=== PATIENT | female | born 1950 ===

== ENCOUNTER 2017-09-30 18:27 | Inpatient (IN) | payer MEDICARE, OTHER ==
[2017-09-30 20:17] LABS: BASO # 0.1 K/uL (0.0-0.2); EOS # 0.1 K/uL (0.0-0.7); EOS % 1.5 % (0.0-4.0); HEMOGLOBIN 12.7 g/dL (11.0-16.0); LYMPH # 2.2 K/uL (1.0-4.3); LYMPH % 23.2 % (20.0-40.0); MEAN CELL VOLUME 98.6 fL (81.0-99.0); MEAN CORPUSCULAR HEMOGLOBIN 32.9 pg (27.0-31.0); MEAN CORPUSCULAR HGB CONC 33.3 g/dL (33.0-37.0); MONO # 0.9 K/uL (0.0-0.8); MONO % 9.3 % (0.0-10.0); RBC 3.86 Mil/uL (3.80-5.20); RED CELL DISTRIBUTION WIDTH 13.7 % (11.5-14.5); WHITE BLOOD COUNT 9.3 K/uL (4.8-10.8)
[2017-09-30 20:28] LABS: ALB/GLOB RATIO 1.1 (1.0-2.1); ALBUMIN 3.9 g/dL (3.5-5.0); ALT/SGPT 42 U/L (9-52); AST/SGOT 25 U/L (14-36); BLOOD UREA NITROGEN 12 mg/dL (7-17); CALCIUM 8.1 mg/dl (8.6-10.4); GFR AFRICAN-AMERICAN > 60; GFR NON-AFRICAN AMERICAN > 60
--- NOTE | 2017-09-30 21:38 | C.PDOC ---
History Of Present Illness Pt was sent from the group home due to worsening abdominal distension. Time Seen by Provider: 09/30/17 20:10 Chief Complaint (Nursing): Abdominal Pain History Per: Patient, Family (Son), Other ([facility] records) History/Exam Limitations: clinical condition Onset/Duration Of Symptoms: Days (about 1 month), Gradual Current Symptoms Are (Timing): Worse Severity: Severe Location Of Pain/Discomfort: Diffuse Quality Of Discomfort: Other (Distension) Associated Symptoms: Constipation (?) Alleviating Factors: None Additional History Per: [facility], Prior Records Past Medical History Reviewed: Historical Data, Nursing Documentation, Vital Signs Vital Signs: Last Vital Signs Temp 98.2 F 09/30/17 18:35 Pulse 65 09/30/17 18:35 Resp 20 09/30/17 18:35 BP 110/63 09/30/17 18:35 Pulse Ox 98 09/30/17 21:39 - Medical History PMH: Dementia, Depression (major), Seizures Other Surgeries: Brain surgery due to aneurysm. PEG tube. Family History: States: Unknown Family Hx - Social History Hx Alcohol Use: No Hx Substance Use: No - Immunization History Hx Tetanus Toxoid Vaccination: No Hx Influenza Vaccination: No Hx Pneumococcal Vaccination: No Review Of Systems Review Of Systems: ROS cannot be obtained secondary to pt's inabilty to answer questions. Physical Exam - Physical Exam Appears: No Acute Distress, Confused (baseline), Chronically Ill Skin: Normal Color, Warm, Dry Head: Atraumatic Eye(s): bilateral: PERRL Neck: Normal ROM, Supple Cardiovascular: Rhythm Regular Respiratory: Normal Breath Sounds, No Accessory Muscle Use Gastrointestinal/Abdominal: Distention, Other (PEG tube in place) Extremity: Normal ROM Disoriented To: Person, Place, Time ED Course And Treatment - Laboratory Results Result Diagrams: 09/30/17 20:14 09/30/17 20:14 Lab Interpretation: No Acute Changes O2 Sat by Pulse Oximetry: 98 Pulse Ox Interpretation: Normal Progress Note: Pt had and outpt CT scan 2 days ago that showed fluid filled recto-sigmoid region with massive gaseous distension of the colon. Disposition Discussed With : Mat Lo (Covering) Comment: He accepted pt on his service. Doctor Will See Patient In The: Hospital Counseled Patient/Family Regarding: Studies Performed, Diagnosis - Disposition Disposition: HOSPITALIZED Disposition Time: 21:41 Condition: FAIR - Clinical Impression Clinical Impression: Abdominal distension, Colon distention
[2017-09-30] MEDS ORDERED: Sodium Chloride 0.9% 1,000 ML IV ONE (21:50)
[2017-09-30] MEDS ORDERED: Sodium Chloride 0.9% 1,000 ML ONE (22:57)
[2017-10-01] MEDS ORDERED: Acetaminophen 650mg/20.3ml solution UD GT PRN (01:11)
[2017-10-01] MEDS ORDERED: Magnesium Hydroxide Susp 30 ml UD GT PRN (01:11)
[2017-10-01] MEDS: Sodium Chloride 0.9% 1,000 ML IV SCH ×2 (09:00→20:12)
[2017-10-01] MEDS ORDERED: Sodium Chloride 0.9% 1,000 ML ONE (09:14)
--- NOTE | 2017-10-01 09:23 | CP.PCM.CON ---
<Lamont Sargent - Last Filed: 10/01/17 14:00> History of Present Illness - History of Present Illness History of Present Illness: General Surgery Note for Dr. Ramsey Reason for consult: abdominal pain, dilated colon on previous CT 67 F with PMH that includes s/p cva with residual r hemiparesis and difficulty swallowing s/p PEG tube presents to [facility] ED for complaint of abdominal pain. Patient is poor historian only answering questions by shaking head and saying no so history was provided by her son who was at bedside. As per son, patient has been having pain and distention in her abdomen for about 1 month. He reports that pain has been gradually getting worse. He states patient had CT abdomen/pelvis 2 days ago which showed distention of her colon. He states that her pain is severe and located diffusely in her abdomen. ROS unobtainable due to clinical condition and lack of cooperation. PMH: s/p cva with residual r hemiparesis and difficulty swallowing, Dementia, Depression, Seizures, history of brain aneurysm Meds: As per EMR Allergy: NKDA PSH: PEG feeding tube, surgery fro brain aneurysm FH: unknown Social: As per son, denies EtOH/illicit drug use in past Review of Systems - Review of Systems Systems not reviewed;Unavailable: Acuity of Condition, Uncooperative Past Patient History - Past Social History Smoking Status: Never Smoked - NEUROLOGICAL Hx Dementia: Yes Hx Seizures: Yes - INTEGUMENTARY Other/Comment: cellulitis - GASTROINTESTINAL Other/Comment: gastrostomy - PSYCHIATRIC Hx Depression: Yes (major) Hx Substance Use: No - ANESTHESIA Hx Anesthesia: No Hx Anesthesia Reactions: No Meds Allergies/Adverse Reactions: Allergies Allergy/AdvReac Type Severity Reaction Status Date / Time No Known Allergies Allergy Unverified 09/30/17 20:11 - Medications Medications: Current Medications Acetaminophen (Tylenol 650mg/20.3ml Solution Ud) 650 mg GT Q4H PRN PRN Reason: Pain, Mild (1-3) Amlodipine Besylate (Norvasc) 5 mg GT DAILY [facility] Aspirin (Aspirin Chewable) 81 mg GT DAILY [facility] Donepezil HCl (Aricept) 5 mg GT HS [facility] Sodium Chloride (Sodium Chloride 0.9%) 1,000 mls @ 100 mls/hr IV .Q10H [facility] Levetiracetam (Keppra) 500 mg GT BID [facility] Magnesium Hydroxide (Milk Of Magnesia) 30 ml GT Q24H PRN PRN Reason: Constipation Sertraline HCl (Zoloft) 50 mg PO DAILY [facility] Physical Exam - Constitutional Appears: No Acute Distress, Chronically Ill (s/p cva) - Head Exam Head Exam: ATRAUMATIC, NORMOCEPHALIC - Eye Exam Eye Exam: EOMI, Normal appearance Pupil Exam: PERRL - ENT Exam ENT Exam: Mucous Membranes Moist - Respiratory Exam Respiratory Exam: NORMAL BREATHING PATTERN - Cardiovascular Exam Cardiovascular Exam: REGULAR RHYTHM - GI/Abdominal Exam GI & Abdominal Exam: Distended, Guarding (voluntary), Soft, Tenderness (diffuse) . absent: Firm, Rebound, Rigid Additional comments: PEG tube in place - Extremities Exam Additional comments: s/p cva with residual r hemiparesis - Neurological Exam Neurological exam: Alert Additional comments: patient is alert, awake but was not answering all questions, mainly saying no s/p cva with residual r hemiparesis Full neuro exam not evaluated due to patient being uncooperative - Psychiatric Exam Psychiatric exam: Agitated - Skin Skin Exam: Dry, Intact, Normal Color, Warm Results - Vital Signs Recent Vital Signs: Last Vital Signs Temp 98.3 F 10/01/17 06:25 Pulse 68 10/01/17 06:25 Resp 16 10/01/17 06:25 BP 124/68 10/01/17 06:25 Pulse Ox 95 10/01/17 06:25 - Labs Result Diagrams: 09/30/17 20:14 09/30/17 20:14 Labs: Laboratory Results - last 24 hr 09/30/17 09/30/17 20:14 20:14 WBC 9.3 RBC 3.86 Hgb 12.7 Hct 38.1 MCV 98.6 MCH 32.9 H MCHC 33.3 RDW 13.7 Plt Count 225 MPV 10.0 Neut % (Auto) 65.0 Lymph % (Auto) 23.2 [place] % (Auto) 9.3 Eos % (Auto) 1.5 Baso % (Auto) 1.0 Neut # 6.0 Lymph # 2.2 [place] # 0.9 H Eos # 0.1 Baso # 0.1 Sodium 134 Potassium 3.4 L Chloride 97 L Carbon Dioxide 28 Anion Gap 11 BUN 12 Creatinine 0.5 L Est GFR ( Amer) > 60 Est GFR (Non-Af Amer) > 60 Random Glucose 93 Calcium 8.1 L Total Bilirubin 0.5 AST 25 ALT 42 Alkaline Phosphatase 65 Total Protein 7.4 Albumin 3.9 Globulin 3.5 Albumin/Globulin Ratio 1.1 Assessment & Plan - Assessment and Plan (Free Text) Plan: 67 F with abdominal pain and dilated colon on CT from 2 days ago -NPO -NG tube and PEG tube to wall suction -IV fluids -Analgesics/Anti-emetics PRN -DVT/GI ppx -Serial abdominal exams -Monitor for bowel function -Discussed with Dr. Braulio Sargent PGY1 <Jorge Ramsey B - Last Filed: 10/05/17 19:42> Meds - Medications Medications: Current Medications Acetaminophen (Tylenol 650mg/20.3ml Solution Ud) 650 mg GT Q4H PRN PRN Reason: Pain, Mild (1-3) Amlodipine Besylate (Norvasc) 5 mg GT DAILY [facility] Last Admin: 10/05/17 10:41 Dose: Not Given Donepezil HCl (Aricept) 5 mg GT HS [facility] Last Admin: 10/04/17 22:25 Dose: Not Given Metronidazole (Flagyl) 500 mg in 100 mls @ 100 mls/hr IVPB Q8 [facility] Last Admin: 10/05/17 14:00 Dose: 100 mls/hr Ceftriaxone Sodium 1 gm/ (Sodium Chloride) 100 mls @ 100 mls/hr IVPB Q12H [facility] Last Admin: 10/05/17 17:42 Dose: 100 mls/hr Levetiracetam 500 mg/ Sodium (Chloride) 105 mls @ 420 mls/hr IVPB Q12H [facility] Last Admin: 10/05/17 10:40 Dose: 420 mls/hr Dextrose/Sodium Chloride (Dextrose 5%/0.45% Ns 1000 Ml) 1,000 mls @ 80 mls/hr IV .[id number] [facility] Last Admin: 10/05/17 13:38 Dose: 80 mls/hr Levetiracetam (Keppra) 500 mg GT BID [facility] Last Admin: 10/02/17 12:00 Dose: Not Given Magnesium Hydroxide (Milk Of Magnesia) 30 ml GT Q24H PRN PRN Reason: Constipation Pantoprazole Sodium (Protonix Inj) 40 mg IVP DAILY [facility] Last Admin: 10/05/17 10:18 Dose: 40 mg Potassium Chloride (Potassium Chloride Oral Soln) 40 meq PEG DAILY [facility] Last Admin: 10/05/17 15:27 Dose: 40 meq Sertraline HCl (Zoloft) 50 mg PO DAILY [facility] Last Admin: 10/05/17 10:42 Dose: Not Given Vitamin A (Vitamin A & D Oint Ud Foilpak) 0.5 ea TOP Q4 [facility] Last Admin: 10/05/17 17:43 Dose: 0.5 ea Results - Vital Signs Recent Vital Signs: Last Vital Signs Temp 97.5 F L 10/05/17 16:00 Pulse 78 10/05/17 16:00 Resp 20 10/05/17 16:00 BP 131/51 L 10/05/17 16:00 Pulse Ox 96 10/05/17 16:00 - Labs Result Diagrams: 10/05/17 11:28 10/05/17 11:28 Labs: Laboratory Results - last 24 hr 10/05/17 10/05/17 11:28 11:28 WBC 5.4 RBC 3.66 L Hgb 12.1 Hct 35.7 MCV 97.7 MCH 33.1 H MCHC 33.9 RDW 13.7 Plt Count 214 MPV 10.1 Sodium 137 Potassium 2.7 L Chloride 105 Carbon Dioxide 26 Anion Gap 8 L BUN < 2 L Creatinine 0.5 L Est GFR ( Amer) > 60 Est GFR (Non-Af Amer) > 60 Random Glucose 134 H Calcium 7.0 L Total Bilirubin 0.3 AST 36 D ALT 38 Alkaline Phosphatase 45 Total Protein 5.8 L Albumin 3.0 L Globulin 2.8 Albumin/Globulin Ratio 1.1 Attending/Attestation - Attestation I have personally seen and examined this patient.: Yes I have fully participated in the care of the patient.: Yes I have reviewed all pertinent clinical information: Yes Notes (Text): Pt was seen and examined at bedside Agree with above note and assessment Pt with Abdominal distention and tenderness Abdomen : Tender, Tympanic and distended Labs and radiology reviewed GI consult Rectal tube placement C/w current mx Plan d.w primary team in detail Risk and benefit explained in detail
[2017-10-01] MEDS: levETIRAcetam 100 mg/ml (5ml) Oral Syringe GT SCH ×2 (10:00→18:31)
--- NOTE | 2017-10-01 13:35 | CP.PCM.HP ---
Past Patient History - Past Social History Smoking Status: Never Smoked - NEUROLOGICAL Hx Dementia: Yes Hx Seizures: Yes - INTEGUMENTARY Other/Comment: cellulitis - GASTROINTESTINAL Other/Comment: gastrostomy - PSYCHIATRIC Hx Depression: Yes (major) Hx Substance Use: No - ANESTHESIA Hx Anesthesia: No Hx Anesthesia Reactions: No Meds Allergies/Adverse Reactions: Allergies Allergy/AdvReac Type Severity Reaction Status Date / Time No Known Allergies Allergy Unverified 09/30/17 20:11 Results - Vital Signs Recent Vital Signs: Last Vital Signs Temp 97.7 F 10/01/17 13:08 Pulse 67 10/01/17 13:08 Resp 18 10/01/17 13:08 BP 121/68 10/01/17 13:08 Pulse Ox 97 10/01/17 13:08 - Labs Result Diagrams: 09/30/17 20:14 09/30/17 20:14 Labs: Laboratory Results - last 24 hr 09/30/17 09/30/17 20:14 20:14 WBC 9.3 RBC 3.86 Hgb 12.7 Hct 38.1 MCV 98.6 MCH 32.9 H MCHC 33.3 RDW 13.7 Plt Count 225 MPV 10.0 Neut % (Auto) 65.0 Lymph % (Auto) 23.2 [place] % (Auto) 9.3 Eos % (Auto) 1.5 Baso % (Auto) 1.0 Neut # 6.0 Lymph # 2.2 [place] # 0.9 H Eos # 0.1 Baso # 0.1 Sodium 134 Potassium 3.4 L Chloride 97 L Carbon Dioxide 28 Anion Gap 11 BUN 12 Creatinine 0.5 L Est GFR ( Amer) > 60 Est GFR (Non-Af Amer) > 60 Random Glucose 93 Calcium 8.1 L Total Bilirubin 0.5 AST 25 ALT 42 Alkaline Phosphatase 65 Total Protein 7.4 Albumin 3.9 Globulin 3.5 Albumin/Globulin Ratio 1.1
[2017-10-01] MEDS: metroNIDAZOLE IV 500 mg/100 ml 500 MG/100 ML BAG IVPB SCH ×2 (18:31→22:14)
[2017-10-02] MEDS: metroNIDAZOLE IV 500 mg/100 ml 500 MG/100 ML BAG IVPB SCH ×3 (05:13→22:49)
[2017-10-02 08:04] VITALS: RESP 20
--- NOTE | 2017-10-02 08:07 | CON ---
DATE: 10/01/2017 HISTORY OF PRESENT ILLNESS: I was called for a GI consultation by the admitting medical team as well as the ER physician. Patient is seen and fully examined on 10/01/2017, as requested by the admitting MD, seen and examined in the presence of her son as well as the nursing staff in the emergency room. The entire chart is reviewed including, but not limited to the most recent lab and radiology study results, current and previous medication lists, current and previous medical events, allergy to medication list as well as all the available current and the previous medical records. Case was discussed with the staff at length. HISTORY OF PRESENT ILLNESS: This is a 67-year-old female who was admitted to the hospital from a [facility] due to abdominal distention, more bowel movements , abdominal pain and tenderness, but no reported chest pain or palpitation. According to the record and family members, the last bowel movement reported to be about 5 to 6 days ago. It has to be mentioned that due to patient's dementia, all the information obtained from old record, fdc staff nurse as well as family members at bedside. PAST MEDICAL HISTORY: Including, but not limited to: 1. Seizure disorder. 2. Major depression. 3. Recently reported dementia. 4. Brain aneurysm, treated surgically. 5. Dysphagia, malnutrition and status post PEG insertion before. FAMILY HISTORY: Unknown. SOCIAL HISTORY: No reported recent history of cigarette smoking or alcohol intake. ALLERGY TO MEDICATIONS: UNCLEAR. CURRENT MEDICATIONS: Medication list was reviewed post admission. LABORATORY DATA: After being admitted to the hospital, patient's initial blood workup showed low potassium of 3.4, low creatinine of 0.5 with normal hemoglobin and hematocrit and normal white blood cells. It has to be mentioned that the patient initially was seen also by the surgical services coordinator per record. Extremities without significant clubbing, cyanosis, or edema. No reported new neurological deficits, sensory or motor. It has to be mentioned that the patient still has a PEG tube with clear distention and hypoactive bowel sounds. PEG tube was as per my order opened against gravity for the patient to be decompressed due to the reported abnormal CAT scan of abdomen and pelvis. In the official report of CAT scan, the abdomen and pelvis are seen indicative of possible . PHYSICAL EXAMINATION: GENERAL: A 67-year-old female, nonverbal at the time she was seen by me. VITAL SIGNS: Afebrile with a pulse of 68, respiratory 20 to 22, blood pressure 116/66. HEENT: Showed mildly pale and dry mucous membrane. LYMPH NODES: No lymphadenitis or lymphadenopathy. LUNGS: A few scattered crepitation. Decreased air entry at the bases. HEART: Positive S1 and S2. ABDOMEN: Soft. Bowel sounds are present. PEG tube is in place with abdominal distention from with hypoactive bowel sounds. EXTREMITIES: Lower extremity with mild edematous changes. No clubbing or cyanosis. NEUROLOGIC: Again, no reported new neurological deficits, sensory or motor. IMPRESSION: 1. Abnormal CAT scan of the abdomen and pelvis. The possibility of occult lower gastrointestinal mass lesion should be ruled in or out versus less likely fecal impaction. 2. Dilated large bowel by radiological study results, again the possibility of fecal impaction was raised. 3. Past medical history including, but not limited to, depression, seizure disorder, brain surgery, renal insufficiency. SUGGESTIONS: 1. Agree with your plan. 2. Open PEG tube to be against gravity. 3. Repeat sectional abdominal and pelvic CAT scan. 4. Complete stool analysis. 5. Rectal tube. 6. Cancer markers including CEA, CA 19-9 as well as CA125. 7. Proton pump inhibitor IV. 8. Hold any PEG feeding for now, and the patient will need in the meantime central hyperalimentation. Then subsequently, colonoscopy post cleanings, only as needed, otherwise close observation to follow. 9. . 10. conservative treatment is preferred at this time. Thank you for letting me participate in your patient's case management. Further recommendation to follow. Lidia Lam MD
[2017-10-02] MEDS: levETIRAcetam 500 MG in Sodium Chloride 0.9% 100 ML IVPB SCH ×2 (11:58→23:46)
[2017-10-02] MEDS: levETIRAcetam 100 mg/ml (5ml) Oral Syringe GT SCH (12:00)
--- NOTE | 2017-10-02 12:26 | CP.PCM.PN ---
Subjective - Date & Time of Evaluation Date of Evaluation: 10/02/17 Time of Evaluation: 12:26 Objective - Vital Signs/Intake and Output Vital Signs (last 24 hours): Temp Pulse Resp BP Pulse Ox 97.6 F 65 20 118/61 96 10/02/17 08:01 10/02/17 08:01 10/02/17 08:01 10/02/17 08:01 10/02/17 08:01 Intake and Output: 10/02/17 10/02/17 06:59 18:59 Output Total 250 Balance -250 - Medications Medications: Current Medications Acetaminophen (Tylenol 650mg/20.3ml Solution Ud) 650 mg GT Q4H PRN PRN Reason: Pain, Mild (1-3) Amlodipine Besylate (Norvasc) 5 mg GT DAILY [facility] Last Admin: 10/02/17 12:00 Dose: Not Given Aspirin (Aspirin Chewable) 81 mg GT DAILY [facility] Last Admin: 10/02/17 12:00 Dose: Not Given Donepezil HCl (Aricept) 5 mg GT HS [facility] Last Admin: 10/01/17 22:10 Dose: Not Given Sodium Chloride (Sodium Chloride 0.9%) 1,000 mls @ 100 mls/hr IV .Q10H [facility] Last Admin: 10/01/17 20:12 Dose: 100 mls/hr Metronidazole (Flagyl) 500 mg in 100 mls @ 100 mls/hr IVPB Q8 [facility] Last Admin: 10/02/17 05:13 Dose: 100 mls/hr Ceftriaxone Sodium 1 gm/ (Sodium Chloride) 100 mls @ 100 mls/hr IVPB Q12H [facility] Last Admin: 10/02/17 05:15 Dose: 100 mls/hr Levetiracetam 500 mg/ Sodium (Chloride) 105 mls @ 420 mls/hr IVPB Q12H [facility] Last Admin: 10/02/17 11:58 Dose: 420 mls/hr Levetiracetam (Keppra) 500 mg GT BID [facility] Last Admin: 10/02/17 12:00 Dose: Not Given Magnesium Hydroxide (Milk Of Magnesia) 30 ml GT Q24H PRN PRN Reason: Constipation Pantoprazole Sodium (Protonix Inj) 40 mg IVP DAILY [facility] Last Admin: 10/02/17 11:22 Dose: 40 mg Sertraline HCl (Zoloft) 50 mg PO DAILY [facility] Last Admin: 10/02/17 12:01 Dose: Not Given - Labs Labs: 09/30/17 20:14 09/30/17 20:14
--- NOTE | 2017-10-02 14:02 | PN ---
DATE: LOCATION: [facility], bed A. SUBJECTIVE: This is a 67-year-old female, seen in rounds for GI consultation yesterday. The entire chart is reviewed including, but not limited to the most recent lab and radiology study results, current and the previous medication list, current and the previous medical events. Case discussed with the staff. The patient with period of confusion and mild disorientation, was still with mildly distended abdomen despite the rectal tube is in place and opened PEG tube against gravity. No reported active bleeding. PHYSICAL EXAMINATION: GENERAL: A 67-year-old female. VITAL SIGNS: Afebrile, with pulse of 66, respiratory rate 20 to 22, blood pressure 122/64. HEENT: Showed mildly pale, dry oral mucous membrane. Nonicteric sclerae. LYMPH NODES: No lymphadenitis or lymphadenopathy. LUNGS: With a few scattered crepitation. Decreased air entry at bases. HEART: Positive S1 and S2. ABDOMEN: PEG tube is in place, opened to gravity, with mild to moderate distention. Bowel sounds are hypoactive. No mass or organomegaly. RECTAL: Rectal tube is in place, with yellowish soft fecal material. NEUROLOGIC: No reported significant neurological deficits, new, motor or sensory. LABORATORY DATA: The most recent lab results is seen indicative of normal CBC, with low potassium, low creatinine and low calcium. No radiology study results . IMPRESSION: 1. Abdominal distention with possible distal large bowel obstruction versus ileus formation. 2. Known history of dementia with depression as well as seizure disorder by record. 3. Status post percutaneous endoscopic gastrostomy insertion. 4. Electrolyte imbalance with hypokalemia. SUGGESTIONS: 1. Agree with your plan. 2. Flat and upright abdominal x-ray, . 3. Rehydration. 4. Cancer markers. Further evaluation to follow and the patient may need endoscopic evaluation of the lower GI tract pending the outcome of the radiology study results. Lidia Lam MD
--- NOTE | 2017-10-02 14:34 | CP.PCM.PN ---
<Lamont Sargent - Last Filed: 10/02/17 15:37> Subjective - Date & Time of Evaluation Date of Evaluation: 10/02/17 Time of Evaluation: 12:00 - Subjective Subjective: General Surgery Note for Dr. Ramsey Patient seen and examined at bedside. No acute event overnight. Patient has rectal tube in place. Patient still has some pain. ROS unobtainable due to clinical status. Objective - Vital Signs/Intake and Output Vital Signs (last 24 hours): Temp Pulse Resp BP Pulse Ox 97.6 F 65 20 118/61 96 10/02/17 08:01 10/02/17 08:01 10/02/17 08:01 10/02/17 08:01 10/02/17 08:01 Intake and Output: 10/02/17 10/02/17 06:59 18:59 Output Total 250 Balance -250 - Medications Medications: Current Medications Acetaminophen (Tylenol 650mg/20.3ml Solution Ud) 650 mg GT Q4H PRN PRN Reason: Pain, Mild (1-3) Amlodipine Besylate (Norvasc) 5 mg GT DAILY [facility] Last Admin: 10/02/17 12:00 Dose: Not Given Aspirin (Aspirin Chewable) 81 mg GT DAILY [facility] Last Admin: 10/02/17 12:00 Dose: Not Given Donepezil HCl (Aricept) 5 mg GT HS [facility] Last Admin: 10/01/17 22:10 Dose: Not Given Sodium Chloride (Sodium Chloride 0.9%) 1,000 mls @ 100 mls/hr IV .Q10H [facility] Last Admin: 10/01/17 20:12 Dose: 100 mls/hr Metronidazole (Flagyl) 500 mg in 100 mls @ 100 mls/hr IVPB Q8 [facility] Last Admin: 10/02/17 13:30 Dose: 100 mls/hr Ceftriaxone Sodium 1 gm/ (Sodium Chloride) 100 mls @ 100 mls/hr IVPB Q12H [facility] Last Admin: 10/02/17 05:15 Dose: 100 mls/hr Levetiracetam 500 mg/ Sodium (Chloride) 105 mls @ 420 mls/hr IVPB Q12H [facility] Last Admin: 10/02/17 11:58 Dose: 420 mls/hr Levetiracetam (Keppra) 500 mg GT BID [facility] Last Admin: 10/02/17 12:00 Dose: Not Given Magnesium Hydroxide (Milk Of Magnesia) 30 ml GT Q24H PRN PRN Reason: Constipation Pantoprazole Sodium (Protonix Inj) 40 mg IVP DAILY [facility] Last Admin: 10/02/17 11:22 Dose: 40 mg Sertraline HCl (Zoloft) 50 mg PO DAILY [facility] Last Admin: 10/02/17 12:01 Dose: Not Given - Labs Labs: 09/30/17 20:14 09/30/17 20:14 - Constitutional Appears: No Acute Distress - Head Exam Head Exam: ATRAUMATIC, NORMOCEPHALIC - Eye Exam Eye Exam: Normal appearance - ENT Exam ENT Exam: Mucous Membranes Moist - Respiratory Exam Respiratory Exam: NORMAL BREATHING PATTERN - Cardiovascular Exam Cardiovascular Exam: REGULAR RHYTHM - GI/Abdominal Exam GI & Abdominal Exam: Distended (mild), Soft, Tenderness Additional comments: PEG TUBE in place - Neurological Exam Neurological Exam: Alert, Awake Additional comments: s/p cva with residual hemiparesis - Psychiatric Exam Psychiatric exam: Flat Affect - Skin Skin Exam: Dry, Intact, Normal Color, Warm Assessment and Plan - Assessment and Plan (Free Text) Plan: 67 F with abdominal pain and dilated colon on previous CT -NPO -IV fluids -Analgesics/Anti-emetics PRN -DVT/GI ppx -Serial abdominal exams -Monitor for bowel function -Discussed with Dr. Braulio Sargent PGY1 <Jorge Ramsey - Last Filed: 10/05/17 19:43> Objective - Vital Signs/Intake and Output Vital Signs (last 24 hours): Temp Pulse Resp BP Pulse Ox 97.5 F L 78 20 131/51 L 96 10/05/17 16:00 10/05/17 16:00 10/05/17 16:00 10/05/17 16:00 10/05/17 16:00 Intake and Output: 10/05/17 10/06/17 18:59 06:59 Intake Total 640 Output Total 100 Balance 540 - Medications Medications: Current Medications Acetaminophen (Tylenol 650mg/20.3ml Solution Ud) 650 mg GT Q4H PRN PRN Reason: Pain, Mild (1-3) Amlodipine Besylate (Norvasc) 5 mg GT DAILY [facility] Last Admin: 10/05/17 10:41 Dose: Not Given Donepezil HCl (Aricept) 5 mg GT HS [facility] Last Admin: 10/04/17 22:25 Dose: Not Given Metronidazole (Flagyl) 500 mg in 100 mls @ 100 mls/hr IVPB Q8 [facility] Last Admin: 10/05/17 14:00 Dose: 100 mls/hr Ceftriaxone Sodium 1 gm/ (Sodium Chloride) 100 mls @ 100 mls/hr IVPB Q12H [facility] Last Admin: 10/05/17 17:42 Dose: 100 mls/hr Levetiracetam 500 mg/ Sodium (Chloride) 105 mls @ 420 mls/hr IVPB Q12H [facility] Last Admin: 10/05/17 10:40 Dose: 420 mls/hr Dextrose/Sodium Chloride (Dextrose 5%/0.45% Ns 1000 Ml) 1,000 mls @ 80 mls/hr IV .[id number] [facility] Last Admin: 10/05/17 13:38 Dose: 80 mls/hr Levetiracetam (Keppra) 500 mg GT BID [facility] Last Admin: 10/02/17 12:00 Dose: Not Given Magnesium Hydroxide (Milk Of Magnesia) 30 ml GT Q24H PRN PRN Reason: Constipation Pantoprazole Sodium (Protonix Inj) 40 mg IVP DAILY [facility] Last Admin: 10/05/17 10:18 Dose: 40 mg Potassium Chloride (Potassium Chloride Oral Soln) 40 meq PEG DAILY [facility] Last Admin: 10/05/17 15:27 Dose: 40 meq Sertraline HCl (Zoloft) 50 mg PO DAILY [facility] Last Admin: 10/05/17 10:42 Dose: Not Given Vitamin A (Vitamin A & D Oint Ud Foilpak) 0.5 ea TOP Q4 [facility] Last Admin: 10/05/17 17:43 Dose: 0.5 ea - Labs Labs: 10/05/17 11:28 10/05/17 11:28 Attending/Attestation - Attestation I have personally seen and examined this patient.: Yes I have fully participated in the care of the patient.: Yes I have reviewed all pertinent clinical information, including history, physical exam and plan: Yes Notes (Text): Pt was seen and examined at bedside Agree with above note and assessment Pt with Abdominal distention and tenderness Rectal tube placement Correct electrolytes C.w current mx GI consult appreciated Plan d.w primary team in detail We will f.u
[2017-10-02] MEDS: Dextrose 5%/0.45% NS 1,000 ML IV SCH (16:12)
[2017-10-02 17:02] LABS: HEMOGLOBIN 12.3 g/dL (11.0-16.0); MEAN CELL VOLUME 98.2 fL (81.0-99.0); MEAN CORPUSCULAR HEMOGLOBIN 32.7 pg (27.0-31.0); MEAN CORPUSCULAR HGB CONC 33.3 g/dL (33.0-37.0); MEAN PLATELET VOLUME 10.2 fL (7.2-11.7); RBC 3.74 Mil/uL (3.80-5.20); RED CELL DISTRIBUTION WIDTH 13.6 % (11.5-14.5); WHITE BLOOD COUNT 7.8 K/uL (4.8-10.8)
[2017-10-02 17:37] LABS: ALB/GLOB RATIO 1.1 (1.0-2.1); ALBUMIN 3.4 g/dL (3.5-5.0); ALT/SGPT 31 U/L (9-52); AST/SGOT 28 U/L (14-36); BLOOD UREA NITROGEN 6 mg/dL (7-17); CALCIUM 7.9 mg/dl (8.6-10.4); GFR AFRICAN-AMERICAN > 60; GFR NON-AFRICAN AMERICAN > 60
[2017-10-03] MEDS: Dextrose 5%/0.45% NS 1,000 ML IV SCH ×3 (01:24→21:57)
[2017-10-03] MEDS: metroNIDAZOLE IV 500 mg/100 ml 500 MG/100 ML BAG IVPB SCH ×3 (05:55→21:55)
[2017-10-03 07:53] LABS: BASO % 0.5 % (0.0-2.0); EOS # 0.1 K/uL (0.0-0.7); EOS % 1.1 % (0.0-4.0); HEMOGLOBIN 12.2 g/dL (11.0-16.0); LYMPH # 1.5 K/uL (1.0-4.3); LYMPH % 19.4 % (20.0-40.0); MEAN CELL VOLUME 97.5 fL (81.0-99.0); MEAN CORPUSCULAR HEMOGLOBIN 33.5 pg (27.0-31.0); MEAN CORPUSCULAR HGB CONC 34.3 g/dL (33.0-37.0); MEAN PLATELET VOLUME 10.3 fL (7.2-11.7); MONO # 0.7 K/uL (0.0-0.8); MONO % 9.7 % (0.0-10.0); NEUT # 5.3 K/uL (1.8-7.0); NEUT % 69.3 % (50.0-75.0); NRBC % 0.1 % (0.0-2.0); RBC 3.65 Mil/uL (3.80-5.20); RED CELL DISTRIBUTION WIDTH 13.4 % (11.5-14.5); WHITE BLOOD COUNT 7.7 K/uL (4.8-10.8)
[2017-10-03 08:32] LABS: BLOOD UREA NITROGEN 3 mg/dL (7-17); CALCIUM 7.8 mg/dl (8.6-10.4); GFR AFRICAN-AMERICAN > 60; GFR NON-AFRICAN AMERICAN > 60; MAGNESIUM 1.8 mg/dL (1.6-2.3)
[2017-10-03] MEDS: Potassium Chloride 20 mEq/15 ml LIQ UD JT SCH (10:12)
[2017-10-03] MEDS: levETIRAcetam 500 MG in Sodium Chloride 0.9% 100 ML IVPB SCH (10:19)
--- NOTE | 2017-10-03 11:30 | CP.PCM.PN ---
<EdwardEris - Last Filed: 10/03/17 12:30> Subjective - Date & Time of Evaluation Date of Evaluation: 10/03/17 Time of Evaluation: 11:28 - Subjective Subjective: Surgery Pt s&e. NAEON. Rectal tube in place. Objective - Vital Signs/Intake and Output Vital Signs (last 24 hours): Temp Pulse Resp BP Pulse Ox 98.3 F 76 20 149/72 98 10/03/17 09:00 10/03/17 09:00 10/03/17 09:00 10/03/17 09:00 10/03/17 09:00 Intake and Output: 10/03/17 10/03/17 06:59 18:59 Intake Total 1705 Output Total 250 Balance 1455 - Medications Medications: Current Medications Acetaminophen (Tylenol 650mg/20.3ml Solution Ud) 650 mg GT Q4H PRN PRN Reason: Pain, Mild (1-3) Amlodipine Besylate (Norvasc) 5 mg GT DAILY [facility] Last Admin: 10/03/17 10:12 Dose: Not Given Aspirin (Aspirin Chewable) 81 mg GT DAILY [facility] Last Admin: 10/03/17 10:11 Dose: Not Given Donepezil HCl (Aricept) 5 mg GT HS [facility] Last Admin: 10/02/17 22:49 Dose: Not Given Metronidazole (Flagyl) 500 mg in 100 mls @ 100 mls/hr IVPB Q8 [facility] Last Admin: 10/03/17 05:55 Dose: 100 mls/hr Ceftriaxone Sodium 1 gm/ (Sodium Chloride) 100 mls @ 100 mls/hr IVPB Q12H [facility] Last Admin: 10/03/17 05:02 Dose: 100 mls/hr Levetiracetam 500 mg/ Sodium (Chloride) 105 mls @ 420 mls/hr IVPB Q12H [facility] Last Admin: 10/03/17 10:19 Dose: 420 mls/hr Dextrose/Sodium Chloride (Dextrose 5%/0.45% Ns 1000 Ml) 1,000 mls @ 100 mls/hr IV .Q10H [facility] Last Admin: 10/03/17 01:24 Dose: 100 mls/hr Potassium Chloride (Potassium Chloride 20 Meq/100 Ml) 20 meq in 100 mls @ 50 mls/hr IVPB Q2 [facility] Stop: 10/03/17 15:59 Last Admin: 10/03/17 10:08 Dose: 50 mls/hr Levetiracetam (Keppra) 500 mg GT BID [facility] Last Admin: 10/02/17 12:00 Dose: Not Given Magnesium Hydroxide (Milk Of Magnesia) 30 ml GT Q24H PRN PRN Reason: Constipation Pantoprazole Sodium (Protonix Inj) 40 mg IVP DAILY [facility] Last Admin: 10/03/17 10:19 Dose: 40 mg Potassium Chloride (Potassium Chloride Oral Soln) 20 meq JT DAILY [facility] Last Admin: 10/03/17 10:12 Dose: Not Given Sertraline HCl (Zoloft) 50 mg PO DAILY [facility] Last Admin: 10/03/17 10:12 Dose: Not Given - Labs Labs: 10/03/17 07:35 10/03/17 07:35 - Constitutional Appears: No Acute Distress - Head Exam Head Exam: ATRAUMATIC, NORMAL INSPECTION, NORMOCEPHALIC - Eye Exam Eye Exam: EOMI, Normal appearance, PERRL Pupil Exam: NORMAL ACCOMODATION, PERRL - ENT Exam ENT Exam: Mucous Membranes Moist, Normal Exam - Neck Exam Neck Exam: Full ROM, Normal Inspection. absent: Lymphadenopathy - Respiratory Exam Respiratory Exam: NORMAL BREATHING PATTERN - Cardiovascular Exam Cardiovascular Exam: REGULAR RHYTHM, +S1, +S2. absent: Murmur - GI/Abdominal Exam GI & Abdominal Exam: Soft, Tenderness, Normal Bowel Sounds. absent: Distended, Firm Additional comments: Jejunostomy in place. - Rectal Exam Additional comments: Rectal tube - Exam Exam: NORMAL INSPECTION - Extremities Exam Extremities Exam: Normal Capillary Refill, Normal Inspection. absent: Full ROM , Joint Swelling, Pedal Edema - Back Exam Back Exam: NORMAL INSPECTION - Neurological Exam Neurological Exam: Awake. absent: Alert, Normal Gait, Oriented x3 - Skin Skin Exam: Dry, Intact, Normal Color, Warm Assessment and Plan - Assessment and Plan (Free Text) Assessment: pseudoobstruction -Rectal tube -F/U AXR reading -GI on board DW Dr. Ramsey <Jorge Ramsey - Last Filed: 10/05/17 19:45> Objective - Vital Signs/Intake and Output Vital Signs (last 24 hours): Temp Pulse Resp BP Pulse Ox 97.5 F L 78 20 131/51 L 96 10/05/17 16:00 01/20/18 16:00 10/05/17 16:00 10/05/17 16:00 10/05/17 16:00 Intake and Output: 10/05/17 10/06/17 18:59 06:59 Intake Total 640 Output Total 100 Balance 540 - Medications Medications: Current Medications Acetaminophen (Tylenol 650mg/20.3ml Solution Ud) 650 mg GT Q4H PRN PRN Reason: Pain, Mild (1-3) Amlodipine Besylate (Norvasc) 5 mg GT DAILY [facility] Last Admin: 10/05/17 10:41 Dose: Not Given Donepezil HCl (Aricept) 5 mg GT HS [facility] Last Admin: 10/04/17 22:25 Dose: Not Given Metronidazole (Flagyl) 500 mg in 100 mls @ 100 mls/hr IVPB Q8 [facility] Last Admin: 10/05/17 14:00 Dose: 100 mls/hr Ceftriaxone Sodium 1 gm/ (Sodium Chloride) 100 mls @ 100 mls/hr IVPB Q12H [facility] Last Admin: 10/05/17 17:42 Dose: 100 mls/hr Levetiracetam 500 mg/ Sodium (Chloride) 105 mls @ 420 mls/hr IVPB Q12H [facility] Last Admin: 10/05/17 10:40 Dose: 420 mls/hr Dextrose/Sodium Chloride (Dextrose 5%/0.45% Ns 1000 Ml) 1,000 mls @ 80 mls/hr IV .[id number] [facility] Last Admin: 10/05/17 13:38 Dose: 80 mls/hr Levetiracetam (Keppra) 500 mg GT BID [facility] Last Admin: 10/02/17 12:00 Dose: Not Given Magnesium Hydroxide (Milk Of Magnesia) 30 ml GT Q24H PRN PRN Reason: Constipation Pantoprazole Sodium (Protonix Inj) 40 mg IVP DAILY [facility] Last Admin: 10/05/17 10:18 Dose: 40 mg Potassium Chloride (Potassium Chloride Oral Soln) 40 meq PEG DAILY [facility] Last Admin: 10/05/17 15:27 Dose: 40 meq Sertraline HCl (Zoloft) 50 mg PO DAILY [facility] Last Admin: 10/05/17 10:42 Dose: Not Given Vitamin A (Vitamin A & D Oint Ud Foilpak) 0.5 ea TOP Q4 [facility] Last Admin: 10/05/17 17:43 Dose: 0.5 ea - Labs Labs: 10/05/17 11:28 10/05/17 11:28 Attending/Attestation - Attestation I have personally seen and examined this patient.: Yes I have fully participated in the care of the patient.: Yes I have reviewed all pertinent clinical information, including history, physical exam and plan: Yes Notes (Text): Pt was seen and examined at bedside Agree with above note and assessment Pt is improving clinically Rectal tube C/w current mx Plan d.w primary team in detail
--- NOTE | 2017-10-03 16:54 | RAD ---
HISTORY: ABDOMINAL DIST. R/O OBSTRUCTION V/S FECAL IMPACT COMPARISON: CT abdomen and pelvis 09/28/2017 FINDINGS: BOWEL: The marked colonic distension is much less than before Supine exam is limited regarding free air assessment A central apparent bowel lobe has no gross definable haustral markings are by V like condyle von Ts. The mass appears more central than expected for the stomach BONES: Generalized osteopenia scoliosis. Patient's right proximal femur internally rotated OTHER FINDINGS: None. IMPRESSION: Marked interval decrease in the degree of prior massive colonic distention present.
[2017-10-03] MEDS: Vitamins A & D Oint UD Foilpak TOP SCH ×2 (17:00→21:00)
--- NOTE | 2017-10-03 18:45 | CP.PCM.PN ---
Subjective - Date & Time of Evaluation Date of Evaluation: 10/03/17 Time of Evaluation: 18:45 Objective - Vital Signs/Intake and Output Vital Signs (last 24 hours): Temp Pulse Resp BP Pulse Ox 97.4 F L 68 20 128/59 L 95 10/03/17 16:00 10/03/17 16:00 10/03/17 16:00 10/03/17 16:00 10/03/17 16:00 Intake and Output: 10/03/17 10/03/17 06:59 18:59 Intake Total 1705 1100 Output Total 250 0 Balance 1455 1100 - Medications Medications: Current Medications Acetaminophen (Tylenol 650mg/20.3ml Solution Ud) 650 mg GT Q4H PRN PRN Reason: Pain, Mild (1-3) Amlodipine Besylate (Norvasc) 5 mg GT DAILY [facility] Last Admin: 10/03/17 10:12 Dose: Not Given Aspirin (Aspirin Chewable) 81 mg GT DAILY [facility] Last Admin: 10/03/17 10:11 Dose: Not Given Donepezil HCl (Aricept) 5 mg GT HS [facility] Last Admin: 10/02/17 22:49 Dose: Not Given Metronidazole (Flagyl) 500 mg in 100 mls @ 100 mls/hr IVPB Q8 [facility] Last Admin: 10/03/17 14:54 Dose: 100 mls/hr Ceftriaxone Sodium 1 gm/ (Sodium Chloride) 100 mls @ 100 mls/hr IVPB Q12H [facility] Last Admin: 10/03/17 17:48 Dose: 100 mls/hr Levetiracetam 500 mg/ Sodium (Chloride) 105 mls @ 420 mls/hr IVPB Q12H [facility] Last Admin: 10/03/17 10:19 Dose: 420 mls/hr Dextrose/Sodium Chloride (Dextrose 5%/0.45% Ns 1000 Ml) 1,000 mls @ 100 mls/hr IV .Q10H [facility] Last Admin: 10/03/17 12:28 Dose: Not Given Levetiracetam (Keppra) 500 mg GT BID [facility] Last Admin: 10/02/17 12:00 Dose: Not Given Magnesium Hydroxide (Milk Of Magnesia) 30 ml GT Q24H PRN PRN Reason: Constipation Pantoprazole Sodium (Protonix Inj) 40 mg IVP DAILY [facility] Last Admin: 10/03/17 10:19 Dose: 40 mg Potassium Chloride (Potassium Chloride Oral Soln) 20 meq JT DAILY [facility] Last Admin: 10/03/17 10:12 Dose: Not Given Sertraline HCl (Zoloft) 50 mg PO DAILY [facility] Last Admin: 10/03/17 10:12 Dose: Not Given Vitamin A (Vitamin A & D Oint Ud Foilpak) 0.5 ea TOP Q4 [facility] Last Admin: 10/03/17 17:00 Dose: 0.5 ea - Labs Labs: 10/03/17 07:35 10/03/17 07:35
--- NOTE | 2017-10-03 19:05 | PN ---
DATE: LOCATION: [facility], bed A. SUBJECTIVE: This 67-year-old female seen and examined early in rounds today without significant clinical changes or reported active bleeding, still with some abdominal distention, still with rectal tube is in place. PEG tube is open. The patient still has intermittent period of complaint of abdominal pain, but difficult to communicate verbally. Today's abdominal x-ray report is seen indicative of marked interval decrease in the degree of the massive colon distention. PHYSICAL EXAMINATION: GENERAL: A 67-year-old female. VITAL SIGNS: Afebrile with pulse of 64, respiratory rate 20 to 22, blood pressure 132/66. HEENT: Showed mildly pale dry oral mucous membrane. Nonicteric sclerae. LUNGS: Few scattered crepitation. Decreased air entry at bases. HEART: Positive S1 and S2. ABDOMEN: Soft. Bowel sounds are present with mild to moderate distention with generalized tenderness. PEG tube is in place. No mass or organomegaly. EXTREMITIES: With lower extremities mild edematous changes. No clubbing or cyanosis. NEUROLOGIC: No reported new neurological deficits, sensory or motor. IMPRESSION: 1. Abdominal distention. Again, the possibility of distal colon obstructive phenomena, partially, should be ruled in or out. 2. Known history of but not limited to seizure disorder, dementia with electrolyte imbalance. 3. Status post percutaneous endoscopic gastrostomy insertion before. SUGGESTION: 1. Continue current management. 2. Sectional abdominal and pelvic CAT scan. 3. The patient may benefit from colonoscopy if her colon distention continue post removal of the rectal tube. We will follow up closely with you. Thank you for letting me participate in your patient's case and management. Lidia Lam MD
[2017-10-04] MEDS: levETIRAcetam 500 MG in Sodium Chloride 0.9% 100 ML IVPB SCH ×3 (00:15→22:07)
[2017-10-04] MEDS: Vitamins A & D Oint UD Foilpak TOP SCH ×7 (00:53→23:48)
[2017-10-04] MEDS: metroNIDAZOLE IV 500 mg/100 ml 500 MG/100 ML BAG IVPB SCH ×3 (05:07→22:25)
[2017-10-04] MEDS: Dextrose 5%/0.45% NS 1,000 ML IV SCH ×2 (08:02→22:26)
--- NOTE | 2017-10-04 09:20 | CP.PCM.PN ---
<EdwardEris - Last Filed: 10/04/17 09:17> Subjective - Date & Time of Evaluation Date of Evaluation: 10/04/17 Time of Evaluation: 09:17 - Subjective Subjective: Surgery Pt s&e. NAEON. Rectal tube in place. 50cc overnight. 150 /24hrs. Objective - Vital Signs/Intake and Output Vital Signs (last 24 hours): Temp Pulse Resp BP Pulse Ox 97.7 F 80 20 138/80 95 10/04/17 08:08 10/04/17 08:08 10/04/17 08:08 10/04/17 08:08 10/04/17 08:08 Intake and Output: 10/04/17 10/04/17 06:59 18:59 Intake Total 1600 Output Total 150 Balance 1450 - Medications Medications: Current Medications Acetaminophen (Tylenol 650mg/20.3ml Solution Ud) 650 mg GT Q4H PRN PRN Reason: Pain, Mild (1-3) Amlodipine Besylate (Norvasc) 5 mg GT DAILY [facility] Last Admin: 10/03/17 10:12 Dose: Not Given Aspirin (Aspirin Chewable) 81 mg GT DAILY [facility] Last Admin: 10/03/17 10:11 Dose: Not Given Donepezil HCl (Aricept) 5 mg GT HS [facility] Last Admin: 10/03/17 21:56 Dose: Not Given Metronidazole (Flagyl) 500 mg in 100 mls @ 100 mls/hr IVPB Q8 [facility] Last Admin: 10/04/17 05:07 Dose: 100 mls/hr Ceftriaxone Sodium 1 gm/ (Sodium Chloride) 100 mls @ 100 mls/hr IVPB Q12H [facility] Last Admin: 10/04/17 06:30 Dose: 100 mls/hr Levetiracetam 500 mg/ Sodium (Chloride) 105 mls @ 420 mls/hr IVPB Q12H [facility] Last Admin: 10/04/17 00:15 Dose: 420 mls/hr Dextrose/Sodium Chloride (Dextrose 5%/0.45% Ns 1000 Ml) 1,000 mls @ 100 mls/hr IV .Q10H [facility] Last Admin: 10/04/17 08:02 Dose: 100 mls/hr Levetiracetam (Keppra) 500 mg GT BID [facility] Last Admin: 10/02/17 12:00 Dose: Not Given Magnesium Hydroxide (Milk Of Magnesia) 30 ml GT Q24H PRN PRN Reason: Constipation Pantoprazole Sodium (Protonix Inj) 40 mg IVP DAILY [facility] Last Admin: 10/03/17 10:19 Dose: 40 mg Potassium Chloride (Potassium Chloride Oral Soln) 20 meq JT DAILY [facility] Last Admin: 10/03/17 10:12 Dose: Not Given Sertraline HCl (Zoloft) 50 mg PO DAILY [facility] Last Admin: 10/03/17 10:12 Dose: Not Given Vitamin A (Vitamin A & D Oint Ud Foilpak) 0.5 ea TOP Q4 [facility] Last Admin: 10/04/17 08:00 Dose: 0.5 ea - Labs Labs: 10/03/17 07:35 10/03/17 07:35 - Constitutional Appears: No Acute Distress, Chronically Ill - Head Exam Head Exam: ATRAUMATIC, NORMAL INSPECTION, NORMOCEPHALIC - Eye Exam Eye Exam: EOMI, Normal appearance, PERRL Pupil Exam: NORMAL ACCOMODATION, PERRL - ENT Exam ENT Exam: Mucous Membranes Moist, Normal Exam - Neck Exam Neck Exam: Full ROM, Normal Inspection. absent: Lymphadenopathy - Respiratory Exam Respiratory Exam: Clear to Ausculation Bilateral, NORMAL BREATHING PATTERN - Cardiovascular Exam Cardiovascular Exam: REGULAR RHYTHM, +S1, +S2. absent: Murmur - GI/Abdominal Exam GI & Abdominal Exam: Soft, Normal Bowel Sounds. absent: Distended, Firm, Guarding, Rigid, Tenderness Additional comments: Jejunostomy in place. - Rectal Exam Additional comments: Rectal tube : fecal output. - Extremities Exam Extremities Exam: Full ROM, Normal Capillary Refill, Normal Inspection. absent : Joint Swelling, Pedal Edema - Back Exam Back Exam: NORMAL INSPECTION - Neurological Exam Neurological Exam: Awake. absent: Alert, Normal Gait, Oriented x3 - Skin Skin Exam: Dry, Intact, Normal Color, Warm Assessment and Plan - Assessment and Plan (Free Text) Assessment: pseudoobstruction: improving AXR: decreased colon size -May restart tube feed -Rectal tube -GI on board Will MARIELLA Ramsey <Jorge Ramsey - Last Filed: 10/05/17 19:46> Objective - Vital Signs/Intake and Output Vital Signs (last 24 hours): Temp Pulse Resp BP Pulse Ox 97.5 F L 78 20 131/51 L 96 10/05/17 16:00 10/05/17 16:00 10/05/17 16:00 10/05/17 16:00 10/05/17 16:00 Intake and Output: 10/05/17 10/06/17 18:59 06:59 Intake Total 640 Output Total 100 Balance 540 - Medications Medications: Current Medications Acetaminophen (Tylenol 650mg/20.3ml Solution Ud) 650 mg GT Q4H PRN PRN Reason: Pain, Mild (1-3) Amlodipine Besylate (Norvasc) 5 mg GT DAILY [facility] Last Admin: 10/05/17 10:41 Dose: Not Given Donepezil HCl (Aricept) 5 mg GT HS [facility] Last Admin: 10/04/17 22:25 Dose: Not Given Metronidazole (Flagyl) 500 mg in 100 mls @ 100 mls/hr IVPB Q8 [facility] Last Admin: 10/05/17 14:00 Dose: 100 mls/hr Ceftriaxone Sodium 1 gm/ (Sodium Chloride) 100 mls @ 100 mls/hr IVPB Q12H [facility] Last Admin: 10/05/17 17:42 Dose: 100 mls/hr Levetiracetam 500 mg/ Sodium (Chloride) 105 mls @ 420 mls/hr IVPB Q12H [facility] Last Admin: 10/05/17 10:40 Dose: 420 mls/hr Dextrose/Sodium Chloride (Dextrose 5%/0.45% Ns 1000 Ml) 1,000 mls @ 80 mls/hr IV .[id number] [facility] Last Admin: 10/05/17 13:38 Dose: 80 mls/hr Levetiracetam (Keppra) 500 mg GT BID [facility] Last Admin: 10/02/17 12:00 Dose: Not Given Magnesium Hydroxide (Milk Of Magnesia) 30 ml GT Q24H PRN PRN Reason: Constipation Pantoprazole Sodium (Protonix Inj) 40 mg IVP DAILY [facility] Last Admin: 10/05/17 10:18 Dose: 40 mg Potassium Chloride (Potassium Chloride Oral Soln) 40 meq PEG DAILY [facility] Last Admin: 10/05/17 15:27 Dose: 40 meq Sertraline HCl (Zoloft) 50 mg PO DAILY [facility] Last Admin: 10/05/17 10:42 Dose: Not Given Vitamin A (Vitamin A & D Oint Ud Foilpak) 0.5 ea TOP Q4 [facility] Last Admin: 10/05/17 17:43 Dose: 0.5 ea - Labs Labs: 10/05/17 11:28 10/05/17 11:28 Attending/Attestation - Attestation I have personally seen and examined this patient.: Yes I have fully participated in the care of the patient.: Yes I have reviewed all pertinent clinical information, including history, physical exam and plan: Yes Notes (Text): Pt was seen and examined at bedside Agree with above note and assessment C/w current mx GI f.u
[2017-10-04] MEDS: Potassium Chloride 20 mEq/15 ml LIQ UD JT SCH (10:06)
--- NOTE | 2017-10-04 11:12 | PN ---
DATE: LOCATION: 364, bed A. SUBJECTIVE: This is a 67-year-old female, seen and examined in rounds early in the morning without reported significant active bleeding, still with rectal tube in place, in a state of n.p.o. so far with less abdominal pain and less abdominal distention. PEG tube is still in place, open to gravity. No reported chills or fever and no reported chest pain, palpitation or significant shortness of breath by the nursing staff. Today's lab is still pending; however, yesterday lab showed normal white blood cells, normal platelet count, normal hemoglobin and hematocrit with potassium still low at 2.7 with low BUN and creatinine as well as low calcium. Her CEA level was reported to be elevated to 3.9. Repeat abdominal x-ray done yesterday as directed by myself indicative of marked interval decrease in the degree of massive colon distention. PHYSICAL EXAMINATION: GENERAL: A 67-year-old female. VITAL SIGNS: Afebrile with pulse of 82, respiratory rate 20 to 22, blood pressure 136/84. HEENT: Showed pale dry oral mucous membrane slightly. Nonicteric sclerae. LUNGS: Scattered mild crepitation. Decreased air entry at bases. HEART: Positive S1 and S2. ABDOMEN: Soft with mild to moderate distention. PEG tube is in place with decreased bowel sounds. No mass or organomegaly. RECTAL: Rectal tube is in place with traces of thick liquid fecal material. EXTREMITIES: Without significant clubbing, cyanosis or edema. NEUROLOGIC: No reported new neurological deficits, sensory or motor recently. IMPRESSION: 1. Abdominal distention with most likely distal colon obstructive phenomena; however, that could be secondary to fecal impaction versus mass lesion, especially with the elevated CEA level. It is resolved partially. Further recommendation and evaluation to follow. 2. Malnutrition with hypoalbuminemia with status post percutaneous endoscopic gastrostomy insertion. 3. Known history of but not limited to dementia, seizure disorder with electrolyte imbalance. SUGGESTION: 1. Correct any underlying electrolyte imbalance with potassium supplement. 2. Peripheral hyperalimentation. 3. The patient would need sectional abdominal and pelvic CAT scan. 4. Colonoscopy is to be scheduled after above is done and after adequate and slow preparation. Lidia Lam MD [facility] # [id number]
[2017-10-04] MEDS ORDERED: Iohexol 240 (50 ml) PO ONE (14:30)
[2017-10-04 15:35] LABS: BLOOD UREA NITROGEN < 2 mg/dL (7-17); CALCIUM 7.5 mg/dl (8.6-10.4); GFR AFRICAN-AMERICAN > 60; GFR NON-AFRICAN AMERICAN > 60; MAGNESIUM 1.5 mg/dL (1.6-2.3)
--- NOTE | 2017-10-04 15:48 | CP.PCM.PN ---
Subjective - Date & Time of Evaluation Date of Evaluation: 10/04/17 Time of Evaluation: 15:48 Objective - Vital Signs/Intake and Output Vital Signs (last 24 hours): Temp Pulse Resp BP Pulse Ox 97.7 F 80 20 138/80 95 10/04/17 08:08 10/04/17 08:08 10/04/17 08:08 10/04/17 08:08 10/04/17 08:08 Intake and Output: 10/04/17 10/04/17 06:59 18:59 Intake Total 1600 Output Total 150 Balance 1450 - Medications Medications: Current Medications Acetaminophen (Tylenol 650mg/20.3ml Solution Ud) 650 mg GT Q4H PRN PRN Reason: Pain, Mild (1-3) Amlodipine Besylate (Norvasc) 5 mg GT DAILY [facility] Last Admin: 10/04/17 10:06 Dose: Not Given Aspirin (Aspirin Chewable) 81 mg GT DAILY [facility] Last Admin: 10/04/17 10:05 Dose: Not Given Donepezil HCl (Aricept) 5 mg GT HS [facility] Last Admin: 10/03/17 21:56 Dose: Not Given Metronidazole (Flagyl) 500 mg in 100 mls @ 100 mls/hr IVPB Q8 [facility] Last Admin: 10/04/17 14:32 Dose: 100 mls/hr Ceftriaxone Sodium 1 gm/ (Sodium Chloride) 100 mls @ 100 mls/hr IVPB Q12H [facility] Last Admin: 10/04/17 06:30 Dose: 100 mls/hr Levetiracetam 500 mg/ Sodium (Chloride) 105 mls @ 420 mls/hr IVPB Q12H [facility] Last Admin: 10/04/17 10:11 Dose: 420 mls/hr Dextrose/Sodium Chloride (Dextrose 5%/0.45% Ns 1000 Ml) 1,000 mls @ 100 mls/hr IV .Q10H [facility] Last Admin: 10/04/17 08:02 Dose: 100 mls/hr Levetiracetam (Keppra) 500 mg GT BID [facility] Last Admin: 10/02/17 12:00 Dose: Not Given Magnesium Hydroxide (Milk Of Magnesia) 30 ml GT Q24H PRN PRN Reason: Constipation Pantoprazole Sodium (Protonix Inj) 40 mg IVP DAILY [facility] Last Admin: 10/04/17 10:10 Dose: 40 mg Potassium Chloride (Potassium Chloride Oral Soln) 20 meq JT DAILY [facility] Last Admin: 10/04/17 10:06 Dose: Not Given Sertraline HCl (Zoloft) 50 mg PO DAILY [facility] Last Admin: 10/04/17 10:07 Dose: Not Given Vitamin A (Vitamin A & D Oint Ud Foilpak) 0.5 ea TOP Q4 [facility] Last Admin: 10/04/17 15:07 Dose: Not Given - Labs Labs: 10/03/17 07:35 10/04/17 14:24
[2017-10-04] MEDS ORDERED: Iodixanol 320 MG/ML 100 ML BOTTLE IV ONE (16:07)
--- NOTE | 2017-10-04 17:18 | CT ---
PROCEDURE: CT Abdomen and Pelvis with contrast HISTORY: r/o obstruction COMPARISON: 09/28/2017 TECHNIQUE: Contrast dose: 100 mL Visipaque 320 Radiation dose: Total exam DLP = 443.43 mGy-cm. This CT exam was performed using one or more of the following dose reduction techniques: Automated exposure control, adjustment of the mA and/or kV according to patient size, and/or use of iterative reconstruction technique. FINDINGS: LOWER THORAX: Trace bilateral pleural effusion. No infiltrate. LIVER: Normal size and contour. Innumerable rounded hypodensities of varying size, most likely cysts. Correlate with ultrasound examination. No biliary dilatation. GALLBLADDER AND BILE DUCTS: Unremarkable. PANCREAS: Unremarkable. No gross lesion or ductal dilatation. SPLEEN: Unremarkable. ADRENALS: Unremarkable. No mass. KIDNEYS AND URETERS: Unremarkable. No hydronephrosis. No solid mass. VASCULATURE: Unremarkable. No aortic aneurysm. BOWEL: There is marked circumferential mural thickening of the distal ascending colon, the hepatic and splenic flexure, the transverse colon and proximal descending colon. There is circumferential thickening of the rectum and distal sigmoid colon. There is distention of the sigmoid colon, possibly due to dysmotility. The findings are most likely the result of a colitis, possibly infectious. Cannot rule out inflammatory etiology. No evidence of small-bowel obstruction. A percutaneous gastrostomy tube is noted. APPENDIX: Normal appendix. PERITONEUM: Unremarkable. No free fluid. No free air. LYMPH NODES: Unremarkable. No enlarged lymph nodes. BLADDER: Diffuse mural thickening may reflect a cystitis. Please correlate with urinalysis. . REPRODUCTIVE: Multiple uterine fibroids, some containing some coarse calcification. BONES: No acute fracture. OTHER FINDINGS: None. IMPRESSION: Acute colitis involving transverse colon, portions of the ascending and descending colon and the the rectum and distal sigmoid colon. Possible infectious etiology. No evidence of bowel obstruction. Distended sigmoid colon likely due to colonic ileus from the evident colitis. Mural thickening of the urinary bladder may reflect a cystitis. Please correlate with urinalysis. Additional nonacute findings as above. Additional nonacute findings as above.
[2017-10-04] MEDS: Magnesium Sulfate 1 gm in D5W 1 GM/100 ML BAG IVPB SCH ×2 (21:26→22:07)
[2017-10-04] MEDS ORDERED: Magnesium Sulfate 1 gm in D5W 1 GM/100 ML BAG IVPB ONE (21:33)
[2017-10-05] MEDS: Vitamins A & D Oint UD Foilpak TOP SCH ×5 (03:30→22:18)
[2017-10-05] MEDS: metroNIDAZOLE IV 500 mg/100 ml 500 MG/100 ML BAG IVPB SCH ×3 (05:23→22:15)
[2017-10-05] MEDS: levETIRAcetam 100 mg/ml (5ml) Oral Syringe GT SCH (10:18)
[2017-10-05] MEDS: Potassium Chloride 20 mEq/15 ml LIQ UD JT SCH ×2 (10:30→10:42)
[2017-10-05] MEDS: levETIRAcetam 500 MG in Sodium Chloride 0.9% 100 ML IVPB SCH ×2 (10:40→22:17)
[2017-10-05 11:36] LABS: HEMOGLOBIN 12.1 g/dL (11.0-16.0); MEAN CELL VOLUME 97.7 fL (81.0-99.0); MEAN CORPUSCULAR HEMOGLOBIN 33.1 pg (27.0-31.0); MEAN CORPUSCULAR HGB CONC 33.9 g/dL (33.0-37.0); MEAN PLATELET VOLUME 10.1 fL (7.2-11.7); RBC 3.66 Mil/uL (3.80-5.20); RED CELL DISTRIBUTION WIDTH 13.7 % (11.5-14.5); WHITE BLOOD COUNT 5.4 K/uL (4.8-10.8)
[2017-10-05 12:18] LABS: ALB/GLOB RATIO 1.1 (1.0-2.1); ALT/SGPT 38 U/L (9-52); AST/SGOT 36 U/L (14-36); BLOOD UREA NITROGEN < 2 mg/dL (7-17); GFR AFRICAN-AMERICAN > 60; GFR NON-AFRICAN AMERICAN > 60
--- NOTE | 2017-10-05 13:28 | CP.PCM.PN ---
<EdwardEris - Last Filed: 10/05/17 13:26> Subjective - Date & Time of Evaluation Date of Evaluation: 10/05/17 Time of Evaluation: 13:26 - Subjective Subjective: Surgery Pt s&e. SANJANA. Had CT yestesrday. Shows colitis. Improved colon dilation. Rectal tube in place Objective - Vital Signs/Intake and Output Vital Signs (last 24 hours): Temp Pulse Resp BP Pulse Ox 97.9 F 74 20 114/60 96 10/05/17 08:09 10/05/17 08:09 10/05/17 08:09 10/05/17 08:09 10/05/17 08:09 Intake and Output: 10/05/17 10/05/17 06:59 18:59 Intake Total 1280 Output Total 200 Balance 1080 - Medications Medications: Current Medications Acetaminophen (Tylenol 650mg/20.3ml Solution Ud) 650 mg GT Q4H PRN PRN Reason: Pain, Mild (1-3) Amlodipine Besylate (Norvasc) 5 mg GT DAILY [facility] Last Admin: 10/05/17 10:41 Dose: Not Given Aspirin (Aspirin Chewable) 81 mg GT DAILY [facility] Last Admin: 10/05/17 10:42 Dose: Not Given Donepezil HCl (Aricept) 5 mg GT HS [facility] Last Admin: 10/04/17 22:25 Dose: Not Given Metronidazole (Flagyl) 500 mg in 100 mls @ 100 mls/hr IVPB Q8 [facility] Last Admin: 10/05/17 05:23 Dose: 100 mls/hr Ceftriaxone Sodium 1 gm/ (Sodium Chloride) 100 mls @ 100 mls/hr IVPB Q12H [facility] Last Admin: 10/05/17 05:23 Dose: 100 mls/hr Levetiracetam 500 mg/ Sodium (Chloride) 105 mls @ 420 mls/hr IVPB Q12H [facility] Last Admin: 10/05/17 10:40 Dose: 420 mls/hr Dextrose/Sodium Chloride (Dextrose 5%/0.45% Ns 1000 Ml) 1,000 mls @ 80 mls/hr IV .[id number] [facility] Last Admin: 10/04/17 22:26 Dose: Not Given Potassium Chloride (Potassium Chloride 20 Meq/100 Ml) 20 meq in 100 mls @ 50 mls/hr IVPB ONCE ONE Stop: 10/05/17 15:04 Potassium Chloride (Potassium Chloride 20 Meq/100 Ml) 20 meq in 100 mls @ 50 mls/hr IVPB ONCE ONE Stop: 10/05/17 17:05 Levetiracetam (Keppra) 500 mg GT BID [facility] Last Admin: 10/02/17 12:00 Dose: Not Given Magnesium Hydroxide (Milk Of Magnesia) 30 ml GT Q24H PRN PRN Reason: Constipation Pantoprazole Sodium (Protonix Inj) 40 mg IVP DAILY [facility] Last Admin: 10/05/17 10:18 Dose: 40 mg Potassium Chloride (Potassium Chloride Oral Soln) 20 meq JT DAILY [facility] Last Admin: 10/05/17 10:42 Dose: Not Given Sertraline HCl (Zoloft) 50 mg PO DAILY [facility] Last Admin: 10/05/17 10:42 Dose: Not Given Vitamin A (Vitamin A & D Oint Ud Foilpak) 0.5 ea TOP Q4 [facility] Last Admin: 10/05/17 10:19 Dose: 0.5 ea - Labs Labs: 10/05/17 11:28 10/05/17 11:28 - Constitutional Appears: Cachectic, Chronically Ill - Head Exam Head Exam: ATRAUMATIC, NORMAL INSPECTION, NORMOCEPHALIC - Eye Exam Eye Exam: EOMI, Normal appearance, PERRL Pupil Exam: NORMAL ACCOMODATION, PERRL - ENT Exam ENT Exam: Mucous Membranes Moist, Normal Exam - Neck Exam Neck Exam: Full ROM, Normal Inspection. absent: Lymphadenopathy - Respiratory Exam Respiratory Exam: Clear to Ausculation Bilateral, NORMAL BREATHING PATTERN - Cardiovascular Exam Cardiovascular Exam: REGULAR RHYTHM, +S1, +S2. absent: Murmur - GI/Abdominal Exam GI & Abdominal Exam: Soft, Normal Bowel Sounds. absent: Distended, Firm, Guarding, Tenderness Additional comments: Jejunostomy in place - Rectal Exam Additional comments: Rectal tube - Back Exam Back Exam: NORMAL INSPECTION - Neurological Exam Neurological Exam: Awake, CN II-XII Intact. absent: Alert, Normal Gait, Oriented x3 Assessment and Plan - Assessment and Plan (Free Text) Assessment: pseudoobstruction: improving AXR: decreased colon size CT colitis, no SBO. -Rectal tube -GI on board -Replace electrolyte Will DW Dr. Ramsey <Jorge Ramsey - Last Filed: 10/05/17 19:48> Objective - Vital Signs/Intake and Output Vital Signs (last 24 hours): Temp Pulse Resp BP Pulse Ox 97.5 F L 78 20 131/51 L 96 10/05/17 16:00 10/05/17 16:00 10/05/17 16:00 10/05/17 16:00 10/05/17 16:00 Intake and Output: 10/05/17 10/06/17 18:59 06:59 Intake Total 640 Output Total 100 Balance 540 - Medications Medications: Current Medications Acetaminophen (Tylenol 650mg/20.3ml Solution Ud) 650 mg GT Q4H PRN PRN Reason: Pain, Mild (1-3) Amlodipine Besylate (Norvasc) 5 mg GT DAILY [facility] Last Admin: 10/05/17 10:41 Dose: Not Given Donepezil HCl (Aricept) 5 mg GT HS [facility] Last Admin: 10/04/17 22:25 Dose: Not Given Metronidazole (Flagyl) 500 mg in 100 mls @ 100 mls/hr IVPB Q8 [facility] Last Admin: 10/05/17 14:00 Dose: 100 mls/hr Ceftriaxone Sodium 1 gm/ (Sodium Chloride) 100 mls @ 100 mls/hr IVPB Q12H [facility] Last Admin: 10/05/17 17:42 Dose: 100 mls/hr Levetiracetam 500 mg/ Sodium (Chloride) 105 mls @ 420 mls/hr IVPB Q12H [facility] Last Admin: 10/05/17 10:40 Dose: 420 mls/hr Dextrose/Sodium Chloride (Dextrose 5%/0.45% Ns 1000 Ml) 1,000 mls @ 80 mls/hr IV .[id number] [facility] Last Admin: 10/05/17 13:38 Dose: 80 mls/hr Levetiracetam (Keppra) 500 mg GT BID [facility] Last Admin: 10/02/17 12:00 Dose: Not Given Magnesium Hydroxide (Milk Of Magnesia) 30 ml GT Q24H PRN PRN Reason: Constipation Pantoprazole Sodium (Protonix Inj) 40 mg IVP DAILY [facility] Last Admin: 10/05/17 10:18 Dose: 40 mg Potassium Chloride (Potassium Chloride Oral Soln) 40 meq PEG DAILY [facility] Last Admin: 10/05/17 15:27 Dose: 40 meq Sertraline HCl (Zoloft) 50 mg PO DAILY [facility] Last Admin: 10/05/17 10:42 Dose: Not Given Vitamin A (Vitamin A & D Oint Ud Foilpak) 0.5 ea TOP Q4 [facility] Last Admin: 10/05/17 17:43 Dose: 0.5 ea - Labs Labs: 10/05/17 11:28 10/05/17 11:28 Attending/Attestation - Attestation I have personally seen and examined this patient.: Yes I have fully participated in the care of the patient.: Yes I have reviewed all pertinent clinical information, including history, physical exam and plan: Yes Notes (Text): Pt was seen and examined at bedside Agree with above note and assessment Pt is improving clinically Repeat CT scan reviewed No clinical evidence of colitis Abdomen: Soft, nontender Can start Tube feeds C.w IV antibiotics Plan d.w primary team in detail
[2017-10-05] MEDS: Dextrose 5%/0.45% NS 1,000 ML IV SCH ×2 (13:38→18:20)
[2017-10-05] MEDS: Potassium Chloride 20 mEq/15 ml LIQ UD PEG SCH (15:27)
--- NOTE | 2017-10-05 15:51 | CP.PCM.PN ---
Subjective - Date & Time of Evaluation Date of Evaluation: 10/05/17 Time of Evaluation: 15:51 Objective - Vital Signs/Intake and Output Vital Signs (last 24 hours): Temp Pulse Resp BP Pulse Ox 97.9 F 74 20 114/60 96 10/05/17 08:09 10/05/17 08:09 10/05/17 08:09 10/05/17 08:09 10/05/17 08:09 Intake and Output: 10/05/17 10/05/17 06:59 18:59 Intake Total 1280 640 Output Total 200 100 Balance 1080 540 - Medications Medications: Current Medications Acetaminophen (Tylenol 650mg/20.3ml Solution Ud) 650 mg GT Q4H PRN PRN Reason: Pain, Mild (1-3) Amlodipine Besylate (Norvasc) 5 mg GT DAILY [facility] Last Admin: 10/05/17 10:41 Dose: Not Given Donepezil HCl (Aricept) 5 mg GT HS [facility] Last Admin: 10/04/17 22:25 Dose: Not Given Metronidazole (Flagyl) 500 mg in 100 mls @ 100 mls/hr IVPB Q8 [facility] Last Admin: 10/05/17 14:00 Dose: 100 mls/hr Ceftriaxone Sodium 1 gm/ (Sodium Chloride) 100 mls @ 100 mls/hr IVPB Q12H [facility] Last Admin: 10/05/17 05:23 Dose: 100 mls/hr Levetiracetam 500 mg/ Sodium (Chloride) 105 mls @ 420 mls/hr IVPB Q12H [facility] Last Admin: 10/05/17 10:40 Dose: 420 mls/hr Dextrose/Sodium Chloride (Dextrose 5%/0.45% Ns 1000 Ml) 1,000 mls @ 80 mls/hr IV .[id number] [facility] Last Admin: 10/05/17 13:38 Dose: 80 mls/hr Potassium Chloride (Potassium Chloride 20 Meq/100 Ml) 20 meq in 100 mls @ 50 mls/hr IVPB ONCE ONE Stop: 10/05/17 17:05 Last Admin: 10/05/17 15:17 Dose: 50 mls/hr Levetiracetam (Keppra) 500 mg GT BID [facility] Last Admin: 10/02/17 12:00 Dose: Not Given Magnesium Hydroxide (Milk Of Magnesia) 30 ml GT Q24H PRN PRN Reason: Constipation Pantoprazole Sodium (Protonix Inj) 40 mg IVP DAILY [facility] Last Admin: 10/05/17 10:18 Dose: 40 mg Potassium Chloride (Potassium Chloride Oral Soln) 40 meq PEG DAILY [facility] Last Admin: 10/05/17 15:27 Dose: 40 meq Sertraline HCl (Zoloft) 50 mg PO DAILY [facility] Last Admin: 10/05/17 10:42 Dose: Not Given Vitamin A (Vitamin A & D Oint Ud Foilpak) 0.5 ea TOP Q4 [facility] Last Admin: 10/05/17 15:18 Dose: 0.5 ea - Labs Labs: 10/05/17 11:28 10/05/17 11:28
[2017-10-06] MEDS: Vitamins A & D Oint UD Foilpak TOP SCH ×6 (00:26→21:29)
[2017-10-06] MEDS: metroNIDAZOLE IV 500 mg/100 ml 500 MG/100 ML BAG IVPB SCH ×2 (05:55→14:58)
[2017-10-06] MEDS: Dextrose 5%/0.45% NS 1,000 ML IV SCH ×2 (06:40→17:39)
[2017-10-06 09:06] LABS: ALBUMIN 3.5 g/dL (3.5-5.0); BLOOD UREA NITROGEN < 2 mg/dL (7-17); GFR AFRICAN-AMERICAN > 60; GFR NON-AFRICAN AMERICAN > 60; MAGNESIUM 1.8 mg/dL (1.6-2.3)
[2017-10-06 09:07] LABS: ALT/SGPT 43 U/L (9-52); AST/SGOT 36 U/L (14-36)
[2017-10-06] MEDS: Potassium Chloride 20 mEq/15 ml LIQ UD PEG SCH (11:14)
[2017-10-06] MEDS: levETIRAcetam 500 MG in Sodium Chloride 0.9% 100 ML IVPB SCH ×2 (11:22→22:23)
--- NOTE | 2017-10-06 11:25 | CP.PCM.PN ---
Subjective - Date & Time of Evaluation Date of Evaluation: 10/06/17 Time of Evaluation: 11:25 Objective - Vital Signs/Intake and Output Vital Signs (last 24 hours): Temp Pulse Resp BP Pulse Ox 97.1 F L 81 20 142/62 96 10/06/17 07:58 10/06/17 07:58 10/06/17 07:58 10/06/17 07:58 10/06/17 07:58 Intake and Output: 10/06/17 10/06/17 06:59 18:59 Intake Total 770 840 Output Total 100 900 Balance 670 -60 - Medications Medications: Current Medications Acetaminophen (Tylenol 650mg/20.3ml Solution Ud) 650 mg GT Q4H PRN PRN Reason: Pain, Mild (1-3) Amlodipine Besylate (Norvasc) 5 mg GT DAILY [facility] Last Admin: 10/06/17 11:14 Dose: 5 mg Donepezil HCl (Aricept) 5 mg GT HS [facility] Last Admin: 10/05/17 22:14 Dose: 5 mg Metronidazole (Flagyl) 500 mg in 100 mls @ 100 mls/hr IVPB Q8 [facility] Last Admin: 10/06/17 05:55 Dose: 100 mls/hr Ceftriaxone Sodium 1 gm/ (Sodium Chloride) 100 mls @ 100 mls/hr IVPB Q12H [facility] Last Admin: 10/06/17 05:58 Dose: 100 mls/hr Levetiracetam 500 mg/ Sodium (Chloride) 105 mls @ 420 mls/hr IVPB Q12H [facility] Last Admin: 10/06/17 11:22 Dose: 420 mls/hr Dextrose/Sodium Chloride (Dextrose 5%/0.45% Ns 1000 Ml) 1,000 mls @ 80 mls/hr IV .[id number] [facility] Last Admin: 10/06/17 06:40 Dose: Not Given Levetiracetam (Keppra) 500 mg GT BID [facility] Last Admin: 10/02/17 12:00 Dose: Not Given Magnesium Hydroxide (Milk Of Magnesia) 30 ml GT Q24H PRN PRN Reason: Constipation Pantoprazole Sodium (Protonix Inj) 40 mg IVP DAILY [facility] Last Admin: 10/06/17 11:14 Dose: 40 mg Potassium Chloride (Potassium Chloride Oral Soln) 40 meq PEG DAILY [facility] Last Admin: 10/06/17 11:14 Dose: 40 meq Sertraline HCl (Zoloft) 50 mg PO DAILY [facility] Last Admin: 10/06/17 11:14 Dose: 50 mg Vitamin A (Vitamin A & D Oint Ud Foilpak) 0.5 ea TOP Q4 [facility] Last Admin: 10/06/17 11:15 Dose: 0.5 ea - Labs Labs: 10/05/17 11:28 10/06/17 08:19
--- NOTE | 2017-10-06 13:21 | CP.PCM.PN ---
Subjective - Date & Time of Evaluation Date of Evaluation: 10/06/17 Time of Evaluation: 13:18 - Subjective Subjective: General Surgery: Dr Ramsey Pt S&E. Pt currently non-verbal. Appears comfortable. Abdomen non-distended. No evidence of discomfort. Rectal tube in place draining liquid stool. PLAN: cont tube feeds cont rectal tube until output slows and solidifies no surgical intervention planned d/w Dr Ramsey Luis Carlos, PGY3 Objective - Vital Signs/Intake and Output Vital Signs (last 24 hours): Temp Pulse Resp BP Pulse Ox 97.1 F L 81 20 142/62 96 10/06/17 07:58 10/06/17 07:58 10/06/17 07:58 10/06/17 07:58 10/06/17 07:58 Intake and Output: 10/06/17 10/06/17 06:59 18:59 Intake Total 770 840 Output Total 100 900 Balance 670 -60 - Medications Medications: Current Medications Acetaminophen (Tylenol 650mg/20.3ml Solution Ud) 650 mg GT Q4H PRN PRN Reason: Pain, Mild (1-3) Amlodipine Besylate (Norvasc) 5 mg GT DAILY [facility] Last Admin: 10/06/17 11:14 Dose: 5 mg Donepezil HCl (Aricept) 5 mg GT HS [facility] Last Admin: 10/05/17 22:14 Dose: 5 mg Metronidazole (Flagyl) 500 mg in 100 mls @ 100 mls/hr IVPB Q8 [facility] Last Admin: 10/06/17 05:55 Dose: 100 mls/hr Ceftriaxone Sodium 1 gm/ (Sodium Chloride) 100 mls @ 100 mls/hr IVPB Q12H [facility] Last Admin: 10/06/17 05:58 Dose: 100 mls/hr Levetiracetam 500 mg/ Sodium (Chloride) 105 mls @ 420 mls/hr IVPB Q12H [facility] Last Admin: 10/06/17 11:22 Dose: 420 mls/hr Dextrose/Sodium Chloride (Dextrose 5%/0.45% Ns 1000 Ml) 1,000 mls @ 80 mls/hr IV .[id number] [facility] Last Admin: 10/06/17 06:40 Dose: Not Given Levetiracetam (Keppra) 500 mg GT BID [facility] Last Admin: 10/02/17 12:00 Dose: Not Given Magnesium Hydroxide (Milk Of Magnesia) 30 ml GT Q24H PRN PRN Reason: Constipation Pantoprazole Sodium (Protonix Inj) 40 mg IVP DAILY [facility] Last Admin: 10/06/17 11:14 Dose: 40 mg Potassium Chloride (Potassium Chloride Oral Soln) 40 meq PEG DAILY [facility] Last Admin: 10/06/17 11:14 Dose: 40 meq Sertraline HCl (Zoloft) 50 mg PO DAILY [facility] Last Admin: 10/06/17 11:14 Dose: 50 mg Vitamin A (Vitamin A & D Oint Ud Foilpak) 0.5 ea TOP Q4 [facility] Last Admin: 10/06/17 11:15 Dose: 0.5 ea - Labs Labs: 10/05/17 11:28 10/06/17 08:19 - Constitutional Appears: No Acute Distress, Chronically Ill - ENT Exam ENT Exam: Mucous Membranes Dry - Respiratory Exam Respiratory Exam: absent: Respiratory Distress - Cardiovascular Exam Cardiovascular Exam: REGULAR RHYTHM. absent: Tachycardia - GI/Abdominal Exam GI & Abdominal Exam: Soft. absent: Distended, Firm, Guarding, Tenderness
--- NOTE | 2017-10-06 14:55 | PN ---
DATE: LOCATION: [facility], Bed A. SUBJECTIVE: This is a 67-year-old female, seen and examined in rounds without significant clinical changes, but reported less abdominal distension. CAT scan of the abdomen and pelvis was performed on 10/04/2017. Report seen indicative of acute colitis with possible infectious colitis, but no evidence of bowel obstruction. The entire chart is reviewed including but not limited to the most recent lab and radiology study results, current and the previous medication list, current and previous medical events. Case discussed with the staff at length. Today's labs showed normal CBC, but low potassium, is still 2.7 with low BUN and creatinine with elevated blood glucose level 134, but low calcium 7.0 with reported low magnesium as well as low total protein and low albumin. CEA level was reported to be elevated 3.9. PHYSICAL EXAMINATION GENERAL: A 67-year-old female. VITAL SIGNS: Afebrile with pulse of 78, respiratory rate of 20 to 22, blood pressure of 136/60. HEENT: Showed mildly pale dry oral mucous membrane. Nonicteric sclerae. LUNGS: Few scattered crepitation. Decreased air entry at bases. HEART: Positive S1 and S2. ABDOMEN: Softer than before with generalized mild tenderness and mild distention. No mass or organomegaly. Bowel sounds are hypoactive. RECTAL: Rectal tube was in place. EXTREMITIES: Mild lower extremities edematous changes. No clubbing or cyanosis. NEUROLOGIC: No reported new neurological deficits, sensory or motor. No reported focal new deficit. VASCULAR: Peripheral pulses present bilaterally and positive. IMPRESSION: 1. Acute colitis, diagnosed by radiology study results with ileus and abdominal distention. 2. The possibility of obstructive lesion in the distal colon clinically should be kept in mind. 3. Electrolyte imbalance. 4. Malnutrition and hypoalbuminemia. 5. History of seizure disorder, reported dementia. 6. Elevated CEA levels, rule out occult lower gastrointestinal tract cancer. SUGGESTION: 1. Agree with your plan. 2. The patient has to have peripheral hyperalimentation in the mean time. 3. Correct any underlying electrolyte imbalance, especially the patient's hypokalemia and hypocalcemia. 4. The patient to be scheduled for colonoscopy only when she is more stable clinically and after discussing the case with the family again. Otherwise, conservative treatment to follow. 5. Repeat stool for complete workup including C. diff and ova and parasite. Lidia Lam MD
[2017-10-07] MEDS: Vitamins A & D Oint UD Foilpak TOP SCH ×6 (00:01→20:00)
--- NOTE | 2017-10-07 07:52 | CP.PCM.PN ---
Subjective - Date & Time of Evaluation Date of Evaluation: 10/07/17 Time of Evaluation: 07:00 - Subjective Subjective: General surgery Note for Dr. Ramsey Patient seen this morning. Patient refusing exam. She is currently non-verbal and appears comfortable. ROS unobtainable. Rectal tube in place draining 50 cc of liquid stool. Rectal tube to be removed today. Objective - Vital Signs/Intake and Output Vital Signs (last 24 hours): Temp Pulse Resp BP Pulse Ox 98 F 61 20 106/69 97 10/06/17 23:22 10/06/17 23:22 10/06/17 23:22 10/06/17 23:22 10/06/17 23:22 Intake and Output: 10/07/17 10/07/17 06:59 18:59 Intake Total 1790 Output Total 200 Balance 1590 - Medications Medications: Current Medications Acetaminophen (Tylenol 650mg/20.3ml Solution Ud) 650 mg GT Q4H PRN PRN Reason: Pain, Mild (1-3) Amlodipine Besylate (Norvasc) 5 mg GT DAILY [facility] Last Admin: 10/06/17 11:14 Dose: 5 mg Donepezil HCl (Aricept) 5 mg GT HS [facility] Last Admin: 10/06/17 21:28 Dose: 5 mg Levetiracetam 500 mg/ Sodium (Chloride) 105 mls @ 420 mls/hr IVPB Q12H [facility] Last Admin: 10/06/17 22:23 Dose: 420 mls/hr Dextrose/Sodium Chloride (Dextrose 5%/0.45% Ns 1000 Ml) 1,000 mls @ 80 mls/hr IV .[id number] [facility] Last Admin: 10/06/17 17:39 Dose: 80 mls/hr Levetiracetam (Keppra) 500 mg GT BID [facility] Last Admin: 10/02/17 12:00 Dose: Not Given Magnesium Hydroxide (Milk Of Magnesia) 30 ml GT Q24H PRN PRN Reason: Constipation Pantoprazole Sodium (Protonix Inj) 40 mg IVP DAILY [facility] Last Admin: 10/06/17 11:14 Dose: 40 mg Potassium Chloride (Potassium Chloride Oral Soln) 40 meq PEG DAILY [facility] Last Admin: 10/06/17 11:14 Dose: 40 meq Sertraline HCl (Zoloft) 50 mg PO DAILY [facility] Last Admin: 10/06/17 11:14 Dose: 50 mg Vitamin A (Vitamin A & D Oint Ud Foilpak) 0.5 ea TOP Q4 [facility] Last Admin: 10/07/17 03:01 Dose: 0.5 ea - Labs Labs: 10/05/17 11:28 10/06/17 08:19 - Constitutional Appears: No Acute Distress - Neurological Exam Neurological Exam: Alert, Awake. absent: Oriented x3 - Additional Findings Additional findings: Patient refusing physical exam Assessment and Plan - Assessment and Plan (Free Text) Plan: 67 F with pseudoobstruction -Tube feeds -Remove rectal tube -No surgical intervention needed at this time -Management as per primary -Discussed with Dr Braulio Sargent PGY1
[2017-10-07] MEDS: Dextrose 5%/0.45% NS 1,000 ML IV SCH ×2 (08:19→21:11)
[2017-10-07] MEDS: Potassium Chloride 20 mEq/15 ml LIQ UD PEG SCH (10:20)
[2017-10-07] MEDS ORDERED: Magnesium Citrate Oral SOL (300 ml) PO ONE (11:01)
--- NOTE | 2017-10-07 11:15 | PN ---
DATE: LOCATION: 364, bed A. SUBJECTIVE: This 67-year-old female seen and examined in rounds early this morning without any significant clinical changes or reported active bleeding, but less abdominal distention. She is still nonverbal. Rectal tube still in place, draining some liquid fecal material. No reported chest pain, palpitation or significant shortness of breath. No reported active bleeding. The entire chart is reviewed including but not limited to most recent lab and radiology study results, current and the previous medication list, current and the previous medical events and today's lab is still pending, but yesterday's labs showed low potassium of 3.3, low BUN and creatinine with low calcium. Her CEA level reported before to be elevated to 3.9. PHYSICAL EXAMINATION: GENERAL: A 67-year-old female, nonverbal. VITAL SIGNS: The patient is afebrile with heart rate of 62 and blood pressure of 108/52. HEENT: Showed mildly pale dry oral mucous membrane. Nonicteric sclerae. LUNGS: Few scattered crepitation. Decreased air entry at bases. HEART: Positive S1 and S2. ABDOMEN: Soft. Bowl sounds are present with mild generalized tenderness. No mass or organomegaly. No rebound tenderness or guarding, but slight left-sided tenderness with slight distention. EXTREMITIES: With mild lower extremity edematous changes. RECTAL: With rectal tube is in place. NEUROLOGIC: No new reported neurological deficits, sensory or motor. IMPRESSION: 1. Acute colitis, diagnosed only by CAT scan of the abdomen and pelvis with small ileus, subsiding. 2. Possible obstructive lesion in the distal colon. 3. Electrolyte imbalance with hypokalemia. 4. Malnutrition and hypoalbuminemia, improving. 5. Known history of dementia, seizure disorder. 6. Elevated CEA level raising the question of possible colon cancer. SUGGESTION: 1. Continue current management. 2. We will prepare the patient for colonoscopy. That to be discussed with the family as well as the admitting medical staff. Thank you for letting me participate in your patient's case management. Lidia Lam MD
[2017-10-07] MEDS: levETIRAcetam 500 MG in Sodium Chloride 0.9% 100 ML IVPB SCH ×2 (11:41→22:24)
[2017-10-07 11:58] LABS: BASO % 0.5 % (0.0-2.0); EOS # 0.2 K/uL (0.0-0.7); EOS % 3.8 % (0.0-4.0); HEMOGLOBIN 11.9 g/dL (11.0-16.0); LYMPH # 1.7 K/uL (1.0-4.3); LYMPH % 27.9 % (20.0-40.0); MEAN CELL VOLUME 97.1 fL (81.0-99.0); MEAN CORPUSCULAR HEMOGLOBIN 32.9 pg (27.0-31.0); MEAN CORPUSCULAR HGB CONC 33.8 g/dL (33.0-37.0); MEAN PLATELET VOLUME 9.6 fL (7.2-11.7); MONO # 0.7 K/uL (0.0-0.8); NEUT # 3.5 K/uL (1.8-7.0); NEUT % 56.8 % (50.0-75.0); RBC 3.62 Mil/uL (3.80-5.20); RED CELL DISTRIBUTION WIDTH 13.8 % (11.5-14.5); WHITE BLOOD COUNT 6.1 K/uL (4.8-10.8)
[2017-10-07 12:17] LABS: ALBUMIN 3.2 g/dL (3.5-5.0); ALT/SGPT 35 U/L (9-52); AST/SGOT 31 U/L (14-36); GFR AFRICAN-AMERICAN > 60; GFR NON-AFRICAN AMERICAN > 60
[2017-10-07 12:21] LABS: BLOOD UREA NITROGEN < 2 mg/dL (7-17)
--- NOTE | 2017-10-07 20:00 | CP.PCM.PN ---
Subjective - Date & Time of Evaluation Date of Evaluation: 10/07/17 Objective - Vital Signs/Intake and Output Vital Signs (last 24 hours): Temp Pulse Resp BP Pulse Ox 97.6 F 66 20 106/55 L 98 10/07/17 15:34 10/07/17 15:34 10/07/17 15:34 10/07/17 15:34 10/07/17 15:34 Intake and Output: 10/07/17 10/08/17 18:59 06:59 Intake Total 815 Output Total 375 Balance 440 - Medications Medications: Current Medications Acetaminophen (Tylenol 650mg/20.3ml Solution Ud) 650 mg GT Q4H PRN PRN Reason: Pain, Mild (1-3) Amlodipine Besylate (Norvasc) 5 mg GT DAILY [facility] Last Admin: 10/07/17 10:21 Dose: 5 mg Donepezil HCl (Aricept) 5 mg GT HS [facility] Last Admin: 10/06/17 21:28 Dose: 5 mg Levetiracetam 500 mg/ Sodium (Chloride) 105 mls @ 420 mls/hr IVPB Q12H [facility] Last Admin: 10/07/17 11:41 Dose: 420 mls/hr Dextrose/Sodium Chloride (Dextrose 5%/0.45% Ns 1000 Ml) 1,000 mls @ 80 mls/hr IV .[id number] [facility] Last Admin: 10/07/17 08:19 Dose: 80 mls/hr Levetiracetam (Keppra) 500 mg GT BID [facility] Last Admin: 10/02/17 12:00 Dose: Not Given Magnesium Hydroxide (Milk Of Magnesia) 30 ml GT Q24H PRN PRN Reason: Constipation Pantoprazole Sodium (Protonix Inj) 40 mg IVP DAILY [facility] Last Admin: 10/07/17 10:21 Dose: 40 mg Potassium Chloride (Potassium Chloride Oral Soln) 40 meq PEG DAILY [facility] Last Admin: 10/07/17 10:20 Dose: 40 meq Sertraline HCl (Zoloft) 50 mg PO DAILY [facility] Last Admin: 10/07/17 10:21 Dose: 50 mg Vitamin A (Vitamin A & D Oint Ud Foilpak) 0.5 ea TOP Q4 [facility] Last Admin: 10/07/17 16:00 Dose: 0.5 ea - Labs Labs: 10/07/17 11:41 10/07/17 11:41
[2017-10-08] MEDS: Vitamins A & D Oint UD Foilpak TOP SCH ×4 (00:37→11:39)
[2017-10-08 08:39] VITALS: BP 98/61; PULSE 70; TEMP 98.9
--- NOTE | 2017-10-08 09:16 | CP.PCM.PN ---
Subjective - Date & Time of Evaluation Date of Evaluation: 10/08/17 Time of Evaluation: 07:00 - Subjective Subjective: General Surgery Pt S&E. NAEO. Pt is non-verbal and appears comfortable. ROS unobtainable. G tube in place. Objective - Vital Signs/Intake and Output Vital Signs (last 24 hours): Temp Pulse Resp BP Pulse Ox 98.9 F 70 20 98/61 L 98 10/08/17 08:00 10/08/17 08:00 10/08/17 08:00 10/08/17 08:00 10/08/17 08:00 Intake and Output: 10/08/17 10/08/17 06:59 18:59 Intake Total 1420 Balance 1420 - Medications Medications: Current Medications Acetaminophen (Tylenol 650mg/20.3ml Solution Ud) 650 mg GT Q4H PRN PRN Reason: Pain, Mild (1-3) Amlodipine Besylate (Norvasc) 5 mg GT DAILY [facility] Last Admin: 10/07/17 10:21 Dose: 5 mg Donepezil HCl (Aricept) 5 mg GT HS [facility] Last Admin: 10/07/17 23:17 Dose: 5 mg Levetiracetam 500 mg/ Sodium (Chloride) 105 mls @ 420 mls/hr IVPB Q12H [facility] Last Admin: 10/07/17 22:24 Dose: 420 mls/hr Dextrose/Sodium Chloride (Dextrose 5%/0.45% Ns 1000 Ml) 1,000 mls @ 80 mls/hr IV .[id number] [facility] Last Admin: 10/07/17 21:11 Dose: 80 mls/hr Levetiracetam (Keppra) 500 mg GT BID [facility] Last Admin: 10/02/17 12:00 Dose: Not Given Magnesium Hydroxide (Milk Of Magnesia) 30 ml GT Q24H PRN PRN Reason: Constipation Pantoprazole Sodium (Protonix Inj) 40 mg IVP DAILY [facility] Last Admin: 10/07/17 10:21 Dose: 40 mg Potassium Chloride (Potassium Chloride Oral Soln) 40 meq PEG DAILY [facility] Last Admin: 10/07/17 10:20 Dose: 40 meq Sertraline HCl (Zoloft) 50 mg PO DAILY [facility] Last Admin: 10/07/17 10:21 Dose: 50 mg Vitamin A (Vitamin A & D Oint Ud Foilpak) 0.5 ea TOP Q4 [facility] Last Admin: 10/08/17 08:27 Dose: 0.5 ea - Labs Labs: 10/07/17 11:41 10/07/17 11:41 - Constitutional Appears: Non-toxic, No Acute Distress - Head Exam Head Exam: ATRAUMATIC, NORMOCEPHALIC - Eye Exam Eye Exam: EOMI. absent: Scleral icterus - Respiratory Exam Respiratory Exam: NORMAL BREATHING PATTERN. absent: Respiratory Distress - GI/Abdominal Exam GI & Abdominal Exam: Soft. absent: Distended, Tenderness Additional comments: G-tube in place - Neurological Exam Neurological Exam: Alert, Awake - Skin Skin Exam: Dry, Warm Assessment and Plan - Assessment and Plan (Free Text) Assessment: 67F with resolving pseudoobstruction Plan: - F/U colonoscopy by GI -No surgical intervention needed at this time -Management as per primary -D/W Dr Braulio Nolan PGY4
[2017-10-08] MEDS: Dextrose 5%/0.45% NS 1,000 ML IV SCH (09:49)
[2017-10-08] MEDS: Potassium Chloride 20 mEq/15 ml LIQ UD PEG SCH (10:23)
[2017-10-08] MEDS: levETIRAcetam 500 MG in Sodium Chloride 0.9% 100 ML IVPB SCH (11:03)
[2017-10-08 12:45] VITALS: O2SAT 95
--- NOTE | 2017-10-08 15:01 | CP.PCM.PN ---
Subjective - Date & Time of Evaluation Date of Evaluation: 10/08/17 Time of Evaluation: 14:45 - Subjective Subjective: PT CLEARED FOR D/C TODAY BY SURGICAL TEAM AND GI. PT COMFORTABLE, IS NONVERBAL BUT NO SIGNS OF DISTRESS. OK PER DR. LOCKETT TO D/C BACK TO [facility]. DISCUSSED PLAN AND ADDRESSED CONCERNS WITH PT'S SON, JOE, VIA TELEPHONE. HIS MAIN CONCERN WAS WHY HIS MOTHER GETS CONSTIPATED OFTEN (HOWEVER HE ADMITTED THAT ALL HER LIFE SHE HAD CONSTIPATION PROBLEMS EVEN BEFORE SHE HAD A CVA AND BECAME BEDBOUND). I DISCUSSED ALL FINDINGS FROM DIAGNOSTICS DONE HERE, DISCUSSED THAT SHE IS AT HIGHER RISK OF CONSTIPATION 2/2 BEING BEDBOUND AND A PREVIOUS H/O CHRONIC CONSTIPATION; I ALSO DISCUSSED TREATMENT MEASURES DONE HERE BY ATTENDING AND CONSULTS (SON STATED SHE WAS ONLY GETTING PEG FEEDINGS, HOWEVER, PT REC'D IV ABX ROCEPHIN AND FLAGYL, HAD RECTAL TUBE, AND WAS NPO UNTIL SYMPTOMS RESOLVED). I DISCUSSED WITH HIM CLEARANCE FOR D/C AND OUTPATIENT RECOMMENDATIONS GIVEN BY CONSULTS. HIS SECOND CONCERN WAS WHY AT [facility] THE PT WAS EATING DRINKING. I NOTIFIED THE SON THAT PT HAS SWALLOW EVAL DONE BY SPEECH THERAPIST HERE ON 10/07 AND FAILED. PT IS ALSO NONVERBAL AND DOES NOT FOLLOW COMMANDS. PT COUGH WITH ANY LIQUID PO. SON STATES SHE "ALWAYS COUGHS BUT WE JUST KEEP GIVING HER STUFF TO DRINK!" I EXPLAINED TO HIM THAT THAT PRACTICE IS NOT APPROPRIATE AND THAT SHE IS AT A VERY VERY HIGH RISK FOR ASPIRATION PNEUMONIA IF SHE IS BEING GIVEN PO WHEN SHE FAILS SWALLOW EVALS. SON ALSO STATED THAT HOW CAN SHE NOT TOLERATE FLUIDS HERE AT [facility] IS AT [facility] SHE CAN. I REINFORCED TO HIM THAT SHE FAILED THE SWALLOW EVALUATION, NPO IS RECOMMENDED, ANY PO WILL INCREASE HER RISK OF ASPIRATION PNA, AND THAT SHE IS RECEIVING SUFFICIENT VITAMINS AND NUTRIENTS VIA HER GT FEEDINGS. LAST LABS DONE ON 10/07 NORMAL, NO DEHYDRATION NOTED AFTER THIS 14 MINUTE CONVERSATION, SON STATED THAT "YOU GUYS CAN DO WHATEVER YOU NEED TO DO. BUT I WANT TO HEAR IT FROM THE DOCTOR TOO." I MADE DR. LOCKETT AWARE OF THIS. PROVIDED THE SON'S NUMBER AND DR. LOCKETT TO SPEAK W HIM. WILL FOLLOW UP. AT THIS TIME WAITING FOR AMBULANCE P/U FOR [facility]---ARRANGED BY HO. Objective - Vital Signs/Intake and Output Vital Signs (last 24 hours): Temp Pulse Resp BP Pulse Ox 98.9 F 70 20 98/61 L 95 10/08/17 08:00 10/08/17 10:15 10/08/17 08:00 10/08/17 08:00 10/08/17 10:15 Intake and Output: 10/08/17 10/08/17 06:59 18:59 Intake Total 1420 1005 Balance 1420 1005 - Medications Medications: Current Medications Acetaminophen (Tylenol 650mg/20.3ml Solution Ud) 650 mg GT Q4H PRN PRN Reason: Pain, Mild (1-3) Amlodipine Besylate (Norvasc) [address] [facility] Last Admin: 10/08/17 10:24 Dose: Not Given Donepezil HCl (Aricept) [address] [facility] Last Admin: 10/07/17 23:17 Dose: 5 mg Levetiracetam 500 mg/ Sodium (Chloride) 105 mls @ 420 mls/hr IVPB Q12H [facility] Last Admin: 10/08/17 11:03 Dose: 420 mls/hr Dextrose/Sodium Chloride (Dextrose 5%/0.45% Ns 1000 Ml) 1,000 mls @ 80 mls/hr IV .[id number] [facility] Last Admin: 10/08/17 09:49 Dose: Not Given Levetiracetam (Keppra) [address] [facility] Last Admin: 10/02/17 12:00 Dose: Not Given Magnesium Hydroxide (Milk Of Magnesia) 30 ml GT Q24H PRN PRN Reason: Constipation Pantoprazole Sodium (Protonix Inj) [address] [facility] Last Admin: 10/08/17 10:23 Dose: 40 mg Potassium Chloride (Potassium Chloride Oral Soln) [address] [facility] Last Admin: 10/08/17 10:23 Dose: 40 meq Sertraline HCl (Zoloft) [address] [facility] Last Admin: 10/08/17 10:24 Dose: 50 mg Vitamin A (Vitamin A & D Oint Ud Foilpak) 0.5 ea TOP Q4 [facility] Last Admin: 10/08/17 11:39 Dose: 0.5 ea - Labs Labs: 10/07/17 11:41 10/07/17 11:41
== END 2017-10-08 15:00 | DRG 389 ==
LOC: C.ER 18:27 → C.9E 21:43 → C.3T 10-01 14:07 → C.9E 10-01 14:30 → C.3T 10-01 19:58
PROVIDERS: ADMIT Internal Medicine Nephrology; ATTEND Internal Medicine Nephrology
PROC: 3E0G76Z Introduction of Nutritional Substance into Upper GI, Via Natural or Artificial Opening (ICD-10-PCS; principal; 2017-10-01)
DX: K56.609 Unspecified intestinal obstruction, unspecified as to partial versus complete obstruction (principal); I69.351 Hemiplegia and hemiparesis following cerebral infarction affecting right dominant side; E46 Unspecified protein-calorie malnutrition; E83.51 Hypocalcemia; R13.10 Dysphagia, unspecified; Z93.1 Gastrostomy status; G40.909 Epilepsy, unspecified, not intractable, without status epilepticus; E87.6 Hypokalemia; F03.90 Unspecified dementia, unspecified severity, without behavioral disturbance, psychotic disturbance, mood disturbance, and anxiety; K52.9 Noninfective gastroenteritis and colitis, unspecified; K56.7 Ileus, unspecified; I69.391 Dysphagia following cerebral infarction; Z74.01 Bed confinement status

== ENCOUNTER 2017-10-25 21:50 | Inpatient (IN) | payer MEDICARE, OTHER ==
[2017-10-26] MEDS ORDERED: Sodium Chloride 0.9% 1,000 ML IV ONE (00:52)
--- NOTE | 2017-10-26 00:52 | C.PDOC ---
History Of Present Illness Patient is a 67 y/o female who presents to the ED with son with a complaint of increased abdominal distention over the last few days. Patient is nonverbal secondary to previous stroke. Patient had similar symptoms and admission on 09/30. Denies fever or chills. No other physical complaints at this time. Time Seen by Provider: 10/26/17 00:51 Chief Complaint (Nursing): Abdominal Pain History Per: Patient, Family (son) History/Exam Limitations: no limitations Onset/Duration Of Symptoms: Days (last few days) Current Symptoms Are (Timing): Still Present Severity: Moderate Pain Scale Rating Of: 4 Associated Symptoms: denies: Fever, Chills Recent travel outside of the [place]: No Past Medical History Reviewed: Historical Data, Nursing Documentation, Vital Signs Vital Signs: Last Vital Signs Temp 98.3 F 10/25/17 22:10 Pulse 70 10/25/17 22:10 Resp 20 10/25/17 22:10 BP 125/68 10/25/17 22:10 Pulse Ox 97 10/26/17 03:15 - Medical History PMH: CVA, Dementia, Depression (major), HTN, Seizures Denies: Chronic Kidney Disease Surgical History: No Surg Hx - [facility] INTRODUCTION OF NUTRITIONAL INTO UP GI, VIA OPENING (09/30/17) Family History: States: No Known Family Hx - Social History Hx Tobacco Use: No Hx Alcohol Use: No Hx Substance Use: No - Immunization History Hx Tetanus Toxoid Vaccination: No Hx Influenza Vaccination: No Hx Pneumococcal Vaccination: No Review Of Systems Constitutional: Negative for: Fever, Chills Gastrointestinal: Positive for: Abdominal Pain (increased abdominal distention ) Physical Exam - Physical Exam Appears: Non-toxic, No Acute Distress Skin: Warm, Dry Head: Normacephalic Oral Mucosa: Dry Cardiovascular: Rhythm Regular, No Murmur Respiratory: No Rales, Rhonchi (scattered), No Wheezing Gastrointestinal/Abdominal: Distention (severe distention), Other (tympanic to percussion; PEG in place) Neurological/Psych: Other (left hemiplegia) ED Course And Treatment - Laboratory Results Result Diagrams: 10/26/17 02:55 10/26/17 05:08 O2 Sat by Pulse Oximetry: 97 Progress Note: EKG, obstructive series XR, and blood work ordered. Pepcid and IV fluids administered. Disposition Discussed With : Lolly Kelly Comment: accepted the pt on h is service and took over the care at 3:14 AM Doctor Will See Patient In The: Hospital Counseled Patient/Family Regarding: Studies Performed, Diagnosis - Disposition Disposition: HOSPITALIZED Disposition Time: 00:52 Condition: FAIR Forms: [facility] (Chinese) - Clinical Impression Clinical Impression: Abdominal pain, Nausea, Colon distention, Abdominal distension, Toxic megacolon - Scribe Statement The provider has reviewed the documentation as recorded by the Scribe Ericka Altman All medical record entries made by the Scribe were at my direction and personally dictated by me. I have reviewed the chart and agree that the record accurately reflects my personal performance of the history, physical exam, medical decision making, and the department course for this patient. I have also personally directed, reviewed, and agree with the discharge instructions and disposition. Decision To Admit - Pt Status Changed To: Hospital Disposition Of: Inpatient - Admit Certification Admit to Inpatient:: After my assessment, the patient will require hospitalization for at least two midnights. This is because of the severity of symptoms shown, intensity of services needed, and/or the medical risk in this patient being treated as an outpatient. - InPatient: Physician Admission Certification:: After my assessment, the patient will require hospitalization for at least two midnights. This is because of the severity of symptoms shown, intensity of services needed, and/or the medical risk in this patient being treated as an outpatient. - . Bed Request Type: Regular Admitting Physician: Lolly Kelly Patient Diagnosis: Abdominal pain, Nausea, Colon distention, Abdominal distension, Toxic megacolon
[2017-10-26 02:58] LABS: BASO # 0.1 K/uL (0.0-0.2); BASO % 1.3 % (0.0-2.0); EOS # 0.1 K/uL (0.0-0.7); EOS % 1.3 % (0.0-4.0); LYMPH # 2.2 K/uL (1.0-4.3); LYMPH % 23.5 % (20.0-40.0); MEAN CELL VOLUME 96.9 fL (81.0-99.0); MEAN CORPUSCULAR HEMOGLOBIN 32.5 pg (27.0-31.0); MEAN CORPUSCULAR HGB CONC 33.5 g/dL (33.0-37.0); MEAN PLATELET VOLUME 10.9 fL (7.2-11.7); MONO % 10.1 % (0.0-10.0); NEUT % 63.8 % (50.0-75.0); NRBC % 0.2 % (0.0-2.0); RBC 3.99 Mil/uL (3.80-5.20); WHITE BLOOD COUNT 9.4 K/uL (4.8-10.8)
[2017-10-26 03:09] LABS: PROTHROMBIN TIME 11.6 SECONDS (9.7-12.2)
[2017-10-26 05:40] LABS: BLOOD UREA NITROGEN 11 mg/dL (7-17); CALCIUM 8.2 mg/dl (8.6-10.4); GFR AFRICAN-AMERICAN > 60; GFR NON-AFRICAN AMERICAN > 60
--- NOTE | 2017-10-26 10:44 | RAD ---
PROCEDURE: Radiographs of the chest and abdomen (obstructive series) HISTORY: abd pain COMPARISON: CT abdomen and pelvis with contrast performed 10/04/17 TECHNIQUE: AP radiograph of the chest, with upright and supine radiographs of the abdomen. FINDINGS: CHEST: Heart size appears top-normal. Atherosclerotic calcifications of the aorta. Examination limited by habitus, hypoinflation, and patient obliquity. No focal consolidation, significant pleural effusion, or definite pneumothorax identified. Please note that chest x-ray has limited sensitivity for the detection of pulmonary masses. ABDOMEN AND PELVIS: Elevation of the right hemidiaphragm. Markedly dilated air-filled colon may reflect ileus or obstruction. No definite free air. Pelvic calcifications, likely phleboliths. Degenerative changes. Osseous demineralization. IMPRESSION: Markedly dilated air-filled colon may reflect ileus or obstruction ; correlate clinically. Elevation of the right hemidiaphragm.
--- NOTE | 2017-10-26 11:33 | CT ---
PROCEDURE: CT Abdomen and Pelvis without Oral or IV contrast. HISTORY: ABD DISTENTION COMPARISON: Obstructive series performed 10/26/17, CT of the abdomen and pelvis with contrast performed 10/04/17 TECHNIQUE: Contiguous axial images of the abdomen and pelvis. No oral or IV contrast administered. Coronal and Sagittal reformats generated and reviewed. Radiation dose: Total exam DLP = 467.00 mGy-cm. This CT exam was performed using one or more of the following dose reduction techniques: Automated exposure control, adjustment of the mA and/or kV according to patient size, and/or use of iterative reconstruction technique. FINDINGS: There is limited evaluation of the solid organs without the administration of IV contrast. LOWER THORAX: No visible consolidation, pleural effusion, or pneumothorax. LIVER: Innumerable rounded hypodense lesions, likely cysts. GALLBLADDER AND BILE DUCTS: Unremarkable unenhanced appearance. PANCREAS: Unremarkable unenhanced appearance. SPLEEN: Unremarkable unenhanced appearance. ADRENALS: Unremarkable unenhanced appearance. KIDNEYS AND URETERS: No hydronephrosis or obstructing renal calculus. BLADDER: The urinary bladder appears unremarkable. REPRODUCTIVE: The uterus is present with calcifications and probable fibroids. APPENDIX: The appendix appears within normal limits of caliber. No secondary signs of acute appendicitis. BOWEL: The stomach is nondistended. Percutaneous gastrostomy. Lack of oral contrast limits evaluation for bowel pathology. Markedly dilated air-filled loops of colon measuring maximally 8.4 cm in diameter. Evidence of fluid and fecal impaction at the rectosigmoid colon. Circumferential thickening and comparative under distension of the distal left colon (for example series 3, image 106) with distension noted proximally and distally. PERITONEUM: No significant free fluid. No definite free air. LYMPH NODES: No bulky lymphadenopathy identified. VASCULATURE: No aortic aneurysm. BONES: Degenerative changes. OTHER FINDINGS: None. IMPRESSION: Markedly dilated air-filled loops of colon measuring maximally 8.4 cm in diameter. Evidence of fluid and fecal impaction at the rectosigmoid colon. Circumferential thickening and comparative under distension of the distal left colon (for example series 3, image 106) with distension noted proximally and distally. Considerations for appearance of the colon include adynamic ileus, nonspecific colitis, etc. Recommend clinical correlation and continued follow-up. Peg tube. Additional findings as above.
[2017-10-26] MEDS ORDERED: CALMOSEPTINE TOP SCH (14:00)
[2017-10-26] MEDS: Vitamins A & D Oint UD Foilpak TOP SCH ×2 (15:30→20:17)
--- NOTE | 2017-10-26 16:38 | CP.PCM.HP ---
Past Patient History - Infectious Disease Hx of Infectious Diseases: None - Past Social History Smoking Status: Never Smoked - CARDIAC Hx Hypertension: Yes - NEUROLOGICAL Hx Dementia: Yes Hx Seizures: Yes - HEENT Hx HEENT Problems: No - RENAL Hx Chronic Kidney Disease: No - INTEGUMENTARY Other/Comment: cellulitis - MUSCULOSKELETAL/RHEUMATOLOGICAL Hx Falls: No - GASTROINTESTINAL Other/Comment: gastrostomy - GENITOURINARY/GYNECOLOGICAL Hx Incontinence: Yes - PSYCHIATRIC Hx Depression: Yes (major) Hx Substance Use: No - SURGICAL HISTORY Other/Comment: brain surgery due to aneurysm,peg tube insertion. - ANESTHESIA Hx Anesthesia: Yes Hx Anesthesia Reactions: No Hx Malignant Hyperthermia: No Meds Allergies/Adverse Reactions: Allergies Allergy/AdvReac Type Severity Reaction Status Date / Time No Known Allergies Allergy Verified 10/25/17 22:25 Physical Exam - Constitutional Appears: Well - Head Exam Head Exam: ATRAUMATIC, NORMAL INSPECTION, NORMOCEPHALIC - Eye Exam Eye Exam: EOMI, Normal appearance, PERRL Pupil Exam: NORMAL ACCOMODATION, PERRL - ENT Exam ENT Exam: Mucous Membranes Moist, Normal Exam - Neck Exam Neck exam: Positive for: Normal Inspection - Respiratory Exam Respiratory Exam: Decreased Breath Sounds - Cardiovascular Exam Cardiovascular Exam: REGULAR RHYTHM, +S1, +S2 - GI/Abdominal Exam GI & Abdominal Exam: Diminished Bowel Sounds, Soft - Rectal Exam Rectal Exam: Deferred Results - Vital Signs Recent Vital Signs: Last Vital Signs Temp 98.7 F 10/26/17 15:56 Pulse 74 10/26/17 15:56 Resp 18 10/26/17 15:56 BP 118/72 10/26/17 15:56 Pulse Ox 97 10/26/17 15:56 - Labs Result Diagrams: 10/26/17 02:55 10/26/17 05:08 Labs: Laboratory Results - last 24 hr 10/26/17 10/26/17 10/26/17 02:55 02:55 05:08 WBC 9.4 D RBC 3.99 Hgb 13.0 Hct 38.6 MCV 96.9 MCH 32.5 H MCHC 33.5 RDW 14.0 Plt Count 247 MPV 10.9 Neut % (Auto) 63.8 Lymph % (Auto) 23.5 [place] % (Auto) 10.1 H Eos % (Auto) 1.3 Baso % (Auto) 1.3 Neut # (Auto) 6.0 Lymph # (Auto) 2.2 [place] # (Auto) 1.0 H Eos # (Auto) 0.1 Baso # (Auto) 0.1 PT 11.6 INR 1.0 APTT 34 Sodium 145 Potassium 3.2 L Chloride 103 Carbon Dioxide 33 H Anion Gap 13 BUN 11 Creatinine 0.5 L Est GFR ( Amer) > 60 Est GFR (Non-Af Amer) > 60 Random Glucose 91 Calcium 8.2 L
[2017-10-26] MEDS ORDERED: Potassium Chloride 20 mEq 0 MEQ/0 ML BAG IVPB ONE (17:34)
[2017-10-26] MEDS: Dextrose 5%/0.45% NS 1,000 ML IV SCH (17:46)
[2017-10-26] MEDS ORDERED: Ammonium Lactate 12% Lotion (225 g) TOP SCH (18:00)
--- NOTE | 2017-10-26 18:07 | CP.PCM.CON ---
<EugenerachnaLamont langley - Last Filed: 10/27/17 08:49> History of Present Illness - History of Present Illness History of Present Illness: General Surgery Consult Note for Dr. Ramsey Reason for consult: 67 F with PMH that includes s/p cva with residual r hemiparesis and difficulty swallowing s/p PEG tube presents to [facility] ED for complaint of increasing abdominal distention. Patient is nonverbal but answers some questions by nodding head. As per records, distention had been worsening for last few days. Patient had an admission on 09/30/[address] scan was done and revealed colonic distention of 8.4 cm and fluid/fecal impaction in rectosigmoid colon. ROS unobtainable due to clinical condiiton. Patient is slightly agitated and uncooperative. PMH: s/p cva with residual r hemiparesis and difficulty swallowing, Dementia, Depression, Seizures, history of brain aneurysm Meds: As per EMR Allergy: NKDA PSH: PEG feeding tube, surgery for brain aneurysm FH: unknown Social: no EtOH/illicit drug use in past Review of Systems - Review of Systems Systems not reviewed;Unavailable: Acuity of Condition, Dementia, Uncooperative Past Patient History - Infectious Disease Hx of Infectious Diseases: None - Past Social History Smoking Status: Never Smoked - CARDIAC Hx Hypertension: Yes - NEUROLOGICAL Hx Dementia: Yes Hx Seizures: Yes - HEENT Hx HEENT Problems: No - RENAL Hx Chronic Kidney Disease: No - INTEGUMENTARY Other/Comment: cellulitis - MUSCULOSKELETAL/RHEUMATOLOGICAL Hx Falls: No - GASTROINTESTINAL Other/Comment: gastrostomy - GENITOURINARY/GYNECOLOGICAL Hx Incontinence: Yes - PSYCHIATRIC Hx Depression: Yes (major) Hx Substance Use: No - SURGICAL HISTORY Other/Comment: brain surgery due to aneurysm,peg tube insertion. - ANESTHESIA Hx Anesthesia: Yes Hx Anesthesia Reactions: No Hx Malignant Hyperthermia: No Meds Allergies/Adverse Reactions: Allergies Allergy/AdvReac Type Severity Reaction Status Date / Time No Known Allergies Allergy Verified 10/25/17 22:25 - Medications Medications: Current Medications Acetaminophen (Tylenol 650mg/20.3ml Solution Ud) 650 mg GT Q4H PRN PRN Reason: Pain, Mild (1-3) Amlodipine Besylate (Norvasc) 5 mg GT DAILY [facility] Donepezil HCl (Aricept) 5 mg GT HS [facility] Enoxaparin Sodium (Lovenox) 40 mg SC DAILY [facility] Dextrose/Sodium Chloride (Dextrose 5%/0.45% Ns 1000 Ml) 1,000 mls @ 60 mls/hr IV .[id number] JF Stop: 10/28/17 01:19 Last Admin: 10/26/17 17:46 Dose: 60 mls/hr Potassium Chloride (Potassium Chloride 20 Meq/100 Ml) 20 meq in 100 mls @ 50 mls/hr IVPB ONCE ONE Stop: 10/26/17 18:59 Lactic Acid (Lac-Hydrin 12% Lotion (225 G)) 0 gm TOP BID [facility] Levetiracetam (Keppra) 500 mg GT BID [facility] Magnesium Citrate (Citrate Of Mag) 120 ml GT BID [facility] Magnesium Hydroxide (Milk Of Magnesia) 30 ml GT Q24H PRN PRN Reason: Constipation Pantoprazole Sodium (Protonix Inj) 40 mg IVP DAILY [facility] Petrolatum (Desitin Original) 0 gm TOP QSHIFT J[facility] Polyethylene Glycol (Miralax) 17 gm GT DAILY [facility] Potassium Chloride (Potassium Chloride Oral Soln) 20 meq GT BID J[facility] Sertraline HCl (Zoloft) 50 mg JT DAILY [facility] Vitamin A (Vitamin A & D Oint Ud Foilpak) 0.5 ea TOP Q4 [facility] Last Admin: 10/26/17 15:30 Dose: 0.5 ea Physical Exam - Constitutional Appears: Agitated Additional comments: patient refusing thorough physical exam - Head Exam Head Exam: ATRAUMATIC, NORMOCEPHALIC - Eye Exam Eye Exam: Normal appearance - GI/Abdominal Exam GI & Abdominal Exam: Distended, Soft. absent: Tenderness - Neurological Exam Neurological exam: Alert - Psychiatric Exam Psychiatric exam: Agitated Results - Vital Signs Recent Vital Signs: Last Vital Signs Temp 98.7 F 10/26/17 15:56 Pulse 74 10/26/17 15:56 Resp 18 10/26/17 15:56 BP 118/72 10/26/17 15:56 Pulse Ox 97 10/26/17 15:56 - Labs Result Diagrams: 10/26/17 21:11 10/26/17 05:08 Labs: Laboratory Results - last 24 hr 10/26/17 10/26/17 10/26/17 02:55 02:55 05:08 WBC 9.4 D RBC 3.99 Hgb 13.0 Hct 38.6 MCV 96.9 MCH 32.5 H MCHC 33.5 RDW 14.0 Plt Count 247 MPV 10.9 Neut % (Auto) 63.8 Lymph % (Auto) 23.5 [place] % (Auto) 10.1 H Eos % (Auto) 1.3 Baso % (Auto) 1.3 Neut # (Auto) 6.0 Lymph # (Auto) 2.2 [place] # (Auto) 1.0 H Eos # (Auto) 0.1 Baso # (Auto) 0.1 PT 11.6 INR 1.0 APTT 34 Sodium 145 Potassium 3.2 L Chloride 103 Carbon Dioxide 33 H Anion Gap 13 BUN 11 Creatinine 0.5 L Est GFR ( Amer) > 60 Est GFR (Non-Af Amer) > 60 Random Glucose 91 Calcium 8.2 L Carcinoembryonic Ag CA 125 Antigen 10/26/17 15:55 WBC RBC Hgb Hct MCV MCH MCHC RDW Plt Count MPV Neut % (Auto) Lymph % (Auto) [place] % (Auto) Eos % (Auto) Baso % (Auto) Neut # (Auto) Lymph # (Auto) [place] # (Auto) Eos # (Auto) Baso # (Auto) PT INR APTT Sodium Potassium Chloride Carbon Dioxide Anion Gap BUN Creatinine Est GFR ( Amer) Est GFR (Non-Af Amer) Random Glucose Calcium Carcinoembryonic Ag 3.7 H CA 125 Antigen 11.4 Assessment & Plan - Assessment and Plan (Free Text) Plan: 67 F with colonic distention -NPO -rectal tube -Tap water and soap enemas Q4H -Monitor bowel funciton -Serial abd exams -Further recommendations as per Dr. Braulio Sargent PGY1 <Jorge Ramsey - Last Filed: 10/31/17 20:08> Meds - Medications Medications: Current Medications Acetaminophen (Tylenol 650mg/20.3ml Solution Ud) 650 mg GT Q4H PRN PRN Reason: Pain, Mild (1-3) Amlodipine Besylate (Norvasc) 5 mg GT DAILY [facility] Last Admin: 10/31/17 09:05 Dose: 5 mg Donepezil HCl (Aricept) 5 mg GT HS [facility] Last Admin: 02/14/18 21:51 Dose: 5 mg Enoxaparin Sodium (Lovenox) 40 mg SC DAILY [facility] Last Admin: 10/31/17 10:17 Dose: Not Given Metronidazole (Flagyl) 500 mg in 100 mls @ 100 mls/hr IVPB Q8 [facility] Last Admin: 10/31/17 13:47 Dose: 100 mls/hr Lactic Acid (Lac-Hydrin 12% Lotion (225 G)) 0 gm TOP BID [facility] Last Admin: 10/31/17 17:57 Dose: 1 applic Levetiracetam (Keppra) 500 mg GT BID [facility] Last Admin: 10/31/17 17:55 Dose: 500 mg Magnesium Hydroxide (Milk Of Magnesia) 30 ml GT Q24H PRN PRN Reason: Constipation Pantoprazole Sodium (Protonix Susp) 40 mg PEG DAILY [facility] Last Admin: 10/31/17 11:25 Dose: 40 mg Petrolatum (Desitin Original) 0 gm TOP QSHIFT [facility] Last Admin: 10/31/17 13:54 Dose: 1 applic Polyethylene Glycol (Miralax) 17 gm GT DAILY [facility] Last Admin: 10/31/17 09:05 Dose: 17 gm Potassium Chloride (Potassium Chloride Oral Soln) 20 meq GT BID [facility] Last Admin: 10/31/17 17:56 Dose: 20 meq Sertraline HCl (Zoloft) 50 mg JT DAILY [facility] Last Admin: 10/31/17 09:05 Dose: 50 mg Vitamin A (Vitamin A & D Oint Ud Foilpak) 0.5 ea TOP Q4 [facility] Last Admin: 10/31/17 16:05 Dose: Not Given Results - Vital Signs Recent Vital Signs: Last Vital Signs Temp 97.6 F 10/31/17 16:00 Pulse 83 10/31/17 16:00 Resp 18 10/31/17 16:00 BP 111/54 L 10/31/17 16:00 Pulse Ox 96 10/31/17 16:00 - Labs Result Diagrams: 10/29/17 06:45 10/29/17 06:45 Attending/Attestation - Attestation I have personally seen and examined this patient.: Yes I have fully participated in the care of the patient.: Yes I have reviewed all pertinent clinical information: Yes Notes (Text): Pt was seen and examined at bedside Agree with above note and assessment Pt with recurrent colonic distention and constipation Abdominal tenderness present No Peritoneal signs Labs and Radiology reviewed Ass: Severe constipation with colonic dilatation Plan : Soap water enema High rectal enema if needed GI consult c.w current mx Plan d.w primary team in detail Risk and benefit explained in detail.
[2017-10-26] MEDS: Magnesium Citrate Oral SOL (300 ml) GT SCH (20:17)
[2017-10-26] MEDS: Potassium Chloride 20 mEq/15 ml LIQ UD GT SCH ×2 (20:31→22:30)
[2017-10-26] MEDS ORDERED: Enoxaparin 40 mg Syringe ONE (20:35)
[2017-10-26 21:14] LABS: BASO # 0.2 K/uL (0.0-0.2); BASO % 2.3 % (0.0-2.0); EOS # 0.1 K/uL (0.0-0.7); EOS % 0.8 % (0.0-4.0); HEMOGLOBIN 12.6 g/dL (11.0-16.0); LYMPH # 1.7 K/uL (1.0-4.3); LYMPH % 18.8 % (20.0-40.0); MEAN CELL VOLUME 96.3 fL (81.0-99.0); MEAN CORPUSCULAR HEMOGLOBIN 32.6 pg (27.0-31.0); MEAN CORPUSCULAR HGB CONC 33.8 g/dL (33.0-37.0); MEAN PLATELET VOLUME 10.8 fL (7.2-11.7); MONO # 0.8 K/uL (0.0-0.8); MONO % 8.5 % (0.0-10.0); NEUT # 6.3 K/uL (1.8-7.0); NEUT % 69.6 % (50.0-75.0); NRBC % 0.1 % (0.0-2.0); RBC 3.88 Mil/uL (3.80-5.20); RED CELL DISTRIBUTION WIDTH 13.7 % (11.5-14.5)
[2017-10-26] MEDS: levETIRAcetam 100 mg/ml (5ml) Oral Syringe GT SCH (22:32)
[2017-10-26] MEDS: Zinc Oxide Topical 30 gm Tube TOP SCH (22:32)
[2017-10-27] MEDS: Vitamins A & D Oint UD Foilpak TOP SCH ×5 (05:00→20:30)
[2017-10-27] MEDS: Zinc Oxide Topical 30 gm Tube TOP SCH ×3 (05:54→23:35)
[2017-10-27] MEDS ORDERED: metroNIDAZOLE IV 500 mg/100 ml 500 MG/100 ML BAG IVPB SCH (09:30)
[2017-10-27] MEDS ORDERED: Magnesium Hydroxide Susp 30 ml UD GT PRN (10:00)
--- NOTE | 2017-10-27 11:43 | CP.PCM.PN ---
<Vincent Lemon - Last Filed: 10/27/17 11:45> Subjective - Date & Time of Evaluation Date of Evaluation: 10/27/17 Time of Evaluation: 06:50 - Subjective Subjective: General Surgery- Dr. Ramsey Patient seen and examined at bedside this AM. Patient received soap water enema and subsequent had a large BM. Abd pain persists however better than yesterday. Denies current N/V. Rectal tube was placed, however patient pulled it out. Objective - Vital Signs/Intake and Output Vital Signs (last 24 hours): Temp Pulse Resp BP Pulse Ox 99.1 F 81 20 128/62 95 10/26/17 23:20 10/26/17 23:20 10/26/17 23:20 10/26/17 23:20 10/26/17 23:20 - Medications Medications: Current Medications Acetaminophen (Tylenol 650mg/20.3ml Solution Ud) 650 mg GT Q4H PRN PRN Reason: Pain, Mild (1-3) Amlodipine Besylate (Norvasc) 5 mg GT DAILY [facility] Donepezil HCl (Aricept) 5 mg GT HS [facility] Last Admin: 10/26/17 22:35 Dose: 5 mg Enoxaparin Sodium (Lovenox) 40 mg SC DAILY [facility] Dextrose/Sodium Chloride (Dextrose 5%/0.45% Ns 1000 Ml) 1,000 mls @ 60 mls/hr IV .[id number] [facility] Stop: 10/28/17 01:19 Last Admin: 10/26/17 17:46 Dose: 60 mls/hr Metronidazole (Flagyl) 500 mg in 100 mls @ 100 mls/hr IVPB Q8H [facility] Lactic Acid (Lac-Hydrin 12% Lotion (225 G)) 0 gm TOP BID [facility] Levetiracetam (Keppra) 500 mg GT BID [facility] Last Admin: 10/26/17 22:32 Dose: 500 mg Magnesium Citrate (Citrate Of Mag) 120 ml GT BID [facility] Last Admin: 10/26/17 20:17 Dose: Not Given Magnesium Hydroxide (Milk Of Magnesia) 30 ml GT Q24H PRN PRN Reason: Constipation Pantoprazole Sodium (Protonix Inj) 40 mg IVP DAILY [facility] Petrolatum (Desitin Original) 0 gm TOP QSHIFT [facility] Last Admin: 10/27/17 05:54 Dose: 1 applic Pneumococcal Polyvalent Vaccine (Pneumovax 23 Vaccine) 0.5 ml IM .ONCE ONE Stop: 10/29/17 10:01 Polyethylene Glycol (Miralax) 17 gm GT DAILY [facility] Potassium Chloride (Potassium Chloride Oral Soln) 20 meq GT BID [facility] Last Admin: 10/26/17 22:30 Dose: 20 meq Sertraline HCl (Zoloft) 50 mg JT DAILY [facility] Vitamin A (Vitamin A & D Oint Ud Foilpak) 0.5 ea TOP Q4 [facility] Last Admin: 10/27/17 05:00 Dose: Not Given - Labs Labs: 10/26/17 21:11 10/26/17 05:08 PT 11.6 SECONDS (9.7-12.2) 10/26/17 02:55 INR 1.0 10/26/17 02:55 APTT 34 SECONDS (21-34) 10/26/17 02:55 - Constitutional Appears: Non-toxic, No Acute Distress - Eye Exam Eye Exam: EOMI. absent: Scleral icterus - Respiratory Exam Respiratory Exam: NORMAL BREATHING PATTERN. absent: Accessory Muscle Use, Respiratory Distress - GI/Abdominal Exam Additional comments: patient refused inspection and palpation of abdomen - Neurological Exam Neurological Exam: Alert, Awake, Oriented x3 - Psychiatric Exam Psychiatric exam: Normal Affect - Skin Skin Exam: Intact, Warm Assessment and Plan - Assessment and Plan (Free Text) Assessment: 67F with colonic distention Plan: - NPO - attempt new rectal tube - G-tube to air to help w/ decompression - scheduled soap water enema - Monitor bowel funciton - c/s GI- f/u recs - Serial abd exams - Further recommendations as per Dr. Braulio Lemon PGY1 <Jorge Ramsey - Last Filed: 10/31/17 20:08> Objective - Vital Signs/Intake and Output Vital Signs (last 24 hours): Temp Pulse Resp BP Pulse Ox 97.6 F 83 18 111/54 L 96 10/31/17 16:00 10/31/17 16:00 10/31/17 16:00 10/31/17 16:00 10/31/17 16:00 Intake and Output: 10/31/17 11/01/17 18:59 06:59 Intake Total 100 Output Total 240 Balance -140 - Medications Medications: Current Medications Acetaminophen (Tylenol 650mg/20.3ml Solution Ud) 650 mg GT Q4H PRN PRN Reason: Pain, Mild (1-3) Amlodipine Besylate (Norvasc) 5 mg GT DAILY [facility] Last Admin: 10/31/17 09:05 Dose: 5 mg Donepezil HCl (Aricept) 5 mg GT HS [facility] Last Admin: 10/30/17 21:51 Dose: 5 mg Enoxaparin Sodium (Lovenox) 40 mg SC DAILY [facility] Last Admin: 10/31/17 10:17 Dose: Not Given Metronidazole (Flagyl) 500 mg in 100 mls @ 100 mls/hr IVPB Q8 [facility] Last Admin: 10/31/17 13:47 Dose: 100 mls/hr Lactic Acid (Lac-Hydrin 12% Lotion (225 G)) 0 gm TOP BID [facility] Last Admin: 10/31/17 17:57 Dose: 1 applic Levetiracetam (Keppra) 500 mg GT BID [facility] Last Admin: 10/31/17 17:55 Dose: 500 mg Magnesium Hydroxide (Milk Of Magnesia) 30 ml GT Q24H PRN PRN Reason: Constipation Pantoprazole Sodium (Protonix Susp) 40 mg PEG DAILY [facility] Last Admin: 10/31/17 11:25 Dose: 40 mg Petrolatum (Desitin Original) 0 gm TOP QSHIFT [facility] Last Admin: 10/31/17 13:54 Dose: 1 applic Polyethylene Glycol (Miralax) 17 gm GT DAILY [facility] Last Admin: 10/31/17 09:05 Dose: 17 gm Potassium Chloride (Potassium Chloride Oral Soln) 20 meq GT BID [facility] Last Admin: 10/31/17 17:56 Dose: 20 meq Sertraline HCl (Zoloft) 50 mg JT DAILY [facility] Last Admin: 10/31/17 09:05 Dose: 50 mg Vitamin A (Vitamin A & D Oint Ud Foilpak) 0.5 ea TOP Q4 [facility] Last Admin: 10/31/17 16:05 Dose: Not Given - Labs Labs: 10/29/17 06:45 10/29/17 06:45 PT 11.6 SECONDS (9.7-12.2) 10/26/17 02:55 INR 1.0 10/26/17 02:55 APTT 34 SECONDS (21-34) 10/26/17 02:55 Attending/Attestation - Attestation I have personally seen and examined this patient.: Yes I have fully participated in the care of the patient.: Yes I have reviewed all pertinent clinical information, including history, physical exam and plan: Yes Notes (Text): Pt was seen and examined at bedside Agree with above note and assessment Pt with recurrent colonic distention and constipation Abdominal tenderness present No Peritoneal signs Labs and Radiology reviewed Ass: Severe constipation with colonic dilatation Plan : Soap water enema High rectal enema if needed GI consult c.w current mx Plan d.w primary team in detail Risk and benefit explained in detail
[2017-10-27] MEDS: metroNIDAZOLE IV 500 mg/100 ml 500 MG/100 ML BAG IVPB SCH ×2 (14:17→21:33)
[2017-10-27] MEDS: Dextrose 5%/0.45% NS 1,000 ML IV SCH (14:30)
--- NOTE | 2017-10-27 14:39 | CP.PCM.PN ---
Subjective - Date & Time of Evaluation Date of Evaluation: 10/27/17 Time of Evaluation: 12:00 - Subjective Subjective: clinically same Objective - Vital Signs/Intake and Output Vital Signs (last 24 hours): Temp Pulse Resp BP Pulse Ox 99.1 F 81 20 128/62 95 10/26/17 23:20 10/26/17 23:20 10/26/17 23:20 10/26/17 23:20 10/26/17 23:20 - Medications Medications: Current Medications Acetaminophen (Tylenol 650mg/20.3ml Solution Ud) 650 mg GT Q4H PRN PRN Reason: Pain, Mild (1-3) Amlodipine Besylate (Norvasc) 5 mg GT DAILY [facility] Donepezil HCl (Aricept) 5 mg GT HS [facility] Last Admin: 10/26/17 22:35 Dose: 5 mg Enoxaparin Sodium (Lovenox) 40 mg SC DAILY [facility] Dextrose/Sodium Chloride (Dextrose 5%/0.45% Ns 1000 Ml) 1,000 mls @ 60 mls/hr IV .[id number] [facility] Stop: 10/28/17 01:19 Last Admin: 10/27/17 14:30 Dose: 60 mls/hr Metronidazole (Flagyl) 500 mg in 100 mls @ 100 mls/hr IVPB Q8H [facility] Last Admin: 10/27/17 14:17 Dose: 100 mls/hr Lactic Acid (Lac-Hydrin 12% Lotion (225 G)) 0 gm TOP BID [facility] Levetiracetam (Keppra) 500 mg GT BID [facility] Last Admin: 10/26/17 22:32 Dose: 500 mg Magnesium Citrate (Citrate Of Mag) 120 ml GT BID [facility] Last Admin: 10/26/17 20:17 Dose: Not Given Magnesium Hydroxide (Milk Of Magnesia) 30 ml GT Q24H PRN PRN Reason: Constipation Pantoprazole Sodium (Protonix Inj) 40 mg IVP DAILY [facility] Petrolatum (Desitin Original) 0 gm TOP QSHIFT [facility] Last Admin: 10/27/17 14:29 Dose: 1 applic Pneumococcal Polyvalent Vaccine (Pneumovax 23 Vaccine) 0.5 ml IM .ONCE ONE Stop: 10/29/17 10:01 Polyethylene Glycol (Miralax) 17 gm GT DAILY [facility] Potassium Chloride (Potassium Chloride Oral Soln) 20 meq GT BID [facility] Last Admin: 10/26/17 22:30 Dose: 20 meq Sertraline HCl (Zoloft) 50 mg JT DAILY [facility] Vitamin A (Vitamin A & D Oint Ud Foilpak) 0.5 ea TOP Q4 [facility] Last Admin: 10/27/17 05:00 Dose: Not Given - Labs Labs: 10/26/17 21:11 10/26/17 05:08 PT 11.6 SECONDS (9.7-12.2) 10/26/17 02:55 INR 1.0 10/26/17 02:55 APTT 34 SECONDS (21-34) 10/26/17 02:55 - Constitutional Appears: Well - Head Exam Head Exam: ATRAUMATIC, NORMAL INSPECTION, NORMOCEPHALIC - Eye Exam Eye Exam: EOMI, Normal appearance, PERRL Pupil Exam: NORMAL ACCOMODATION, PERRL - ENT Exam ENT Exam: Mucous Membranes Moist, Normal Exam - Neck Exam Neck Exam: Full ROM, Normal Inspection. absent: Lymphadenopathy - Respiratory Exam Respiratory Exam: Decreased Breath Sounds - Cardiovascular Exam Cardiovascular Exam: REGULAR RHYTHM, +S1, +S2 - GI/Abdominal Exam GI & Abdominal Exam: Soft, Diminished Bowel Sounds - Rectal Exam Rectal Exam: Deferred
[2017-10-27] MEDS: Magnesium Citrate Oral SOL (300 ml) GT SCH ×2 (14:44→17:38)
[2017-10-27] MEDS: POLYETHYLENE GLYCOL 3350 17 GM/Dose PACKET GT SCH (14:44)
[2017-10-27] MEDS: levETIRAcetam 100 mg/ml (5ml) Oral Syringe GT SCH (14:44)
[2017-10-27] MEDS: Potassium Chloride 20 mEq/15 ml LIQ UD GT SCH (14:45)
[2017-10-27] MEDS: Enoxaparin 40 mg Syringe SC SCH (14:58)
--- NOTE | 2017-10-27 14:59 | PN ---
DATE: LOCATION: [facility], bed A. SUBJECTIVE: This is a 67-year-old female, seen and examined for GI consultation yesterday in the emergency room. Case discussed at length with the patient, with the emergency room staff on 10/26/2017 at the time of the consultation. The patient re-examined again today and had one large bowel movement after my order of tap water enema before. No reported bowel movement this morning. The patient still has distended abdomen. Stone catheter in the place of a PEG from the [place] [facility]. The entire chart is reviewed including but not limited to the most recent lab and radiology study results, current and the previous medication list, current and the previous medical events. Today's lab is still pending. However, the patient has normal CBC as per yesterday but increased CEA level to 3.7 with normal CA-125 with low potassium of 3.0 and low calcium 8.2. Official CAT scan of the abdomen and pelvis report is seen again, possible fecal impaction versus questionable thickening wall of the left side of the colon; possible mass lesion or infectious process. PHYSICAL EXAMINATION: GENERAL: A 67-year-old Greek-speaking female. Nonverbal at this point. VITAL SIGNS: Temperature of 99.2, heart rate 84, and respiratory rate 20 to 22. HEENT: Showed pale, dry oral mucous membranes, nonicteric sclerae. LUNGS: A scattered crepitation, decreased air entry at bases. HEART: Positive S1 and S2. ABDOMEN: With distention. Nontender, hypoactive, PEG tube is replaced by Stone catheter . EXTREMITIES: Without significant edema, clubbing, or cyanosis. IMPRESSION: 1. Fecal impaction, dilated large bowel versus occult lower gastrointestinal tract cancer with increasing CEA level. 2. Known history of but not limited to cerebrovascular accident, hypertension, seizure disorder, status post percutaneous endoscopic gastrostomy insertion. SUGGESTIONS: 1. Continue current management. 2. The patient will need change of PEG tube. 3. Colonoscopy to be considered if there is no relief of the patient's fecal impaction. Lidia Lam MD
[2017-10-27] MEDS: Ammonium Lactate 12% Lotion (225 g) TOP SCH ×2 (15:15→17:42)
[2017-10-27 17:53] LABS: ALBUMIN 3.1 g/dL (3.5-5.0); ALT/SGPT 29 U/L (9-52); AST/SGOT 18 U/L (14-36); BLOOD UREA NITROGEN 4 mg/dL (7-17); CALCIUM 7.7 mg/dl (8.6-10.4); GFR AFRICAN-AMERICAN > 60; GFR NON-AFRICAN AMERICAN > 60
[2017-10-27] MEDS: levETIRAcetam 500 MG in Sodium Chloride 0.9% 100 ML IVPB SCH (19:30)
[2017-10-27] MEDS ORDERED: Enoxaparin 40 mg Syringe SC ONE (20:07)
[2017-10-27] MEDS ORDERED: Sodium Phosphate 15 MMOLE in Sodium Chloride 0.9% 250 ML IVPB ONE (22:05)
[2017-10-28] MEDS: Vitamins A & D Oint UD Foilpak TOP SCH ×5 (00:59→21:00)
[2017-10-28] MEDS: metroNIDAZOLE IV 500 mg/100 ml 500 MG/100 ML BAG IVPB SCH ×3 (05:51→20:40)
--- NOTE | 2017-10-28 06:26 | CON ---
DATE: 10/26/[address] Lidia Lam to . I was called for GI consultation by the admitting medical team as well as ER staff. The patient was seen and fully examined on 10/26/2017 as requested by the admitting MD. Entire chart is reviewed including, but not limited to, the most recent lab and radiology study results, current and the previous medication list, current and previous medical events, allergies to medication list as well as all the available current and previous medical records. Case discussed at length with ER staff as well as the admitting medical team. This is a 67-year-old female with multiple complicated past medical history, was admitted to the hospital through the emergency room after being brought by her son, was complaining of severe abdominal pain, abdominal distention, for the last few days, with reported constipation, but no reported, as per the family and the records, chest pain, significant shortness of breath, active bleeding, or chills or fever. It has to be mentioned that the patient is nonverbal and all the information obtained from the son, medical record, medical staff, and nursing staff notes. The patient had similar episodes recently for which he was admitted to the hospital before. PAST MEDICAL HISTORY: Including but not limited to, 1. CVA. 2. Hypertension. 3. Major depression. 4. Dementia. 5. Seizure disorder. 6. Peptic ulcer disease. 7. Status post PEG insertion due to the patient's dysphagia, CVA, and malnutrition before. FAMILY HISTORY: Unknown. SOCIAL HISTORY: No known recent history of severe smoking or alcohol intake. CURRENT MEDICATION: Medication list was reviewed. ALLERGIES TO MEDICATION: UNCLEAR. After being admitted to the hospital, basic initial blood workup showed mildly elevated white blood cells of 9.4, but normal hemoglobin and hematocrit, with low creatinine of 0.5, low potassium 3.2, with increased CO2 content 33 indicative of respiratory alkalosis. Radiology study results report is seen indicative of distended colon with possible fecal impaction and/or left-sided colon inflammatory, ischemic, or obstructive phenomena. Please see initial radiology report. PHYSICAL EXAMINATION: GENERAL: A 67-year-old female, nonverbal, afebrile, with pulse of 72, respiratory rate 20-22, blood pressure 130/70. HEENT: Showed pale, dry oral mucous membrane, mildly , icteric sclera. LUNGS: Few scattered crepitation with decreased air entry at bases. HEART: Positive S1 and S2. ABDOMEN: Soft with [id number] distention with generalized tenderness. The site of the PEG tube has a Stone catheter rather than a PEG tube which is partially functioning. Bowel sounds are hypoactive. Again, the patient has a moderate abdominal distention, and I instructed the nursing staff to keep the feeding process off and the opening of the feeding tube to air. EXTREMITIES: Mild lower extremity edematous changes. No clubbing or cyanosis. Peripheral pulses are present bilaterally but weak. NEUROLOGIC: No reported new neurological deficits, sensory or motor. No new reported focal deficits. IMPRESSION: 1. Partial large bowel obstruction that could be again secondary to an obstructive phenomena with fecal impaction versus severe ischemic changes or anti-inflammatory changes. 2. Ileus. 3. Status post percutaneous endoscopic gastrostomy insertion, replaced apparently as outpatient by a Stone catheter, with possible infected stoma as well as partially functioning feeding tube now. 4. Known history of dysphagia, cerebrovascular accident, dementia, malnutrition, hypertension, seizure disorder as well as major depression by history. 5. Electrolyte imbalance with hypokalemia. SUGGESTION: 1. Agree with your plan. 2. Bowel retention, enemas x2. 3. Peripheral hyperalimentation. 4. Repeat flattened abdominal x-ray after 24 to 48 hours if the patient has bowel movement. The patient may need the colonoscopy for possible fecal disimpaction if there is no significant improvement. 5. Flagyl IV. 6. Proton pump inhibitors. 7. The patient will need insertion of new PEG tube rather than a Stone catheter after adequate rehydration and IV antibiotics. 8. Further recommendation to follow, awaiting family legal consent for above procedures. 9. We will follow up closely with you. Thank you for letting me participate in your patient's case management. Lidia Lam MD
[2017-10-28] MEDS: Zinc Oxide Topical 30 gm Tube TOP SCH ×3 (06:58→22:58)
--- NOTE | 2017-10-28 08:05 | CP.PCM.PN ---
<Gatito Nolan - Last Filed: 10/28/17 08:01> Subjective - Date & Time of Evaluation Date of Evaluation: 10/28/17 Time of Evaluation: 06:50 - Subjective Subjective: General Surgery Pt S&E, NAEO. Pt is minimally verbal. + BMs overnight. C/O potassium IV pain. Abd pain seems decreased. Objective - Vital Signs/Intake and Output Vital Signs (last 24 hours): Temp Pulse Resp BP Pulse Ox 98.2 F 92 H 18 98/59 L 98 10/28/17 07:20 10/28/17 07:20 10/28/17 07:20 10/28/17 07:20 10/28/17 07:20 Intake and Output: 10/28/17 10/28/17 06:59 18:59 Intake Total 360 Balance 360 - Medications Medications: Current Medications Acetaminophen (Tylenol 650mg/20.3ml Solution Ud) 650 mg GT Q4H PRN PRN Reason: Pain, Mild (1-3) Amlodipine Besylate (Norvasc) 5 mg GT DAILY [facility] Last Admin: 10/27/17 14:45 Dose: Not Given Donepezil HCl (Aricept) 5 mg GT HS [facility] Last Admin: 10/27/17 22:31 Dose: Not Given Enoxaparin Sodium (Lovenox) 40 mg SC DAILY [facility] Last Admin: 10/27/17 14:58 Dose: 40 mg Metronidazole (Flagyl) 500 mg in 100 mls @ 100 mls/hr IVPB Q8H [facility] Last Admin: 10/28/17 05:51 Dose: Not Given Levetiracetam 500 mg/ Sodium (Chloride) 105 mls @ 420 mls/hr IVPB BID [facility] Last Admin: 10/27/17 19:30 Dose: 420 mls/hr Potassium Chloride (Potassium Chloride 10 Meq/100 Ml) 10 meq in 100 mls @ 100 mls/hr IVPB Q1 [facility] Stop: 10/28/17 08:59 Last Admin: 10/28/17 07:39 Dose: Not Given Lactic Acid (Lac-Hydrin 12% Lotion (225 G)) 0 gm TOP BID [facility] Last Admin: 10/27/17 17:42 Dose: 1 applic Levetiracetam (Keppra) 500 mg GT BID [facility] Last Admin: 10/27/17 14:44 Dose: Not Given Magnesium Citrate (Citrate Of Mag) 120 ml GT BID [facility] Last Admin: 10/27/17 17:38 Dose: Not Given Magnesium Hydroxide (Milk Of Magnesia) 30 ml GT Q24H PRN PRN Reason: Constipation Pantoprazole Sodium (Protonix Inj) 40 mg IVP DAILY [facility] Last Admin: 10/27/17 14:58 Dose: 40 mg Petrolatum (Desitin Original) 0 gm TOP QSHIFT [facility] Last Admin: 10/28/17 06:58 Dose: 1 applic Pneumococcal Polyvalent Vaccine (Pneumovax 23 Vaccine) 0.5 ml IM .ONCE ONE Stop: 10/29/17 10:01 Polyethylene Glycol (Miralax) 17 gm GT DAILY [facility] Last Admin: 10/27/17 14:44 Dose: Not Given Potassium Chloride (Potassium Chloride Oral Soln) 20 meq GT BID [facility] Last Admin: 10/27/17 14:45 Dose: Not Given Sertraline HCl (Zoloft) 50 mg JT DAILY [facility] Last Admin: 10/27/17 14:45 Dose: Not Given Vitamin A (Vitamin A & D Oint Ud Foilpak) 0.5 ea TOP Q4 [facility] Last Admin: 10/28/17 03:20 Dose: Not Given - Labs Labs: 10/26/17 21:11 10/27/17 17:23 PT 11.6 SECONDS (9.7-12.2) 10/26/17 02:55 INR 1.0 10/26/17 02:55 APTT 34 SECONDS (21-34) 10/26/17 02:55 - Constitutional Appears: Non-toxic, No Acute Distress - Head Exam Head Exam: ATRAUMATIC, NORMOCEPHALIC - Eye Exam Eye Exam: EOMI. absent: Scleral icterus - Respiratory Exam Respiratory Exam: NORMAL BREATHING PATTERN. absent: Respiratory Distress - GI/Abdominal Exam GI & Abdominal Exam: Distended, Soft, Tenderness (mild). absent: Firm, Guarding , Rigid, Rebound - Neurological Exam Neurological Exam: Alert, Awake - Skin Skin Exam: Dry, Warm Assessment and Plan - Assessment and Plan (Free Text) Assessment: 67F with colonic distention Plan: - NPO - G-tube to air to help w/ decompression - Soap suds enemas - Appreciate GI recs - Serial abd exams - Abd xray tomorrow D/W Dr. Braulio Nolan PGY4 <Jorge Ramsey B - Last Filed: 10/31/17 20:10> Objective - Vital Signs/Intake and Output Vital Signs (last 24 hours): Temp Pulse Resp BP Pulse Ox 97.6 F 83 18 111/54 L 96 10/31/17 16:00 10/31/17 16:00 10/31/17 16:00 10/31/17 16:00 10/31/17 16:00 Intake and Output: 10/31/17 11/01/17 18:59 06:59 Intake Total 100 Output Total 240 Balance -140 - Medications Medications: Current Medications Acetaminophen (Tylenol 650mg/20.3ml Solution Ud) 650 mg GT Q4H PRN PRN Reason: Pain, Mild (1-3) Amlodipine Besylate (Norvasc) 5 mg GT DAILY [facility] Last Admin: 10/31/17 09:05 Dose: 5 mg Donepezil HCl (Aricept) 5 mg GT HS [facility] Last Admin: 10/30/17 21:51 Dose: 5 mg Enoxaparin Sodium (Lovenox) 40 mg SC DAILY [facility] Last Admin: 10/31/17 10:17 Dose: Not Given Metronidazole (Flagyl) 500 mg in 100 mls @ 100 mls/hr IVPB Q8 [facility] Last Admin: 10/31/17 13:47 Dose: 100 mls/hr Lactic Acid (Lac-Hydrin 12% Lotion (225 G)) 0 gm TOP BID [facility] Last Admin: 10/31/17 17:57 Dose: 1 applic Levetiracetam (Keppra) 500 mg GT BID [facility] Last Admin: 10/31/17 17:55 Dose: 500 mg Magnesium Hydroxide (Milk Of Magnesia) 30 ml GT Q24H PRN PRN Reason: Constipation Pantoprazole Sodium (Protonix Susp) 40 mg PEG DAILY [facility] Last Admin: 10/31/17 11:25 Dose: 40 mg Petrolatum (Desitin Original) 0 gm TOP QSHIFT [facility] Last Admin: 10/31/17 13:54 Dose: 1 applic Polyethylene Glycol (Miralax) 17 gm GT DAILY [facility] Last Admin: 10/31/17 09:05 Dose: 17 gm Potassium Chloride (Potassium Chloride Oral Soln) 20 meq GT BID [facility] Last Admin: 10/31/17 17:56 Dose: 20 meq Sertraline HCl (Zoloft) 50 mg JT DAILY [facility] Last Admin: 10/31/17 09:05 Dose: 50 mg Vitamin A (Vitamin A & D Oint Ud Foilpak) 0.5 ea TOP Q4 [facility] Last Admin: 10/31/17 16:05 Dose: Not Given - Labs Labs: 10/29/17 06:45 10/29/17 06:45 PT 11.6 SECONDS (9.7-12.2) 10/26/17 02:55 INR 1.0 10/26/17 02:55 APTT 34 SECONDS (21-34) 10/26/17 02:55 Attending/Attestation - Attestation Notes (Text): Pt was seen and examined at bedside Agree with above note and assessment Pt with improving constipation Had multiple BMs Still colonic distention present GI consult for reinsertion of PEG c.w current mx Plan d.w primary team in detail
[2017-10-28 08:30] LABS: BASO % 0.4 % (0.0-2.0); EOS % 0.6 % (0.0-4.0); LYMPH # 1.4 K/uL (1.0-4.3); LYMPH % 19.7 % (20.0-40.0); MEAN CELL VOLUME 96.7 fL (81.0-99.0); MEAN CORPUSCULAR HEMOGLOBIN 31.8 pg (27.0-31.0); MEAN CORPUSCULAR HGB CONC 32.8 g/dL (33.0-37.0); MEAN PLATELET VOLUME 10.3 fL (7.2-11.7); MONO # 0.9 K/uL (0.0-0.8); MONO % 12.8 % (0.0-10.0); NEUT # 4.7 K/uL (1.8-7.0); NEUT % 66.5 % (50.0-75.0); RBC 3.18 Mil/uL (3.80-5.20); RED CELL DISTRIBUTION WIDTH 13.8 % (11.5-14.5)
[2017-10-28 08:31] LABS: HEMOGLOBIN 10.1 g/dL (11.0-16.0)
[2017-10-28 08:48] LABS: ALBUMIN 3.2 g/dL (3.5-5.0); ALT/SGPT 30 U/L (9-52); AST/SGOT 19 U/L (14-36); BLOOD UREA NITROGEN 2 mg/dL (7-17); CALCIUM 7.9 mg/dl (8.6-10.4); GFR AFRICAN-AMERICAN > 60; GFR NON-AFRICAN AMERICAN > 60
[2017-10-28] MEDS: levETIRAcetam 500 MG in Sodium Chloride 0.9% 100 ML IVPB SCH ×2 (10:05→18:44)
[2017-10-28] MEDS: Enoxaparin 40 mg Syringe SC SCH (10:09)
[2017-10-28] MEDS: Ammonium Lactate 12% Lotion (225 g) TOP SCH ×3 (10:11→18:44)
[2017-10-28] MEDS: Magnesium Citrate Oral SOL (300 ml) GT SCH (10:12)
[2017-10-28] MEDS: POLYETHYLENE GLYCOL 3350 17 GM/Dose PACKET GT SCH (10:12)
--- NOTE | 2017-10-28 11:37 | CP.PCM.PN ---
Subjective - Date & Time of Evaluation Date of Evaluation: 10/28/17 Time of Evaluation: 11:30 - Subjective Subjective: progress note- murray lyon pt seen and examined at bedside. pt is nonverbal. seems minimal abd pain, gi and sx following. ros unobtainable. Objective - Vital Signs/Intake and Output Vital Signs (last 24 hours): Temp Pulse Resp BP Pulse Ox 98.2 F 92 H 18 98/59 L 98 10/28/17 07:20 10/28/17 07:20 10/28/17 07:20 10/28/17 07:20 10/28/17 07:20 Intake and Output: 10/28/17 10/28/17 06:59 18:59 Intake Total 360 Balance 360 - Medications Medications: Current Medications Acetaminophen (Tylenol 650mg/20.3ml Solution Ud) 650 mg GT Q4H PRN PRN Reason: Pain, Mild (1-3) Amlodipine Besylate (Norvasc) 5 mg GT DAILY [facility] Last Admin: 10/28/17 10:12 Dose: Not Given Donepezil HCl (Aricept) 5 mg GT HS [facility] Last Admin: 10/27/17 22:31 Dose: Not Given Enoxaparin Sodium (Lovenox) 40 mg SC DAILY [facility] Last Admin: 10/28/17 10:09 Dose: 40 mg Metronidazole (Flagyl) 500 mg in 100 mls @ 100 mls/hr IVPB Q8H [facility] Last Admin: 10/28/17 05:51 Dose: Not Given Levetiracetam 500 mg/ Sodium (Chloride) 105 mls @ 420 mls/hr IVPB BID [facility] Last Admin: 10/28/17 10:05 Dose: 420 mls/hr Lactic Acid (Lac-Hydrin 12% Lotion (225 G)) 0 gm TOP BID [facility] Last Admin: 10/28/17 10:11 Dose: 1 applic Levetiracetam (Keppra) 500 mg GT BID [facility] Last Admin: 10/27/17 14:44 Dose: Not Given Magnesium Citrate (Citrate Of Mag) 120 ml GT BID [facility] Last Admin: 10/28/17 10:12 Dose: Not Given Magnesium Hydroxide (Milk Of Magnesia) 30 ml GT Q24H PRN PRN Reason: Constipation Pantoprazole Sodium (Protonix Inj) 40 mg IVP DAILY [facility] Last Admin: 10/28/17 10:05 Dose: 40 mg Petrolatum (Desitin Original) 0 gm TOP QSHIFT [facility] Last Admin: 10/28/17 06:58 Dose: 1 applic Pneumococcal Polyvalent Vaccine (Pneumovax 23 Vaccine) 0.5 ml IM .ONCE ONE Stop: 10/29/17 10:01 Polyethylene Glycol (Miralax) 17 gm GT DAILY [facility] Last Admin: 10/28/17 10:12 Dose: Not Given Potassium Chloride (Potassium Chloride Oral Soln) 20 meq GT BID [facility] Last Admin: 10/27/17 14:45 Dose: Not Given Sertraline HCl (Zoloft) 50 mg JT DAILY [facility] Last Admin: 10/28/17 10:12 Dose: Not Given Vitamin A (Vitamin A & D Oint Ud Foilpak) 0.5 ea TOP Q4 [facility] Last Admin: 10/28/17 08:28 Dose: 0.5 ea - Labs Labs: 10/28/17 08:19 10/28/17 08:19 PT 11.6 SECONDS (9.7-12.2) 10/26/17 02:55 INR 1.0 10/26/17 02:55 APTT 34 SECONDS (21-34) 10/26/17 02:55 - Constitutional Appears: Non-toxic, No Acute Distress, Chronically Ill - Head Exam Head Exam: ATRAUMATIC, NORMAL INSPECTION, NORMOCEPHALIC - Eye Exam Eye Exam: EOMI - ENT Exam ENT Exam: Mucous Membranes Dry - Neck Exam Neck Exam: Full ROM, Normal Inspection - Respiratory Exam Respiratory Exam: Decreased Breath Sounds. absent: Respiratory Distress - Cardiovascular Exam Cardiovascular Exam: +S1, +S2 - GI/Abdominal Exam GI & Abdominal Exam: Hypoactive Bowel Sounds - Extremities Exam Extremities Exam: Full ROM, Normal Inspection - Neurological Exam Neurological Exam: Altered - Psychiatric Exam Psychiatric exam: Flat Affect - Skin Skin Exam: Dry, Intact, Normal Color, Warm Assessment and Plan - Assessment and Plan (Free Text) Assessment: this is a 67 yo female with 1. colonic distention - NPO - Gastric tube to air to help w/ decompression - Soap suds enemas - Appreciate GI recs - Serial abd exams - Abd xray today -iv flagyl -consider insertion of new peg -gi following- dr hurst -sx following dw Dr. lyon
[2017-10-28] MEDS ORDERED: Magnesium Citrate Oral SOL (300 ml) PO ONE (14:00)
--- NOTE | 2017-10-28 14:19 | PN ---
DATE: LOCATION: [facility], bed A. SUBJECTIVE: This is a 67-year-old female seen and examined in rounds, and the case discussed with the software consultant on the case at length. The patient is nonverbal and reported to have bowel movement over the night x2, without reported active bleeding or significant clinical changes; however, the abdomen reported to be still mildly distended, and the Stone catheter is still in place acting as a PEG tube. The entire chart is reviewed including, but not limited to, the most recent lab and radiology study results, current and the previous medication list, current and the previous medical events, and today's abdominal x-ray report is still pending. Case discussed at length with the staff as well as the software consultant on the case. Today's labs showed normal white blood cell of 7.0, low hemoglobin 10.1, low hematocrit 30.7, with normal platelet count, with low BUN and creatinine, blood glucose level 108 with low calcium 7.9, low albumin 3.2. CEA level was reported before to be elevated to 3.7. PHYSICAL EXAMINATION: GENERAL: A 67-year-old female. VITAL SIGNS: Afebrile with heart rate of 90, respiratory rate of 20 to 22, with blood pressure of 104/62. HEENT: Showed pale, dry mucoid membrane. Nonicteric sclerae. LUNGS: Few scattered mild crepitation, decreased air entry at the bases. HEART: Positive S1 and S2. ABDOMEN: Soft with generalized tenderness, mildly distended. Stone catheter in the place of PEG tube stoma with evidence of slight anterior abdominal wall cellulitis. No mass or organomegaly. EXTREMITIES: Lower extremities: Mild edematous changes. No clubbing or cyanosis. NEUROLOGIC: No reported new neurological deficits, sensory or motor. IMPRESSION: 1. Fecal impaction, inducing a picture of possible partial bowel obstruction; however, the possibility of lower gastrointestinal tract or occult malignancy should be ruled in or out. 2. Recent diarrhea which could be secondary to the patient's fecal impaction, which is one of the most common causes of diarrhea in elderly population. 3. Elevated CEA. 4. Known history of but not limited to hypertension; seizure disorder; cerebrovascular accident; status post PEG insertion, replaced by Stone catheter due to the PEG malfunction, done probably as outpatient. 5. Anemia, most likely secondary to above. 6. Electrolyte imbalance, most likely secondary to above. SUGGESTIONS: 1. Agree with your plan. 2. The patient is to be scheduled for colonoscopy at and PEG change upon receiving consent from the family. Further recommendation to follow. Lidia Lam MD
--- NOTE | 2017-10-28 14:45 | CARD ---
APPROVED REPORT EKG Measurement Heart [id number] <Conclusion> Normal sinus rhythm Low voltage QRS Cannot rule out Anterior infarct, age undetermined Abnormal ECG
--- NOTE | 2017-10-28 15:38 | RAD ---
HISTORY: Evaluation of abdominal distension COMPARISON: 10/26/2017. Plain film radiographs 10/26/2017 CT abdomen pelvis seen previously. FINDINGS: BOWEL: : Remains dilated, similar degree to that seen previously. No visible free air. BONES: Normal. OTHER FINDINGS: None. IMPRESSION: Persistent approximately stable dilatation of the colon. No new/ acute findings.
--- NOTE | 2017-10-28 19:34 | CP.PCM.PN ---
Subjective - Date & Time of Evaluation Date of Evaluation: 10/28/17 Time of Evaluation: 11:00 - Subjective Subjective: clinically same Objective - Vital Signs/Intake and Output Vital Signs (last 24 hours): Temp Pulse Resp BP Pulse Ox 97.9 F 82 19 108/52 L 95 10/28/17 15:00 10/28/17 15:00 10/28/17 15:00 10/28/17 15:00 10/28/17 15:00 - Medications Medications: Current Medications Acetaminophen (Tylenol 650mg/20.3ml Solution Ud) 650 mg GT Q4H PRN PRN Reason: Pain, Mild (1-3) Amlodipine Besylate (Norvasc) 5 mg GT DAILY [facility] Last Admin: 10/28/17 10:12 Dose: Not Given Donepezil HCl (Aricept) 5 mg GT HS [facility] Last Admin: 10/27/17 22:31 Dose: Not Given Enoxaparin Sodium (Lovenox) 40 mg SC DAILY [facility] Last Admin: 10/28/17 10:09 Dose: 40 mg Metronidazole (Flagyl) 500 mg in 100 mls @ 100 mls/hr IVPB Q8H [facility] Last Admin: 10/28/17 12:55 Dose: 100 mls/hr Levetiracetam 500 mg/ Sodium (Chloride) 105 mls @ 420 mls/hr IVPB BID [facility] Last Admin: 10/28/17 18:44 Dose: 420 mls/hr Lactic Acid (Lac-Hydrin 12% Lotion (225 G)) 0 gm TOP BID [facility] Last Admin: 10/28/17 18:44 Dose: 1 applic Levetiracetam (Keppra) 500 mg GT BID [facility] Last Admin: 10/27/17 14:44 Dose: Not Given Magnesium Hydroxide (Milk Of Magnesia) 30 ml GT Q24H PRN PRN Reason: Constipation Pantoprazole Sodium (Protonix Inj) 40 mg IVP DAILY [facility] Last Admin: 10/28/17 10:05 Dose: 40 mg Petrolatum (Desitin Original) 0 gm TOP QSHIFT [facility] Last Admin: 10/28/17 13:07 Dose: 1 applic Pneumococcal Polyvalent Vaccine (Pneumovax 23 Vaccine) 0.5 ml IM .ONCE ONE Stop: 10/29/17 10:01 Polyethylene Glycol (Miralax) 17 gm GT DAILY [facility] Last Admin: 10/28/17 10:12 Dose: Not Given Potassium Chloride (Potassium Chloride Oral Soln) 20 meq GT BID [facility] Last Admin: 10/27/17 14:45 Dose: Not Given Sertraline HCl (Zoloft) 50 mg JT DAILY [facility] Last Admin: 10/28/17 10:12 Dose: Not Given Vitamin A (Vitamin A & D Oint Ud Foilpak) 0.5 ea TOP Q4 [facility] Last Admin: 10/28/17 16:00 Dose: Not Given - Labs Labs: 10/28/17 08:19 10/28/17 08:19 PT 11.6 SECONDS (9.7-12.2) 10/26/17 02:55 INR 1.0 10/26/17 02:55 APTT 34 SECONDS (21-34) 10/26/17 02:55
[2017-10-29] MEDS: Vitamins A & D Oint UD Foilpak TOP SCH ×5 (00:05→21:11)
[2017-10-29] MEDS: metroNIDAZOLE IV 500 mg/100 ml 500 MG/100 ML BAG IVPB SCH ×3 (05:44→21:00)
[2017-10-29] MEDS: Zinc Oxide Topical 30 gm Tube TOP SCH ×3 (05:44→22:29)
[2017-10-29 07:16] LABS: ALBUMIN 3.5 g/dL (3.5-5.0); ALT/SGPT 29 U/L (9-52); AST/SGOT 26 U/L (14-36); BLOOD UREA NITROGEN < 2 mg/dL (7-17); CALCIUM 8.2 mg/dl (8.6-10.4); GFR AFRICAN-AMERICAN > 60; GFR NON-AFRICAN AMERICAN > 60
[2017-10-29 07:18] LABS: BASO % 0.6 % (0.0-2.0); EOS # 0.1 K/uL (0.0-0.7); EOS % 0.8 % (0.0-4.0); HEMOGLOBIN 11.4 g/dL (11.0-16.0); LYMPH # 1.6 K/uL (1.0-4.3); LYMPH % 20.4 % (20.0-40.0); MEAN CELL VOLUME 96.7 fL (81.0-99.0); MEAN CORPUSCULAR HEMOGLOBIN 32.9 pg (27.0-31.0); MONO # 0.8 K/uL (0.0-0.8); MONO % 10.6 % (0.0-10.0); NEUT # 5.2 K/uL (1.8-7.0); NEUT % 67.6 % (50.0-75.0); NRBC % 0.1 % (0.0-2.0); RBC 3.46 Mil/uL (3.80-5.20); RED CELL DISTRIBUTION WIDTH 13.4 % (11.5-14.5); WHITE BLOOD COUNT 7.7 K/uL (4.8-10.8)
--- NOTE | 2017-10-29 07:51 | CP.PCM.PN ---
<Farzaneh Norman - Last Filed: 10/29/17 07:52> Subjective - Date & Time of Evaluation Date of Evaluation: 10/29/17 Time of Evaluation: 06:30 - Subjective Subjective: General surgery progress note for Dr. Ramsey-Farzaneh Norman, PGY-1 Pt S & E at bedside. Pt non verbal today, Swiping hands away from abdomen. BM as per nursing. Objective - Vital Signs/Intake and Output Vital Signs (last 24 hours): Temp Pulse Resp BP Pulse Ox 98 F 76 18 114/76 95 10/28/17 23:25 10/28/17 23:25 10/28/17 23:25 10/28/17 23:25 10/28/17 23:25 - Medications Medications: Current Medications Acetaminophen (Tylenol 650mg/20.3ml Solution Ud) 650 mg GT Q4H PRN PRN Reason: Pain, Mild (1-3) Amlodipine Besylate (Norvasc) 5 mg GT DAILY [facility] Last Admin: 10/28/17 10:12 Dose: Not Given Donepezil HCl (Aricept) 5 mg GT HS [facility] Last Admin: 10/28/17 22:57 Dose: Not Given Enoxaparin Sodium (Lovenox) 40 mg SC DAILY [facility] Last Admin: 10/28/17 10:09 Dose: 40 mg Metronidazole (Flagyl) 500 mg in 100 mls @ 100 mls/hr IVPB Q8H [facility] Last Admin: 10/29/17 05:44 Dose: 100 mls/hr Levetiracetam 500 mg/ Sodium (Chloride) 105 mls @ 420 mls/hr IVPB BID [facility] Last Admin: 10/28/17 18:44 Dose: 420 mls/hr Potassium Chloride (Potassium Chloride 20 Meq/100 Ml) 20 meq in 100 mls @ 50 mls/hr IVPB ONCE ONE Stop: 10/29/17 09:37 Lactic Acid (Lac-Hydrin 12% Lotion (225 G)) 0 gm TOP BID [facility] Last Admin: 10/28/17 18:44 Dose: 1 applic Levetiracetam (Keppra) 500 mg GT BID [facility] Last Admin: 10/27/17 14:44 Dose: Not Given Magnesium Hydroxide (Milk Of Magnesia) 30 ml GT Q24H PRN PRN Reason: Constipation Pantoprazole Sodium (Protonix Inj) 40 mg IVP DAILY [facility] Last Admin: 10/28/17 10:05 Dose: 40 mg Petrolatum (Desitin Original) 0 gm TOP QSHIFT [facility] Last Admin: 10/29/17 05:44 Dose: 1 applic Pneumococcal Polyvalent Vaccine (Pneumovax 23 Vaccine) 0.5 ml IM .ONCE ONE Stop: 10/29/17 10:01 Polyethylene Glycol (Miralax) 17 gm GT DAILY [facility] Last Admin: 10/28/17 10:12 Dose: Not Given Potassium Chloride (Potassium Chloride Oral Soln) 20 meq GT BID [facility] Last Admin: 10/27/17 14:45 Dose: Not Given Sertraline HCl (Zoloft) 50 mg JT DAILY [facility] Last Admin: 10/28/17 10:12 Dose: Not Given Vitamin A (Vitamin A & D Oint Ud Foilpak) 0.5 ea TOP Q4 [facility] Last Admin: 10/29/17 04:47 Dose: Not Given - Labs Labs: 10/29/17 06:45 10/29/17 06:45 PT 11.6 SECONDS (9.7-12.2) 10/26/17 02:55 INR 1.0 10/26/17 02:55 APTT 34 SECONDS (21-34) 10/26/17 02:55 - Constitutional Appears: Non-toxic, No Acute Distress - Head Exam Head Exam: ATRAUMATIC, NORMAL INSPECTION, NORMOCEPHALIC - Eye Exam Eye Exam: EOMI, Normal appearance - ENT Exam ENT Exam: Mucous Membranes Moist, Normal Exam - Respiratory Exam Respiratory Exam: NORMAL BREATHING PATTERN - Cardiovascular Exam Cardiovascular Exam: REGULAR RHYTHM, +S1, +S2 - GI/Abdominal Exam GI & Abdominal Exam: Distended, Firm. absent: Guarding, Rigid - Neurological Exam Neurological Exam: Awake. absent: Oriented x3 (non verbal ) - Psychiatric Exam Additional comments: non verbal today, only gesturing - Skin Skin Exam: Dry, Intact, Normal Color, Warm Assessment and Plan - Assessment and Plan (Free Text) Assessment: 67F with colonic distention, for colonoscopy today Plan: NPO G-tube to air for decompression help For colonoscopy with GI today Serial ab exams Will DW attending Ester, PGY-1 <Jorge Ramsey - Last Filed: 10/31/17 20:12> Objective - Vital Signs/Intake and Output Vital Signs (last 24 hours): Temp Pulse Resp BP Pulse Ox 97.6 F 83 18 111/54 L 96 10/31/17 16:00 10/31/17 16:00 10/31/17 16:00 10/31/17 16:00 10/31/17 16:00 Intake and Output: 10/31/17 11/01/17 18:59 06:59 Intake Total 100 Output Total 240 Balance -140 - Medications Medications: Current Medications Acetaminophen (Tylenol 650mg/20.3ml Solution Ud) 650 mg GT Q4H PRN PRN Reason: Pain, Mild (1-3) Amlodipine Besylate (Norvasc) 5 mg GT DAILY [facility] Last Admin: 10/31/17 09:05 Dose: 5 mg Donepezil HCl (Aricept) 5 mg GT HS [facility] Last Admin: 10/30/17 21:51 Dose: 5 mg Enoxaparin Sodium (Lovenox) 40 mg SC DAILY [facility] Last Admin: 10/31/17 10:17 Dose: Not Given Metronidazole (Flagyl) 500 mg in 100 mls @ 100 mls/hr IVPB Q8 [facility] Last Admin: 10/31/17 13:47 Dose: 100 mls/hr Lactic Acid (Lac-Hydrin 12% Lotion (225 G)) 0 gm TOP BID [facility] Last Admin: 10/31/17 17:57 Dose: 1 applic Levetiracetam (Keppra) 500 mg GT BID [facility] Last Admin: 10/31/17 17:55 Dose: 500 mg Magnesium Hydroxide (Milk Of Magnesia) 30 ml GT Q24H PRN PRN Reason: Constipation Pantoprazole Sodium (Protonix Susp) 40 mg PEG DAILY [facility] Last Admin: 10/31/17 11:25 Dose: 40 mg Petrolatum (Desitin Original) 0 gm TOP QSHIFT [facility] Last Admin: 10/31/17 13:54 Dose: 1 applic Polyethylene Glycol (Miralax) 17 gm GT DAILY [facility] Last Admin: 10/31/17 09:05 Dose: 17 gm Potassium Chloride (Potassium Chloride Oral Soln) 20 meq GT BID [facility] Last Admin: 10/31/17 17:56 Dose: 20 meq Sertraline HCl (Zoloft) 50 mg JT DAILY [facility] Last Admin: 02/15/18 09:05 Dose: 50 mg Vitamin A (Vitamin A & D Oint Ud Foilpak) 0.5 ea TOP Q4 [facility] Last Admin: 10/31/17 16:05 Dose: Not Given - Labs Labs: 10/29/17 06:45 10/29/17 06:45 PT 11.6 SECONDS (9.7-12.2) 10/26/17 02:55 INR 1.0 10/26/17 02:55 APTT 34 SECONDS (21-34) 10/26/17 02:55 Attending/Attestation - Attestation I have personally seen and examined this patient.: Yes I have fully participated in the care of the patient.: Yes I have reviewed all pertinent clinical information, including history, physical exam and plan: Yes Notes (Text): Pt was seen and examined at bedside Agree with above note and assessment Pt is improving clinically Colonoscopy today with reinsertion of PEG c.w current mx Plan d.w primary team in detail
[2017-10-29] MEDS ORDERED: Pneumococcal 23-Valent Vaccine IM ONE (10:00)
[2017-10-29] MEDS ORDERED: Influenza Vaccine 60 mcg/0.5 mL SYR (4YR UP) IM ONE (10:00)
[2017-10-29] MEDS ORDERED: Propofol 10 mg/ml Inj (20 ML) ONE (12:42)
[2017-10-29] MEDS: levETIRAcetam 500 MG in Sodium Chloride 0.9% 100 ML IVPB SCH ×2 (13:06→19:00)
[2017-10-29] MEDS: Ammonium Lactate 12% Lotion (225 g) TOP SCH ×2 (13:06→21:12)
[2017-10-29] MEDS: Enoxaparin 40 mg Syringe SC SCH (13:07)
[2017-10-29] MEDS: POLYETHYLENE GLYCOL 3350 17 GM/Dose PACKET GT SCH (13:07)
--- NOTE | 2017-10-29 13:39 | CP.PCM.PN ---
Subjective - Date & Time of Evaluation Date of Evaluation: 10/29/17 Time of Evaluation: 13:00 - Subjective Subjective: progress note. attending - dr. murray lyon pt seen at bedside. refused exam. nad. ros unobtainable. pt non verbal. has been having bm. Objective - Vital Signs/Intake and Output Vital Signs (last 24 hours): Temp Pulse Resp BP Pulse Ox 97.9 F 97 H 10 L 135/99 H 100 10/29/17 13:10 10/29/17 13:10 10/29/17 13:10 10/29/17 13:10 10/29/17 13:10 Intake and Output: 10/29/17 10/29/17 06:59 18:59 Intake Total 150 Balance 150 - Medications Medications: Current Medications Acetaminophen (Tylenol 650mg/20.3ml Solution Ud) 650 mg GT Q4H PRN PRN Reason: Pain, Mild (1-3) Amlodipine Besylate (Norvasc) 5 mg GT DAILY [facility] Last Admin: 10/29/17 13:07 Dose: Not Given Donepezil HCl (Aricept) 5 mg GT HS [facility] Last Admin: 10/28/17 22:57 Dose: Not Given Enoxaparin Sodium (Lovenox) 40 mg SC DAILY [facility] Last Admin: 10/29/17 13:07 Dose: Not Given Metronidazole (Flagyl) 500 mg in 100 mls @ 100 mls/hr IVPB Q8H [facility] Last Admin: 10/29/17 05:44 Dose: 100 mls/hr Levetiracetam 500 mg/ Sodium (Chloride) 105 mls @ 420 mls/hr IVPB BID [facility] Last Admin: 10/29/17 13:06 Dose: Not Given Lactic Acid (Lac-Hydrin 12% Lotion (225 G)) 0 gm TOP BID [facility] Last Admin: 10/29/17 13:06 Dose: Not Given Levetiracetam (Keppra) 500 mg GT BID [facility] Last Admin: 10/27/17 14:44 Dose: Not Given Magnesium Hydroxide (Milk Of Magnesia) 30 ml GT Q24H PRN PRN Reason: Constipation Pantoprazole Sodium (Protonix Inj) 40 mg IVP DAILY [facility] Last Admin: 10/29/17 13:07 Dose: Not Given Petrolatum (Desitin Original) 0 gm TOP QSHIFT [facility] Last Admin: 10/29/17 05:44 Dose: 1 applic Polyethylene Glycol (Miralax) 17 gm GT DAILY [facility] Last Admin: 10/29/17 13:07 Dose: Not Given Potassium Chloride (Potassium Chloride Oral Soln) 20 meq GT BID [facility] Last Admin: 10/27/17 14:45 Dose: Not Given Sertraline HCl (Zoloft) 50 mg JT DAILY [facility] Last Admin: 10/29/17 13:08 Dose: Not Given Vitamin A (Vitamin A & D Oint Ud Foilpak) 0.5 ea TOP Q4 [facility] Last Admin: 10/29/17 13:08 Dose: Not Given - Labs Labs: 10/29/17 06:45 10/29/17 06:45 PT 11.6 SECONDS (9.7-12.2) 10/26/17 02:55 INR 1.0 10/26/17 02:55 APTT 34 SECONDS (21-34) 10/26/17 02:55 - Additional Findings Additional findings: pt refused exam. Assessment and Plan - Assessment and Plan (Free Text) Assessment: this is a 67 yo female with 1. colonic distention - NPO - Gastric tube to air to help w/ decompression - Soap suds enemas - Appreciate GI recs - Serial abd exams -iv flagyl -consider insertion of new peg -gi following- dr hurst -sx following -consent obtained, colonoscopy today 2. hx of dementia -continue donepezil 3. hx of seizure disorder -continue keppra. 4. gi/dvt ppx -continue lovenox -continue protonix dw Dr. lyon
--- NOTE | 2017-10-29 16:58 | CP.PCM.PN ---
Subjective - Date & Time of Evaluation Date of Evaluation: 10/29/17 Time of Evaluation: 10:00 - Subjective Subjective: clinically same Objective - Vital Signs/Intake and Output Vital Signs (last 24 hours): Temp Pulse Resp BP Pulse Ox 98.5 F 77 18 101/44 L 100 10/29/17 15:18 10/29/17 15:18 10/29/17 15:18 10/29/17 15:18 10/29/17 13:40 Intake and Output: 10/29/17 10/29/17 06:59 18:59 Intake Total 280 Balance 280 - Medications Medications: Current Medications Acetaminophen (Tylenol 650mg/20.3ml Solution Ud) 650 mg GT Q4H PRN PRN Reason: Pain, Mild (1-3) Amlodipine Besylate (Norvasc) 5 mg GT DAILY [facility] Last Admin: 10/29/17 13:07 Dose: Not Given Donepezil HCl (Aricept) 5 mg GT HS [facility] Last Admin: 10/28/17 22:57 Dose: Not Given Enoxaparin Sodium (Lovenox) 40 mg SC DAILY [facility] Last Admin: 10/29/17 13:07 Dose: Not Given Metronidazole (Flagyl) 500 mg in 100 mls @ 100 mls/hr IVPB Q8H [facility] Last Admin: 10/29/17 13:20 Dose: 70 mls Levetiracetam 500 mg/ Sodium (Chloride) 105 mls @ 420 mls/hr IVPB BID [facility] Last Admin: 10/29/17 13:06 Dose: Not Given Lactic Acid (Lac-Hydrin 12% Lotion (225 G)) 0 gm TOP BID [facility] Last Admin: 10/29/17 13:06 Dose: Not Given Levetiracetam (Keppra) 500 mg GT BID [facility] Last Admin: 10/27/17 14:44 Dose: Not Given Magnesium Hydroxide (Milk Of Magnesia) 30 ml GT Q24H PRN PRN Reason: Constipation Pantoprazole Sodium (Protonix Inj) 40 mg IVP DAILY [facility] Last Admin: 10/29/17 13:07 Dose: Not Given Petrolatum (Desitin Original) 0 gm TOP QSHIFT [facility] Last Admin: 10/29/17 15:35 Dose: Not Given Polyethylene Glycol (Miralax) 17 gm GT DAILY [facility] Last Admin: 10/29/17 13:07 Dose: Not Given Potassium Chloride (Potassium Chloride Oral Soln) 20 meq GT BID [facility] Last Admin: 10/27/17 14:45 Dose: Not Given Sertraline HCl (Zoloft) 50 mg JT DAILY [facility] Last Admin: 10/29/17 13:08 Dose: Not Given Vitamin A (Vitamin A & D Oint Ud Foilpak) 0.5 ea TOP Q4 [facility] Last Admin: 10/29/17 13:08 Dose: Not Given - Labs Labs: 10/29/17 06:45 10/29/17 06:45 PT 11.6 SECONDS (9.7-12.2) 10/26/17 02:55 INR 1.0 10/26/17 02:55 APTT 34 SECONDS (21-34) 10/26/17 02:55 - Constitutional Appears: Well - Head Exam Head Exam: ATRAUMATIC, NORMAL INSPECTION, NORMOCEPHALIC - Eye Exam Eye Exam: EOMI, Normal appearance, PERRL Pupil Exam: NORMAL ACCOMODATION, PERRL - ENT Exam ENT Exam: Mucous Membranes Moist, Normal Exam - Neck Exam Neck Exam: Full ROM, Normal Inspection. absent: Lymphadenopathy - Respiratory Exam Respiratory Exam: Decreased Breath Sounds - Cardiovascular Exam Cardiovascular Exam: REGULAR RHYTHM, +S1, +S2 - GI/Abdominal Exam GI & Abdominal Exam: Soft, Diminished Bowel Sounds - Rectal Exam Rectal Exam: Deferred
[2017-10-30] MEDS: Vitamins A & D Oint UD Foilpak TOP SCH ×6 (00:18→20:30)
[2017-10-30] MEDS: metroNIDAZOLE IV 500 mg/100 ml 500 MG/100 ML BAG IVPB SCH ×3 (04:56→21:48)
[2017-10-30] MEDS: Zinc Oxide Topical 30 gm Tube TOP SCH ×3 (05:00→22:16)
[2017-10-30] MEDS: POLYETHYLENE GLYCOL 3350 17 GM/Dose PACKET GT SCH (11:01)
[2017-10-30] MEDS: Enoxaparin 40 mg Syringe SC SCH (11:01)
[2017-10-30] MEDS: levETIRAcetam 500 MG in Sodium Chloride 0.9% 100 ML IVPB SCH ×2 (11:06→17:32)
[2017-10-30] MEDS: Ammonium Lactate 12% Lotion (225 g) TOP SCH ×2 (11:07→18:23)
[2017-10-30] MEDS ORDERED: Propofol 10 mg/ml Inj (20 ML) ONE ×2 (12:18→12:30)
[2017-10-30] MEDS ORDERED: Midazolam 2 MG/2 ML VIAL ONE (12:31)
--- NOTE | 2017-10-30 14:03 | CP.PCM.PN ---
Subjective - Date & Time of Evaluation Date of Evaluation: 10/30/17 Time of Evaluation: 14:00 - Subjective Subjective: progress note. murray lyon pt seen and examined at bedside. no acute distress. ros unobtainable. sx and gi following. Objective - Vital Signs/Intake and Output Vital Signs (last 24 hours): Temp Pulse Resp BP Pulse Ox 97 F L 69 18 107/69 100 10/30/17 12:52 10/30/17 13:22 10/30/17 13:22 10/30/17 13:22 10/30/17 13:22 Intake and Output: 10/30/17 10/30/17 06:59 18:59 Intake Total 95 150 Balance 95 150 - Medications Medications: Current Medications Acetaminophen (Tylenol 650mg/20.3ml Solution Ud) 650 mg GT Q4H PRN PRN Reason: Pain, Mild (1-3) Amlodipine Besylate (Norvasc) 5 mg GT DAILY [facility] Last Admin: 10/30/17 11:02 Dose: Not Given Donepezil HCl (Aricept) 5 mg GT HS [facility] Last Admin: 10/29/17 21:09 Dose: 5 mg Enoxaparin Sodium (Lovenox) 40 mg SC DAILY [facility] Last Admin: 10/30/17 11:01 Dose: Not Given Metronidazole (Flagyl) 500 mg in 100 mls @ 100 mls/hr IVPB Q8H [facility] Last Admin: 10/30/17 04:56 Dose: 100 mls/hr Levetiracetam 500 mg/ Sodium (Chloride) 105 mls @ 420 mls/hr IVPB BID [facility] Last Admin: 10/30/17 11:06 Dose: 420 mls/hr Metronidazole (Flagyl) 500 mg in 100 mls @ 100 mls/hr IVPB Q8 [facility] Lactic Acid (Lac-Hydrin 12% Lotion (225 G)) 0 gm TOP BID [facility] Last Admin: 10/30/17 11:07 Dose: 1 applic Levetiracetam (Keppra) 500 mg GT BID [facility] Last Admin: 10/27/17 14:44 Dose: Not Given Magnesium Hydroxide (Milk Of Magnesia) 30 ml GT Q24H PRN PRN Reason: Constipation Pantoprazole Sodium (Protonix Inj) 40 mg IVP DAILY [facility] Last Admin: 10/30/17 11:06 Dose: 40 mg Petrolatum (Desitin Original) 0 gm TOP QSHIFT [facility] Last Admin: 10/30/17 05:00 Dose: 1 applic Polyethylene Glycol (Miralax) 17 gm GT DAILY [facility] Last Admin: 10/30/17 11:01 Dose: Not Given Potassium Chloride (Potassium Chloride Oral Soln) 20 meq GT BID [facility] Last Admin: 10/27/17 14:45 Dose: Not Given Sertraline HCl (Zoloft) 50 mg JT DAILY [facility] Last Admin: 10/30/17 11:02 Dose: Not Given Vitamin A (Vitamin A & D Oint Ud Foilpak) 0.5 ea TOP Q4 [facility] Last Admin: 10/30/17 11:02 Dose: Not Given - Labs Labs: 10/29/17 06:45 10/29/17 06:45 PT 11.6 SECONDS (9.7-12.2) 10/26/17 02:55 INR 1.0 10/26/17 02:55 APTT 34 SECONDS (21-34) 10/26/17 02:55 - Constitutional Appears: Non-toxic, No Acute Distress, Chronically Ill - Head Exam Head Exam: ATRAUMATIC, NORMAL INSPECTION, NORMOCEPHALIC - Eye Exam Eye Exam: EOMI - ENT Exam ENT Exam: Mucous Membranes Moist - Neck Exam Neck Exam: Full ROM, Normal Inspection - Respiratory Exam Respiratory Exam: NORMAL BREATHING PATTERN. absent: Respiratory Distress - Cardiovascular Exam Cardiovascular Exam: +S1, +S2 - GI/Abdominal Exam GI & Abdominal Exam: Soft, Normal Bowel Sounds. absent: Tenderness - Extremities Exam Extremities Exam: Full ROM, Normal Inspection - Back Exam Back Exam: NORMAL INSPECTION - Neurological Exam Neurological Exam: Altered - Psychiatric Exam Psychiatric exam: Flat Affect - Skin Skin Exam: Dry, Intact, Normal Color, Warm Assessment and Plan - Assessment and Plan (Free Text) Assessment: this is a 67 yo female with 1. colonic distention - Gastric tube to air to help w/ decompression - Soap suds enemas - Appreciate GI recs - Serial abd exams -iv flagyl -gi following- dr hurst -sx following. dr. culp. recs appreciated. -pt underwent endoscopy along with peg removal -endoscopy showed esophagitis along with small hiatal hernia, as well as erythematous mucosa in stomach 2. hx of dementia -continue donepezil 3. hx of seizure disorder -continue keppra. 4. gi/dvt ppx -continue lovenox -continue protonix dw Dr. lyon
--- NOTE | 2017-10-30 16:14 | CP.PCM.PN ---
<Farzaneh Norman - Last Filed: 10/30/17 16:12> Subjective - Date & Time of Evaluation Date of Evaluation: 10/30/17 Time of Evaluation: 10:00 - Subjective Subjective: General surgery progress note for Dr. Ramsey-Farzaneh Norman, PGY-1 Pt S & E at bedside this AM. Pt indicated that her abdomen was swollen, but pain better. Pt is post colonoscopy. Objective - Vital Signs/Intake and Output Vital Signs (last 24 hours): Temp Pulse Resp BP Pulse Ox 97 F L 69 18 107/69 100 10/30/17 12:52 10/30/17 13:22 10/30/17 13:22 10/30/17 13:22 10/30/17 13:22 Intake and Output: 10/30/17 10/30/17 06:59 18:59 Intake Total 95 150 Balance 95 150 - Medications Medications: Current Medications Acetaminophen (Tylenol 650mg/20.3ml Solution Ud) 650 mg GT Q4H PRN PRN Reason: Pain, Mild (1-3) Amlodipine Besylate (Norvasc) 5 mg GT DAILY [facility] Last Admin: 10/30/17 11:02 Dose: Not Given Donepezil HCl (Aricept) 5 mg GT HS [facility] Last Admin: 10/29/17 21:09 Dose: 5 mg Enoxaparin Sodium (Lovenox) 40 mg SC DAILY [facility] Last Admin: 10/30/17 11:01 Dose: Not Given Levetiracetam 500 mg/ Sodium (Chloride) 105 mls @ 420 mls/hr IVPB BID [facility] Last Admin: 10/30/17 11:06 Dose: 420 mls/hr Metronidazole (Flagyl) 500 mg in 100 mls @ 100 mls/hr IVPB Q8 [facility] Last Admin: 10/30/17 15:41 Dose: 100 mls/hr Lactic Acid (Lac-Hydrin 12% Lotion (225 G)) 0 gm TOP BID [facility] Last Admin: 10/30/17 11:07 Dose: 1 applic Levetiracetam (Keppra) 500 mg GT BID [facility] Last Admin: 10/27/17 14:44 Dose: Not Given Magnesium Hydroxide (Milk Of Magnesia) 30 ml GT Q24H PRN PRN Reason: Constipation Pantoprazole Sodium (Protonix Inj) 40 mg IVP DAILY [facility] Last Admin: 10/30/17 11:06 Dose: 40 mg Petrolatum (Desitin Original) 0 gm TOP QSHIFT [facility] Last Admin: 10/30/17 15:41 Dose: 1 applic Polyethylene Glycol (Miralax) 17 gm GT DAILY [facility] Last Admin: 10/30/17 11:01 Dose: Not Given Potassium Chloride (Potassium Chloride Oral Soln) 20 meq GT BID [facility] Last Admin: 10/27/17 14:45 Dose: Not Given Sertraline HCl (Zoloft) 50 mg JT DAILY [facility] Last Admin: 10/30/17 11:02 Dose: Not Given Vitamin A (Vitamin A & D Oint Ud Foilpak) 0.5 ea TOP Q4 [facility] Last Admin: 10/30/17 15:41 Dose: Not Given - Labs Labs: 10/29/17 06:45 10/29/17 06:45 PT 11.6 SECONDS (9.7-12.2) 10/26/17 02:55 INR 1.0 10/26/17 02:55 APTT 34 SECONDS (21-34) 10/26/17 02:55 - Constitutional Appears: Non-toxic, No Acute Distress - Head Exam Head Exam: ATRAUMATIC, NORMAL INSPECTION, NORMOCEPHALIC - Eye Exam Eye Exam: EOMI, Normal appearance - ENT Exam ENT Exam: Mucous Membranes Moist, Normal Exam - Neck Exam Neck Exam: Full ROM, Normal Inspection - Respiratory Exam Respiratory Exam: NORMAL BREATHING PATTERN - Cardiovascular Exam Cardiovascular Exam: REGULAR RHYTHM, +S1, +S2 - GI/Abdominal Exam GI & Abdominal Exam: Distended (mild), Soft, Tenderness. absent: Firm, Guarding - Extremities Exam Extremities Exam: Normal Inspection - Neurological Exam Neurological Exam: Awake Additional comments: Non verbal at baseline - Psychiatric Exam Additional comments: non verbal at baseline - Skin Skin Exam: Dry, Intact, Normal Color, Warm Assessment and Plan - Assessment and Plan (Free Text) Assessment: 67F with colonic distention Plan: FU bx from colonoscopy Serial ab exams Further mgmt as per GI and primary teams Will DW attending Ester, PGY-1 <Jorge Ramsey - Last Filed: 10/31/17 20:14> Objective - Vital Signs/Intake and Output Vital Signs (last 24 hours): Temp Pulse Resp BP Pulse Ox 97.6 F 83 18 111/54 L 96 10/31/17 16:00 10/31/17 16:00 10/31/17 16:00 10/31/17 16:00 10/31/17 16:00 Intake and Output: 10/31/17 11/01/17 18:59 06:59 Intake Total 100 Output Total 240 Balance -140 - Medications Medications: Current Medications Acetaminophen (Tylenol 650mg/20.3ml Solution Ud) 650 mg GT Q4H PRN PRN Reason: Pain, Mild (1-3) Amlodipine Besylate (Norvasc) 5 mg GT DAILY [facility] Last Admin: 10/31/17 09:05 Dose: 5 mg Donepezil HCl (Aricept) 5 mg GT HS [facility] Last Admin: 10/30/17 21:51 Dose: 5 mg Enoxaparin Sodium (Lovenox) 40 mg SC DAILY [facility] Last Admin: 10/31/17 10:17 Dose: Not Given Metronidazole (Flagyl) 500 mg in 100 mls @ 100 mls/hr IVPB Q8 [facility] Last Admin: 10/31/17 13:47 Dose: 100 mls/hr Lactic Acid (Lac-Hydrin 12% Lotion (225 G)) 0 gm TOP BID [facility] Last Admin: 10/31/17 17:57 Dose: 1 applic Levetiracetam (Keppra) 500 mg GT BID [facility] Last Admin: 10/31/17 17:55 Dose: 500 mg Magnesium Hydroxide (Milk Of Magnesia) 30 ml GT Q24H PRN PRN Reason: Constipation Pantoprazole Sodium (Protonix Susp) 40 mg PEG DAILY [facility] Last Admin: 10/31/17 11:25 Dose: 40 mg Petrolatum (Desitin Original) 0 gm TOP QSHIFT [facility] Last Admin: 10/31/17 13:54 Dose: 1 applic Polyethylene Glycol (Miralax) 17 gm GT DAILY [facility] Last Admin: 10/31/17 09:05 Dose: 17 gm Potassium Chloride (Potassium Chloride Oral Soln) 20 meq GT BID [facility] Last Admin: 10/31/17 17:56 Dose: 20 meq Sertraline HCl (Zoloft) 50 mg JT DAILY [facility] Last Admin: 10/31/17 09:05 Dose: 50 mg Vitamin A (Vitamin A & D Oint Ud Foilpak) 0.5 ea TOP Q4 [facility] Last Admin: 10/31/17 16:05 Dose: Not Given - Labs Labs: 10/29/17 06:45 10/29/17 06:45 PT 11.6 SECONDS (9.7-12.2) 10/26/17 02:55 INR 1.0 10/26/17 02:55 APTT 34 SECONDS (21-34) 10/26/17 02:55 Attending/Attestation - Attestation I have personally seen and examined this patient.: Yes I have fully participated in the care of the patient.: Yes I have reviewed all pertinent clinical information, including history, physical exam and plan: Yes Notes (Text): Pt was seen and examined at bedside Agree with above note and assessment F/u Biopsy report Colonoscopy report reviewed Plan d.w primary team in detail.
[2017-10-30] MEDS: Potassium Chloride 20 mEq/15 ml LIQ UD GT SCH (18:00)
[2017-10-30] MEDS: levETIRAcetam 100 mg/ml (5ml) Oral Syringe GT SCH (18:22)
--- NOTE | 2017-10-30 18:36 | CP.PCM.PN ---
Subjective - Date & Time of Evaluation Date of Evaluation: 10/30/17 Time of Evaluation: 14:00 - Subjective Subjective: clinically same Objective - Vital Signs/Intake and Output Vital Signs (last 24 hours): Temp Pulse Resp BP Pulse Ox 98.2 F 99 H 18 121/59 L 100 10/30/17 15:16 10/30/17 15:16 10/30/17 15:16 10/30/17 15:16 10/30/17 13:22 Intake and Output: 10/30/17 10/30/17 06:59 18:59 Intake Total 95 150 Balance 95 150 - Medications Medications: Current Medications Acetaminophen (Tylenol 650mg/20.3ml Solution Ud) 650 mg GT Q4H PRN PRN Reason: Pain, Mild (1-3) Amlodipine Besylate (Norvasc) 5 mg GT DAILY [facility] Last Admin: 10/30/17 11:02 Dose: Not Given Donepezil HCl (Aricept) 5 mg GT HS [facility] Last Admin: 10/29/17 21:09 Dose: 5 mg Enoxaparin Sodium (Lovenox) 40 mg SC DAILY [facility] Last Admin: 10/30/17 11:01 Dose: Not Given Levetiracetam 500 mg/ Sodium (Chloride) 105 mls @ 420 mls/hr IVPB BID [facility] Last Admin: 10/30/17 17:32 Dose: 420 mls/hr Metronidazole (Flagyl) 500 mg in 100 mls @ 100 mls/hr IVPB Q8 [facility] Last Admin: 10/30/17 15:41 Dose: 100 mls/hr Lactic Acid (Lac-Hydrin 12% Lotion (225 G)) 0 gm TOP BID [facility] Last Admin: 10/30/17 18:23 Dose: 1 applic Levetiracetam (Keppra) 500 mg GT BID [facility] Last Admin: 10/30/17 18:22 Dose: Not Given Magnesium Hydroxide (Milk Of Magnesia) 30 ml GT Q24H PRN PRN Reason: Constipation Pantoprazole Sodium (Protonix Inj) 40 mg IVP DAILY [facility] Last Admin: 10/30/17 11:06 Dose: 40 mg Petrolatum (Desitin Original) 0 gm TOP QSHIFT [facility] Last Admin: 10/30/17 15:41 Dose: 1 applic Polyethylene Glycol (Miralax) 17 gm GT DAILY [facility] Last Admin: 10/30/17 11:01 Dose: Not Given Potassium Chloride (Potassium Chloride Oral Soln) 20 meq GT BID [facility] Last Admin: 10/27/17 14:45 Dose: Not Given Sertraline HCl (Zoloft) 50 mg JT DAILY [facility] Last Admin: 10/30/17 11:02 Dose: Not Given Vitamin A (Vitamin A & D Oint Ud Foilpak) 0.5 ea TOP Q4 [facility] Last Admin: 10/30/17 18:23 Dose: Not Given - Labs Labs: 10/29/17 06:45 10/29/17 06:45 PT 11.6 SECONDS (9.7-12.2) 10/26/17 02:55 INR 1.0 10/26/17 02:55 APTT 34 SECONDS (21-34) 10/26/17 02:55 - Constitutional Appears: Well - Head Exam Head Exam: ATRAUMATIC, NORMAL INSPECTION, NORMOCEPHALIC - Eye Exam Eye Exam: EOMI, Normal appearance, PERRL Pupil Exam: NORMAL ACCOMODATION, PERRL - ENT Exam ENT Exam: Mucous Membranes Moist, Normal Exam - Neck Exam Neck Exam: Full ROM, Normal Inspection. absent: Lymphadenopathy - Respiratory Exam Respiratory Exam: Decreased Breath Sounds - Cardiovascular Exam Cardiovascular Exam: REGULAR RHYTHM, +S1, +S2 - GI/Abdominal Exam GI & Abdominal Exam: Soft, Diminished Bowel Sounds - Rectal Exam Rectal Exam: Deferred
[2017-10-31] MEDS: Vitamins A & D Oint UD Foilpak TOP SCH ×6 (05:00→20:45)
[2017-10-31] MEDS: Zinc Oxide Topical 30 gm Tube TOP SCH ×3 (06:10→22:29)
[2017-10-31] MEDS: metroNIDAZOLE IV 500 mg/100 ml 500 MG/100 ML BAG IVPB SCH ×3 (06:10→22:06)
[2017-10-31] MEDS: Enoxaparin 40 mg Syringe SC SCH ×2 (09:04→10:17)
[2017-10-31] MEDS: levETIRAcetam 100 mg/ml (5ml) Oral Syringe GT SCH ×3 (09:05→17:55)
[2017-10-31] MEDS: POLYETHYLENE GLYCOL 3350 17 GM/Dose PACKET GT SCH (09:05)
[2017-10-31] MEDS: Potassium Chloride 20 mEq/15 ml LIQ UD GT SCH ×2 (09:05→17:56)
[2017-10-31] MEDS: levETIRAcetam 500 MG in Sodium Chloride 0.9% 100 ML IVPB SCH (09:05)
--- NOTE | 2017-10-31 09:18 | CP.PCM.PN ---
<Farzaneh Norman - Last Filed: 10/31/17 09:16> Subjective - Date & Time of Evaluation Date of Evaluation: 10/31/17 Time of Evaluation: 06:20 - Subjective Subjective: General surgery progress note for Dr. Ramsey-Farzaneh Norman, PGY-1 Pt S & E at bedside this AM. Pt indicated that she did not want to be touched this morning, still with distented belly. Refusing physical exam. Objective - Vital Signs/Intake and Output Vital Signs (last 24 hours): Temp Pulse Resp BP Pulse Ox 97.5 F L 96 H 18 104/67 98 10/31/17 07:10 10/31/17 07:10 10/31/17 07:10 10/31/17 07:10 10/31/17 07:10 Intake and Output: 10/31/17 10/31/17 06:59 18:59 Intake Total 440 Balance 440 - Medications Medications: Current Medications Acetaminophen (Tylenol 650mg/20.3ml Solution Ud) 650 mg GT Q4H PRN PRN Reason: Pain, Mild (1-3) Amlodipine Besylate (Norvasc) 5 mg GT DAILY [facility] Last Admin: 10/31/17 09:05 Dose: 5 mg Donepezil HCl (Aricept) 5 mg GT HS [facility] Last Admin: 10/30/17 21:51 Dose: 5 mg Enoxaparin Sodium (Lovenox) 40 mg SC DAILY [facility] Last Admin: 10/31/17 09:04 Dose: 40 mg Levetiracetam 500 mg/ Sodium (Chloride) 105 mls @ 420 mls/hr IVPB BID [facility] Last Admin: 10/31/17 09:05 Dose: 420 mls/hr Metronidazole (Flagyl) 500 mg in 100 mls @ 100 mls/hr IVPB Q8 [facility] Last Admin: 10/31/17 06:10 Dose: 100 mls/hr Lactic Acid (Lac-Hydrin 12% Lotion (225 G)) 0 gm TOP BID [facility] Last Admin: 10/30/17 18:23 Dose: 1 applic Levetiracetam (Keppra) 500 mg GT BID [facility] Last Admin: 10/31/17 09:05 Dose: Not Given Magnesium Hydroxide (Milk Of Magnesia) 30 ml GT Q24H PRN PRN Reason: Constipation Pantoprazole Sodium (Protonix Inj) 40 mg IVP DAILY [facility] Last Admin: 10/31/17 09:04 Dose: 40 mg Petrolatum (Desitin Original) 0 gm TOP QSHIFT [facility] Last Admin: 10/31/17 06:10 Dose: 1 applic Polyethylene Glycol (Miralax) 17 gm GT DAILY [facility] Last Admin: 10/31/17 09:05 Dose: 17 gm Potassium Chloride (Potassium Chloride Oral Soln) 20 meq GT BID [facility] Last Admin: 10/31/17 09:05 Dose: 20 meq Sertraline HCl (Zoloft) 50 mg JT DAILY [facility] Last Admin: 10/31/17 09:05 Dose: 50 mg Vitamin A (Vitamin A & D Oint Ud Foilpak) 0.5 ea TOP Q4 [facility] Last Admin: 10/31/17 09:00 Dose: 0.5 ea - Labs Labs: 10/29/17 06:45 10/29/17 06:45 PT 11.6 SECONDS (9.7-12.2) 10/26/17 02:55 INR 1.0 10/26/17 02:55 APTT 34 SECONDS (21-34) 10/26/17 02:55 - Head Exam Head Exam: ATRAUMATIC, NORMAL INSPECTION, NORMOCEPHALIC - Eye Exam Eye Exam: EOMI, Normal appearance - ENT Exam ENT Exam: Mucous Membranes Moist, Normal Exam - Neck Exam Neck Exam: Full ROM, Normal Inspection - Respiratory Exam Respiratory Exam: NORMAL BREATHING PATTERN - Cardiovascular Exam Cardiovascular Exam: REGULAR RHYTHM, +S1, +S2 - GI/Abdominal Exam GI & Abdominal Exam: Distended - Neurological Exam Neurological Exam: Awake - Psychiatric Exam Additional comments: non verbal Assessment and Plan - Assessment and Plan (Free Text) Assessment: 67F with colonic distention Plan: FU bx from colonoscopy Serial ab exams Further recs pending attending evaluation Further mgmt as per GI and primary teams Will DW attending Ester, PGY-1 <Jorge Ramsey - Last Filed: 10/31/17 20:16> Objective - Vital Signs/Intake and Output Vital Signs (last 24 hours): Temp Pulse Resp BP Pulse Ox 97.6 F 83 18 111/54 L 96 10/31/17 16:00 10/31/17 16:00 10/31/17 16:00 10/31/17 16:00 10/31/17 16:00 Intake and Output: 10/31/17 11/01/17 18:59 06:59 Intake Total 100 Output Total 240 Balance -140 - Medications Medications: Current Medications Acetaminophen (Tylenol 650mg/20.3ml Solution Ud) 650 mg GT Q4H PRN PRN Reason: Pain, Mild (1-3) Amlodipine Besylate (Norvasc) 5 mg GT DAILY [facility] Last Admin: 10/31/17 09:05 Dose: 5 mg Donepezil HCl (Aricept) 5 mg GT HS [facility] Last Admin: 10/30/17 21:51 Dose: 5 mg Enoxaparin Sodium (Lovenox) 40 mg SC DAILY [facility] Last Admin: 10/31/17 10:17 Dose: Not Given Metronidazole (Flagyl) 500 mg in 100 mls @ 100 mls/hr IVPB Q8 [facility] Last Admin: 10/31/17 13:47 Dose: 100 mls/hr Lactic Acid (Lac-Hydrin 12% Lotion (225 G)) 0 gm TOP BID [facility] Last Admin: 10/31/17 17:57 Dose: 1 applic Levetiracetam (Keppra) 500 mg GT BID [facility] Last Admin: 10/31/17 17:55 Dose: 500 mg Magnesium Hydroxide (Milk Of Magnesia) 30 ml GT Q24H PRN PRN Reason: Constipation Pantoprazole Sodium (Protonix Susp) 40 mg PEG DAILY [facility] Last Admin: 10/31/17 11:25 Dose: 40 mg Petrolatum (Desitin Original) 0 gm TOP QSHIFT [facility] Last Admin: 10/31/17 13:54 Dose: 1 applic Polyethylene Glycol (Miralax) 17 gm GT DAILY [facility] Last Admin: 10/31/17 09:05 Dose: 17 gm Potassium Chloride (Potassium Chloride Oral Soln) 20 meq GT BID [facility] Last Admin: 10/31/17 17:56 Dose: 20 meq Sertraline HCl (Zoloft) 50 mg JT DAILY [facility] Last Admin: 10/31/17 09:05 Dose: 50 mg Vitamin A (Vitamin A & D Oint Ud Foilpak) 0.5 ea TOP Q4 [facility] Last Admin: 10/31/17 16:05 Dose: Not Given - Labs Labs: 10/29/17 06:45 10/29/17 06:45 PT 11.6 SECONDS (9.7-12.2) 10/26/17 02:55 INR 1.0 10/26/17 02:55 APTT 34 SECONDS (21-34) 10/26/17 02:55 Attending/Attestation - Attestation I have personally seen and examined this patient.: Yes I have fully participated in the care of the patient.: Yes I have reviewed all pertinent clinical information, including history, physical exam and plan: Yes Notes (Text): Pt was seen and examined at bedside Agree with above note and assessment Pt with abdominal distention Repeat AXR today ICU consult for IV neostigmine for possible Psuedobstruction. C.w current mx Plan d.w primary team in detail Risk and benefit explained in detail
[2017-10-31] MEDS: Ammonium Lactate 12% Lotion (225 g) TOP SCH ×2 (09:22→17:57)
[2017-10-31] MEDS ORDERED: Pantoprazole 40 mg EC Tab PO SCH (11:15)
[2017-10-31] MEDS: Pantoprazole 40 mg Susp UD PEG SCH (11:25)
--- NOTE | 2017-10-31 12:44 | CP.PCM.PN ---
Subjective - Date & Time of Evaluation Date of Evaluation: 10/31/17 Time of Evaluation: 12:45 - Subjective Subjective: PGY2 Medicine Note for Dr. Boris Lyon; all management as per Dr. Boris Lyon Patient seen and examined at bedside this AM; patient is mostly non verbal with yes and no answers; denies all symptoms today; denies fevers/chills, [place], CP, abdominal pain, N/V/D, dysuria/freq/urg, or lower extremity pain. ABdomen is distended at baseline, and as per nursing staff states that it is improved since admission. Objective - Vital Signs/Intake and Output Vital Signs (last 24 hours): Temp Pulse Resp BP Pulse Ox 97.5 F L 96 H 18 104/67 98 10/31/17 07:10 10/31/17 07:10 10/31/17 07:10 10/31/17 07:10 10/31/17 07:10 Intake and Output: 10/31/17 10/31/17 06:59 18:59 Intake Total 440 Balance 440 - Medications Medications: Current Medications Acetaminophen (Tylenol 650mg/20.3ml Solution Ud) 650 mg GT Q4H PRN PRN Reason: Pain, Mild (1-3) Amlodipine Besylate (Norvasc) 5 mg GT DAILY [facility] Last Admin: 10/31/17 09:05 Dose: 5 mg Donepezil HCl (Aricept) 5 mg GT HS [facility] Last Admin: 10/30/17 21:51 Dose: 5 mg Enoxaparin Sodium (Lovenox) 40 mg SC DAILY [facility] Last Admin: 10/31/17 10:17 Dose: Not Given Metronidazole (Flagyl) 500 mg in 100 mls @ 100 mls/hr IVPB Q8 [facility] Last Admin: 10/31/17 06:10 Dose: 100 mls/hr Lactic Acid (Lac-Hydrin 12% Lotion (225 G)) 0 gm TOP BID [facility] Last Admin: 10/31/17 09:22 Dose: 1 applic Levetiracetam (Keppra) 500 mg GT BID [facility] Last Admin: 10/31/17 11:26 Dose: 500 mg Magnesium Hydroxide (Milk Of Magnesia) 30 ml GT Q24H PRN PRN Reason: Constipation Pantoprazole Sodium (Protonix Susp) 40 mg PEG DAILY [facility] Last Admin: 10/31/17 11:25 Dose: 40 mg Petrolatum (Desitin Original) 0 gm TOP QSHIFT [facility] Last Admin: 10/31/17 06:10 Dose: 1 applic Polyethylene Glycol (Miralax) 17 gm GT DAILY [facility] Last Admin: 10/31/17 09:05 Dose: 17 gm Potassium Chloride (Potassium Chloride Oral Soln) 20 meq GT BID [facility] Last Admin: 10/31/17 09:05 Dose: 20 meq Sertraline HCl (Zoloft) 50 mg JT DAILY [facility] Last Admin: 10/31/17 09:05 Dose: 50 mg Vitamin A (Vitamin A & D Oint Ud Foilpak) 0.5 ea TOP Q4 [facility] Last Admin: 10/31/17 09:00 Dose: 0.5 ea - Labs Labs: 10/29/17 06:45 10/29/17 06:45 PT 11.6 SECONDS (9.7-12.2) 10/26/17 02:55 INR 1.0 10/26/17 02:55 APTT 34 SECONDS (21-34) 10/26/17 02:55 - Constitutional Appears: Non-toxic - Head Exam Head Exam: ATRAUMATIC - Eye Exam Eye Exam: EOMI - ENT Exam ENT Exam: Mucous Membranes Moist - Neck Exam Neck Exam: Full ROM - Respiratory Exam Respiratory Exam: Clear to Ausculation Bilateral, NORMAL BREATHING PATTERN. absent: Rales, Rhonchi, Wheezes - Cardiovascular Exam Cardiovascular Exam: REGULAR RHYTHM, +S1, +S2 - GI/Abdominal Exam GI & Abdominal Exam: Soft, Normal Bowel Sounds - Back Exam Back Exam: NORMAL INSPECTION. absent: CVA tenderness (L), CVA tenderness (R) - Neurological Exam Neurological Exam: Alert, Awake - Psychiatric Exam Psychiatric exam: Normal Affect - Skin Skin Exam: Warm Assessment and Plan - Assessment and Plan (Free Text) Assessment: 67 yo female with colonic distention 2/2 to retained fecal matter - Gastric tube to air to help w/ decompression - Serial abd exams -iv flagyl as per Dr. Hurst -gi following- dr hurst; appreciate recs -sx following. dr. culp. recs appreciated; no surgical intervention planned for this admission -pt underwent endoscopy along with peg removal and replacement -endoscopy showed esophagitis along with small hiatal hernia, as well as erythematous mucosa in stomach -pt is to f/u with GI for results of biopsy from endoscopy hx of dementia -continue donepezil -patient is mostly non verban but can understand commands and communicates through yes or no in [place] hx of seizure disorder -continue keppra through PEG gi/dvt ppx -continue lovenox -continue protonix -poor IV access; PICC requested for 7 days of metronidazole IV as per GI dw Dr. lyon; all management as per Dr. Boris lyon
--- NOTE | 2017-10-31 17:27 | PN ---
DATE: LOCATION: [facility], Bed A. SUBJECTIVE: This is a 67-year-old female seen early in rounds today without significant clinical changes. The patient is post upper endoscopy with change of PEG feeding, tolerating PEG tube feeding well. The entire chart is reviewed including, but not limited to the most recent lab and radiology study results, current and the previous medication list, current and the previous medical events, it has to be mentioned that the patient is still nonverbal and no reported chills or fever, chest pain, or significant shortness of breath. The entire chart is reviewed including, but not limited to the most recent lab and radiology study results. current and the previous medication list, current and the previous medical events. The case was discussed with the staff at length. PHYSICAL EXAMINATION GENERAL: A 67-year-old female, nonverbal. VITAL SIGNS: Afebrile with pulse of 90, respiratory rate 20 to 22. HEENT: Showed pale, dry, oral mucous membrane. Nonicteric sclerae. LUNGS: A few scattered crepitation, decreased air entry at bases. HEART: Positive S1 and S2. ABDOMEN: Much less distention. PEG tube is in place. Feeding process is positive. No residual bleeding or resistant. EXTREMITIES: Mild lower extremity edematous changes. No clubbing or cyanosis. NEUROLOGIC: No new reported neurological deficits, sensory or motor. IMPRESSION: 1. Malnutrition with hypoalbuminemia and proteinemia. 2. Recently diagnosed fecal impaction, disimpaction is performed. 3. PEG malfunction, changed. 4. Known history of hypertension. 5. Seizure disorder. 6. Cerebrovascular accident. 7. Electrolyte imbalance secondary to above. SUGGESTION: 1. Continue current management. 2. Subsequent increase of the rate of tube feeding. 3. Further recommendations to follow. Lidia Lam MD
--- NOTE | 2017-10-31 17:35 | RAD ---
HISTORY: continued ABD distention COMPARISON: 10/03/2017, 10/28/2017 serial abdominal series x-ray s. FINDINGS: BOWEL: Persistent distention of the colon although this has diminished compared the prior study. There is no mechanical obstruction. BONES: Normal. OTHER FINDINGS: None. IMPRESSION: Interval improvement in distention of colon. Portions of the sigmoid and transverse colon remain dilated.
--- NOTE | 2017-10-31 18:31 | CT ---
PROCEDURE: CT Abdomen and Pelvis without intravenous contrast HISTORY: disloged peg COMPARISON: 10/26/2017. TECHNIQUE: Unenhanced study. Neither oral nor intravenous contrast administered. Radiation dose: Total exam DLP = mGy-cm. This CT exam was performed using one or more of the following dose reduction techniques: Automated exposure control, adjustment of the mA and/or kV according to patient size, and/or use of iterative reconstruction technique. FINDINGS: LOWER THORAX: Unremarkable. LIVER: Unremarkable. No gross lesion or ductal dilatation. Innumerable hepatic cysts. GALLBLADDER AND BILE DUCTS: Unremarkable. PANCREAS: Unremarkable. No gross lesion or ductal dilatation. SPLEEN: Unremarkable. ADRENALS: Unremarkable. No mass. KIDNEYS AND URETERS: Unremarkable. No hydronephrosis. No solid mass. VASCULATURE: Unremarkable. No aortic aneurysm. BOWEL: The PEG tube remains in the stomach. This appears to be in satisfactory position. Persistent dilatation of the colon including markedly dilated and redundant sigmoid colon without evidence of volvulus. The degree of dilatation has diminished modestly in the interim. No visible free air. APPENDIX: Unremarkable. Normal appendix. PERITONEUM: Unremarkable. No free fluid. No free air. LYMPH NODES: Unremarkable. No enlarged lymph nodes. BLADDER: Unremarkable. REPRODUCTIVE: Unremarkable. BONES: No acute fracture. OTHER FINDINGS: None. IMPRESSION: PEG tube in satisfactory position within the stomach. Dilatation of the colon although this is diminished compared to the prior study. Additional benign and/or incidental findings described above.
[2017-11-01] MEDS: Vitamins A & D Oint UD Foilpak TOP SCH ×7 (01:09→21:18)
[2017-11-01] MEDS: Zinc Oxide Topical 30 gm Tube TOP SCH ×3 (05:13→21:17)
[2017-11-01] MEDS: metroNIDAZOLE IV 500 mg/100 ml 500 MG/100 ML BAG IVPB SCH ×3 (05:14→21:17)
--- NOTE | 2017-11-01 08:45 | CP.PCM.PN ---
Subjective - Date & Time of Evaluation Date of Evaluation: 11/01/17 Time of Evaluation: 07:00 - Subjective Subjective: PGY2 Resident - Medicine Progress Note Patient seen and examined at bedside. No acute distress. Patient with hx of stroke and grossly non-verbal since event. This morning, patient spoke in israeli, but conversation was not fluent and patient could not answer questions appropriately. L sided weakness, cannot raise L leg or move L foot. 12 point review of systems could not be accurately obtained due to language limitation s/ p stroke. Objective - Vital Signs/Intake and Output Vital Signs (last 24 hours): Temp Pulse Resp BP Pulse Ox 98.2 F 82 20 110/58 L 95 11/01/17 08:32 11/01/17 08:32 11/01/17 08:32 11/01/17 08:32 11/01/17 08:32 Intake and Output: 11/01/17 11/01/17 06:59 18:59 Intake Total 800 Balance 800 - Medications Medications: Current Medications Acetaminophen (Tylenol 650mg/20.3ml Solution Ud) 650 mg GT Q4H PRN PRN Reason: Pain, Mild (1-3) Amlodipine Besylate (Norvasc) 5 mg GT DAILY [facility] Last Admin: 10/31/17 09:05 Dose: 5 mg Donepezil HCl (Aricept) 5 mg GT HS [facility] Last Admin: 10/31/17 22:05 Dose: 5 mg Enoxaparin Sodium (Lovenox) 40 mg SC DAILY [facility] Last Admin: 10/31/17 10:17 Dose: Not Given Metronidazole (Flagyl) 500 mg in 100 mls @ 100 mls/hr IVPB Q8 [facility] Last Admin: 11/01/17 05:14 Dose: 100 mls/hr Lactic Acid (Lac-Hydrin 12% Lotion (225 G)) 0 gm TOP BID [facility] Last Admin: 10/31/17 17:57 Dose: 1 applic Levetiracetam (Keppra) 500 mg GT BID [facility] Last Admin: 10/31/17 17:55 Dose: 500 mg Magnesium Hydroxide (Milk Of Magnesia) 30 ml GT Q24H PRN PRN Reason: Constipation Pantoprazole Sodium (Protonix Susp) 40 mg PEG DAILY [facility] Last Admin: 10/31/17 11:25 Dose: 40 mg Petrolatum (Desitin Original) 0 gm TOP QSHIFT [facility] Last Admin: 11/01/17 05:13 Dose: 1 applic Polyethylene Glycol (Miralax) 17 gm GT DAILY [facility] Last Admin: 10/31/17 09:05 Dose: 17 gm Potassium Chloride (Potassium Chloride Oral Soln) 20 meq GT BID [facility] Last Admin: 10/31/17 17:56 Dose: 20 meq Sertraline HCl (Zoloft) 50 mg JT DAILY [facility] Last Admin: 10/31/17 09:05 Dose: 50 mg Vitamin A (Vitamin A & D Oint Ud Foilpak) 0.5 ea TOP Q4 [facility] Last Admin: 11/01/17 04:22 Dose: Not Given - Labs Labs: 10/29/17 06:45 10/29/17 06:45 PT 11.6 SECONDS (9.7-12.2) 10/26/17 02:55 INR 1.0 10/26/17 02:55 APTT 34 SECONDS (21-34) 10/26/17 02:55 - Additional Findings Additional findings: - Constitutional Appears: Non-toxic - Head Exam Head Exam: ATRAUMATIC - Eye Exam Eye Exam: EOMI - ENT Exam ENT Exam: Mucous Membranes Moist - Neck Exam Neck Exam: Full ROM - Respiratory Exam Respiratory Exam: Clear to Ausculation Bilateral, NORMAL BREATHING PATTERN. absent: Rales, Rhonchi, Wheezes - Cardiovascular Exam Cardiovascular Exam: REGULAR RHYTHM, +S1, +S2 - GI/Abdominal Exam GI & Abdominal Exam: Soft, Normal Bowel Sounds - Back Exam Back Exam: NORMAL INSPECTION. absent: CVA tenderness (L), CVA tenderness (R) - Neurological Exam Neurological Exam: Alert, Awake - No movement of L leg or L foot. - R leg 5/5 muscle strength. - mild L facial droop. - Psychiatric Exam Psychiatric exam: Normal Affect - Skin Skin Exam: Warm Assessment and Plan - Assessment and Plan (Free Text) Assessment: 67 yo female with colonic distention 2/2 to retained fecal matter - Gastric tube to air to help w/ decompression - Serial abd exams -iv flagyl as per Dr. Hurst -gi following- dr hurst; appreciate recs -sx following. dr. culp. recs appreciated; no surgical intervention planned for this admission -pt underwent endoscopy along with peg removal and replacement -endoscopy showed esophagitis along with small hiatal hernia, as well as erythematous mucosa in stomach -pt is to f/u with GI for results of biopsy from endoscopy hx of dementia -continue donepezil -patient is mostly non verbal but can understand commands and communicates through yes or no in israeli. However, full comprehension and ability to answer yes/no appropriately is questionable. hx of seizure disorder -continue keppra through PEG gi/dvt ppx -continue lovenox -continue protonix -poor IV access; PICC requested for 7 days of metronidazole IV as per GI Consent obtained over the phone by family. PICC will be attempted 11/01. yoli lyon; all management as per Dr. Boris Lyon
--- NOTE | 2017-11-01 09:20 | CP.PCM.PN ---
<Farzaneh Norman - Last Filed: 11/01/17 09:18> Subjective - Date & Time of Evaluation Date of Evaluation: 11/01/17 Time of Evaluation: 06:45 - Subjective Subjective: General surgery progress note for Dr. Ramsey-Farzaneh Norman, PGY-1 Pt S & E at bedside this AM. Pt indicated that she does not have abdominal pain. No reported BMs. Ab x-ray shows improved colonic distention Objective - Vital Signs/Intake and Output Vital Signs (last 24 hours): Temp Pulse Resp BP Pulse Ox 98.2 F 82 20 110/58 L 95 11/01/17 08:32 11/01/17 08:32 11/01/17 08:32 11/01/17 08:32 11/01/17 08:32 Intake and Output: 11/01/17 11/01/17 06:59 18:59 Intake Total 800 Balance 800 - Medications Medications: Current Medications Acetaminophen (Tylenol 650mg/20.3ml Solution Ud) 650 mg GT Q4H PRN PRN Reason: Pain, Mild (1-3) Amlodipine Besylate (Norvasc) 5 mg GT DAILY [facility] Last Admin: 10/31/17 09:05 Dose: 5 mg Donepezil HCl (Aricept) 5 mg GT HS [facility] Last Admin: 10/31/17 22:05 Dose: 5 mg Enoxaparin Sodium (Lovenox) 40 mg SC DAILY [facility] Last Admin: 10/31/17 10:17 Dose: Not Given Metronidazole (Flagyl) 500 mg in 100 mls @ 100 mls/hr IVPB Q8 [facility] Last Admin: 11/01/17 05:14 Dose: 100 mls/hr Lactic Acid (Lac-Hydrin 12% Lotion (225 G)) 0 gm TOP BID [facility] Last Admin: 10/31/17 17:57 Dose: 1 applic Levetiracetam (Keppra) 500 mg GT BID [facility] Last Admin: 10/31/17 17:55 Dose: 500 mg Magnesium Hydroxide (Milk Of Magnesia) 30 ml GT Q24H PRN PRN Reason: Constipation Pantoprazole Sodium (Protonix Susp) 40 mg PEG DAILY [facility] Last Admin: 10/31/17 11:25 Dose: 40 mg Petrolatum (Desitin Original) 0 gm TOP QSHIFT [facility] Last Admin: 11/01/17 05:13 Dose: 1 applic Polyethylene Glycol (Miralax) 17 gm GT DAILY [facility] Last Admin: 10/31/17 09:05 Dose: 17 gm Potassium Chloride (Potassium Chloride Oral Soln) 20 meq GT BID [facility] Last Admin: 10/31/17 17:56 Dose: 20 meq Sertraline HCl (Zoloft) 50 mg JT DAILY [facility] Last Admin: 10/31/17 09:05 Dose: 50 mg Vitamin A (Vitamin A & D Oint Ud Foilpak) 0.5 ea TOP Q4 [facility] Last Admin: 11/01/17 04:22 Dose: Not Given - Labs Labs: 10/29/17 06:45 10/29/17 06:45 PT 11.6 SECONDS (9.7-12.2) 10/26/17 02:55 INR 1.0 10/26/17 02:55 APTT 34 SECONDS (21-34) 10/26/17 02:55 - Constitutional Appears: Non-toxic, No Acute Distress - Head Exam Head Exam: ATRAUMATIC, NORMAL INSPECTION, NORMOCEPHALIC - Eye Exam Eye Exam: EOMI, Normal appearance - ENT Exam ENT Exam: Mucous Membranes Moist, Normal Exam - Neck Exam Neck Exam: Full ROM, Normal Inspection - Respiratory Exam Respiratory Exam: NORMAL BREATHING PATTERN - Cardiovascular Exam Cardiovascular Exam: REGULAR RHYTHM - GI/Abdominal Exam GI & Abdominal Exam: Distended (improved), Soft. absent: Firm, Guarding, Rigid - Extremities Exam Extremities Exam: Normal Inspection - Neurological Exam Neurological Exam: Awake, CN II-XII Intact - Psychiatric Exam Additional comments: non verbal at baseline - Skin Skin Exam: Dry, Intact, Normal Color, Warm Assessment and Plan - Assessment and Plan (Free Text) Assessment: 67F with colonic distention Plan: No neostigmine due to improved distention- no need for ICU consult FU bx from colonoscopy Serial ab exams Further mgmt as per GI and primary teams Will DW attending Ester, PGY-1 <Jorge Ramsey - Last Filed: 11/06/17 23:53> Objective - Vital Signs/Intake and Output Vital Signs (last 24 hours): Temp Pulse Resp BP Pulse Ox 97.9 F 78 18 97/62 L 95 11/06/17 15:54 11/06/17 15:54 11/06/17 15:54 11/06/17 15:54 11/06/17 15:54 - Medications Medications: Current Medications Acetaminophen (Tylenol 650mg/20.3ml Solution Ud) 650 mg GT Q4H PRN PRN Reason: Pain, Mild (1-3) Last Admin: 11/03/17 18:24 Dose: 650 mg Amlodipine Besylate (Norvasc) 5 mg GT DAILY [facility] Last Admin: 11/06/17 11:26 Dose: Not Given Donepezil HCl (Aricept) 5 mg GT HS [facility] Last Admin: 11/06/17 22:29 Dose: Not Given Metronidazole (Flagyl) 500 mg in 100 mls @ 100 mls/hr IVPB Q8 [facility] Last Admin: 11/06/17 21:32 Dose: 100 mls/hr Vancomycin HCl 1 gm/ Sodium (Chloride) 200 mls @ 166.7 mls/hr IVPB DAILY [facility] Last Admin: 11/06/17 11:33 Dose: 166.7 mls/hr Dextrose/Sodium Chloride (Dextrose 5%/0.45% Ns 1000 Ml) 1,000 mls @ 75 mls/hr IV .[id number] [facility] Last Admin: 11/06/17 18:50 Dose: Not Given Levetiracetam 500 mg/ Sodium (Chloride) 105 mls @ 420 mls/hr IVPB Q12H [facility] Last Admin: 11/06/17 19:50 Dose: 420 mls/hr Meropenem 1 gm/ Sodium (Chloride) 100 mls @ 100 mls/hr IVPB Q8H [facility] Last Admin: 11/06/17 21:32 Dose: 100 mls/hr Sodium Chloride 35 meq/Potassium Chloride 30 meq/Magnesium Sulfate 6 meq/ Calcium Gluconate 4.65 meq/Chromium/Copper/Manganese/Zinc 1 ml/ Multivitamins/ Vitamin C 10 ml/ Amino Acids 1,046.2278 mls @ 42 mls/hr IV .Q24H [facility] Stop: 11/07/17 17:59 Last Admin: 11/06/17 18:12 Dose: 42 mls/hr Fat Emulsion Intravenous (Intralipid 20%) 500 mls @ 42 mls/hr IV MWF [facility] Last Admin: 11/06/17 18:11 Dose: 42 mls/hr Lactic Acid (Lac-Hydrin 12% Lotion (225 G)) 0 gm TOP BID [facility] Last Admin: 11/06/17 18:21 Dose: 1 applic Magnesium Hydroxide (Milk Of Magnesia) 30 ml GT Q24H PRN PRN Reason: Constipation Pantoprazole Sodium (Protonix Susp) 40 mg PEG DAILY [facility] Last Admin: 11/06/17 11:26 Dose: Not Given Petrolatum (Desitin Original) 0 gm TOP QSHIFT [facility] Last Admin: 11/06/17 21:32 Dose: 1 applic Polyethylene Glycol (Miralax) 17 gm GT DAILY [facility] Last Admin: 11/06/17 11:26 Dose: Not Given Potassium Chloride (Potassium Chloride Oral Soln) 20 meq GT BID [facility] Last Admin: 11/06/17 18:13 Dose: Not Given Sertraline HCl (Zoloft) 50 mg JT DAILY [facility] Last Admin: 11/06/17 11:27 Dose: Not Given Vitamin A (Vitamin A & D Oint Ud Foilpak) 0.5 ea TOP Q4 [facility] Last Admin: 11/06/17 19:50 Dose: 0.5 ea - Labs Labs: 11/06/17 06:54 11/06/17 06:54 PT 11.6 SECONDS (9.7-12.2) 10/26/17 02:55 INR 1.0 10/26/17 02:55 APTT 34 SECONDS (21-34) 10/26/17 02:55 Attending/Attestation - Attestation I have personally seen and examined this patient.: Yes I have fully participated in the care of the patient.: Yes I have reviewed all pertinent clinical information, including history, physical exam and plan: Yes Notes (Text): Pt was seen and examined at bedside Agree with above note and assessment Pt is improved clinically Abdomen is soft, Non tender C/w current mx Plan d/w nurser in detail.
[2017-11-01] MEDS: Enoxaparin 40 mg Syringe SC SCH (12:16)
[2017-11-01] MEDS: POLYETHYLENE GLYCOL 3350 17 GM/Dose PACKET GT SCH (12:17)
[2017-11-01] MEDS: Ammonium Lactate 12% Lotion (225 g) TOP SCH ×2 (12:18→17:54)
[2017-11-01] MEDS: levETIRAcetam 100 mg/ml (5ml) Oral Syringe GT SCH ×3 (12:18→18:16)
[2017-11-01] MEDS: Pantoprazole 40 mg Susp UD PEG SCH (12:18)
[2017-11-01] MEDS: Potassium Chloride 20 mEq/15 ml LIQ UD GT SCH ×3 (12:18→18:15)
--- NOTE | 2017-11-01 12:20 | RAD ---
HISTORY: verify right PICC COMPARISON: No prior. FINDINGS: LUNGS: No active pulmonary disease. PLEURA: No significant pleural effusion identified, no pneumothorax apparent. CARDIOVASCULAR: New right PICC catheter terminating at the level of the cavoatrial junction. OSSEOUS STRUCTURES: No significant abnormalities. VISUALIZED UPPER ABDOMEN: Normal. OTHER FINDINGS: Gas distended bowel beneath the diaphragm, likely colon. Correlate with CT examination of the prior day IMPRESSION: New right PICC catheter terminating at the level of the cavoatrial junction.
[2017-11-01 15:02] LABS: BASO % 0.3 % (0.0-2.0); EOS % 0.6 % (0.0-4.0); HEMOGLOBIN 10.5 g/dL (11.0-16.0); LYMPH # 1.3 K/uL (1.0-4.3); LYMPH % 19.6 % (20.0-40.0); MEAN CELL VOLUME 96.5 fL (81.0-99.0); MEAN CORPUSCULAR HEMOGLOBIN 32.5 pg (27.0-31.0); MEAN CORPUSCULAR HGB CONC 33.7 g/dL (33.0-37.0); MONO # 0.7 K/uL (0.0-0.8); MONO % 9.5 % (0.0-10.0); NEUT # 4.8 K/uL (1.8-7.0); RBC 3.22 Mil/uL (3.80-5.20); RED CELL DISTRIBUTION WIDTH 13.8 % (11.5-14.5); WHITE BLOOD COUNT 6.8 K/uL (4.8-10.8)
[2017-11-01 15:38] LABS: ALB/GLOB RATIO 0.9 (1.0-2.1); ALBUMIN 3.1 g/dL (3.5-5.0); ALT/SGPT 22 U/L (9-52); AST/SGOT 18 U/L (14-36); BLOOD UREA NITROGEN 7 mg/dL (7-17); CALCIUM 7.7 mg/dl (8.6-10.4); GFR AFRICAN-AMERICAN > 60; GFR NON-AFRICAN AMERICAN > 60
--- NOTE | 2017-11-01 18:30 | PN ---
DATE: 11/01/2017 LOCATION: Room 661, bed A. SUBJECTIVE: This is a 67-year-old female seen and examined in rounds post PEG tube insertion with insertion of a new PEG tube, tolerating feeding well without any reported residual bleeding or resistant. No reported evidence of anterior abdominal wall cellulitis. The entire chart is reviewed including, but not limited to, the most recent lab and radiology study results, current and the previous medication list, current and the previous medical events. The patient is nonverbal, but apparently refused blood workup last night. PHYSICAL EXAMINATION: GENERAL: A 67-year-old female. VITAL SIGNS: Afebrile with pulse of 84, respiratory rate 20 to 22, and blood pressure 112/64. HEENT: Showed pale, dry oral mucous membranes. Nonicteric sclerae. LUNGS: Few scattered crepitation with decreased air entry at bases. HEART: Positive S1 and S2. ABDOMEN: Soft with slight distention. PEG tube is in place and intact. EXTREMITIES: Without significant clubbing, cyanosis, or edema. NEUROLOGIC: No reported new neurological deficits, sensory or motor. Most recent chest x-ray done before, report is seen. IMPRESSION: 1. Malnutrition with dysphagia and status post new percutaneous endoscopic gastrostomy insertion. 2. Re-exacerbation of peptic ulcer disease. 3. Recent history of apparently fecal impaction, resolving with ileus. 4. Known history of hypertension, seizure disorder. 5. Cardiopulmonary arrest by history. 6. Electrolyte imbalance due to above. SUGGESTIONS: 1. Continue current management. 2. Subsequent increase of rate feeding as tolerated. 3. Guaiac all the stool daily x3. 4. Further recommendation to follow. Lidia Lam MD
--- NOTE | 2017-11-01 18:50 | CP.PCM.PN ---
Subjective - Date & Time of Evaluation Date of Evaluation: 11/01/17 Time of Evaluation: 11:40 - Subjective Subjective: clinically same Objective - Vital Signs/Intake and Output Vital Signs (last 24 hours): Temp Pulse Resp BP Pulse Ox 98.6 F 81 18 95/62 L 96 11/01/17 15:15 11/01/17 15:15 11/01/17 15:15 11/01/17 15:15 11/01/17 15:15 Intake and Output: 11/01/17 11/01/17 06:59 18:59 Intake Total 800 320 Balance 800 320 - Medications Medications: Current Medications Acetaminophen (Tylenol 650mg/20.3ml Solution Ud) 650 mg GT Q4H PRN PRN Reason: Pain, Mild (1-3) Amlodipine Besylate (Norvasc) 5 mg GT DAILY [facility] Last Admin: 11/01/17 12:17 Dose: 5 mg Donepezil HCl (Aricept) 5 mg GT HS [facility] Last Admin: 10/31/17 22:05 Dose: 5 mg Enoxaparin Sodium (Lovenox) 40 mg SC DAILY [facility] Last Admin: 11/01/17 12:16 Dose: 40 mg Metronidazole (Flagyl) 500 mg in 100 mls @ 100 mls/hr IVPB Q8 [facility] Last Admin: 11/01/17 14:27 Dose: 100 mls/hr Potassium Chloride (Potassium Chloride 20 Meq/100 Ml) 20 meq in 100 mls @ 50 mls/hr IVPB ONCE ONE Stop: 11/01/17 20:14 Last Admin: 11/01/17 18:19 Dose: 50 mls/hr Potassium Chloride (Potassium Chloride 20 Meq/100 Ml) 20 meq in 100 mls @ 50 mls/hr IVPB ONCE ONE Stop: 11/01/17 22:14 Lactic Acid (Lac-Hydrin 12% Lotion (225 G)) 0 gm TOP BID [facility] Last Admin: 11/01/17 17:54 Dose: Not Given Levetiracetam (Keppra) 500 mg GT BID [facility] Last Admin: 11/01/17 18:16 Dose: 500 mg Magnesium Hydroxide (Milk Of Magnesia) 30 ml GT Q24H PRN PRN Reason: Constipation Pantoprazole Sodium (Protonix Susp) 40 mg PEG DAILY [facility] Last Admin: 11/01/17 12:18 Dose: 40 mg Petrolatum (Desitin Original) 0 gm TOP QSHIFT [facility] Last Admin: 11/01/17 14:26 Dose: 1 applic Polyethylene Glycol (Miralax) 17 gm GT DAILY [facility] Last Admin: 11/01/17 12:17 Dose: 17 gm Potassium Chloride (Potassium Chloride Oral Soln) 20 meq GT BID [facility] Last Admin: 11/01/17 18:15 Dose: 20 meq Sertraline HCl (Zoloft) 50 mg JT DAILY [facility] Last Admin: 11/01/17 12:18 Dose: 50 mg Vitamin A (Vitamin A & D Oint Ud Foilpak) 0.5 ea TOP Q4 [facility] Last Admin: 11/01/17 16:02 Dose: Not Given - Labs Labs: 11/01/17 14:53 11/01/17 14:53 PT 11.6 SECONDS (9.7-12.2) 10/26/17 02:55 INR 1.0 10/26/17 02:55 APTT 34 SECONDS (21-34) 10/26/17 02:55 - Constitutional Appears: Well - Head Exam Head Exam: ATRAUMATIC, NORMAL INSPECTION, NORMOCEPHALIC - Eye Exam Eye Exam: EOMI, Normal appearance, PERRL Pupil Exam: NORMAL ACCOMODATION, PERRL - ENT Exam ENT Exam: Mucous Membranes Moist, Normal Exam - Neck Exam Neck Exam: Full ROM, Normal Inspection. absent: Lymphadenopathy - Respiratory Exam Respiratory Exam: Decreased Breath Sounds - Cardiovascular Exam Cardiovascular Exam: REGULAR RHYTHM, +S1, +S2 - GI/Abdominal Exam GI & Abdominal Exam: Soft, Diminished Bowel Sounds - Rectal Exam Rectal Exam: Deferred
[2017-11-02] MEDS: Vitamins A & D Oint UD Foilpak TOP SCH ×6 (00:20→21:44)
[2017-11-02] MEDS: Zinc Oxide Topical 30 gm Tube TOP SCH ×3 (05:32→21:44)
[2017-11-02] MEDS: metroNIDAZOLE IV 500 mg/100 ml 500 MG/100 ML BAG IVPB SCH ×3 (05:32→21:43)
[2017-11-02 07:31] LABS: BASO # 0.1 K/uL (0.0-0.2); BASO % 0.8 % (0.0-2.0); EOS # 0.1 K/uL (0.0-0.7); EOS % 0.9 % (0.0-4.0); HEMOGLOBIN 10.4 g/dL (11.0-16.0); LYMPH # 1.4 K/uL (1.0-4.3); LYMPH % 22.1 % (20.0-40.0); MEAN CELL VOLUME 97.3 fL (81.0-99.0); MEAN CORPUSCULAR HGB CONC 33.9 g/dL (33.0-37.0); MEAN PLATELET VOLUME 10.2 fL (7.2-11.7); MONO # 0.7 K/uL (0.0-0.8); MONO % 10.9 % (0.0-10.0); NEUT # 4.2 K/uL (1.8-7.0); NEUT % 65.3 % (50.0-75.0); RBC 3.14 Mil/uL (3.80-5.20); RED CELL DISTRIBUTION WIDTH 13.6 % (11.5-14.5); WHITE BLOOD COUNT 6.5 K/uL (4.8-10.8)
[2017-11-02 08:07] LABS: ALBUMIN 3.1 g/dL (3.5-5.0); ALT/SGPT 23 U/L (9-52); AST/SGOT 19 U/L (14-36); BLOOD UREA NITROGEN 10 mg/dL (7-17); CALCIUM 8.1 mg/dl (8.6-10.4); GFR AFRICAN-AMERICAN > 60; GFR NON-AFRICAN AMERICAN > 60
--- NOTE | 2017-11-02 10:14 | PN ---
DATE: LOCATION: [facility], Bed A. SUBJECTIVE: This is a 67 years old female, seen and examined early in rounds without significant clinical changes. Tolerating PEG feeding well. No reported resistant residual or bleeding. The patient experienced intermittent period of mild diarrhea, still awaiting with stool workup results. The entire chart is reviewed including but not limited to the most recent lab and radiology study results, current and previous medication list, current and previous medical events. LABORATORY DATA: Today's lab is still pending. However as per yesterday, the patient still had low hemoglobin and hematocrit with low potassium for which potassium supplement to be provided with low calcium and low albumin. Most recent chest x-ray done yesterday, report is seen; and the most recent abdominal x-ray showed improvement of the colon distention. The recently done CAT scan of the abdomen report also seen and reviewed with the same results. PHYSICAL EXAMINATION: GENERAL: A 67-year-old female, nonverbal. VITAL SIGNS: Afebrile with stable vital signs so far. HEENT: Showed pale dry oral mucous membrane. Nonicteric sclerae. LUNGS: Few scattered crepitations, decreased air entry at bases. HEART: Positive S1 and S2. ABDOMEN: Soft with slight distention. PEG tube is in place with clean stoma with positive feeding process with much less abdominal distention. No mass or organomegaly. No rebound tenderness or guarding. EXTREMITIES: Mild lower extremity edematous changes. No clubbing or cyanosis. IMPRESSION: 1. Recent history of fecal impaction associated with also an ileus, gradually resolving with status post colonoscopy and fecal disimpaction with biopsy. 2. Malnutrition with hypoalbuminemia with status post PEG exchange. 3. Known history of seizure disorder, hypertension with status post cardiopulmonary arrest by history. 4. Electrolyte imbalance with hypokalemia, for potassium supplement. SUGGESTIONS: 1. Continue current management. 2. Subsequent increase of the rate of feeding. 3. Repeat abdominal x-ray within the next 48 to 72 hours as a followup procedure. 4. No further aggressive GI workup in the meantime. Lidia Lam MD [facility] # [id number]
[2017-11-02] MEDS: POLYETHYLENE GLYCOL 3350 17 GM/Dose PACKET GT SCH (11:06)
[2017-11-02] MEDS: Enoxaparin 40 mg Syringe SC SCH ×2 (11:06→11:28)
[2017-11-02] MEDS: levETIRAcetam 100 mg/ml (5ml) Oral Syringe GT SCH ×2 (11:06→18:35)
[2017-11-02] MEDS: Pantoprazole 40 mg Susp UD PEG SCH (11:07)
[2017-11-02] MEDS: Potassium Chloride 20 mEq/15 ml LIQ UD GT SCH ×2 (11:07→18:35)
[2017-11-02] MEDS: Ammonium Lactate 12% Lotion (225 g) TOP SCH ×2 (11:08→18:29)
--- NOTE | 2017-11-02 15:24 | CP.PCM.PN ---
<Farzaneh Norman - Last Filed: 11/02/17 15:23> Subjective - Date & Time of Evaluation Date of Evaluation: 11/02/17 Time of Evaluation: 07:00 - Subjective Subjective: General surgery progress note for Dr. Ramsey-Farzaneh Norman, PGY-1 Pt S & E at bedside this AM and again in the afternoon with attending. Pt indicating that she does not have abdominal pain. Refusing physical exam at this time. Objective - Vital Signs/Intake and Output Vital Signs (last 24 hours): Temp Pulse Resp BP Pulse Ox 97.4 F L 90 20 150/76 96 11/02/17 08:14 11/02/17 08:14 11/02/17 08:14 11/02/17 08:14 11/02/17 08:14 Intake and Output: 11/02/17 11/02/17 06:59 18:59 Intake Total 620 320 Balance 620 320 - Medications Medications: Current Medications Acetaminophen (Tylenol 650mg/20.3ml Solution Ud) 650 mg GT Q4H PRN PRN Reason: Pain, Mild (1-3) Amlodipine Besylate (Norvasc) 5 mg GT DAILY [facility] Last Admin: 11/02/17 11:06 Dose: 5 mg Donepezil HCl (Aricept) 5 mg GT HS [facility] Last Admin: 11/01/17 21:16 Dose: 5 mg Enoxaparin Sodium (Lovenox) 40 mg SC DAILY [facility] Last Admin: 11/02/17 11:28 Dose: Not Given Metronidazole (Flagyl) 500 mg in 100 mls @ 100 mls/hr IVPB Q8 [facility] Last Admin: 11/02/17 13:54 Dose: 100 mls/hr Lactic Acid (Lac-Hydrin 12% Lotion (225 G)) 0 gm TOP BID [facility] Last Admin: 11/02/17 11:08 Dose: 1 applic Levetiracetam (Keppra) 500 mg GT BID [facility] Last Admin: 11/02/17 11:06 Dose: 500 mg Magnesium Hydroxide (Milk Of Magnesia) 30 ml GT Q24H PRN PRN Reason: Constipation Pantoprazole Sodium (Protonix Susp) 40 mg PEG DAILY [facility] Last Admin: 11/02/17 11:07 Dose: 40 mg Petrolatum (Desitin Original) 0 gm TOP QSHIFT [facility] Last Admin: 11/02/17 13:54 Dose: 1 applic Polyethylene Glycol (Miralax) 17 gm GT DAILY [facility] Last Admin: 11/02/17 11:06 Dose: Not Given Potassium Chloride (Potassium Chloride Oral Soln) 20 meq GT BID [facility] Last Admin: 11/02/17 11:07 Dose: 20 meq Sertraline HCl (Zoloft) 50 mg JT DAILY [facility] Last Admin: 11/02/17 11:06 Dose: 50 mg Vitamin A (Vitamin A & D Oint Ud Foilpak) 0.5 ea TOP Q4 [facility] Last Admin: 11/02/17 11:07 Dose: 0.5 ea - Labs Labs: 11/02/17 07:20 11/02/17 07:20 PT 11.6 SECONDS (9.7-12.2) 10/26/17 02:55 INR 1.0 10/26/17 02:55 APTT 34 SECONDS (21-34) 10/26/17 02:55 - Constitutional Appears: Non-toxic, No Acute Distress - Head Exam Head Exam: ATRAUMATIC, NORMAL INSPECTION, NORMOCEPHALIC Additional comments: Refusing abdominal physical exam - Eye Exam Eye Exam: EOMI, Normal appearance - ENT Exam ENT Exam: Mucous Membranes Moist, Normal Exam - Respiratory Exam Respiratory Exam: NORMAL BREATHING PATTERN - Cardiovascular Exam Cardiovascular Exam: REGULAR RHYTHM Assessment and Plan - Assessment and Plan (Free Text) Assessment: 67F w/colonic distention-improved Plan: No surgical intervention at this time Colonic distention improving Thank you for this consult Please re-consult as needed DW attending Ester, PGY-1 <Jorge Ramsey B - Last Filed: 11/06/17 23:54> Objective - Vital Signs/Intake and Output Vital Signs (last 24 hours): Temp Pulse Resp BP Pulse Ox 97.9 F 78 18 97/62 L 95 11/06/17 15:54 11/06/17 15:54 11/06/17 15:54 11/06/17 15:54 11/06/17 15:54 - Medications Medications: Current Medications Acetaminophen (Tylenol 650mg/20.3ml Solution Ud) 650 mg GT Q4H PRN PRN Reason: Pain, Mild (1-3) Last Admin: 11/03/17 18:24 Dose: 650 mg Amlodipine Besylate (Norvasc) 5 mg GT DAILY [facility] Last Admin: 11/06/17 11:26 Dose: Not Given Donepezil HCl (Aricept) 5 mg GT HS [facility] Last Admin: 11/06/17 22:29 Dose: Not Given Metronidazole (Flagyl) 500 mg in 100 mls @ 100 mls/hr IVPB Q8 [facility] Last Admin: 11/06/17 21:32 Dose: 100 mls/hr Vancomycin HCl 1 gm/ Sodium (Chloride) 200 mls @ 166.7 mls/hr IVPB DAILY [facility] Last Admin: 11/06/17 11:33 Dose: 166.7 mls/hr Dextrose/Sodium Chloride (Dextrose 5%/0.45% Ns 1000 Ml) 1,000 mls @ 75 mls/hr IV .[id number] [facility] Last Admin: 11/06/17 18:50 Dose: Not Given Levetiracetam 500 mg/ Sodium (Chloride) 105 mls @ 420 mls/hr IVPB Q12H [facility] Last Admin: 11/06/17 19:50 Dose: 420 mls/hr Meropenem 1 gm/ Sodium (Chloride) 100 mls @ 100 mls/hr IVPB Q8H [facility] Last Admin: 11/06/17 21:32 Dose: 100 mls/hr Sodium Chloride 35 meq/Potassium Chloride 30 meq/Magnesium Sulfate 6 meq/ Calcium Gluconate 4.65 meq/Chromium/Copper/Manganese/Zinc 1 ml/ Multivitamins/ Vitamin C 10 ml/ Amino Acids 1,046.2278 mls @ 42 mls/hr IV .Q24H [facility] Stop: 11/07/17 17:59 Last Admin: 11/06/17 18:12 Dose: 42 mls/hr Fat Emulsion Intravenous (Intralipid 20%) 500 mls @ 42 mls/hr IV MWF [facility] Last Admin: 11/06/17 18:11 Dose: 42 mls/hr Lactic Acid (Lac-Hydrin 12% Lotion (225 G)) 0 gm TOP BID [facility] Last Admin: 11/06/17 18:21 Dose: 1 applic Magnesium Hydroxide (Milk Of Magnesia) 30 ml GT Q24H PRN PRN Reason: Constipation Pantoprazole Sodium (Protonix Susp) 40 mg PEG DAILY [facility] Last Admin: 11/06/17 11:26 Dose: Not Given Petrolatum (Desitin Original) 0 gm TOP QSHIFT [facility] Last Admin: 11/06/17 21:32 Dose: 1 applic Polyethylene Glycol (Miralax) 17 gm GT DAILY [facility] Last Admin: 11/06/17 11:26 Dose: Not Given Potassium Chloride (Potassium Chloride Oral Soln) 20 meq GT BID [facility] Last Admin: 11/06/17 18:13 Dose: Not Given Sertraline HCl (Zoloft) 50 mg JT DAILY [facility] Last Admin: 11/06/17 11:27 Dose: Not Given Vitamin A (Vitamin A & D Oint Ud Foilpak) 0.5 ea TOP Q4 [facility] Last Admin: 11/06/17 19:50 Dose: 0.5 ea - Labs Labs: 11/06/17 06:54 11/06/17 06:54 PT 11.6 SECONDS (9.7-12.2) 10/26/17 02:55 INR 1.0 10/26/17 02:55 APTT 34 SECONDS (21-34) 10/26/17 02:55 Attending/Attestation - Attestation I have personally seen and examined this patient.: Yes I have fully participated in the care of the patient.: Yes I have reviewed all pertinent clinical information, including history, physical exam and plan: Yes Notes (Text): Pt was seen and examined at bedside Agree with above note and assessment DC plan No acute surgical intervention required at present Plan d.w primary team in detail
[2017-11-02] MEDS ORDERED: Sodium Phosphate 15 MMOLE in Sodium Chloride 0.9% 250 ML IVPB ONE (16:16)
--- NOTE | 2017-11-02 18:05 | CP.PCM.PN ---
Subjective - Date & Time of Evaluation Date of Evaluation: 11/02/17 Time of Evaluation: 11:20 - Subjective Subjective: clinically same Objective - Vital Signs/Intake and Output Vital Signs (last 24 hours): Temp Pulse Resp BP Pulse Ox 97.8 F 89 18 134/63 95 11/02/17 15:30 11/02/17 15:30 11/02/17 15:30 11/02/17 15:30 11/02/17 15:30 Intake and Output: 11/02/17 11/02/17 06:59 18:59 Intake Total 620 320 Balance 620 320 - Medications Medications: Current Medications Acetaminophen (Tylenol 650mg/20.3ml Solution Ud) 650 mg GT Q4H PRN PRN Reason: Pain, Mild (1-3) Amlodipine Besylate (Norvasc) 5 mg GT DAILY [facility] Last Admin: 11/02/17 11:06 Dose: 5 mg Donepezil HCl (Aricept) 5 mg GT HS [facility] Last Admin: 11/01/17 21:16 Dose: 5 mg Enoxaparin Sodium (Lovenox) 40 mg SC DAILY [facility] Last Admin: 11/02/17 11:28 Dose: Not Given Metronidazole (Flagyl) 500 mg in 100 mls @ 100 mls/hr IVPB Q8 [facility] Last Admin: 11/02/17 13:54 Dose: 100 mls/hr Potassium Chloride (Potassium Chloride 20 Meq/100 Ml) 20 meq in 100 mls @ 50 mls/hr IVPB ONCE ONE Stop: 11/02/17 18:12 Sodium Phosphate 15 mmole/ (Sodium Chloride) 255 mls @ 50 mls/hr IVPB .Q5H6M ONE Stop: 11/02/17 21:21 Lactic Acid (Lac-Hydrin 12% Lotion (225 G)) 0 gm TOP BID [facility] Last Admin: 11/02/17 11:08 Dose: 1 applic Levetiracetam (Keppra) 500 mg GT BID [facility] Last Admin: 11/02/17 11:06 Dose: 500 mg Magnesium Hydroxide (Milk Of Magnesia) 30 ml GT Q24H PRN PRN Reason: Constipation Pantoprazole Sodium (Protonix Susp) 40 mg PEG DAILY [facility] Last Admin: 11/02/17 11:07 Dose: 40 mg Petrolatum (Desitin Original) 0 gm TOP QSHIFT [facility] Last Admin: 11/02/17 13:54 Dose: 1 applic Polyethylene Glycol (Miralax) 17 gm GT DAILY [facility] Last Admin: 11/02/17 11:06 Dose: Not Given Potassium Chloride (Potassium Chloride Oral Soln) 20 meq GT BID [facility] Last Admin: 11/02/17 11:07 Dose: 20 meq Sertraline HCl (Zoloft) 50 mg JT DAILY [facility] Last Admin: 11/02/17 11:06 Dose: 50 mg Vitamin A (Vitamin A & D Oint Ud Foilpak) 0.5 ea TOP Q4 [facility] Last Admin: 11/02/17 11:07 Dose: 0.5 ea - Labs Labs: 11/02/17 07:20 11/02/17 07:20 PT 11.6 SECONDS (9.7-12.2) 10/26/17 02:55 INR 1.0 10/26/17 02:55 APTT 34 SECONDS (21-34) 10/26/17 02:55 - Constitutional Appears: Well - Head Exam Head Exam: ATRAUMATIC, NORMAL INSPECTION, NORMOCEPHALIC - Eye Exam Eye Exam: EOMI, Normal appearance, PERRL Pupil Exam: NORMAL ACCOMODATION, PERRL - ENT Exam ENT Exam: Mucous Membranes Moist, Normal Exam - Neck Exam Neck Exam: Full ROM, Normal Inspection. absent: Lymphadenopathy - Respiratory Exam Respiratory Exam: Decreased Breath Sounds - Cardiovascular Exam Cardiovascular Exam: REGULAR RHYTHM, +S1, +S2 - GI/Abdominal Exam GI & Abdominal Exam: Soft, Diminished Bowel Sounds - Rectal Exam Rectal Exam: Deferred
[2017-11-03] MEDS: Vitamins A & D Oint UD Foilpak TOP SCH ×6 (00:16→22:06)
[2017-11-03] MEDS: metroNIDAZOLE IV 500 mg/100 ml 500 MG/100 ML BAG IVPB SCH ×3 (05:58→22:05)
[2017-11-03] MEDS: Zinc Oxide Topical 30 gm Tube TOP SCH ×4 (05:58→22:05)
[2017-11-03 08:30] LABS: BASO % 0.4 % (0.0-2.0); EOS # 0.1 K/uL (0.0-0.7); HEMOGLOBIN 10.8 g/dL (11.0-16.0); LYMPH # 1.5 K/uL (1.0-4.3); LYMPH % 17.9 % (20.0-40.0); MEAN CELL VOLUME 97.8 fL (81.0-99.0); MEAN CORPUSCULAR HEMOGLOBIN 32.7 pg (27.0-31.0); MEAN CORPUSCULAR HGB CONC 33.4 g/dL (33.0-37.0); MEAN PLATELET VOLUME 10.1 fL (7.2-11.7); MONO % 11.8 % (0.0-10.0); NEUT # 5.7 K/uL (1.8-7.0); NEUT % 68.9 % (50.0-75.0); RBC 3.32 Mil/uL (3.80-5.20); RED CELL DISTRIBUTION WIDTH 13.7 % (11.5-14.5); WHITE BLOOD COUNT 8.3 K/uL (4.8-10.8)
[2017-11-03 08:50] LABS: ALBUMIN 3.2 g/dL (3.5-5.0); ALT/SGPT 26 U/L (9-52); AST/SGOT 24 U/L (14-36); BLOOD UREA NITROGEN 6 mg/dL (7-17); CALCIUM 8.2 mg/dl (8.6-10.4); GFR AFRICAN-AMERICAN > 60; GFR NON-AFRICAN AMERICAN > 60
[2017-11-03] MEDS: POLYETHYLENE GLYCOL 3350 17 GM/Dose PACKET GT SCH (10:57)
[2017-11-03] MEDS: Pantoprazole 40 mg Susp UD PEG SCH (12:04)
[2017-11-03] MEDS: Potassium Chloride 20 mEq/15 ml LIQ UD GT SCH ×2 (12:04→18:25)
[2017-11-03] MEDS: levETIRAcetam 100 mg/ml (5ml) Oral Syringe GT SCH ×2 (12:05→18:25)
[2017-11-03] MEDS: Ammonium Lactate 12% Lotion (225 g) TOP SCH ×2 (12:05→18:26)
[2017-11-03] MEDS: Enoxaparin 40 mg Syringe SC SCH (12:05)
--- NOTE | 2017-11-03 13:58 | CP.PCM.PN ---
Subjective - Date & Time of Evaluation Date of Evaluation: 11/03/17 Time of Evaluation: 13:00 - Subjective Subjective: clinically same Objective - Vital Signs/Intake and Output Vital Signs (last 24 hours): Temp Pulse Resp BP Pulse Ox 98.0 F 98 H 20 134/80 95 11/03/17 08:00 11/03/17 08:00 11/03/17 08:00 11/03/17 08:00 11/03/17 08:00 Intake and Output: 11/03/17 11/03/17 06:59 18:59 Intake Total 620 Balance 620 - Medications Medications: Current Medications Acetaminophen (Tylenol 650mg/20.3ml Solution Ud) 650 mg GT Q4H PRN PRN Reason: Pain, Mild (1-3) Amlodipine Besylate (Norvasc) 5 mg GT DAILY [facility] Last Admin: 11/03/17 12:04 Dose: 5 mg Donepezil HCl (Aricept) 5 mg GT HS [facility] Last Admin: 11/02/17 21:43 Dose: 5 mg Metronidazole (Flagyl) 500 mg in 100 mls @ 100 mls/hr IVPB Q8 [facility] Last Admin: 11/03/17 05:58 Dose: 100 mls/hr Lactic Acid (Lac-Hydrin 12% Lotion (225 G)) 0 gm TOP BID [facility] Last Admin: 11/03/17 12:05 Dose: 1 applic Levetiracetam (Keppra) 500 mg GT BID [facility] Last Admin: 11/03/17 12:05 Dose: 500 mg Magnesium Hydroxide (Milk Of Magnesia) 30 ml GT Q24H PRN PRN Reason: Constipation Pantoprazole Sodium (Protonix Susp) 40 mg PEG DAILY [facility] Last Admin: 11/03/17 12:04 Dose: 40 mg Petrolatum (Desitin Original) 0 gm TOP QSHIFT [facility] Last Admin: 11/03/17 05:58 Dose: 1 applic Polyethylene Glycol (Miralax) 17 gm GT DAILY [facility] Last Admin: 11/03/17 10:57 Dose: Not Given Potassium Chloride (Potassium Chloride Oral Soln) 20 meq GT BID [facility] Last Admin: 11/03/17 12:04 Dose: 20 meq Sertraline HCl (Zoloft) 50 mg JT DAILY [facility] Last Admin: 11/03/17 12:04 Dose: 50 mg Vitamin A (Vitamin A & D Oint Ud Foilpak) 0.5 ea TOP Q4 [facility] Last Admin: 11/03/17 12:05 Dose: 0.5 ea - Labs Labs: 11/03/17 08:17 11/03/17 08:17 PT 11.6 SECONDS (9.7-12.2) 10/26/17 02:55 INR 1.0 10/26/17 02:55 APTT 34 SECONDS (21-34) 10/26/17 02:55 - Constitutional Appears: Well - Head Exam Head Exam: ATRAUMATIC, NORMAL INSPECTION, NORMOCEPHALIC - Eye Exam Eye Exam: EOMI, Normal appearance, PERRL Pupil Exam: NORMAL ACCOMODATION, PERRL - ENT Exam ENT Exam: Mucous Membranes Moist, Normal Exam - Neck Exam Neck Exam: Full ROM, Normal Inspection. absent: Lymphadenopathy - Respiratory Exam Respiratory Exam: Decreased Breath Sounds - Cardiovascular Exam Cardiovascular Exam: REGULAR RHYTHM, +S1, +S2 - GI/Abdominal Exam GI & Abdominal Exam: Soft, Diminished Bowel Sounds - Rectal Exam Rectal Exam: Deferred
--- NOTE | 2017-11-03 16:29 | PN ---
DATE: LOCATION: [facility], bed A. SUBJECTIVE: This is a 67-year-old female nonverbal, seen and examined in rounds with some family members, tolerating PEG feeding well without residual bleeding or reported resistance. No reported chest pain or palpitation. No reported nausea or vomiting. The entire chart is reviewed including, but not limited to the most recent lab and radiology study results, current and the previous medication list, current and the previous medical events. Today's lab showed hemoglobin 10.8, hematocrit 32.4, with normal white blood cells and normal platelet count, with low BUN of 6, creatinine of 0.4, low calcium 8.2, low albumin 3.2, but normal potassium level after potassium replacement. PHYSICAL EXAMINATION GENERAL: A 67-year-old female, nonverbal. VITAL SIGNS: Afebrile, pulse of 94, respiratory rate 20 to 22, blood pressure 138/82. HEENT: Showed mildly pale dry oral mucous membrane. Nonicteric sclerae. LUNGS: Few scattered crepitation, decreased air entry at bases. HEART: Positive S1 and S2. ABDOMEN: Soft, bowel sounds are present. New PEG tube is in place without evidence of intraabdominal wall cellulitis, with well formed stoma. No mass or organomegaly. NEUROLOGIC: No reported new neurological deficits, sensory or motor. Peripheral pulses present, but decreased. IMPRESSION: 1. Fecal impaction with an ileus, resolved. 2. Status post new percutaneous endoscopic gastrostomy insertion, functioning well. 3. Hypoalbuminemia, with malnutrition and dysphagia. 4. Known history of hypertension, seizure disorder, status post cardiopulmonary arrest, improving clinically. 5. Electrolyte imbalance, improving but with hypocalcemia. 6. Anemia most likely secondary to the above. 7. Peptic ulcer disease, by recent history. SUGGESTIONS: 1. Continue current management. 2. Subsequently increase the rate of PEG feeding. 3. Further recommendations to follow. Lidia Lam MD
[2017-11-03] MEDS: Acetaminophen 650mg/20.3ml solution UD GT PRN (18:24)
[2017-11-04] MEDS: Vitamins A & D Oint UD Foilpak TOP SCH ×6 (00:18→21:31)
[2017-11-04] MEDS: metroNIDAZOLE IV 500 mg/100 ml 500 MG/100 ML BAG IVPB SCH ×2 (05:49→15:23)
[2017-11-04] MEDS: Zinc Oxide Topical 30 gm Tube TOP SCH ×3 (05:49→21:32)
[2017-11-04 07:41] LABS: BASO % 0.3 % (0.0-2.0); EOS % 0.1 % (0.0-4.0); LYMPH # 1.2 K/uL (1.0-4.3); LYMPH % 9.4 % (20.0-40.0); MEAN CELL VOLUME 96.9 fL (81.0-99.0); MEAN CORPUSCULAR HGB CONC 34.1 g/dL (33.0-37.0); MEAN PLATELET VOLUME 9.9 fL (7.2-11.7); MONO # 1.5 K/uL (0.0-0.8); MONO % 11.8 % (0.0-10.0); NEUT # 9.7 K/uL (1.8-7.0); NEUT % 78.4 % (50.0-75.0); PLATELET COUNT 277 K/uL (130-400); RBC 3.33 Mil/uL (3.80-5.20); RED CELL DISTRIBUTION WIDTH 13.9 % (11.5-14.5); WHITE BLOOD COUNT 12.3 K/uL (4.8-10.8)
[2017-11-04 07:47] LABS: ALBUMIN 3.3 g/dL (3.5-5.0); ALT/SGPT 20 U/L (9-52); AST/SGOT 22 U/L (14-36); BLOOD UREA NITROGEN 14 mg/dL (7-17); CALCIUM 8.2 mg/dl (8.6-10.4); GFR AFRICAN-AMERICAN > 60; GFR NON-AFRICAN AMERICAN > 60
[2017-11-04] MEDS: Pantoprazole 40 mg Susp UD PEG SCH (09:38)
[2017-11-04] MEDS: POLYETHYLENE GLYCOL 3350 17 GM/Dose PACKET GT SCH (09:38)
[2017-11-04] MEDS: Potassium Chloride 20 mEq/15 ml LIQ UD GT SCH ×2 (09:39→18:23)
[2017-11-04] MEDS: Ammonium Lactate 12% Lotion (225 g) TOP SCH ×2 (09:39→18:23)
[2017-11-04] MEDS: levETIRAcetam 100 mg/ml (5ml) Oral Syringe GT SCH ×2 (09:39→18:23)
[2017-11-04 10:11] LABS: BANDS 4 % (0-2); LYMPHOCYTE 12 % (20-40); MONOCYTE 11 % (0-10); NEUTROPHIL 73 % (50-75); PLATELET ESTIMATE NORMAL (NORMAL); TOTAL CELLS COUNTED 100
[2017-11-04 10:12] LABS: LARGE PLATELETS PRESENT
[2017-11-04] MEDS ORDERED: Vancomycin 1 gm/NS 200 ml 1 GM/200 ML BAG IVPB ONE (13:00)
--- NOTE | 2017-11-04 13:50 | CP.PCM.PN ---
Subjective - Date & Time of Evaluation Date of Evaluation: 11/04/17 Time of Evaluation: 13:45 - Subjective Subjective: PROGRESS NOTE. ATTENDING: DR LYON Pt seen and examined at bedside. No acute distress. No events overnight. SX following. ROS Unobtainable. Objective - Vital Signs/Intake and Output Vital Signs (last 24 hours): Temp Pulse Resp BP Pulse Ox 98.3 F 106 H 20 96/61 L 94 L 11/04/17 08:40 11/04/17 08:40 11/04/17 08:40 11/04/17 08:40 11/04/17 08:40 Intake and Output: 11/04/17 11/04/17 06:59 18:59 Intake Total 420 Balance 420 - Medications Medications: Current Medications Acetaminophen (Tylenol 650mg/20.3ml Solution Ud) 650 mg GT Q4H PRN PRN Reason: Pain, Mild (1-3) Last Admin: 11/03/17 18:24 Dose: 650 mg Amlodipine Besylate (Norvasc) 5 mg GT DAILY [facility] Last Admin: 11/04/17 09:38 Dose: 5 mg Donepezil HCl (Aricept) 5 mg GT HS [facility] Last Admin: 11/03/17 22:05 Dose: 5 mg Metronidazole (Flagyl) 500 mg in 100 mls @ 100 mls/hr IVPB Q8 [facility] Last Admin: 11/04/17 05:49 Dose: 100 mls/hr Vancomycin/Sodium Chloride (Vancomycin 1 Gm/Ns 200 Ml) 1 gm in 200 mls @ 133 mls/hr IVPB ONCE ONE Stop: 11/04/17 14:30 Lactic Acid (Lac-Hydrin 12% Lotion (225 G)) 0 gm TOP BID [facility] Last Admin: 11/04/17 09:39 Dose: 1 applic Levetiracetam (Keppra) 500 mg GT BID [facility] Last Admin: 11/04/17 09:39 Dose: 500 mg Magnesium Hydroxide (Milk Of Magnesia) 30 ml GT Q24H PRN PRN Reason: Constipation Pantoprazole Sodium (Protonix Susp) 40 mg PEG DAILY [facility] Last Admin: 11/04/17 09:38 Dose: 40 mg Petrolatum (Desitin Original) 0 gm TOP QSHIFT [facility] Last Admin: 11/04/17 05:49 Dose: 1 applic Polyethylene Glycol (Miralax) 17 gm GT DAILY [facility] Last Admin: 11/04/17 09:38 Dose: 17 gm Potassium Chloride (Potassium Chloride Oral Soln) 20 meq GT BID [facility] Last Admin: 11/04/17 09:39 Dose: 20 meq Sertraline HCl (Zoloft) 50 mg JT DAILY [facility] Last Admin: 11/04/17 09:38 Dose: 50 mg Vitamin A (Vitamin A & D Oint Ud Foilpak) 0.5 ea TOP Q4 [facility] Last Admin: 11/04/17 09:39 Dose: Not Given - Labs Labs: 11/04/17 07:10 11/04/17 07:10 PT 11.6 SECONDS (9.7-12.2) 10/26/17 02:55 INR 1.0 10/26/17 02:55 APTT 34 SECONDS (21-34) 10/26/17 02:55 - Constitutional Appears: Non-toxic, No Acute Distress, Chronically Ill - Head Exam Head Exam: ATRAUMATIC, NORMAL INSPECTION, NORMOCEPHALIC - Eye Exam Eye Exam: EOMI - ENT Exam ENT Exam: Mucous Membranes Moist - Neck Exam Neck Exam: Full ROM, Normal Inspection - Respiratory Exam Respiratory Exam: absent: Respiratory Distress - Cardiovascular Exam Cardiovascular Exam: +S1, +S2 - GI/Abdominal Exam Additional comments: PEG site intact - Extremities Exam Extremities Exam: Full ROM - Neurological Exam Neurological Exam: Altered - Psychiatric Exam Psychiatric exam: Normal Affect, Normal Mood - Skin Skin Exam: Dry, Intact, Normal Color, Warm Assessment and Plan - Assessment and Plan (Free Text) Assessment: 67 yo female with colonic distention 2/2 to retained fecal matter - Gastric tube to air to help w/ decompression - Serial abd exams -iv flagyl as per Dr. Hurst -gi following- dr hurst; appreciate recs -sx following. dr. culp. recs appreciated; no surgical intervention planned for this admission -pt underwent endoscopy along with peg removal and replacement -endoscopy showed esophagitis along with small hiatal hernia, as well as erythematous mucosa in stomach -pt is to f/u with GI for results of biopsy from endoscopy hx of dementia -continue donepezil -patient is mostly non verbal but can understand commands and communicates through yes or no in georgian. However, full comprehension and ability to answer yes/no appropriately is questionable. hx of seizure disorder -continue keppra through PEG gi/dvt ppx -continue lovenox -continue protonix -poor IV access; PICC requested for 7 days of metronidazole IV as per GI Consent obtained over the phone by family dw Dr. lyon; all management as per Dr. Boris Lyon
[2017-11-04] MEDS ORDERED: Iohexol 300 100 ML IJ ONE (16:39)
--- NOTE | 2017-11-04 17:37 | CP.PCM.PN ---
Subjective - Date & Time of Evaluation Date of Evaluation: 11/04/17 Time of Evaluation: 12:40 - Subjective Subjective: clinically same Objective - Vital Signs/Intake and Output Vital Signs (last 24 hours): Temp Pulse Resp BP Pulse Ox 97.9 F 106 H 20 113/58 L 96 11/04/17 15:10 11/04/17 15:10 11/04/17 15:10 11/04/17 15:10 11/04/17 15:10 Intake and Output: 11/04/17 11/04/17 06:59 18:59 Intake Total 420 Balance 420 - Medications Medications: Current Medications Acetaminophen (Tylenol 650mg/20.3ml Solution Ud) 650 mg GT Q4H PRN PRN Reason: Pain, Mild (1-3) Last Admin: 11/03/17 18:24 Dose: 650 mg Amlodipine Besylate (Norvasc) 5 mg GT DAILY [facility] Last Admin: 11/04/17 09:38 Dose: 5 mg Donepezil HCl (Aricept) 5 mg GT HS [facility] Last Admin: 11/03/17 22:05 Dose: 5 mg Lactic Acid (Lac-Hydrin 12% Lotion (225 G)) 0 gm TOP BID [facility] Last Admin: 11/04/17 09:39 Dose: 1 applic Levetiracetam (Keppra) 500 mg GT BID [facility] Last Admin: 11/04/17 09:39 Dose: 500 mg Magnesium Hydroxide (Milk Of Magnesia) 30 ml GT Q24H PRN PRN Reason: Constipation Pantoprazole Sodium (Protonix Susp) 40 mg PEG DAILY [facility] Last Admin: 11/04/17 09:38 Dose: 40 mg Petrolatum (Desitin Original) 0 gm TOP QSHIFT [facility] Last Admin: 11/04/17 14:07 Dose: 1 applic Polyethylene Glycol (Miralax) 17 gm GT DAILY [facility] Last Admin: 11/04/17 09:38 Dose: 17 gm Potassium Chloride (Potassium Chloride Oral Soln) 20 meq GT BID [facility] Last Admin: 11/04/17 09:39 Dose: 20 meq Sertraline HCl (Zoloft) 50 mg JT DAILY [facility] Last Admin: 11/04/17 09:38 Dose: 50 mg Vitamin A (Vitamin A & D Oint Ud Foilpak) 0.5 ea TOP Q4 [facility] Last Admin: 11/04/17 15:23 Dose: 0.5 ea - Labs Labs: 11/04/17 07:10 11/04/17 07:10 PT 11.6 SECONDS (9.7-12.2) 10/26/17 02:55 INR 1.0 10/26/17 02:55 APTT 34 SECONDS (21-34) 10/26/17 02:55 - Constitutional Appears: Well - Head Exam Head Exam: ATRAUMATIC, NORMAL INSPECTION, NORMOCEPHALIC - Eye Exam Eye Exam: EOMI, Normal appearance, PERRL Pupil Exam: NORMAL ACCOMODATION, PERRL - ENT Exam ENT Exam: Mucous Membranes Moist, Normal Exam - Neck Exam Neck Exam: Full ROM, Normal Inspection. absent: Lymphadenopathy - Respiratory Exam Respiratory Exam: Decreased Breath Sounds - Cardiovascular Exam Cardiovascular Exam: REGULAR RHYTHM, +S1, +S2 - GI/Abdominal Exam GI & Abdominal Exam: Soft, Diminished Bowel Sounds - Rectal Exam Rectal Exam: Deferred
--- NOTE | 2017-11-04 18:24 | PN ---
DATE: LOCATION: Room 661, Bed A. SUBJECTIVE: This is a 67-year-old female post colonoscopy with biopsy and PEG changed recently, seen and examined in rounds, still nonverbal with reported infected PEG site with brownish yellow drainage as per the nursing staff indicative of mild anterior abdominal wall synovitis. The patient has no bleeding. No residual bleeding or reported resistance. The entire chart was reviewed including, but not limited to, the most recent lab and radiology study results, current and the previous medication list, current and the previous medical events. The case was discussed with the staff at length. Today, his labs showed white blood cells of 20.3, low hematocrit at 32.3, but normal platelet count with low potassium of 3.5, blood glucose level of 113, calcium 8.2 with low albumin 3.3. PHYSICAL EXAMINATION: GENERAL: A 67-year-old female, nonverbal. VITAL SIGNS: Afebrile with pulse of 100, respiratory rate 20 to 22, blood pressure 104/66. HEENT: Showed pale and dry oral mucous membranes. Nonicteric sclerae. LUNGS: Few scattered mild crepitation with decreased air entry at bases. HEART: Positive S1 and S2. ABDOMEN: Soft with slight distention and slight tenderness with evidence of mild anterior abdominal wall cellulitis. Bowel sounds are present but hypoactive. EXTREMITIES: Lower extremity with mild edematous changes. No clubbing or cyanosis. NEUROLOGIC: No reported new neurological deficits, sensory or motor. It has to be mentioned that the patient is still on IV antibiotic including vancomycin as well as . SUGGESTION: 1. Continue current IV antibiotics. 2. Culture the area of the PEG tube stoma including the small discharge around it. 3. Flat abdominal x-ray. 4. Subsequently increase the rate of feeding as tolerated and correct any underlying coagulopathy. Lidia Lam MD
[2017-11-04] MEDS ORDERED: Potassium Chloride 20 mEq ER Tab PO STA (19:05)
--- NOTE | 2017-11-04 19:45 | CT ---
EXAM: CT Abdomen and Pelvis With Intravenous Contrast EXAM DATE/TIME: 11/04/2017 3:37 PM CLINICAL HISTORY: 67 years old, female; Pain and signs and symptoms and condition or disease; Intestinal condition; Obstruction; Abdominal tenderness; Abdominal pain; Generalized; Additional info: R/O peritonitis; Post- peg change, abd distended TECHNIQUE: Axial computed tomography images of the abdomen and pelvis with intravenous contrast. All CT scans at this facility use one or more dose reduction techniques, viz.: automated exposure control; ma/kV adjustment per patient size (including targeted exams where dose is matched to indication; i.e. head); or iterative reconstruction technique. Coronal and sagittal reformatted images were created and reviewed. CONTRAST: 100 mL of omnipaque 300 administered intravenously. COMPARISON: CT - ABD PELVIS W/O PO OR IV CONT 2017-10-31 17:06 FINDINGS: Lower thorax: The heart is mildly enlarged. There continues to be a small left pleural effusion. There is been interval increase in bibasilar airspace disease left greater than right. ABDOMEN: Liver: There are multiple low attenuation hepatic lesions most likely cysts, unchanged.There is fatty infiltration of the liver. Gallbladder and bile ducts: Gallbladder is partially distended. Common duct is unremarkable. Pancreas: unremarkable Spleen: unremarkable Adrenals: Right adrenal is unremarkable. There is nodular thickening of the left adrenal. Kidneys and ureters: unremarkable Stomach and bowel: There is a gastric PEG tube Stomach is almost completely empty. Rotation is normal. Small bowel is mildly distended with fluid. There is no small bowel obstruction. Terminal ileum and appendix are distended with fluid. Cecum and ascending colon are only mildly distended. There is dilatation of the colon at the hepatic flexure. Transverse colon is dilated with air-fluid levels. Portions of the descending colon are collapsed. There is a large amount of air and fluid in the sigmoid and rectum. Appendix: See stomach and bowel PELVIS: Bladder: Bladder is virtually distended. Reproductive: Adnexal structures are unremarkable. There are coarse calcifications in the uterus. Uterine contours are lobular. Myometrium is heterogeneous. ABDOMEN and PELVIS: Intraperitoneal space: There is no free air or free fluid. Bones/joints: Bony structures are osteopenic. There are degenerative changes. Soft tissues: unremarkable Vasculature: There are vascular calcifications. Lymph nodes: There is no pathologic adenopathy. IMPRESSION: Small left pleural effusion with interval increase in bibasilar airspace disease left greater right; no acute solid visceral abnormality; gastric PEG tube; persistent colonic dilatation more suggestive of ileus than obstruction Additional nonemergent findings as described above.
[2017-11-04] MEDS ORDERED: Potassium Chloride 20 mEq/15 ml LIQ UD PO STA (20:02)
[2017-11-05] MEDS: Vitamins A & D Oint UD Foilpak TOP SCH ×7 (00:45→23:48)
[2017-11-05] MEDS: metroNIDAZOLE IV 500 mg/100 ml 500 MG/100 ML BAG IVPB SCH ×3 (05:25→21:50)
[2017-11-05] MEDS: Zinc Oxide Topical 30 gm Tube TOP SCH ×3 (05:26→21:50)
[2017-11-05 05:30] LABS: BASO # 0.1 K/uL (0.0-0.2); EOS % 0.2 % (0.0-4.0); HEMOGLOBIN 10.3 g/dL (11.0-16.0); LYMPH # 1.3 K/uL (1.0-4.3); LYMPH % 11.6 % (20.0-40.0); MEAN CELL VOLUME 97.3 fL (81.0-99.0); MEAN CORPUSCULAR HEMOGLOBIN 31.6 pg (27.0-31.0); MEAN CORPUSCULAR HGB CONC 32.5 g/dL (33.0-37.0); MEAN PLATELET VOLUME 9.1 fL (7.2-11.7); MONO # 1.5 K/uL (0.0-0.8); MONO % 12.8 % (0.0-10.0); NEUT # 8.4 K/uL (1.8-7.0); NEUT % 74.4 % (50.0-75.0); RBC 3.25 Mil/uL (3.80-5.20); RED CELL DISTRIBUTION WIDTH 14.2 % (11.5-14.5); WHITE BLOOD COUNT 11.3 K/uL (4.8-10.8)
[2017-11-05 05:51] LABS: ALBUMIN 3.2 g/dL (3.5-5.0); ALT/SGPT 23 U/L (9-52); AST/SGOT 20 U/L (14-36); BLOOD UREA NITROGEN 11 mg/dL (7-17); CALCIUM 8.2 mg/dl (8.6-10.4); GFR AFRICAN-AMERICAN > 60; GFR NON-AFRICAN AMERICAN > 60
[2017-11-05] MEDS: Potassium Chloride 20 mEq/15 ml LIQ UD GT SCH ×2 (09:54→20:37)
[2017-11-05] MEDS: levETIRAcetam 100 mg/ml (5ml) Oral Syringe GT SCH ×2 (09:55→21:51)
[2017-11-05] MEDS: Vancomycin 1 GM in Sodium Chloride 0.9% 200 ML IVPB SCH (09:55)
[2017-11-05] MEDS: Pantoprazole 40 mg Susp UD PEG SCH (09:55)
[2017-11-05] MEDS: POLYETHYLENE GLYCOL 3350 17 GM/Dose PACKET GT SCH (09:55)
[2017-11-05] MEDS: Ammonium Lactate 12% Lotion (225 g) TOP SCH ×2 (09:56→17:54)
--- NOTE | 2017-11-05 12:46 | CP.PCM.PN ---
Subjective - Date & Time of Evaluation Date of Evaluation: 11/05/17 Time of Evaluation: 12:45 - Subjective Subjective: Progress note. Attending: DR JANIS LYON Pt seen at bedside. Pt refused exam. No acute distress. No events overnight. ROS unobtainable because pt is non verbal. Objective - Vital Signs/Intake and Output Vital Signs (last 24 hours): Temp Pulse Resp BP Pulse Ox 98.8 F 98 H 18 106/50 L 96 11/05/17 07:30 11/05/17 07:30 11/05/17 07:30 11/05/17 07:30 11/05/17 07:30 Intake and Output: 11/05/17 11/05/17 06:59 18:59 Intake Total 100 Output Total 275 Balance -175 - Medications Medications: Current Medications Acetaminophen (Tylenol 650mg/20.3ml Solution Ud) 650 mg GT Q4H PRN PRN Reason: Pain, Mild (1-3) Last Admin: 11/03/17 18:24 Dose: 650 mg Amlodipine Besylate (Norvasc) 5 mg GT DAILY [facility] Last Admin: 11/05/17 09:55 Dose: 5 mg Donepezil HCl (Aricept) 5 mg GT HS [facility] Last Admin: 11/04/17 21:31 Dose: 5 mg Metronidazole (Flagyl) 500 mg in 100 mls @ 100 mls/hr IVPB Q8 [facility] Last Admin: 11/05/17 05:25 Dose: 100 mls/hr Vancomycin HCl 1 gm/ Sodium (Chloride) 200 mls @ 166.7 mls/hr IVPB DAILY [facility] Last Admin: 11/05/17 09:55 Dose: 166.7 mls/hr Lactic Acid (Lac-Hydrin 12% Lotion (225 G)) 0 gm TOP BID [facility] Last Admin: 11/05/17 09:56 Dose: 1 applic Levetiracetam (Keppra) 500 mg GT BID [facility] Last Admin: 11/05/17 09:55 Dose: 500 mg Magnesium Hydroxide (Milk Of Magnesia) 30 ml GT Q24H PRN PRN Reason: Constipation Pantoprazole Sodium (Protonix Susp) 40 mg PEG DAILY [facility] Last Admin: 11/05/17 09:55 Dose: 40 mg Petrolatum (Desitin Original) 0 gm TOP QSHIFT [facility] Last Admin: 11/05/17 05:26 Dose: 1 applic Polyethylene Glycol (Miralax) 17 gm GT DAILY [facility] Last Admin: 11/05/17 09:55 Dose: 17 gm Potassium Chloride (Potassium Chloride Oral Soln) 20 meq GT BID [facility] Last Admin: 11/05/17 09:54 Dose: 20 meq Sertraline HCl (Zoloft) 50 mg JT DAILY [facility] Last Admin: 11/05/17 09:55 Dose: 50 mg Vitamin A (Vitamin A & D Oint Ud Foilpak) 0.5 ea TOP Q4 [facility] Last Admin: 11/05/17 08:14 Dose: Not Given - Labs Labs: 11/05/17 05:27 11/05/17 05:27 PT 11.6 SECONDS (9.7-12.2) 10/26/17 02:55 INR 1.0 10/26/17 02:55 APTT 34 SECONDS (21-34) 10/26/17 02:55 - Head Exam Additional comments: PT REFUSED EXAM. Assessment and Plan - Assessment and Plan (Free Text) Assessment: This is a 67 yo female with 1. 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 -PEG site culture growing staph. aureus -ID consult. recs appreciated. Dr. Oden. -repeat CT scan yesterday shows small pleural effusion along with redemonstration of colonic dilation ileus rather than obstruction. -abdominal x ray pending -continue IV vancomycin daily -continue IV flagyl -GI consult. DR. [place]. recs appreciated. -sx following. dr. culp. recs appreciated; no surgical intervention planned for this admission -sx has signed off -pt underwent endoscopy along with peg removal and replacement -endoscopy showed esophagitis along with small hiatal hernia, as well as erythematous mucosa in stomach -pt is to f/u with GI for results of biopsy from endoscopy 2. hypokalemia -supplementation with potassium chloride daily 3. hx of dementia -continue donepezil daily -patient is mostly non verbal but can understand commands and communicates through yes or no in canadian. However, full comprehension and ability to answer yes/no appropriately is questionable. 4. hx of seizure disorder -continue keppra through PEG 5. hx of depression -continue sertraline 6. gi/dvt ppx -continue lovenox -continue protonix dw Dr. lyon; all management as per Dr. Boris Lyon
--- NOTE | 2017-11-05 15:20 | RAD ---
HISTORY: peg tube/obstruction COMPARISON: 10/31/2017. FINDINGS: The left-sided PEG tube overlies the left upper quadrant. BOWEL: There is severe gaseous distention of bowel loops. BONES: Normal. OTHER FINDINGS: None. IMPRESSION: The left-sided PEG tube overlies the left upper quadrant. Severe gaseous distention of bowel loops.
[2017-11-05] MEDS: Dextrose 5%/0.45% NS 1,000 ML IV SCH (16:05)
--- NOTE | 2017-11-05 16:42 | CP.PCM.PN ---
Subjective - Date & Time of Evaluation Date of Evaluation: 11/05/17 Time of Evaluation: 12:20 - Subjective Subjective: clinically same Objective - Vital Signs/Intake and Output Vital Signs (last 24 hours): Temp Pulse Resp BP Pulse Ox 98.8 F 98 H 18 106/50 L 96 11/05/17 07:30 11/05/17 07:30 11/05/17 07:30 11/05/17 07:30 11/05/17 07:30 Intake and Output: 11/05/17 11/05/17 06:59 18:59 Intake Total 100 Output Total 275 Balance -175 - Medications Medications: Current Medications Acetaminophen (Tylenol 650mg/20.3ml Solution Ud) 650 mg GT Q4H PRN PRN Reason: Pain, Mild (1-3) Last Admin: 11/03/17 18:24 Dose: 650 mg Amlodipine Besylate (Norvasc) 5 mg GT DAILY [facility] Last Admin: 11/05/17 09:55 Dose: 5 mg Donepezil HCl (Aricept) 5 mg GT HS [facility] Last Admin: 11/04/17 21:31 Dose: 5 mg Metronidazole (Flagyl) 500 mg in 100 mls @ 100 mls/hr IVPB Q8 [facility] Last Admin: 11/05/17 14:27 Dose: 100 mls/hr Vancomycin HCl 1 gm/ Sodium (Chloride) 200 mls @ 166.7 mls/hr IVPB DAILY [facility] Last Admin: 11/05/17 09:55 Dose: 166.7 mls/hr Dextrose/Sodium Chloride (Dextrose 5%/0.45% Ns 1000 Ml) 1,000 mls @ 75 mls/hr IV .[id number] [facility] Lactic Acid (Lac-Hydrin 12% Lotion (225 G)) 0 gm TOP BID [facility] Last Admin: 11/05/17 09:56 Dose: 1 applic Levetiracetam (Keppra) 500 mg GT BID [facility] Last Admin: 11/05/17 09:55 Dose: 500 mg Magnesium Hydroxide (Milk Of Magnesia) 30 ml GT Q24H PRN PRN Reason: Constipation Pantoprazole Sodium (Protonix Susp) 40 mg PEG DAILY [facility] Last Admin: 11/05/17 09:55 Dose: 40 mg Petrolatum (Desitin Original) 0 gm TOP QSHIFT [facility] Last Admin: 11/05/17 14:27 Dose: 1 applic Polyethylene Glycol (Miralax) 17 gm GT DAILY [facility] Last Admin: 11/05/17 09:55 Dose: 17 gm Potassium Chloride (Potassium Chloride Oral Soln) 20 meq GT BID [facility] Last Admin: 11/05/17 09:54 Dose: 20 meq Sertraline HCl (Zoloft) 50 mg JT DAILY [facility] Last Admin: 11/05/17 09:55 Dose: 50 mg Vitamin A (Vitamin A & D Oint Ud Foilpak) 0.5 ea TOP Q4 [facility] Last Admin: 11/05/17 14:31 Dose: Not Given - Labs Labs: 11/05/17 05:27 11/05/17 05:27 PT 11.6 SECONDS (9.7-12.2) 10/26/17 02:55 INR 1.0 10/26/17 02:55 APTT 34 SECONDS (21-34) 10/26/17 02:55 - Constitutional Appears: Well - Head Exam Head Exam: ATRAUMATIC, NORMAL INSPECTION, NORMOCEPHALIC - Eye Exam Eye Exam: EOMI, Normal appearance, PERRL Pupil Exam: NORMAL ACCOMODATION, PERRL - ENT Exam ENT Exam: Mucous Membranes Moist, Normal Exam - Neck Exam Neck Exam: Full ROM, Normal Inspection. absent: Lymphadenopathy - Respiratory Exam Respiratory Exam: Decreased Breath Sounds - Cardiovascular Exam Cardiovascular Exam: REGULAR RHYTHM, +S1, +S2 - GI/Abdominal Exam GI & Abdominal Exam: Soft, Diminished Bowel Sounds - Rectal Exam Rectal Exam: Deferred
[2017-11-06] MEDS: Vitamins A & D Oint UD Foilpak TOP SCH ×5 (04:19→19:50)
[2017-11-06] MEDS: Dextrose 5%/0.45% NS 1,000 ML IV SCH ×3 (05:12→18:50)
[2017-11-06] MEDS: Zinc Oxide Topical 30 gm Tube TOP SCH ×3 (05:13→21:32)
[2017-11-06] MEDS: metroNIDAZOLE IV 500 mg/100 ml 500 MG/100 ML BAG IVPB SCH ×3 (05:13→21:32)
[2017-11-06 07:09] LABS: BASO % 0.5 % (0.0-2.0); EOS % 0.6 % (0.0-4.0); HEMOGLOBIN 9.7 g/dL (11.0-16.0); LYMPH # 1.4 K/uL (1.0-4.3); LYMPH % 16.4 % (20.0-40.0); MEAN CELL VOLUME 97.1 fL (81.0-99.0); MEAN CORPUSCULAR HEMOGLOBIN 32.5 pg (27.0-31.0); MEAN CORPUSCULAR HGB CONC 33.5 g/dL (33.0-37.0); MONO # 1.1 K/uL (0.0-0.8); MONO % 13.2 % (0.0-10.0); NEUT # 5.9 K/uL (1.8-7.0); NEUT % 69.3 % (50.0-75.0); NRBC % 0.1 % (0.0-2.0); RBC 2.99 Mil/uL (3.80-5.20); WHITE BLOOD COUNT 8.5 K/uL (4.8-10.8)
--- NOTE | 2017-11-06 07:21 | CP.PCM.CON ---
History of Present Illness - History of Present Illness History of Present Illness: CONSULT DICTATED POST STROKE SYNDROME SEIZURES KEPPRA CAN BE SWITCHED TO IV FOR NOW AND SWITCHED BACK TO PEG WHEN STABLE Past Patient History - Infectious Disease Hx of Infectious Diseases: None - Past Medical History & Family History Past Medical History?: Yes - Past Social History Smoking Status: Never Smoked - CARDIAC Hx Hypertension: Yes - NEUROLOGICAL Hx Dementia: Yes Hx Seizures: Yes - HEENT Hx HEENT Problems: No - RENAL Hx Chronic Kidney Disease: No - INTEGUMENTARY Other/Comment: cellulitis - MUSCULOSKELETAL/RHEUMATOLOGICAL Hx Falls: No - GASTROINTESTINAL Other/Comment: gastrostomy - GENITOURINARY/GYNECOLOGICAL Hx Incontinence: Yes - PSYCHIATRIC Hx Depression: Yes (major) Hx Substance Use: No - SURGICAL HISTORY Other/Comment: brain surgery due to aneurysm,peg tube insertion. - ANESTHESIA Hx Anesthesia: Yes Hx Anesthesia Reactions: No Hx Malignant Hyperthermia: No Meds Allergies/Adverse Reactions: Allergies Allergy/AdvReac Type Severity Reaction Status Date / Time No Known Allergies Allergy Verified 10/25/17 22:25 - Medications Medications: Current Medications Acetaminophen (Tylenol 650mg/20.3ml Solution Ud) 650 mg GT Q4H PRN PRN Reason: Pain, Mild (1-3) Last Admin: 11/03/17 18:24 Dose: 650 mg Amlodipine Besylate (Norvasc) 5 mg GT DAILY REPLACED BY [facility] Last Admin: 11/05/17 09:55 Dose: 5 mg Donepezil HCl (Aricept) 5 mg GT HS REPLACED BY [facility] Last Admin: 11/05/17 21:51 Dose: Not Given Metronidazole (Flagyl) 500 mg in 100 mls @ 100 mls/hr IVPB Q8 REPLACED BY [facility] Last Admin: 11/06/17 05:13 Dose: 100 mls/hr Vancomycin HCl 1 gm/ Sodium (Chloride) 200 mls @ 166.7 mls/hr IVPB DAILY REPLACED BY [facility] Last Admin: 11/05/17 09:55 Dose: 166.7 mls/hr Dextrose/Sodium Chloride (Dextrose 5%/0.45% Ns 1000 Ml) 1,000 mls @ 75 mls/hr IV .[id number] REPLACED BY [facility] Last Admin: 11/06/17 05:12 Dose: Not Given Lactic Acid (Lac-Hydrin 12% Lotion (225 G)) 0 gm TOP BID J[facility] Last Admin: 02/20/18 17:54 Dose: 1 applic Magnesium Hydroxide (Milk Of Magnesia) 30 ml GT Q24H PRN PRN Reason: Constipation Pantoprazole Sodium (Protonix Susp) 40 mg PEG DAILY REPLACED BY [facility] Last Admin: 11/05/17 09:55 Dose: 40 mg Petrolatum (Desitin Original) 0 gm TOP QSHIFT REPLACED BY [facility] Last Admin: 11/06/17 05:13 Dose: 1 applic Polyethylene Glycol (Miralax) 17 gm GT DAILY REPLACED BY [facility] Last Admin: 11/05/17 09:55 Dose: 17 gm Potassium Chloride (Potassium Chloride Oral Soln) 20 meq GT BID REPLACED BY [facility] Last Admin: 11/05/17 20:37 Dose: Not Given Sertraline HCl (Zoloft) 50 mg JT DAILY REPLACED BY [facility] Last Admin: 11/05/17 09:55 Dose: 50 mg Vitamin A (Vitamin A & D Oint Ud Foilpak) 0.5 ea TOP Q4 REPLACED BY [facility] Last Admin: 11/06/17 04:19 Dose: Not Given Results - Vital Signs Recent Vital Signs: Last Vital Signs Temp 98.3 F 11/05/17 23:00 Pulse 97 H 11/05/17 23:00 Resp 20 11/05/17 23:00 BP 109/70 11/05/17 23:00 Pulse Ox 96 11/05/17 23:00 - Labs Result Diagrams: 11/05/17 05:27 11/05/17 05:27
[2017-11-06 07:36] LABS: ALB/GLOB RATIO 0.9 (1.0-2.1); ALBUMIN 2.9 g/dL (3.5-5.0); ALT/SGPT 19 U/L (9-52); AST/SGOT 22 U/L (14-36); BLOOD UREA NITROGEN 7 mg/dL (7-17); CALCIUM 7.9 mg/dl (8.6-10.4); GFR AFRICAN-AMERICAN > 60; GFR NON-AFRICAN AMERICAN > 60
[2017-11-06] MEDS: levETIRAcetam 500 MG in Sodium Chloride 0.9% 100 ML IVPB SCH ×2 (07:36→19:50)
[2017-11-06] MEDS: Pantoprazole 40 mg Susp UD PEG SCH (11:26)
[2017-11-06] MEDS: POLYETHYLENE GLYCOL 3350 17 GM/Dose PACKET GT SCH (11:26)
[2017-11-06] MEDS: Potassium Chloride 20 mEq/15 ml LIQ UD GT SCH ×2 (11:27→18:13)
[2017-11-06] MEDS: Vancomycin 1 GM in Sodium Chloride 0.9% 200 ML IVPB SCH (11:33)
[2017-11-06] MEDS: Ammonium Lactate 12% Lotion (225 g) TOP SCH ×2 (11:33→18:21)
--- NOTE | 2017-11-06 12:25 | CON ---
DATE: 11/06/2017 TIME OF EVALUATION: 06:45 a.m. NEUROLOGICAL PROBLEM: History of seizures, post stroke syndrome. CHIEF COMPLAINT: The patient was admitted with abdominal discomfort with PEG reinsertion and toxic megacolon. Considering his seizures, administration of Keppra is impossible through PEG as well as through oral administration. For seizure management, I was called into evaluate her. PAST MEDICAL HISTORY: Seizures, post stroke left hemiplegia, status post PEG placement, toxic megacolon. ALLERGIES: NO KNOWN ALLERGIES. PERSONAL HISTORY: Denies smoking or alcohol use. MEDICATIONS: Aricept, Flagyl, Keppra, milk of magnesia, MiraLax, Norvasc, Protonix, vancomycin, and vitamin A. REVIEW OF SYSTEMS: A 12-point system being reviewed. From neuro, seizures. PHYSICAL EXAMINATION: VITAL SIGNS: Blood pressure 109/70, mean arterial pressure of 83, respiratory rate of 16, temperature afebrile. NECK: Supple. No carotid bruits. HEART: Sounds are regular. NEUROLOGICAL EXAMINATION: The patient is examined in the presence of the nurse. The patient is communicable somewhat, only in Amharic. She knows her name. She moves right side voluntarily. Follows one to two step command. Speech output is markedly decreased. Good visual contact. CRANIAL NERVE EXAMINATION: Responds to visual threat. Pupils reactive to light. Extraocular movement, rolling conjugate gaze noted. No facial sensory deficit. Significant facial asymmetry manifesting with left nasolabial fold flattening. Mouth, dry. MOTOR EXAMINATION: Dense left hemiplegia. Deep tendon reflexes absent throughout. Plantars are upgoing on her left side. Right side was downgoing. SENSORY EXAMINATION: Responds to face symmetrically on both sides. WORKUP: Blood workup WBC 11.3, hemoglobin 10.3, hematocrit 31.6, platelet 272,000. Sodium 143, potassium 3.6, chloride 106, bicarbonate 28, GFR more than 60, random glucose 112, calcium 8.2. Liver functions are normal. CONCLUSION: Ms. Irene Cruz has been presenting with post stroke, manifesting with dense left hemiplegia, been supported with supportive care with PEG placement and history of seizures. The patient does not recall when she had her last seizures. It seems to be the patient has been seizure free for a while. However, the patient's medication should be continued for now. RECOMMENDATION: 1. Keppra dose should be changed to IV for now and when PEG is working good, then switch to PEG suspension form of Keppra 500 mg twice a day. 2. EEG to be done. 3. Baseline CT of the head should be also done today. 4. DVT prophylaxis should be continued. The patient will be followed closely. Hair Bruce MD
--- NOTE | 2017-11-06 12:34 | CP.PCM.PN ---
Subjective - Date & Time of Evaluation Date of Evaluation: 11/06/17 Time of Evaluation: 12:30 - Subjective Subjective: Progress note. Attending: DR. Lyon Pt seen and examined in am. No acute distress. ROS unobtainable. Objective - Vital Signs/Intake and Output Vital Signs (last 24 hours): Temp Pulse Resp BP Pulse Ox 98.0 F 85 20 107/58 L 94 L 11/06/17 07:40 11/06/17 07:40 11/06/17 07:40 11/06/17 07:40 11/06/17 07:40 Intake and Output: 11/06/17 11/06/17 06:59 18:59 Intake Total 600 Output Total 5 Balance 595 - Medications Medications: Current Medications Acetaminophen (Tylenol 650mg/20.3ml Solution Ud) 650 mg GT Q4H PRN PRN Reason: Pain, Mild (1-3) Last Admin: 11/03/17 18:24 Dose: 650 mg Amlodipine Besylate (Norvasc) 5 mg GT DAILY [facility] Last Admin: 11/06/17 11:26 Dose: Not Given Donepezil HCl (Aricept) 5 mg GT HS [facility] Last Admin: 11/05/17 21:51 Dose: Not Given Metronidazole (Flagyl) 500 mg in 100 mls @ 100 mls/hr IVPB Q8 [facility] Last Admin: 11/06/17 05:13 Dose: 100 mls/hr Vancomycin HCl 1 gm/ Sodium (Chloride) 200 mls @ 166.7 mls/hr IVPB DAILY [facility] Last Admin: 11/06/17 11:33 Dose: 166.7 mls/hr Dextrose/Sodium Chloride (Dextrose 5%/0.45% Ns 1000 Ml) 1,000 mls @ 75 mls/hr IV .[id number] [facility] Last Admin: 11/06/17 11:32 Dose: 75 mls/hr Levetiracetam 500 mg/ Sodium (Chloride) 105 mls @ 420 mls/hr IVPB Q12H [facility] Last Admin: 11/06/17 07:36 Dose: 420 mls/hr Meropenem 1 gm/ Sodium (Chloride) 100 mls @ 100 mls/hr IVPB Q8H [facility] Sodium Chloride 35 meq/Potassium Chloride 30 meq/Magnesium Sulfate 6 meq/ Calcium Gluconate 4.65 meq/Chromium/Copper/Manganese/Zinc 1 ml/ Multivitamins/ Vitamin C 10 ml/ Amino Acids 1,046.2278 mls @ 42 mls/hr IV .Q24H [facility] Stop: 11/07/17 17:59 Fat Emulsion Intravenous (Intralipid 20%) 500 mls @ 42 mls/hr IV MWF [facility] Lactic Acid (Lac-Hydrin 12% Lotion (225 G)) 0 gm TOP BID [facility] Last Admin: 11/06/17 11:33 Dose: 1 applic Magnesium Hydroxide (Milk Of Magnesia) 30 ml GT Q24H PRN PRN Reason: Constipation Pantoprazole Sodium (Protonix Susp) 40 mg PEG DAILY [facility] Last Admin: 11/06/17 11:26 Dose: Not Given Petrolatum (Desitin Original) 0 gm TOP QSHIFT [facility] Last Admin: 11/06/17 05:13 Dose: 1 applic Polyethylene Glycol (Miralax) 17 gm GT DAILY [facility] Last Admin: 11/06/17 11:26 Dose: Not Given Potassium Chloride (Potassium Chloride Oral Soln) 20 meq GT BID [facility] Last Admin: 11/06/17 11:27 Dose: Not Given Sertraline HCl (Zoloft) 50 mg JT DAILY [facility] Last Admin: 11/06/17 11:27 Dose: Not Given Vitamin A (Vitamin A & D Oint Ud Foilpak) 0.5 ea TOP Q4 [facility] Last Admin: 11/06/17 11:27 Dose: Not Given - Labs Labs: 11/06/17 06:54 11/06/17 06:54 PT 11.6 SECONDS (9.7-12.2) 10/26/17 02:55 INR 1.0 10/26/17 02:55 APTT 34 SECONDS (21-34) 10/26/17 02:55 - Constitutional Appears: Non-toxic, No Acute Distress, Chronically Ill - Head Exam Head Exam: ATRAUMATIC, NORMAL INSPECTION, NORMOCEPHALIC - Eye Exam Eye Exam: EOMI - Neck Exam Neck Exam: Full ROM, Normal Inspection - Respiratory Exam Respiratory Exam: NORMAL BREATHING PATTERN. absent: Respiratory Distress - Cardiovascular Exam Cardiovascular Exam: +S1, +S2 - GI/Abdominal Exam Additional comments: pEG site intact/clean/dry - Extremities Exam Extremities Exam: Full ROM, Normal Inspection - Neurological Exam Neurological Exam: Altered - Psychiatric Exam Additional comments: Unable to assess - Skin Skin Exam: Dry, Intact, Normal Color, Warm Assessment and Plan - Assessment and Plan (Free Text) Assessment: This is a 67 yo female with 1. 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 -PEG site culture growing staph. aureus/MRSA/ESBL -started IV merrem q 8 hrs -may need to move pt to ICU because she may need neostigmine -critical care consult placed with Dr. Chang. -ID consult. recs appreciated. Dr. Oden. -repeat CT scan shows small pleural effusion along with redemonstration of colonic dilation ileus rather than obstruction. -abdominal x ray shows colonic dilation still -continue IV vancomycin daily -continue IV flagyl -GI consult. DR. CANADA. recs appreciated. -sx following. dr. culp. recs appreciated; no surgical intervention planned for this admission -sx has signed off -pt underwent endoscopy along with peg removal and replacement -endoscopy showed esophagitis along with small hiatal hernia, as well as erythematous mucosa in stomach -pt is to f/u with GI for results of biopsy from endoscopy 2. hypokalemia -supplementation with potassium chloride daily 3. hx of dementia -continue donepezil daily -patient is mostly non verbal but can understand commands and communicates through yes or no in slovak. However, full comprehension and ability to answer yes/no appropriately is questionable. 4. hx of seizure disorder -continue keppra through PEG 5. hx of depression -continue sertraline 6. gi/dvt ppx -continue lovenox -continue protonix dw Dr. lyon; all management as per Dr. Boris Lyon
--- NOTE | 2017-11-06 14:04 | CP.PCM.PN ---
Subjective - Date & Time of Evaluation Date of Evaluation: 11/06/17 Time of Evaluation: 11:40 - Subjective Subjective: clinically same Objective - Vital Signs/Intake and Output Vital Signs (last 24 hours): Temp Pulse Resp BP Pulse Ox 98.0 F 85 20 107/58 L 94 L 11/06/17 07:40 11/06/17 07:40 11/06/17 07:40 11/06/17 07:40 11/06/17 07:40 Intake and Output: 11/06/17 11/06/17 06:59 18:59 Intake Total 600 Output Total 5 Balance 595 - Medications Medications: Current Medications Acetaminophen (Tylenol 650mg/20.3ml Solution Ud) 650 mg GT Q4H PRN PRN Reason: Pain, Mild (1-3) Last Admin: 11/03/17 18:24 Dose: 650 mg Amlodipine Besylate (Norvasc) 5 mg GT DAILY [facility] Last Admin: 11/06/17 11:26 Dose: Not Given Donepezil HCl (Aricept) 5 mg GT HS [facility] Last Admin: 11/05/17 21:51 Dose: Not Given Metronidazole (Flagyl) 500 mg in 100 mls @ 100 mls/hr IVPB Q8 [facility] Last Admin: 11/06/17 05:13 Dose: 100 mls/hr Vancomycin HCl 1 gm/ Sodium (Chloride) 200 mls @ 166.7 mls/hr IVPB DAILY [facility] Last Admin: 11/06/17 11:33 Dose: 166.7 mls/hr Dextrose/Sodium Chloride (Dextrose 5%/0.45% Ns 1000 Ml) 1,000 mls @ 75 mls/hr IV .[id number] [facility] Last Admin: 11/06/17 11:32 Dose: 75 mls/hr Levetiracetam 500 mg/ Sodium (Chloride) 105 mls @ 420 mls/hr IVPB Q12H [facility] Last Admin: 11/06/17 07:36 Dose: 420 mls/hr Meropenem 1 gm/ Sodium (Chloride) 100 mls @ 100 mls/hr IVPB Q8H [facility] Sodium Chloride 35 meq/Potassium Chloride 30 meq/Magnesium Sulfate 6 meq/ Calcium Gluconate 4.65 meq/Chromium/Copper/Manganese/Zinc 1 ml/ Multivitamins/ Vitamin C 10 ml/ Amino Acids 1,046.2278 mls @ 42 mls/hr IV .Q24H [facility] Stop: 11/07/17 17:59 Fat Emulsion Intravenous (Intralipid 20%) 500 mls @ 42 mls/hr IV MWF [facility] Lactic Acid (Lac-Hydrin 12% Lotion (225 G)) 0 gm TOP BID [facility] Last Admin: 11/06/17 11:33 Dose: 1 applic Magnesium Hydroxide (Milk Of Magnesia) 30 ml GT Q24H PRN PRN Reason: Constipation Pantoprazole Sodium (Protonix Susp) 40 mg PEG DAILY [facility] Last Admin: 11/06/17 11:26 Dose: Not Given Petrolatum (Desitin Original) 0 gm TOP QSHIFT [facility] Last Admin: 11/06/17 05:13 Dose: 1 applic Polyethylene Glycol (Miralax) 17 gm GT DAILY [facility] Last Admin: 11/06/17 11:26 Dose: Not Given Potassium Chloride (Potassium Chloride Oral Soln) 20 meq GT BID [facility] Last Admin: 11/06/17 11:27 Dose: Not Given Sertraline HCl (Zoloft) 50 mg JT DAILY [facility] Last Admin: 11/06/17 11:27 Dose: Not Given Vitamin A (Vitamin A & D Oint Ud Foilpak) 0.5 ea TOP Q4 [facility] Last Admin: 11/06/17 11:27 Dose: Not Given - Labs Labs: 11/06/17 06:54 11/06/17 06:54 PT 11.6 SECONDS (9.7-12.2) 10/26/17 02:55 INR 1.0 10/26/17 02:55 APTT 34 SECONDS (21-34) 10/26/17 02:55 - Constitutional Appears: Well - Head Exam Head Exam: ATRAUMATIC, NORMAL INSPECTION, NORMOCEPHALIC - Eye Exam Eye Exam: EOMI, Normal appearance, PERRL Pupil Exam: NORMAL ACCOMODATION, PERRL - ENT Exam ENT Exam: Mucous Membranes Moist, Normal Exam - Neck Exam Neck Exam: Full ROM, Normal Inspection. absent: Lymphadenopathy - Respiratory Exam Respiratory Exam: Decreased Breath Sounds - Cardiovascular Exam Cardiovascular Exam: REGULAR RHYTHM, +S1, +S2 - GI/Abdominal Exam GI & Abdominal Exam: Soft, Diminished Bowel Sounds - Rectal Exam Rectal Exam: Deferred
[2017-11-06] MEDS: Meropenem 1 GM in Sodium Chloride 0.9% 100 ML IVPB SCH ×2 (14:15→21:32)
--- NOTE | 2017-11-06 15:02 | CP.PCM.PN ---
<Vincent Lemon - Last Filed: 11/06/17 18:35> Subjective - Date & Time of Evaluation Date of Evaluation: 11/06/17 Time of Evaluation: 11:20 - Subjective Subjective: General Surgery- Dr. Ramsey Patient seen and examined at bedside this AM. pt complaining of increased abd pain. + BM yesterday. ABD binder on and in place. Denies FC CP/SOB Objective - Vital Signs/Intake and Output Vital Signs (last 24 hours): Temp Pulse Resp BP Pulse Ox 98.0 F 85 20 107/58 L 94 L 11/06/17 07:40 11/06/17 07:40 11/06/17 07:40 11/06/17 07:40 11/06/17 07:40 Intake and Output: 11/06/17 11/06/17 06:59 18:59 Intake Total 600 Output Total 5 Balance 595 - Medications Medications: Current Medications Acetaminophen (Tylenol 650mg/20.3ml Solution Ud) 650 mg GT Q4H PRN PRN Reason: Pain, Mild (1-3) Last Admin: 11/03/17 18:24 Dose: 650 mg Amlodipine Besylate (Norvasc) 5 mg GT DAILY [facility] Last Admin: 11/06/17 11:26 Dose: Not Given Donepezil HCl (Aricept) 5 mg GT HS [facility] Last Admin: 11/05/17 21:51 Dose: Not Given Metronidazole (Flagyl) 500 mg in 100 mls @ 100 mls/hr IVPB Q8 [facility] Last Admin: 11/06/17 14:15 Dose: 100 mls/hr Vancomycin HCl 1 gm/ Sodium (Chloride) 200 mls @ 166.7 mls/hr IVPB DAILY [facility] Last Admin: 11/06/17 11:33 Dose: 166.7 mls/hr Dextrose/Sodium Chloride (Dextrose 5%/0.45% Ns 1000 Ml) 1,000 mls @ 75 mls/hr IV .[id number] [facility] Last Admin: 11/06/17 11:32 Dose: 75 mls/hr Levetiracetam 500 mg/ Sodium (Chloride) 105 mls @ 420 mls/hr IVPB Q12H [facility] Last Admin: 11/06/17 07:36 Dose: 420 mls/hr Meropenem 1 gm/ Sodium (Chloride) 100 mls @ 100 mls/hr IVPB Q8H [facility] Last Admin: 11/06/17 14:15 Dose: 100 mls/hr Sodium Chloride 35 meq/Potassium Chloride 30 meq/Magnesium Sulfate 6 meq/ Calcium Gluconate 4.65 meq/Chromium/Copper/Manganese/Zinc 1 ml/ Multivitamins/ Vitamin C 10 ml/ Amino Acids 1,046.2278 mls @ 42 mls/hr IV .Q24H [facility] Stop: 11/07/17 17:59 Fat Emulsion Intravenous (Intralipid 20%) 500 mls @ 42 mls/hr IV MWF [facility] Lactic Acid (Lac-Hydrin 12% Lotion (225 G)) 0 gm TOP BID [facility] Last Admin: 11/06/17 11:33 Dose: 1 applic Magnesium Hydroxide (Milk Of Magnesia) 30 ml GT Q24H PRN PRN Reason: Constipation Pantoprazole Sodium (Protonix Susp) 40 mg PEG DAILY [facility] Last Admin: 11/06/17 11:26 Dose: Not Given Petrolatum (Desitin Original) 0 gm TOP QSHIFT [facility] Last Admin: 11/06/17 14:15 Dose: 1 applic Polyethylene Glycol (Miralax) 17 gm GT DAILY [facility] Last Admin: 11/06/17 11:26 Dose: Not Given Potassium Chloride (Potassium Chloride Oral Soln) 20 meq GT BID [facility] Last Admin: 11/06/17 11:27 Dose: Not Given Sertraline HCl (Zoloft) 50 mg JT DAILY [facility] Last Admin: 11/06/17 11:27 Dose: Not Given Vitamin A (Vitamin A & D Oint Ud Foilpak) 0.5 ea TOP Q4 [facility] Last Admin: 11/06/17 14:14 Dose: 0.5 ea - Labs Labs: 11/06/17 06:54 11/06/17 06:54 PT 11.6 SECONDS (9.7-12.2) 10/26/17 02:55 INR 1.0 10/26/17 02:55 APTT 34 SECONDS (21-34) 10/26/17 02:55 - Constitutional Appears: Non-toxic, No Acute Distress - Eye Exam Eye Exam: EOMI. absent: Scleral icterus - ENT Exam ENT Exam: Mucous Membranes Moist - Respiratory Exam Respiratory Exam: NORMAL BREATHING PATTERN. absent: Accessory Muscle Use, Respiratory Distress - Cardiovascular Exam Cardiovascular Exam: +S1, +S2. absent: Bradycardia, Tachycardia - GI/Abdominal Exam GI & Abdominal Exam: Distended, Soft, Tenderness. absent: Firm, Guarding, Rigid - Neurological Exam Neurological Exam: Alert, Awake Additional comments: residual L.sided weakness - Skin Skin Exam: Intact, Warm Assessment and Plan - Assessment and Plan (Free Text) Assessment: 67F w/ abd pain, pSBO Plan: - G-tube to suction - enema BID - monitor bowel function - replete lytes PRN - Abd xray in AM - further recs per Dr. Ramsey surgical attending PGY1 <Jorge Ramsey - Last Filed: 11/06/17 23:57> Objective - Vital Signs/Intake and Output Vital Signs (last 24 hours): Temp Pulse Resp BP Pulse Ox 97.9 F 78 18 97/62 L 95 11/06/17 15:54 11/06/17 15:54 11/06/17 15:54 11/06/17 15:54 11/06/17 15:54 - Medications Medications: Current Medications Acetaminophen (Tylenol 650mg/20.3ml Solution Ud) 650 mg GT Q4H PRN PRN Reason: Pain, Mild (1-3) Last Admin: 11/03/17 18:24 Dose: 650 mg Amlodipine Besylate (Norvasc) 5 mg GT DAILY [facility] Last Admin: 11/06/17 11:26 Dose: Not Given Donepezil HCl (Aricept) 5 mg GT HS [facility] Last Admin: 11/06/17 22:29 Dose: Not Given Metronidazole (Flagyl) 500 mg in 100 mls @ 100 mls/hr IVPB Q8 [facility] Last Admin: 11/06/17 21:32 Dose: 100 mls/hr Vancomycin HCl 1 gm/ Sodium (Chloride) 200 mls @ 166.7 mls/hr IVPB DAILY [facility] Last Admin: 11/06/17 11:33 Dose: 166.7 mls/hr Dextrose/Sodium Chloride (Dextrose 5%/0.45% Ns 1000 Ml) 1,000 mls @ 75 mls/hr IV .[id number] [facility] Last Admin: 11/06/17 18:50 Dose: Not Given Levetiracetam 500 mg/ Sodium (Chloride) 105 mls @ 420 mls/hr IVPB Q12H [facility] Last Admin: 11/06/17 19:50 Dose: 420 mls/hr Meropenem 1 gm/ Sodium (Chloride) 100 mls @ 100 mls/hr IVPB Q8H [facility] Last Admin: 11/06/17 21:32 Dose: 100 mls/hr Sodium Chloride 35 meq/Potassium Chloride 30 meq/Magnesium Sulfate 6 meq/ Calcium Gluconate 4.65 meq/Chromium/Copper/Manganese/Zinc 1 ml/ Multivitamins/ Vitamin C 10 ml/ Amino Acids 1,046.2278 mls @ 42 mls/hr IV .Q24H [facility] Stop: 11/07/17 17:59 Last Admin: 11/06/17 18:12 Dose: 42 mls/hr Fat Emulsion Intravenous (Intralipid 20%) 500 mls @ 42 mls/hr IV MWF [facility] Last Admin: 11/06/17 18:11 Dose: 42 mls/hr Lactic Acid (Lac-Hydrin 12% Lotion (225 G)) 0 gm TOP BID [facility] Last Admin: 11/06/17 18:21 Dose: 1 applic Magnesium Hydroxide (Milk Of Magnesia) 30 ml GT Q24H PRN PRN Reason: Constipation Pantoprazole Sodium (Protonix Susp) 40 mg PEG DAILY [facility] Last Admin: 11/06/17 11:26 Dose: Not Given Petrolatum (Desitin Original) 0 gm TOP QSHIFT [facility] Last Admin: 11/06/17 21:32 Dose: 1 applic Polyethylene Glycol (Miralax) 17 gm GT DAILY [facility] Last Admin: 11/06/17 11:26 Dose: Not Given Potassium Chloride (Potassium Chloride Oral Soln) 20 meq GT BID [facility] Last Admin: 11/06/17 18:13 Dose: Not Given Sertraline HCl (Zoloft) 50 mg JT DAILY [facility] Last Admin: 11/06/17 11:27 Dose: Not Given Vitamin A (Vitamin A & D Oint Ud Foilpak) 0.5 ea TOP Q4 [facility] Last Admin: 11/06/17 19:50 Dose: 0.5 ea - Labs Labs: 11/06/17 06:54 11/06/17 06:54 PT 11.6 SECONDS (9.7-12.2) 10/26/17 02:55 INR 1.0 10/26/17 02:55 APTT 34 SECONDS (21-34) 10/26/17 02:55 Attending/Attestation - Attestation I have personally seen and examined this patient.: Yes I have fully participated in the care of the patient.: Yes I have reviewed all pertinent clinical information, including history, physical exam and plan: Yes Notes (Text): Reconsult was called due to increased abdominal distention Pt was seen and examined at bedside Agree with above note and assessment Pt would need NG tube or PEG to suction PEG site infection IV antibiotics AXR in am NPO,IVF C/w current mx Plan d.w primary team in detail
--- NOTE | 2017-11-06 17:58 | CP.PCM.CON ---
History of Present Illness - History of Present Illness History of Present Illness: 67 F with PMH that includes s/p cva with residual LEFT hemiparesis and difficulty swallowing s/p PEG tube presents to [facility] ED for complaint of increasing abdominal distention. Patient is nonverbal but answers some questions by nodding head. As per records, distention had been worsening for last few days. Patient had an admission on 09/30/[address] scan was done and revealed colonic distention of 8.4 cm and fluid/fecal impaction in rectosigmoid colon. ROS unobtainable due to clinical condiiton. Patient is slightly agitated and uncooperative. WORK UP FOR C DIFF NEG PEG SITE WAS INFECTED / REMOVED AND REPLACED CULTURES GREW MRSA AND ESBL IV RX IN PROGRESS PT BEING EVALUATED FOR POSSIBLE ICU TRANSFER PMH: s/p cva with residual LEFT hemiparesis and difficulty swallowing, Dementia , Depression, Seizures, history of brain aneurysm Meds: As per EMR Allergy: NKDA PSH: PEG feeding tube, surgery for brain aneurysm FH: unknown Social: no EtOH/illicit drug use in past Review of Systems - Constitutional Constitutional: As Per HPI - EENT Eyes: absent: As Per HPI, Blind Spots, Blurred Vision, Change in Vision, Decreased Night Vision, Diplopia, Discharge, Dry Eye, Exophthalmos, Floaters, Irritation, Itchy Eyes, Loss of Peripheral Vision, Pain, Photophobia, Requires Corrective Lenses, Sees Flashes, Spots in Vision, Tunnel Vision, Other Visual Disturbances, Loss of Vision, Other Ears: absent: As Per HPI, Decreased Hearing, Ear Discharge, Ear Pain, Tinnitus, Abnormal Hearing, Disequilibrium, Dizziness, Other Nose/Mouth/Throat: absent: As Per HPI, Epistaxis, Nasal Congestion, Nasal Discharge, Nasal Obstruction, Nasal Trauma, Nose Pain, Post Nasal Drip, Sinus Pain, Sinus Pressure, Bleeding Gums, Change in Voice, Dental Pain, Dry Mouth, Dysphagia, Halitosis, Hoarsness, Lip Swelling, Mouth Lesions, Mouth Pain, Odynophagia, Sore Throat, Throat Swelling, Tongue Swelling, Facial Pain, Neck Pain, Neck Mass, Other - Breasts Breasts: absent: As Per HPI, Change in Shape, Mass, Pain, Nipple Discharge, Nipple Inversion, Skin Changes, Swelling, Other - Cardiovascular Cardiovascular: absent: As Per HPI, Acrocyanosis, Chest Pain, Chest Pain at Rest , Chest Pain with Activity, Claudication, Diaphoresis, Dyspnea, Dyspnea on Exertion, Edema, Irregular Heart Rhythm, Pain Radiating to Arm/Neck/Jaw, Leg Edema, Leg Ulcers, Lightheadedness, Orthopnea, Palpitations, Paroxysmal Nocturnal Dyspnea, Pedal Edema, Radiating Pain, Rapid Heart Rate, Slow Heart Rate, Syncope, Other - Respiratory Respiratory: absent: As Per HPI, Cough, Dyspnea, Hemoptysis, Dyspnea on Exertion , Wheezing, Snoring, Stridor, Pain on Inspiration, Chest Congestion, Excessive Mucous Production, Change in Mucous Color, Pain with Coughing, Other - Gastrointestinal Gastrointestinal: As Per HPI - Genitourinary Genitourinary: absent: As Per HPI, Change in Urinary Stream, Difficulty Urinating, Dysuria, Flank Pain, Hematuria, Pyuria, Nocturia, Urinary Incontinence, Urinary Frequency, Urinary Hesitance, Urinary Urgency, Voiding Freq/Small Amts, Freq UTI, Hx Renal/Bladder Calculi, Hx /Renal Surgery, Bladder Distension, Other - Reproductive: Female Reproductive:Female: absent: As Per HPI, Amenorrhea, Amenorrhea/ Control, Currently Menstual, Cycle <21 Days, Cycle >35 Days, Cycle Variable, Menses 1-7 Days, Menses >/= 8 Days, Menses Variable, Cycle > 4 Weeks Between, No Menses for 6 Months, Heavy Menses, Light Menses, Normal Menses, Spotting Between Cycles , S/P Hysterectomy, Menopausal, Post Menopausal, Premenarche, Abnormal Vaginal Bleeding, Dysmenorrhea, Dyspareunia, Genital Lesions, Genital Pruritis, Pelvic Pain, Prolapse Symptoms, Sexual Dysfunction, Vaginal Discharge, Vaginal Dryness , Vaginal Odor, Vaginal Pruritis, Other - Menstruation Menstruation: absent: As Per HPI, Amenorrhea, Amenorrhea/ Control, Currently Menstual, Cycle <21 Days, Cycle >35 Days, Cycle Variable, Menses 1-7 Days, Menses >/= 8 Days, Menses Variable, Cycle > 4 Weeks Between, No Menses for 6 Months, Heavy Menses, Light Menses, Normal Menses, Spotting Between Cycles , S/P Hysterectomy, Menopausal, Post Menopausal, Premenarche, Abnormal Vaginal Bleeding, Dysmenorrhea, Other - Musculoskeletal Musculoskeletal: absent: As Per HPI, Abnormal Gait, Arthralgias, Atrophy, Back Pain, Deformity, Joint Swelling, Limited Range of Motion, Loss of Height, Muscle Cramps, Muscle Weakness, Myalgias, Neck Pain, Numbness, Radiating Pain into Limb, Stiffness, Tingling, Other - Integumentary Integumentary: As Per HPI - Neurological Neurological: As Per HPI - Endocrine Endocrine: absent: As Per HPI, Change in Body Appearance, Change in Libido, Cold Intolorance, Deepening of Voice, Excessive Sweating, Fatigue, Flushing, Heat Intolorance, Increase in Ring/Shoe/Hat Size, Palpitations, Polydipsia, Polyphagia, Polyuria, Other - Hematologic/Lymphatic Hematologic: absent: As Per HPI, Easy Bleeding, Easy Bruising, Lymphadenopathy, Other Past Patient History - Infectious Disease Hx of Infectious Diseases: None - Past Medical History & Family History Past Medical History?: Yes - Past Social History Smoking Status: Never Smoked - CARDIAC Hx Hypertension: Yes - NEUROLOGICAL Hx Dementia: Yes Hx Seizures: Yes - HEENT Hx HEENT Problems: No - RENAL Hx Chronic Kidney Disease: No - INTEGUMENTARY Other/Comment: cellulitis - MUSCULOSKELETAL/RHEUMATOLOGICAL Hx Falls: No - GASTROINTESTINAL Other/Comment: gastrostomy - GENITOURINARY/GYNECOLOGICAL Hx Incontinence: Yes - PSYCHIATRIC Hx Depression: Yes (major) Hx Substance Use: No - SURGICAL HISTORY Other/Comment: brain surgery due to aneurysm,peg tube insertion. - ANESTHESIA Hx Anesthesia: Yes Hx Anesthesia Reactions: No Hx Malignant Hyperthermia: No Meds Allergies/Adverse Reactions: Allergies Allergy/AdvReac Type Severity Reaction Status Date / Time No Known Allergies Allergy Verified 10/25/17 22:25 - Medications Medications: Current Medications Acetaminophen (Tylenol 650mg/20.3ml Solution Ud) 650 mg GT Q4H PRN PRN Reason: Pain, Mild (1-3) Last Admin: 11/03/17 18:24 Dose: 650 mg Amlodipine Besylate (Norvasc) 5 mg GT DAILY [facility] Last Admin: 11/06/17 11:26 Dose: Not Given Donepezil HCl (Aricept) 5 mg GT HS [facility] Last Admin: 11/05/17 21:51 Dose: Not Given Metronidazole (Flagyl) 500 mg in 100 mls @ 100 mls/hr IVPB Q8 [facility] Last Admin: 11/06/17 14:15 Dose: 100 mls/hr Vancomycin HCl 1 gm/ Sodium (Chloride) 200 mls @ 166.7 mls/hr IVPB DAILY [facility] Last Admin: 11/06/17 11:33 Dose: 166.7 mls/hr Dextrose/Sodium Chloride (Dextrose 5%/0.45% Ns 1000 Ml) 1,000 mls @ 75 mls/hr IV .[id number] [facility] Last Admin: 11/06/17 11:32 Dose: 75 mls/hr Levetiracetam 500 mg/ Sodium (Chloride) 105 mls @ 420 mls/hr IVPB Q12H [facility] Last Admin: 11/06/17 07:36 Dose: 420 mls/hr Meropenem 1 gm/ Sodium (Chloride) 100 mls @ 100 mls/hr IVPB Q8H [facility] Last Admin: 11/06/17 14:15 Dose: 100 mls/hr Sodium Chloride 35 meq/Potassium Chloride 30 meq/Magnesium Sulfate 6 meq/ Calcium Gluconate 4.65 meq/Chromium/Copper/Manganese/Zinc 1 ml/ Multivitamins/ Vitamin C 10 ml/ Amino Acids 1,046.2278 mls @ 42 mls/hr IV .Q24H [facility] Stop: 11/07/17 17:59 Fat Emulsion Intravenous (Intralipid 20%) 500 mls @ 42 mls/hr IV MWF [facility] Lactic Acid (Lac-Hydrin 12% Lotion (225 G)) 0 gm TOP BID [facility] Last Admin: 11/06/17 11:33 Dose: 1 applic Magnesium Hydroxide (Milk Of Magnesia) 30 ml GT Q24H PRN PRN Reason: Constipation Pantoprazole Sodium (Protonix Susp) 40 mg PEG DAILY [facility] Last Admin: 11/06/17 11:26 Dose: Not Given Petrolatum (Desitin Original) 0 gm TOP QSHIFT [facility] Last Admin: 11/06/17 14:15 Dose: 1 applic Polyethylene Glycol (Miralax) 17 gm GT DAILY [facility] Last Admin: 11/06/17 11:26 Dose: Not Given Potassium Chloride (Potassium Chloride Oral Soln) 20 meq GT BID [facility] Last Admin: 11/06/17 11:27 Dose: Not Given Sertraline HCl (Zoloft) 50 mg JT DAILY [facility] Last Admin: 11/06/17 11:27 Dose: Not Given Vitamin A (Vitamin A & D Oint Ud Foilpak) 0.5 ea TOP Q4 [facility] Last Admin: 11/06/17 14:14 Dose: 0.5 ea Physical Exam - Constitutional Appears: Non-toxic, Chronically Ill - Head Exam Head Exam: ATRAUMATIC, NORMAL INSPECTION, NORMOCEPHALIC - Eye Exam Eye Exam: PERRL. absent: Scleral icterus - ENT Exam ENT Exam: Mucous Membranes Dry, Normal External Ear Exam - Neck Exam Neck exam: Negative for: Lymphadenopathy - Respiratory Exam Respiratory Exam: Decreased Breath Sounds, Rhonchi - Cardiovascular Exam Cardiovascular Exam: REGULAR RHYTHM, +S1, +S2 - GI/Abdominal Exam GI & Abdominal Exam: Diminished Bowel Sounds, Soft. absent: Tenderness - Rectal Exam Rectal Exam: Deferred - Exam Exam: NORMAL INSPECTION - Extremities Exam Extremities exam: Negative for: pedal edema - Back Exam Back exam: absent: CVA tenderness (L), CVA tenderness (R), paraspinal tenderness - Neurological Exam Neurological exam: Alert, CN II-XII Intact, Motor Sensory Deficit - Psychiatric Exam Psychiatric exam: Depressed - Skin Skin Exam: Dry Results - Vital Signs Recent Vital Signs: Last Vital Signs Temp 97.9 F 11/06/17 15:54 Pulse 78 11/06/17 15:54 Resp 18 11/06/17 15:54 BP 97/62 L 11/06/17 15:54 Pulse Ox 95 11/06/17 15:54 - Labs Result Diagrams: 11/06/17 06:54 11/06/17 06:54 Labs: Laboratory Results - last 24 hr 11/06/17 11/06/17 06:54 06:54 WBC 8.5 RBC 2.99 L Hgb 9.7 L Hct 29.0 L MCV 97.1 MCH 32.5 H MCHC 33.5 RDW 14.0 Plt Count 263 MPV 10.0 Neut % (Auto) 69.3 Lymph % (Auto) 16.4 L Luna % (Auto) 13.2 H Eos % (Auto) 0.6 Baso % (Auto) 0.5 Neut # (Auto) 5.9 Lymph # (Auto) 1.4 Luna # (Auto) 1.1 H Eos # (Auto) 0.0 Baso # (Auto) 0.0 Sodium 136 Potassium 3.8 Chloride 102 Carbon Dioxide 27 Anion Gap 10 BUN 7 Creatinine 0.4 L Est GFR ( Amer) > 60 Est GFR (Non-Af Amer) > 60 Random Glucose 109 H Calcium 7.9 L Phosphorus 2.6 Magnesium 2.0 Total Bilirubin 0.4 AST 22 ALT 19 Alkaline Phosphatase 55 Total Protein 6.2 L Albumin 2.9 L Globulin 3.2 Albumin/Globulin Ratio 0.9 L Assessment & Plan (1) Abdominal distension Status: Acute (2) Colon distention Status: Acute - Assessment and Plan (Free Text) Assessment: INFECTED GT SITE IV RX IN PROGRESS
[2017-11-06] MEDS ORDERED: PPN # 1 IV SCH (18:00)
[2017-11-06] MEDS: Fat Emulsion 20% IV 500 ML IV SCH (18:11)
--- NOTE | 2017-11-06 18:19 | PN ---
DATE: LOCATION: [facility], bed B. SUBJECTIVE: This is 67-year-old female post colonoscopy and upper endoscopy with change of PEG, was found to have positive MRSA infection at the site of the PEG recently, with mild abdominal distention, but still tolerating PEG feeding at times. No reported new significant clinical changes. No reported chest pain, palpitation, chills, or fever. The patient is nonverbal. Today's lab showed white blood cell normal of 8.5, hemoglobin 9.7, hematocrit 29.0, with normal platelet count, with low creatinine 4.4, blood glucose level 109, calcium 7.9, low albumin 2.9, total protein 6.2. Yesterday, abdominal x-ray done, report indicative of an ileus with distention of the bowel, most likely secondary to an infectious process in the abdominal and pelvic CAT scan that was done reportedly seen. PHYSICAL EXAMINATION GENERAL: A 67-year-old female, nonverbal with periods of semi-agitation and being restless. VITAL SIGNS: Afebrile, with pulse of 86, respiratory rate 20 to 22, and blood pressure 116/62. HEENT: Showed pale dry oral mucous membranes. Nonicteric sclerae. LUNGS: Few scattered crepitations, decreased air entry at bases. HEART: Positive S1 and S2. ABDOMEN: Soft. Bowel sounds are present, but hypoactive with abdominal distention. PEG tube is in place with evidence of mild anterior upper abdominal wall cellulitis and small amount of purulent exudate. EXTREMITIES: Right lower extremity edematous changes. No clubbing or cyanosis. NEUROLOGIC: No reported new neurological deficits, sensory or motor. Peripheral pulses are present bilaterally. IMPRESSION: 1. Methicillin-resistant Staphylococcus aureus infection around the PEG tube. 2. Ileus, most likely secondary to above. 3. Malnutrition, dysphagia, status post PEG insertion, and hypoalbuminemia. 4. Electrolyte imbalance with hypokalemia, gradually improving. 5. Known history of seizure disorder and depression. 6. Recent intrathecal infection, disimpaction on my colonoscopy. 7. Status post cardiopulmonary arrest by history as reported. SUGGESTIONS: 1. Continue current management. 2. Peripheral hyperalimentation. 3. Hold PEG feeding for now until the patient's distention has subsided. 4. Further recommendations to follow. Lidia Lam MD [facility] # [id number]
[2017-11-07] MEDS: Vitamins A & D Oint UD Foilpak TOP SCH ×6 (00:28→21:00)
[2017-11-07] MEDS: Meropenem 1 GM in Sodium Chloride 0.9% 100 ML IVPB SCH ×3 (05:11→22:29)
[2017-11-07] MEDS: Zinc Oxide Topical 30 gm Tube TOP SCH ×3 (05:12→23:11)
[2017-11-07] MEDS: metroNIDAZOLE IV 500 mg/100 ml 500 MG/100 ML BAG IVPB SCH ×3 (06:28→21:33)
[2017-11-07 07:41] LABS: BASO % 0.4 % (0.0-2.0); EOS # 0.1 K/uL (0.0-0.7); EOS % 1.2 % (0.0-4.0); LYMPH # 1.2 K/uL (1.0-4.3); LYMPH % 16.5 % (20.0-40.0); MEAN CELL VOLUME 96.5 fL (81.0-99.0); MEAN CORPUSCULAR HEMOGLOBIN 32.7 pg (27.0-31.0); MEAN CORPUSCULAR HGB CONC 33.9 g/dL (33.0-37.0); MEAN PLATELET VOLUME 9.9 fL (7.2-11.7); MONO # 0.9 K/uL (0.0-0.8); MONO % 12.8 % (0.0-10.0); NEUT # 5.1 K/uL (1.8-7.0); NEUT % 69.1 % (50.0-75.0); NRBC % 0.1 % (0.0-2.0); RBC 3.05 Mil/uL (3.80-5.20); WHITE BLOOD COUNT 7.4 K/uL (4.8-10.8)
--- NOTE | 2017-11-07 07:57 | CP.PCM.PN ---
<Farzaneh Norman - Last Filed: 11/07/17 20:37> Subjective - Date & Time of Evaluation Date of Evaluation: 11/07/17 Time of Evaluation: 07:35 - Subjective Subjective: General surgery progress note for Dr. Ramsey-Farzaneh Norman, PGY-1 Pt S & E at bedside. Pt reports no abdominal pain, BM, gas. Ab binder in place. Declining physical exam at this time. Objective - Vital Signs/Intake and Output Vital Signs (last 24 hours): Temp Pulse Resp BP Pulse Ox 98.4 F 88 20 131/64 96 11/06/17 23:40 11/06/17 23:40 11/06/17 23:40 11/06/17 23:40 11/06/17 23:40 Intake and Output: 11/07/17 11/07/17 06:59 18:59 Intake Total 1397 Balance 1397 - Medications Medications: Current Medications Acetaminophen (Tylenol 650mg/20.3ml Solution Ud) 650 mg GT Q4H PRN PRN Reason: Pain, Mild (1-3) Last Admin: 11/03/17 18:24 Dose: 650 mg Amlodipine Besylate (Norvasc) 5 mg GT DAILY [facility] Last Admin: 11/06/17 11:26 Dose: Not Given Donepezil HCl (Aricept) 5 mg GT HS [facility] Last Admin: 11/06/17 22:29 Dose: Not Given Metronidazole (Flagyl) 500 mg in 100 mls @ 100 mls/hr IVPB Q8 [facility] Last Admin: 11/07/17 06:28 Dose: 100 mls/hr Vancomycin HCl 1 gm/ Sodium (Chloride) 200 mls @ 166.7 mls/hr IVPB DAILY [facility] Last Admin: 11/06/17 11:33 Dose: 166.7 mls/hr Dextrose/Sodium Chloride (Dextrose 5%/0.45% Ns 1000 Ml) 1,000 mls @ 75 mls/hr IV .[id number] [facility] Last Admin: 11/06/17 18:50 Dose: Not Given Levetiracetam 500 mg/ Sodium (Chloride) 105 mls @ 420 mls/hr IVPB Q12H [facility] Last Admin: 11/06/17 19:50 Dose: 420 mls/hr Meropenem 1 gm/ Sodium (Chloride) 100 mls @ 100 mls/hr IVPB Q8H [facility] Last Admin: 11/07/17 05:11 Dose: 100 mls/hr Sodium Chloride 35 meq/Potassium Chloride 30 meq/Magnesium Sulfate 6 meq/ Calcium Gluconate 4.65 meq/Chromium/Copper/Manganese/Zinc 1 ml/ Multivitamins/ Vitamin C 10 ml/ Amino Acids 1,046.2278 mls @ 42 mls/hr IV .Q24H [facility] Stop: 11/07/17 17:59 Last Admin: 11/06/17 18:12 Dose: 42 mls/hr Fat Emulsion Intravenous (Intralipid 20%) 500 mls @ 42 mls/hr IV MWF [facility] Last Admin: 11/06/17 18:11 Dose: 42 mls/hr Lactic Acid (Lac-Hydrin 12% Lotion (225 G)) 0 gm TOP BID [facility] Last Admin: 11/06/17 18:21 Dose: 1 applic Magnesium Hydroxide (Milk Of Magnesia) 30 ml GT Q24H PRN PRN Reason: Constipation Pantoprazole Sodium (Protonix Susp) 40 mg PEG DAILY [facility] Last Admin: 11/06/17 11:26 Dose: Not Given Petrolatum (Desitin Original) 0 gm TOP QSHIFT [facility] Last Admin: 11/07/17 05:12 Dose: 1 applic Polyethylene Glycol (Miralax) 17 gm GT DAILY [facility] Last Admin: 11/06/17 11:26 Dose: Not Given Potassium Chloride (Potassium Chloride Oral Soln) 20 meq GT BID [facility] Last Admin: 11/06/17 18:13 Dose: Not Given Sertraline HCl (Zoloft) 50 mg JT DAILY [facility] Last Admin: 11/06/17 11:27 Dose: Not Given Vitamin A (Vitamin A & D Oint Ud Foilpak) 0.5 ea TOP Q4 [facility] Last Admin: 11/07/17 03:11 Dose: 0.5 ea - Labs Labs: 11/07/17 07:21 11/06/17 06:54 PT 11.6 SECONDS (9.7-12.2) 10/26/17 02:55 INR 1.0 10/26/17 02:55 APTT 34 SECONDS (21-34) 10/26/17 02:55 - Constitutional Appears: Non-toxic, No Acute Distress - Head Exam Head Exam: ATRAUMATIC, NORMAL INSPECTION, NORMOCEPHALIC - Eye Exam Eye Exam: EOMI, Normal appearance - Neck Exam Neck Exam: Full ROM, Normal Inspection Assessment and Plan - Assessment and Plan (Free Text) Assessment: 67F w/ abd pain, pSBO Plan: G-tube to suction Enema BID Monitor bowel function Replete lytes PRN Abd xray in AM Recommend trickle feeds at 10cc/hr further recs per attending evaluation Will DW attending Ester, PGY-1 <Jorge Ramsey - Last Filed: 11/09/17 16:26> Objective - Vital Signs/Intake and Output Vital Signs (last 24 hours): Temp Pulse Resp BP Pulse Ox 98.4 F 84 20 87/52 L 95 11/09/17 15:57 11/09/17 15:57 11/09/17 15:57 11/09/17 15:57 11/09/17 15:57 Intake and Output: 11/09/17 11/09/17 06:59 18:59 Intake Total 1634 Balance 1634 - Medications Medications: Current Medications Acetaminophen (Tylenol 650mg/20.3ml Solution Ud) 650 mg GT Q4H PRN PRN Reason: Pain, Mild (1-3) Last Admin: 11/03/17 18:24 Dose: 650 mg Amlodipine Besylate (Norvasc) 5 mg GT DAILY [facility] Last Admin: 11/09/17 10:36 Dose: Not Given Donepezil HCl (Aricept) 5 mg GT HS [facility] Last Admin: 11/08/17 21:42 Dose: 5 mg Metronidazole (Flagyl) 500 mg in 100 mls @ 100 mls/hr IVPB Q8 [facility] Last Admin: 11/09/17 14:12 Dose: 100 mls/hr Vancomycin HCl 1 gm/ Sodium (Chloride) 200 mls @ 166.7 mls/hr IVPB DAILY [facility] Last Admin: 11/09/17 10:29 Dose: 166.7 mls/hr Dextrose/Sodium Chloride (Dextrose 5%/0.45% Ns 1000 Ml) 1,000 mls @ 75 mls/hr IV .[id number] [facility] Last Admin: 11/09/17 14:13 Dose: 75 mls/hr Levetiracetam 500 mg/ Sodium (Chloride) 105 mls @ 420 mls/hr IVPB Q12H [facility] Last Admin: 11/09/17 07:45 Dose: 420 mls/hr Meropenem 1 gm/ Sodium (Chloride) 100 mls @ 100 mls/hr IVPB Q8H [facility] Last Admin: 11/09/17 14:09 Dose: 100 mls/hr Fat Emulsion Intravenous (Intralipid 20%) 500 mls @ 42 mls/hr IV MWF [facility] Last Admin: 11/08/17 12:50 Dose: 42 mls/hr Sodium Acetate 35 meq/Potassium Chloride 30 meq/Magnesium Sulfate 6 meq/Calcium Gluconate 4.65 meq/Chromium/Copper/Manganese/Seleni/Zn 1 ml/ Multivitamins/ Vitamin C 10 ml/ Amino Acids 1,054.9778 mls @ 42 mls/hr IV .Q24H [facility] Stop: 11/09/17 17:59 Last Admin: 11/08/17 17:48 Dose: 42 mls/hr Sodium Acetate 35 meq/Potassium Chloride 30 meq/Magnesium Sulfate 6 meq/Calcium Gluconate 4.5 meq/Chromium/Copper/Manganese/Seleni/Zn 1 ml/ Multivitamins/ Vitamin C 10 ml/ Amino Acids 1,054.6552 mls @ 42 mls/hr IV .Q24H [facility] Stop: 11/10/17 17:59 Lactic Acid (Lac-Hydrin 12% Lotion (225 G)) 0 gm TOP BID [facility] Last Admin: 11/09/17 10:36 Dose: 1 applic Magnesium Hydroxide (Milk Of Magnesia) 30 ml GT Q24H PRN PRN Reason: Constipation Pantoprazole Sodium (Protonix Susp) 40 mg PEG DAILY [facility] Last Admin: 11/09/17 10:35 Dose: 40 mg Petrolatum (Desitin Original) 0 gm TOP QSHIFT [facility] Last Admin: 11/09/17 14:14 Dose: 1 applic Polyethylene Glycol (Miralax) 17 gm GT DAILY [facility] Last Admin: 11/09/17 10:35 Dose: 17 gm Potassium Chloride (Potassium Chloride Oral Soln) 20 meq GT BID [facility] Last Admin: 11/09/17 10:38 Dose: 20 meq Sertraline HCl (Zoloft) 50 mg JT DAILY [facility] Last Admin: 11/09/17 10:35 Dose: 50 mg Vitamin A (Vitamin A & D Oint Ud Foilpak) 0.5 ea TOP Q4 [facility] Last Admin: 11/09/17 14:14 Dose: 0.5 ea - Labs Labs: 11/09/17 07:37 11/09/17 07:37 PT 11.6 SECONDS (9.7-12.2) 10/26/17 02:55 INR 1.0 10/26/17 02:55 APTT 34 SECONDS (21-34) 10/26/17 02:55 Attending/Attestation - Attestation I have personally seen and examined this patient.: Yes I have fully participated in the care of the patient.: Yes I have reviewed all pertinent clinical information, including history, physical exam and plan: Yes Notes (Text): Pt was seen and examined at bedside Agree with above note and assessment Pt is tolerating TF C.w current mx DC plan No acute general surgical intervention required. Plan d.w primary team in detail Risk and benefit explained in detail.
[2017-11-07 07:58] LABS: ALBUMIN 3.1 g/dL (3.5-5.0); ALT/SGPT 26 U/L (9-52); AST/SGOT 25 U/L (14-36); BLOOD UREA NITROGEN 6 mg/dL (7-17); CALCIUM 8.3 mg/dl (8.6-10.4); GFR AFRICAN-AMERICAN > 60; GFR NON-AFRICAN AMERICAN > 60
[2017-11-07] MEDS: levETIRAcetam 500 MG in Sodium Chloride 0.9% 100 ML IVPB SCH ×2 (08:00→19:38)
[2017-11-07] MEDS: Dextrose 5%/0.45% NS 1,000 ML IV SCH ×2 (08:00→21:34)
--- NOTE | 2017-11-07 09:43 | PN ---
DATE: 11/07/2017. TIME OF EVALUATION: 6:30 a.m. NEUROLOGICAL PROBLEM: Seizures which is well controlled. PHYSICAL EXAMINATION: VITAL SIGNS: Blood pressure 131/64, mean arterial pressure of 86, respiratory rate 18, temperature 98.4 with pulse rate 88, regular. NEUROLOGIC: The patient is more awake, alert, communicable in [place]. Moves right side as usual, left side hemiplegia, which is unchanged. The patient has been tolerating IV Keppra, which has been changed from via PEG to injection form. When medically stable, when the PEG is functioning normal, the patient can resume Keppra through PEG. At present continue IV administration. The patient is scheduled to have EEG also which has been pending. Hair Bruce MD [id number]
[2017-11-07] MEDS: Ammonium Lactate 12% Lotion (225 g) TOP SCH ×2 (10:00→18:12)
[2017-11-07] MEDS: Vancomycin 1 GM in Sodium Chloride 0.9% 200 ML IVPB SCH (10:40)
[2017-11-07] MEDS: Pantoprazole 40 mg Susp UD PEG SCH (10:46)
[2017-11-07] MEDS: POLYETHYLENE GLYCOL 3350 17 GM/Dose PACKET GT SCH (10:46)
[2017-11-07] MEDS: Potassium Chloride 20 mEq/15 ml LIQ UD GT SCH ×2 (10:46→18:07)
--- NOTE | 2017-11-07 13:16 | RAD ---
HISTORY: pSBO COMPARISON: No prior. FINDINGS: BOWEL: Dilated bowel in the pelvis, likely sigmoid colon, measuring up to 13 cm in diameter. There is no "Beak "Sign. However, the possibility of sigmoid volvulus must be considered. There is no generalized colonic dilatation. There are dilated small bowel loops suggestive of mechanical small-bowel obstruction. However, this is nonspecific and may reflect a generalized ileus. BONES: Normal. OTHER FINDINGS: None. IMPRESSION: Dilated sigmoid colon. Rule out sigmoid volvulus. Dilated small bowel loops. Nonspecific.
--- NOTE | 2017-11-07 13:32 | CP.PCM.PN ---
Subjective - Date & Time of Evaluation Date of Evaluation: 11/07/17 Time of Evaluation: 13:30 - Subjective Subjective: PGY [address] Boris Kelly Patient seen and examined at bedside without attending physician; patient is complaining of right arm pain at the PICC line; has no other complaints today and is able to answer yes or no questions. Objective - Vital Signs/Intake and Output Vital Signs (last 24 hours): Temp Pulse Resp BP Pulse Ox 97.7 F 83 20 97/71 L 96 11/07/17 08:00 11/07/17 08:00 11/07/17 08:00 11/07/17 08:00 11/07/17 08:00 Intake and Output: 11/07/17 11/07/17 06:59 18:59 Intake Total 1397 Balance 1397 - Medications Medications: Current Medications Acetaminophen (Tylenol 650mg/20.3ml Solution Ud) 650 mg GT Q4H PRN PRN Reason: Pain, Mild (1-3) Last Admin: 11/03/17 18:24 Dose: 650 mg Amlodipine Besylate (Norvasc) 5 mg GT DAILY [facility] Last Admin: 11/07/17 10:46 Dose: Not Given Donepezil HCl (Aricept) 5 mg GT HS [facility] Last Admin: 11/06/17 22:29 Dose: Not Given Metronidazole (Flagyl) 500 mg in 100 mls @ 100 mls/hr IVPB Q8 [facility] Last Admin: 11/07/17 06:28 Dose: 100 mls/hr Vancomycin HCl 1 gm/ Sodium (Chloride) 200 mls @ 166.7 mls/hr IVPB DAILY [facility] Last Admin: 11/07/17 10:40 Dose: 166.7 mls/hr Dextrose/Sodium Chloride (Dextrose 5%/0.45% Ns 1000 Ml) 1,000 mls @ 75 mls/hr IV .[id number] [facility] Last Admin: 11/06/17 18:50 Dose: Not Given Levetiracetam 500 mg/ Sodium (Chloride) 105 mls @ 420 mls/hr IVPB Q12H [facility] Last Admin: 11/07/17 08:00 Dose: 420 mls/hr Meropenem 1 gm/ Sodium (Chloride) 100 mls @ 100 mls/hr IVPB Q8H [facility] Last Admin: 11/07/17 05:11 Dose: 100 mls/hr Sodium Chloride 35 meq/Potassium Chloride 30 meq/Magnesium Sulfate 6 meq/ Calcium Gluconate 4.65 meq/Chromium/Copper/Manganese/Zinc 1 ml/ Multivitamins/ Vitamin C 10 ml/ Amino Acids 1,046.2278 mls @ 42 mls/hr IV .Q24H [facility] Stop: 11/07/17 17:59 Last Admin: 11/06/17 18:12 Dose: 42 mls/hr Fat Emulsion Intravenous (Intralipid 20%) 500 mls @ 42 mls/hr IV MWF [facility] Last Admin: 11/06/17 18:11 Dose: 42 mls/hr Sodium Chloride 35 meq/Potassium Chloride 30 meq/Magnesium Sulfate 6 meq/ Calcium Gluconate 4.65 meq/Chromium/Copper/Manganese/Seleni/Zn 1 ml/ Multivitamins/Vitamin C 10 ml/ Amino Acids 1,046.2278 mls @ 42 mls/hr IV .Q24H [facility] Stop: 11/08/17 17:59 Lactic Acid (Lac-Hydrin 12% Lotion (225 G)) 0 gm TOP BID [facility] Last Admin: 11/07/17 10:00 Dose: 1 applic Magnesium Hydroxide (Milk Of Magnesia) 30 ml GT Q24H PRN PRN Reason: Constipation Pantoprazole Sodium (Protonix Susp) 40 mg PEG DAILY [facility] Last Admin: 11/07/17 10:46 Dose: Not Given Petrolatum (Desitin Original) 0 gm TOP QSHIFT [facility] Last Admin: 11/07/17 05:12 Dose: 1 applic Polyethylene Glycol (Miralax) 17 gm GT DAILY [facility] Last Admin: 11/07/17 10:46 Dose: Not Given Potassium Chloride (Potassium Chloride Oral Soln) 20 meq GT BID [facility] Last Admin: 11/07/17 10:46 Dose: Not Given Sertraline HCl (Zoloft) 50 mg JT DAILY [facility] Last Admin: 11/07/17 10:46 Dose: Not Given Vitamin A (Vitamin A & D Oint Ud Foilpak) 0.5 ea TOP Q4 [facility] Last Admin: 11/07/17 08:00 Dose: 0.5 ea - Labs Labs: 11/07/17 07:21 11/07/17 07:21 PT 11.6 SECONDS (9.7-12.2) 10/26/17 02:55 INR 1.0 10/26/17 02:55 APTT 34 SECONDS (21-34) 10/26/17 02:55 - Head Exam Additional comments: Head Exam: ATRAUMATIC, NORMAL INSPECTION, NORMOCEPHALIC - Eye Exam Eye Exam: EOMI - Neck Exam Neck Exam: Full ROM, Normal Inspection - Respiratory Exam Respiratory Exam: NORMAL BREATHING PATTERN. 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 -PEG site culture growing staph. aureus/MRSA/ESBL -started IV merrem q 8 hrs -may need to move pt to ICU because she may need neostigmine -critical care consult placed with Dr. Chang. -ID consult. recs appreciated. Dr. Oden. -repeat CT scan shows small pleural effusion along with redemonstration of colonic dilation ileus rather than obstruction. -abdominal x ray shows colonic dilation still -continue IV vancomycin daily -continue IV flagyl -GI consult. DR. CANADA. recs appreciated. -sx following. dr. culp. recs appreciated; no surgical intervention planned for this admission -sx has signed off -pt underwent endoscopy along with peg removal and replacement -endoscopy showed esophagitis along with small hiatal hernia, as well as erythematous mucosa in stomach -pt is to f/u with GI for results of biopsy from endoscopy hypokalemia -supplementation with potassium chloride daily hx of dementia -continue donepezil daily -patient is mostly non verbal but can understand commands and communicates through yes or no in georgian. However, full comprehension and ability to answer yes/no appropriately is questionable. hx of seizure disorder -continue keppra through PEG hx of depression -continue sertraline gi/dvt ppx -continue lovenox -continue protonix
--- NOTE | 2017-11-07 17:14 | CP.PCM.PN ---
Subjective - Date & Time of Evaluation Date of Evaluation: 11/07/17 Time of Evaluation: 14:00 - Subjective Subjective: pt clinically same Objective - Vital Signs/Intake and Output Vital Signs (last 24 hours): Temp Pulse Resp BP Pulse Ox 97.2 F L 86 20 102/69 95 11/07/17 15:00 11/07/17 15:00 11/07/17 15:00 11/07/17 15:00 11/07/17 15:00 Intake and Output: 11/07/17 11/07/17 06:59 18:59 Intake Total 1397 920 Output Total 10 Balance 1397 910 - Medications Medications: Current Medications Acetaminophen (Tylenol 650mg/20.3ml Solution Ud) 650 mg GT Q4H PRN PRN Reason: Pain, Mild (1-3) Last Admin: 11/03/17 18:24 Dose: 650 mg Amlodipine Besylate (Norvasc) 5 mg GT DAILY [facility] Last Admin: 11/07/17 10:46 Dose: Not Given Donepezil HCl (Aricept) 5 mg GT HS [facility] Last Admin: 11/06/17 22:29 Dose: Not Given Metronidazole (Flagyl) 500 mg in 100 mls @ 100 mls/hr IVPB Q8 [facility] Last Admin: 11/07/17 13:00 Dose: 100 mls/hr Vancomycin HCl 1 gm/ Sodium (Chloride) 200 mls @ 166.7 mls/hr IVPB DAILY [facility] Last Admin: 11/07/17 10:40 Dose: 166.7 mls/hr Dextrose/Sodium Chloride (Dextrose 5%/0.45% Ns 1000 Ml) 1,000 mls @ 75 mls/hr IV .[id number] [facility] Last Admin: 11/07/17 08:00 Dose: Not Given Levetiracetam 500 mg/ Sodium (Chloride) 105 mls @ 420 mls/hr IVPB Q12H [facility] Last Admin: 11/07/17 08:00 Dose: 420 mls/hr Meropenem 1 gm/ Sodium (Chloride) 100 mls @ 100 mls/hr IVPB Q8H [facility] Last Admin: 11/07/17 14:03 Dose: 100 mls/hr Sodium Chloride 35 meq/Potassium Chloride 30 meq/Magnesium Sulfate 6 meq/ Calcium Gluconate 4.65 meq/Chromium/Copper/Manganese/Zinc 1 ml/ Multivitamins/ Vitamin C 10 ml/ Amino Acids 1,046.2278 mls @ 42 mls/hr IV .Q24H [facility] Stop: 11/07/17 17:59 Last Admin: 11/06/17 18:12 Dose: 42 mls/hr Fat Emulsion Intravenous (Intralipid 20%) 500 mls @ 42 mls/hr IV MWF [facility] Last Admin: 11/06/17 18:11 Dose: 42 mls/hr Sodium Chloride 35 meq/Potassium Chloride 30 meq/Magnesium Sulfate 6 meq/ Calcium Gluconate 4.65 meq/Chromium/Copper/Manganese/Seleni/Zn 1 ml/ Multivitamins/Vitamin C 10 ml/ Amino Acids 1,046.2278 mls @ 42 mls/hr IV .Q24H [facility] Stop: 11/08/17 17:59 Lactic Acid (Lac-Hydrin 12% Lotion (225 G)) 0 gm TOP BID [facility] Last Admin: 11/07/17 10:00 Dose: 1 applic Magnesium Hydroxide (Milk Of Magnesia) 30 ml GT Q24H PRN PRN Reason: Constipation Pantoprazole Sodium (Protonix Susp) 40 mg PEG DAILY [facility] Last Admin: 11/07/17 10:46 Dose: Not Given Petrolatum (Desitin Original) 0 gm TOP QSHIFT [facility] Last Admin: 11/07/17 14:08 Dose: 1 applic Polyethylene Glycol (Miralax) 17 gm GT DAILY [facility] Last Admin: 11/07/17 10:46 Dose: Not Given Potassium Chloride (Potassium Chloride Oral Soln) 20 meq GT BID [facility] Last Admin: 11/07/17 10:46 Dose: Not Given Sertraline HCl (Zoloft) 50 mg JT DAILY [facility] Last Admin: 11/07/17 10:46 Dose: Not Given Vitamin A (Vitamin A & D Oint Ud Foilpak) 0.5 ea TOP Q4 [facility] Last Admin: 11/07/17 16:07 Dose: Not Given - Labs Labs: 11/07/17 07:21 11/07/17 07:21 PT 11.6 SECONDS (9.7-12.2) 10/26/17 02:55 INR 1.0 10/26/17 02:55 APTT 34 SECONDS (21-34) 10/26/17 02:55 - Constitutional Appears: No Acute Distress - Head Exam Head Exam: ATRAUMATIC, NORMAL INSPECTION, NORMOCEPHALIC - Eye Exam Eye Exam: EOMI, Normal appearance, PERRL Pupil Exam: NORMAL ACCOMODATION, PERRL - ENT Exam ENT Exam: Mucous Membranes Moist - Neck Exam Neck Exam: Full ROM - Respiratory Exam Respiratory Exam: Decreased Breath Sounds - Cardiovascular Exam Cardiovascular Exam: REGULAR RHYTHM, +S1, +S2 - GI/Abdominal Exam GI & Abdominal Exam: Soft, Diminished Bowel Sounds - Rectal Exam Rectal Exam: Deferred - Neurological Exam Additional comments: 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
[2017-11-07] MEDS ORDERED: PPN#2 IV SCH (18:00)
--- NOTE | 2017-11-07 18:05 | CP.PCM.PN ---
Subjective - Date & Time of Evaluation Date of Evaluation: 11/07/17 Time of Evaluation: 07:00 - Subjective Subjective: still with abd distention rx for GT site infection on progress Objective - Vital Signs/Intake and Output Vital Signs (last 24 hours): Temp Pulse Resp BP Pulse Ox 97.2 F L 86 20 102/69 95 11/07/17 15:00 11/07/17 15:00 11/07/17 15:00 11/07/17 15:00 11/07/17 15:00 Intake and Output: 11/07/17 11/07/17 06:59 18:59 Intake Total 1397 920 Output Total 10 Balance 1397 910 - Medications Medications: Current Medications Acetaminophen (Tylenol 650mg/20.3ml Solution Ud) 650 mg GT Q4H PRN PRN Reason: Pain, Mild (1-3) Last Admin: 11/03/17 18:24 Dose: 650 mg Amlodipine Besylate (Norvasc) 5 mg GT DAILY [facility] Last Admin: 11/07/17 10:46 Dose: Not Given Donepezil HCl (Aricept) 5 mg GT HS [facility] Last Admin: 11/06/17 22:29 Dose: Not Given Metronidazole (Flagyl) 500 mg in 100 mls @ 100 mls/hr IVPB Q8 [facility] Last Admin: 11/07/17 13:00 Dose: 100 mls/hr Vancomycin HCl 1 gm/ Sodium (Chloride) 200 mls @ 166.7 mls/hr IVPB DAILY [facility] Last Admin: 11/07/17 10:40 Dose: 166.7 mls/hr Dextrose/Sodium Chloride (Dextrose 5%/0.45% Ns 1000 Ml) 1,000 mls @ 75 mls/hr IV .[id number] [facility] Last Admin: 11/07/17 08:00 Dose: Not Given Levetiracetam 500 mg/ Sodium (Chloride) 105 mls @ 420 mls/hr IVPB Q12H [facility] Last Admin: 11/07/17 08:00 Dose: 420 mls/hr Meropenem 1 gm/ Sodium (Chloride) 100 mls @ 100 mls/hr IVPB Q8H [facility] Last Admin: 11/07/17 14:03 Dose: 100 mls/hr Fat Emulsion Intravenous (Intralipid 20%) 500 mls @ 42 mls/hr IV MWF [facility] Last Admin: 11/06/17 18:11 Dose: 42 mls/hr Sodium Chloride 35 meq/Potassium Chloride 30 meq/Magnesium Sulfate 6 meq/ Calcium Gluconate 4.65 meq/Chromium/Copper/Manganese/Seleni/Zn 1 ml/ Multivitamins/Vitamin C 10 ml/ Amino Acids 1,046.2278 mls @ 42 mls/hr IV .Q24H [facility] Stop: 11/08/17 17:59 Lactic Acid (Lac-Hydrin 12% Lotion (225 G)) 0 gm TOP BID [facility] Last Admin: 11/07/17 10:00 Dose: 1 applic Magnesium Hydroxide (Milk Of Magnesia) 30 ml GT Q24H PRN PRN Reason: Constipation Pantoprazole Sodium (Protonix Susp) 40 mg PEG DAILY [facility] Last Admin: 11/07/17 10:46 Dose: Not Given Petrolatum (Desitin Original) 0 gm TOP QSHIFT [facility] Last Admin: 11/07/17 14:08 Dose: 1 applic Polyethylene Glycol (Miralax) 17 gm GT DAILY [facility] Last Admin: 11/07/17 10:46 Dose: Not Given Potassium Chloride (Potassium Chloride Oral Soln) 20 meq GT BID [facility] Last Admin: 11/07/17 10:46 Dose: Not Given Sertraline HCl (Zoloft) 50 mg JT DAILY [facility] Last Admin: 11/07/17 10:46 Dose: Not Given Vitamin A (Vitamin A & D Oint Ud Foilpak) 0.5 ea TOP Q4 [facility] Last Admin: 11/07/17 16:07 Dose: Not Given - Labs Labs: 11/07/17 07:21 11/07/17 07:21 PT 11.6 SECONDS (9.7-12.2) 10/26/17 02:55 INR 1.0 10/26/17 02:55 APTT 34 SECONDS (21-34) 10/26/17 02:55 - Constitutional Appears: Chronically Ill - Head Exam Head Exam: NORMOCEPHALIC - Eye Exam Eye Exam: absent: Scleral icterus - ENT Exam ENT Exam: Mucous Membranes Dry - Neck Exam Neck Exam: absent: Lymphadenopathy - Respiratory Exam Respiratory Exam: Decreased Breath Sounds - Cardiovascular Exam Cardiovascular Exam: REGULAR RHYTHM - GI/Abdominal Exam GI & Abdominal Exam: Distended, Soft - Rectal Exam Rectal Exam: Deferred - Exam Exam: NORMAL INSPECTION Assessment and Plan (1) Abdominal distension Status: Acute (2) Colon distention Status: Acute - Assessment and Plan (Free Text) Assessment: cont iv rx and wound care s/p GT replacement
--- NOTE | 2017-11-07 22:10 | PN ---
DATE: LOCATION: [facility], bed 8. SUBJECTIVE: This is a 67-year-old female seen and examined in rounds with the staff on the floor, tolerating PEG feeding well without resistance or evidence of bleeding. No reported chest pain or palpitation. No reported significant complaint of shortness of breath, the patient is nonverbal. The entire chart is reviewed including, but not limited to the most recent lab and radiology study results, current and the previous medication list, current and the previous medical events. The case was discussed at length with the staff as well as all the consultants. LABORATORY DATA: Today's lab showed hemoglobin of 10.0, hematocrit 29.5, with normal white blood cells and normal platelet count, but with low sodium 131, low potassium 3.0, with low BUN and creatinine, calcium 8.3, albumin 3.1, total protein 6.2, decreased. The patient had abdominal x-ray repeated today, report is seen, indicative of dilated sigmoid colon with distal small bowel loops, but the possibility of sigmoid volvulus was raised in the report of the x-ray. The patient has no distention, but some mild discharge before around the stoma of the PEG tube. PHYSICAL EXAMINATION GENERAL: A 67-year-old female. VITAL SIGNS: Afebrile, pulse of 82, respiratory rate 20-22, blood pressure 106/72. HEENT: Showed pale, dry oral mucous membranes. Nonicteric sclerae. LUNGS: Few scattered crepitation, decreased air entry at bases. HEART: Positive S1 and S2. ABDOMEN: Soft with slight distention, with slight mild generalized tenderness, but bowel sounds are present and hypoactive. No mass or organomegaly and no rebound tenderness or guarding. PEG tube is in place with clean dressing EXTREMITIES: Without significant clinical changes. NEUROLOGIC: No reported new neurological deficits, sensory or motor. PEG site culture showed evidence of Staph aureus and MRSA infection as reported. IMPRESSION: 1. Malnutrition, hypoalbuminemia, hypoproteinemia, with status post PEG insertion. 2. Methicillin-resistant Staphylococcus aureus infection at the site of the PEG with an ileus rather than volvulus. 3. Anemia, most likely secondary to above and chronic disease. 4. Electrolyte imbalance. 5. Known history of seizure disorder, and depression. 6. Status post cardiopulmonary arrest by history. SUGGESTIONS: 1. Continue current management. 2. Repeat sectional, abdominal, and pelvic CAT scan. 3. Surgical reevaluation. 4. Further recommendations to follow. Lidia Lam MD
[2017-11-08] MEDS: Vitamins A & D Oint UD Foilpak TOP SCH ×6 (00:49→20:36)
[2017-11-08] MEDS: metroNIDAZOLE IV 500 mg/100 ml 500 MG/100 ML BAG IVPB SCH ×3 (05:00→21:38)
[2017-11-08] MEDS: Zinc Oxide Topical 30 gm Tube TOP SCH ×3 (06:05→21:40)
[2017-11-08] MEDS: Meropenem 1 GM in Sodium Chloride 0.9% 100 ML IVPB SCH ×3 (06:05→21:23)
[2017-11-08 07:22] LABS: BASO % 0.7 % (0.0-2.0); EOS # 0.1 K/uL (0.0-0.7); EOS % 1.6 % (0.0-4.0); HEMOGLOBIN 10.1 g/dL (11.0-16.0); LYMPH # 1.2 K/uL (1.0-4.3); LYMPH % 17.5 % (20.0-40.0); MEAN CELL VOLUME 96.2 fL (81.0-99.0); MEAN CORPUSCULAR HEMOGLOBIN 32.6 pg (27.0-31.0); MEAN CORPUSCULAR HGB CONC 33.9 g/dL (33.0-37.0); MEAN PLATELET VOLUME 9.5 fL (7.2-11.7); MONO % 14.3 % (0.0-10.0); NEUT # 4.4 K/uL (1.8-7.0); NEUT % 65.9 % (50.0-75.0); NRBC % 0.1 % (0.0-2.0); RBC 3.1 Mil/uL (3.80-5.20); WHITE BLOOD COUNT 6.7 K/uL (4.8-10.8)
[2017-11-08 08:31] LABS: ALT/SGPT 21 U/L (9-52); AST/SGOT 31 U/L (14-36); BLOOD UREA NITROGEN 7 mg/dL (7-17); CALCIUM 8.7 mg/dl (8.6-10.4); GFR AFRICAN-AMERICAN > 60; GFR NON-AFRICAN AMERICAN > 60
[2017-11-08] MEDS: levETIRAcetam 500 MG in Sodium Chloride 0.9% 100 ML IVPB SCH ×2 (08:45→19:45)
--- NOTE | 2017-11-08 10:50 | CP.PCM.PN ---
Subjective - Date & Time of Evaluation Date of Evaluation: 11/08/17 Time of Evaluation: 07:40 - Subjective Subjective: PGY [address] Boris Kelly Patient seen and examined at bedside. Patient typically nods yes / no to questioning, however today she refuses to interact. When asked if she could answer a few questions, she constantly answered "No." Several attempts were made. Otherwise, patient appears to be at her baseline, resting comfortably, in no acute distress. She was alert / awake. Objective - Vital Signs/Intake and Output Vital Signs (last 24 hours): Temp Pulse Resp BP Pulse Ox 98.6 F 84 20 103/66 94 L 11/08/17 00:00 11/08/17 00:00 11/08/17 00:00 11/08/17 00:00 11/08/17 00:00 Intake and Output: 11/08/17 11/08/17 06:59 18:59 Intake Total 737 Balance 737 - Medications Medications: Current Medications Acetaminophen (Tylenol 650mg/20.3ml Solution Ud) 650 mg GT Q4H PRN PRN Reason: Pain, Mild (1-3) Last Admin: 11/03/17 18:24 Dose: 650 mg Amlodipine Besylate (Norvasc) 5 mg GT DAILY [facility] Last Admin: 11/07/17 10:46 Dose: Not Given Donepezil HCl (Aricept) 5 mg GT HS [facility] Last Admin: 11/07/17 21:37 Dose: 5 mg Metronidazole (Flagyl) 500 mg in 100 mls @ 100 mls/hr IVPB Q8 [facility] Last Admin: 11/08/17 05:00 Dose: 100 mls/hr Vancomycin HCl 1 gm/ Sodium (Chloride) 200 mls @ 166.7 mls/hr IVPB DAILY [facility] Last Admin: 11/07/17 10:40 Dose: 166.7 mls/hr Dextrose/Sodium Chloride (Dextrose 5%/0.45% Ns 1000 Ml) 1,000 mls @ 75 mls/hr IV .[id number] [facility] Last Admin: 11/07/17 21:34 Dose: Not Given Levetiracetam 500 mg/ Sodium (Chloride) 105 mls @ 420 mls/hr IVPB Q12H [facility] Last Admin: 11/07/17 19:38 Dose: 420 mls/hr Meropenem 1 gm/ Sodium (Chloride) 100 mls @ 100 mls/hr IVPB Q8H [facility] Last Admin: 11/08/17 06:05 Dose: 100 mls/hr Fat Emulsion Intravenous (Intralipid 20%) 500 mls @ 42 mls/hr IV MWF [facility] Last Admin: 11/06/17 18:11 Dose: 42 mls/hr Sodium Chloride 35 meq/Potassium Chloride 30 meq/Magnesium Sulfate 6 meq/ Calcium Gluconate 4.65 meq/Chromium/Copper/Manganese/Seleni/Zn 1 ml/ Multivitamins/Vitamin C 10 ml/ Amino Acids 1,046.2278 mls @ 42 mls/hr IV .Q24H [facility] Stop: 11/08/17 17:59 Last Admin: 11/07/17 18:09 Dose: 42 mls/hr Sodium Acetate 35 meq/Potassium Chloride 30 meq/Magnesium Sulfate 6 meq/Calcium Gluconate 4.65 meq/Chromium/Copper/Manganese/Seleni/Zn 1 ml/ Multivitamins/ Vitamin C 10 ml/ Amino Acids 1,054.9778 mls @ 42 mls/hr IV .Q24H [facility] Stop: 11/09/17 17:59 Lactic Acid (Lac-Hydrin 12% Lotion (225 G)) 0 gm TOP BID [facility] Last Admin: 11/07/17 18:12 Dose: 1 applic Magnesium Hydroxide (Milk Of Magnesia) 30 ml GT Q24H PRN PRN Reason: Constipation Pantoprazole Sodium (Protonix Susp) 40 mg PEG DAILY [facility] Last Admin: 11/07/17 10:46 Dose: Not Given Petrolatum (Desitin Original) 0 gm TOP QSHIFT [facility] Last Admin: 11/08/17 06:05 Dose: 1 applic Polyethylene Glycol (Miralax) 17 gm GT DAILY [facility] Last Admin: 11/07/17 10:46 Dose: Not Given Potassium Chloride (Potassium Chloride Oral Soln) 20 meq GT BID [facility] Last Admin: 11/07/17 18:07 Dose: Not Given Sertraline HCl (Zoloft) 50 mg JT DAILY [facility] Last Admin: 11/07/17 10:46 Dose: Not Given Vitamin A (Vitamin A & D Oint Ud Foilpak) 0.5 ea TOP Q4 [facility] Last Admin: 11/08/17 03:30 Dose: 0.5 ea - Labs Labs: 11/08/17 07:05 11/08/17 07:05 PT 11.6 SECONDS (9.7-12.2) 10/26/17 02:55 INR 1.0 10/26/17 02:55 APTT 34 SECONDS (21-34) 10/26/17 02:55 - Additional Findings Additional findings: - Head Exam Additional comments: Head Exam: ATRAUMATIC, NORMAL INSPECTION, NORMOCEPHALIC - Eye Exam Eye Exam: EOMI - Neck Exam Neck Exam: Full ROM, Normal Inspection - Respiratory Exam Respiratory Exam: NORMAL BREATHING PATTERN. absent: Respiratory Distress - Cardiovascular Exam Cardiovascular Exam: +S1, +S2 - GI/Abdominal Exam Additional comments: PEG site intact / clean - Extremities Exam Extremities Exam: Full ROM, Normal Inspection +PICC is CDI - Neurological Exam Neurological Exam: Altered - Psychiatric Exam Additional comments: Unable to assess - Skin Skin Exam: Dry, Intact, Normal Color, Warm Assessment and Plan - Assessment and Plan (Free Text) Assessment: This is a 67 yo female who was admitted with chronic abdominal pain and distention colonic dilation/obstruction/pseudo- obstruction 11/08: Patient stable for DC to rehab from surgical standpoint. Tube feeds on at 10cc/hr. Patients abdomen appears improved. Patient refuses to interact today, even in a yes / no fashion via nodding. She only nods "No" when asked if she can speak with me and answer my questions. - Peg tube grew e. coli. continue IV Abx. WBC 6.7, stable. -continue IV vancomycin daily -continue IV flagyl -Continue IV merrem q 8 hrs -may be secondary to [place]'s syndrome. -PEG site culture growing staph. aureus/MRSA/ESBL -may need to move pt to ICU because she may need neostigmine -critical care consult placed with Dr. Chang. -ID consult. recs appreciated. Dr. Oden. -repeat CT scan shows small pleural effusion along with redemonstration of colonic dilation ileus rather than obstruction. -abdominal x ray shows colonic dilation still -GI consult. DR. CANA[place]. recs appreciated. -sx following. dr. culp. recs appreciated; no surgical intervention planned for this admission -pt underwent endoscopy along with peg removal and replacement -endoscopy showed esophagitis along with small hiatal hernia, as well as erythematous mucosa in stomach -pt is to f/u with GI for results of biopsy from endoscopy Anemia 11/08: Hgb stable at 10.1. continue to monitor. hypokalemia -supplementation with potassium chloride daily hx of dementia -continue donepezil daily -patient is mostly non verbal but can understand commands and communicates through yes or no in ecuadorean. However, full comprehension and ability to answer yes/no appropriately is questionable. hx of seizure disorder -continue keppra through PEG hx of depression -continue sertraline gi/dvt ppx -continue lovenox -continue protonix Disposition: Patient stable for discharge to LT[facility]. She has a son who should be contacted prior to proceeding with transfer.
[2017-11-08] MEDS: Potassium Chloride 20 mEq/15 ml LIQ UD GT SCH ×2 (12:47→17:48)
[2017-11-08] MEDS: Vancomycin 1 GM in Sodium Chloride 0.9% 200 ML IVPB SCH (12:48)
[2017-11-08] MEDS: Pantoprazole 40 mg Susp UD PEG SCH (12:49)
[2017-11-08] MEDS: Ammonium Lactate 12% Lotion (225 g) TOP SCH ×2 (12:50→17:58)
[2017-11-08] MEDS: Fat Emulsion 20% IV 500 ML IV SCH (12:50)
[2017-11-08] MEDS: Dextrose 5%/0.45% NS 1,000 ML IV SCH ×2 (12:51→23:45)
--- NOTE | 2017-11-08 13:47 | EEG ---
DATE: 11/06/2017. This is a 16-channel electroencephalogram of awake and drowsy adult. During the study, photic stimulation was performed. Hyperventilation was not performed. The resting electroencephalogram consists of 30 to 40 microvolt diffuse 6 to 7 Hz theta activities noted at parietal and occipital leads. Anterior fast activity superimposed with 2 to 3 Hz of delta activity seen. Some movement artifact contaminated the background rhythm. The photic stimulation did not evoke driving response noted at 2 to 20 Hz. IMPRESSION: This is a abnormal electroencephalogram because of persistent slowing throughout the record suggestive of bilateral cerebral dysfunction. This is probably secondary to metabolic, vascular or degenerative process. Please correlate the findings with the neurological and radiological studies. Hair Bruce MD
[2017-11-08] MEDS: POLYETHYLENE GLYCOL 3350 17 GM/Dose PACKET GT SCH (14:40)
--- NOTE | 2017-11-08 15:44 | CP.PCM.PN ---
<Vincent Lemon - Last Filed: 11/08/17 15:45> Subjective - Date & Time of Evaluation Date of Evaluation: 11/08/17 Time of Evaluation: 06:55 - Subjective Subjective: General Surgery- Dr. Ramsey [facility] Abd less distended and less tender. Tube feeds on at 10cc/hr. Deneis N/V CP/SOB F/C Objective - Vital Signs/Intake and Output Vital Signs (last 24 hours): Temp Pulse Resp BP Pulse Ox 98.6 F 84 20 103/66 94 L 11/08/17 00:00 11/08/17 00:00 11/08/17 00:00 11/08/17 00:00 11/08/17 00:00 Intake and Output: 11/08/17 11/08/17 06:59 18:59 Intake Total 737 Balance 737 - Medications Medications: Current Medications Acetaminophen (Tylenol 650mg/20.3ml Solution Ud) 650 mg GT Q4H PRN PRN Reason: Pain, Mild (1-3) Last Admin: 11/03/17 18:24 Dose: 650 mg Amlodipine Besylate (Norvasc) 5 mg GT DAILY [facility] Last Admin: 11/08/17 12:49 Dose: 5 mg Donepezil HCl (Aricept) 5 mg GT HS [facility] Last Admin: 11/07/17 21:37 Dose: 5 mg Metronidazole (Flagyl) 500 mg in 100 mls @ 100 mls/hr IVPB Q8 [facility] Last Admin: 11/08/17 14:20 Dose: 100 mls/hr Vancomycin HCl 1 gm/ Sodium (Chloride) 200 mls @ 166.7 mls/hr IVPB DAILY [facility] Last Admin: 11/08/17 12:48 Dose: 166.7 mls/hr Dextrose/Sodium Chloride (Dextrose 5%/0.45% Ns 1000 Ml) 1,000 mls @ 75 mls/hr IV .[id number] [facility] Last Admin: 11/08/17 12:51 Dose: Not Given Levetiracetam 500 mg/ Sodium (Chloride) 105 mls @ 420 mls/hr IVPB Q12H [facility] Last Admin: 11/08/17 08:45 Dose: 420 mls/hr Meropenem 1 gm/ Sodium (Chloride) 100 mls @ 100 mls/hr IVPB Q8H [facility] Last Admin: 11/08/17 14:20 Dose: 100 mls/hr Fat Emulsion Intravenous (Intralipid 20%) 500 mls @ 42 mls/hr IV MWF [facility] Last Admin: 11/08/17 12:50 Dose: 42 mls/hr Sodium Chloride 35 meq/Potassium Chloride 30 meq/Magnesium Sulfate 6 meq/ Calcium Gluconate 4.65 meq/Chromium/Copper/Manganese/Seleni/Zn 1 ml/ Multivitamins/Vitamin C 10 ml/ Amino Acids 1,046.2278 mls @ 42 mls/hr IV .Q24H [facility] Stop: 11/08/17 17:59 Last Admin: 11/07/17 18:09 Dose: 42 mls/hr Sodium Acetate 35 meq/Potassium Chloride 30 meq/Magnesium Sulfate 6 meq/Calcium Gluconate 4.65 meq/Chromium/Copper/Manganese/Seleni/Zn 1 ml/ Multivitamins/ Vitamin C 10 ml/ Amino Acids 1,054.9778 mls @ 42 mls/hr IV .Q24H [facility] Stop: 11/09/17 17:59 Lactic Acid (Lac-Hydrin 12% Lotion (225 G)) 0 gm TOP BID [facility] Last Admin: 11/08/17 12:50 Dose: 1 applic Magnesium Hydroxide (Milk Of Magnesia) 30 ml GT Q24H PRN PRN Reason: Constipation Pantoprazole Sodium (Protonix Susp) 40 mg PEG DAILY [facility] Last Admin: 11/08/17 12:49 Dose: 40 mg Petrolatum (Desitin Original) 0 gm TOP QSHIFT [facility] Last Admin: 11/08/17 14:21 Dose: 1 applic Polyethylene Glycol (Miralax) 17 gm GT DAILY [facility] Last Admin: 11/08/17 14:40 Dose: 17 gm Potassium Chloride (Potassium Chloride Oral Soln) 20 meq GT BID [facility] Last Admin: 11/08/17 12:47 Dose: 20 meq Sertraline HCl (Zoloft) 50 mg JT DAILY [facility] Last Admin: 11/08/17 12:49 Dose: 50 mg Vitamin A (Vitamin A & D Oint Ud Foilpak) 0.5 ea TOP Q4 [facility] Last Admin: 11/08/17 12:48 Dose: 0.5 ea - Labs Labs: 11/08/17 07:05 11/08/17 07:05 PT 11.6 SECONDS (9.7-12.2) 10/26/17 02:55 INR 1.0 10/26/17 02:55 APTT 34 SECONDS (21-34) 10/26/17 02:55 - Constitutional Appears: Non-toxic, No Acute Distress - Eye Exam Eye Exam: EOMI, Scleral icterus - Respiratory Exam Respiratory Exam: NORMAL BREATHING PATTERN. absent: Accessory Muscle Use, Respiratory Distress - Cardiovascular Exam Cardiovascular Exam: +S1, +S2. absent: Bradycardia, Tachycardia - GI/Abdominal Exam GI & Abdominal Exam: Soft, Tenderness. absent: Distended, Firm, Guarding, Rigid Additional comments: significantly less tender than yesterday - Extremities Exam Additional comments: Resdiual left sided paralysis - Neurological Exam Neurological Exam: Alert, Awake, Oriented x3 - Skin Skin Exam: Intact, Warm Assessment and Plan - Assessment and Plan (Free Text) Assessment: 67F w/ abd pain resolved, pSBO tolerating tube feeds at goal rate Plan: Cleared for transfer from surgery back to skilled rehab Monitor bowel function Replete yesenia PRN discussed w/ Dr. Ramsey surgical attending [facility] PGY1 <Jorge Ramsey - Last Filed: 11/09/17 16:36> Objective - Vital Signs/Intake and Output Vital Signs (last 24 hours): Temp Pulse Resp BP Pulse Ox 98.4 F 84 20 87/52 L 95 11/09/17 15:57 11/09/17 15:57 11/09/17 15:57 11/09/17 15:57 11/09/17 15:57 Intake and Output: 11/09/17 11/09/17 06:59 18:59 Intake Total 1634 Balance 1634 - Medications Medications: Current Medications Acetaminophen (Tylenol 650mg/20.3ml Solution Ud) 650 mg GT Q4H PRN PRN Reason: Pain, Mild (1-3) Last Admin: 11/03/17 18:24 Dose: 650 mg Amlodipine Besylate (Norvasc) 5 mg GT DAILY [facility] Last Admin: 11/09/17 10:36 Dose: Not Given Donepezil HCl (Aricept) 5 mg GT HS [facility] Last Admin: 11/08/17 21:42 Dose: 5 mg Metronidazole (Flagyl) 500 mg in 100 mls @ 100 mls/hr IVPB Q8 [facility] Last Admin: 11/09/17 14:12 Dose: 100 mls/hr Vancomycin HCl 1 gm/ Sodium (Chloride) 200 mls @ 166.7 mls/hr IVPB DAILY [facility] Last Admin: 11/09/17 10:29 Dose: 166.7 mls/hr Dextrose/Sodium Chloride (Dextrose 5%/0.45% Ns 1000 Ml) 1,000 mls @ 75 mls/hr IV .[id number] [facility] Last Admin: 11/09/17 14:13 Dose: 75 mls/hr Levetiracetam 500 mg/ Sodium (Chloride) 105 mls @ 420 mls/hr IVPB Q12H [facility] Last Admin: 11/09/17 07:45 Dose: 420 mls/hr Meropenem 1 gm/ Sodium (Chloride) 100 mls @ 100 mls/hr IVPB Q8H [facility] Last Admin: 11/09/17 14:09 Dose: 100 mls/hr Fat Emulsion Intravenous (Intralipid 20%) 500 mls @ 42 mls/hr IV MWF [facility] Last Admin: 11/08/17 12:50 Dose: 42 mls/hr Sodium Acetate 35 meq/Potassium Chloride 30 meq/Magnesium Sulfate 6 meq/Calcium Gluconate 4.65 meq/Chromium/Copper/Manganese/Seleni/Zn 1 ml/ Multivitamins/ Vitamin C 10 ml/ Amino Acids 1,054.9778 mls @ 42 mls/hr IV .Q24H [facility] Stop: 11/09/17 17:59 Last Admin: 11/08/17 17:48 Dose: 42 mls/hr Sodium Acetate 35 meq/Potassium Chloride 30 meq/Magnesium Sulfate 6 meq/Calcium Gluconate 4.5 meq/Chromium/Copper/Manganese/Seleni/Zn 1 ml/ Multivitamins/ Vitamin C 10 ml/ Amino Acids 1,054.6552 mls @ 42 mls/hr IV .Q24H [facility] Stop: 11/10/17 17:59 Lactic Acid (Lac-Hydrin 12% Lotion (225 G)) 0 gm TOP BID [facility] Last Admin: 11/09/17 10:36 Dose: 1 applic Magnesium Hydroxide (Milk Of Magnesia) 30 ml GT Q24H PRN PRN Reason: Constipation Pantoprazole Sodium (Protonix Susp) 40 mg PEG DAILY [facility] Last Admin: 11/09/17 10:35 Dose: 40 mg Petrolatum (Desitin Original) 0 gm TOP QSHIFT [facility] Last Admin: 11/09/17 14:14 Dose: 1 applic Polyethylene Glycol (Miralax) 17 gm GT DAILY [facility] Last Admin: 11/09/17 10:35 Dose: 17 gm Potassium Chloride (Potassium Chloride Oral Soln) 20 meq GT BID [facility] Last Admin: 11/09/17 10:38 Dose: 20 meq Sertraline HCl (Zoloft) 50 mg JT DAILY [facility] Last Admin: 11/09/17 10:35 Dose: 50 mg Vitamin A (Vitamin A & D Oint Ud Foilpak) 0.5 ea TOP Q4 [facility] Last Admin: 11/09/17 14:14 Dose: 0.5 ea - Labs Labs: 11/09/17 07:37 11/09/17 07:37 PT 11.6 SECONDS (9.7-12.2) 10/26/17 02:55 INR 1.0 10/26/17 02:55 APTT 34 SECONDS (21-34) 10/26/17 02:55 Attending/Attestation - Attestation I have personally seen and examined this patient.: Yes I have fully participated in the care of the patient.: Yes I have reviewed all pertinent clinical information, including history, physical exam and plan: Yes Notes (Text): Pt was seen and examined at bedside Agree with above note and assessment Advance tube feeds to [place] DC plan No General surgical intervention required f.u as out pt C/w current mx Plan d.w primary team in detail Risk and benefit explained in detail.
[2017-11-08] MEDS ORDERED: Sodium Chloride 0.9% 500 ML IV ONE (16:00)
--- NOTE | 2017-11-08 16:15 | CP.PCM.PN ---
Subjective - Date & Time of Evaluation Date of Evaluation: 11/08/17 Time of Evaluation: 07:00 - Subjective Subjective: clinically same Objective - Vital Signs/Intake and Output Vital Signs (last 24 hours): Temp Pulse Resp BP Pulse Ox 98.6 F 84 20 103/66 94 L 11/08/17 00:00 11/08/17 00:00 11/08/17 00:00 11/08/17 00:00 11/08/17 00:00 Intake and Output: 11/08/17 11/08/17 06:59 18:59 Intake Total 737 Balance 737 - Medications Medications: Current Medications Acetaminophen (Tylenol 650mg/20.3ml Solution Ud) 650 mg GT Q4H PRN PRN Reason: Pain, Mild (1-3) Last Admin: 11/03/17 18:24 Dose: 650 mg Amlodipine Besylate (Norvasc) 5 mg GT DAILY [facility] Last Admin: 11/08/17 12:49 Dose: 5 mg Donepezil HCl (Aricept) 5 mg GT HS [facility] Last Admin: 11/07/17 21:37 Dose: 5 mg Metronidazole (Flagyl) 500 mg in 100 mls @ 100 mls/hr IVPB Q8 [facility] Last Admin: 11/08/17 14:20 Dose: 100 mls/hr Vancomycin HCl 1 gm/ Sodium (Chloride) 200 mls @ 166.7 mls/hr IVPB DAILY [facility] Last Admin: 11/08/17 12:48 Dose: 166.7 mls/hr Dextrose/Sodium Chloride (Dextrose 5%/0.45% Ns 1000 Ml) 1,000 mls @ 75 mls/hr IV .[id number] [facility] Last Admin: 11/08/17 12:51 Dose: Not Given Levetiracetam 500 mg/ Sodium (Chloride) 105 mls @ 420 mls/hr IVPB Q12H [facility] Last Admin: 11/08/17 08:45 Dose: 420 mls/hr Meropenem 1 gm/ Sodium (Chloride) 100 mls @ 100 mls/hr IVPB Q8H [facility] Last Admin: 11/08/17 14:20 Dose: 100 mls/hr Fat Emulsion Intravenous (Intralipid 20%) 500 mls @ 42 mls/hr IV MWF [facility] Last Admin: 11/08/17 12:50 Dose: 42 mls/hr Sodium Chloride 35 meq/Potassium Chloride 30 meq/Magnesium Sulfate 6 meq/ Calcium Gluconate 4.65 meq/Chromium/Copper/Manganese/Seleni/Zn 1 ml/ Multivitamins/Vitamin C 10 ml/ Amino Acids 1,046.2278 mls @ 42 mls/hr IV .Q24H [facility] Stop: 11/08/17 17:59 Last Admin: 11/07/17 18:09 Dose: 42 mls/hr Sodium Acetate 35 meq/Potassium Chloride 30 meq/Magnesium Sulfate 6 meq/Calcium Gluconate 4.65 meq/Chromium/Copper/Manganese/Seleni/Zn 1 ml/ Multivitamins/ Vitamin C 10 ml/ Amino Acids 1,054.9778 mls @ 42 mls/hr IV .Q24H [facility] Stop: 11/09/17 17:59 Sodium Chloride (Sodium Chloride 0.9%) 500 mls @ 1,000 mls/hr IV .Q30M [facility] Stop: 11/08/17 16:29 Lactic Acid (Lac-Hydrin 12% Lotion (225 G)) 0 gm TOP BID [facility] Last Admin: 11/08/17 12:50 Dose: 1 applic Magnesium Hydroxide (Milk Of Magnesia) 30 ml GT Q24H PRN PRN Reason: Constipation Pantoprazole Sodium (Protonix Susp) 40 mg PEG DAILY [facility] Last Admin: 11/08/17 12:49 Dose: 40 mg Petrolatum (Desitin Original) 0 gm TOP QSHIFT [facility] Last Admin: 11/08/17 14:21 Dose: 1 applic Polyethylene Glycol (Miralax) 17 gm GT DAILY [facility] Last Admin: 11/08/17 14:40 Dose: 17 gm Potassium Chloride (Potassium Chloride Oral Soln) 20 meq GT BID [facility] Last Admin: 11/08/17 12:47 Dose: 20 meq Sertraline HCl (Zoloft) 50 mg JT DAILY [facility] Last Admin: 11/08/17 12:49 Dose: 50 mg Vitamin A (Vitamin A & D Oint Ud Foilpak) 0.5 ea TOP Q4 [facility] Last Admin: 11/08/17 12:48 Dose: 0.5 ea - Labs Labs: 11/08/17 07:05 11/08/17 07:05 PT 11.6 SECONDS (9.7-12.2) 10/26/17 02:55 INR 1.0 10/26/17 02:55 APTT 34 SECONDS (21-34) 10/26/17 02:55 - Constitutional Appears: Well - Head Exam Head Exam: ATRAUMATIC, NORMAL INSPECTION, NORMOCEPHALIC - Eye Exam Eye Exam: EOMI, Normal appearance, PERRL Pupil Exam: NORMAL ACCOMODATION, PERRL - ENT Exam ENT Exam: Mucous Membranes Moist, Normal Exam - Neck Exam Neck Exam: Full ROM, Normal Inspection. absent: Lymphadenopathy - Respiratory Exam Respiratory Exam: Decreased Breath Sounds - Cardiovascular Exam Cardiovascular Exam: REGULAR RHYTHM, +S1, +S2 - GI/Abdominal Exam GI & Abdominal Exam: Soft, Diminished Bowel Sounds - Rectal Exam Rectal Exam: Deferred Assessment and Plan (1) Abdominal distension Status: Acute (2) Abdominal pain Status: Acute (3) Colon distention Status: Acute (4) Nausea Status: Acute (5) Toxic megacolon Status: Acute
[2017-11-08] MEDS ORDERED: PPN #3 IV SCH (18:00)
--- NOTE | 2017-11-08 23:43 | PN ---
DATE: LOCATION: [facility], Bed A. SUBJECTIVE: This is a 67 years old female seen and examined in rounds with period of confusion, does not follow commands, nonverbal with PEG tube is in place, but with abdominal mild distention, soft in touch. It has to be mentioned that the patient still have PEG tube intermittent suction with reported incontinence of urine, but no incontinence of fecal material. The entire chart is reviewed including, but not limited to the most recent lab and radiology study results, current and the previous medication list, current and the previous medical events, allergy to medication list discussed with the staff at length. Today, her labs showed hemoglobin of 10.1, hematocrit 29.8 with normal white blood cells and normal platelet count with low creatinine of 0.5, low total protein 6.1, and low albumin 3.0. Most recent chest x-ray done yesterday report and the abdominal x-ray done yesterday report that the illness are seen with still dilated sigmoid colon. PHYSICAL EXAMINATION: VITAL SIGNS: A 67 years old female, afebrile with pulse of 82, respiratory rate 20 to 22, blood pressure of 100/48. HEENT: Showed pale, dry oral mucous membrane. Nonicteric sclerae. LUNGS: Few scattered crepitation, decreased air entry at bases. HEART: Positive S1 and S2. ABDOMEN: Soft with mild distention with mild generalized tenderness. No mass or organomegaly. No rebound tenderness or guarding. PEG tube is in place with intermittent period of very lower rate feeding. It has to be mentioned that no reported nausea, vomiting, or diarrhea. EXTREMITIES: With mild lower extremity edematous changes. No clubbing or cyanosis. NEUROLOGIC: No reported new neurological deficits, sensory or motor. Peripheral pulses are present, but weak bilaterally. IMPRESSION: 1. Anterior abdominal wall cellulitis with infected percutaneous endoscopic gastrostomy stoma with Staphylococcus aureus and Methicillin-resistant Staphylococcus aureus infection. 2. Malnutrition, hypoalbuminemia, dysphagia, status post percutaneous endoscopic gastrostomy insertion. 3. Anemia secondary to the above. 4. Ileus versus, much less likely a valvular. 5. Known history of depression or seizure disorder. 6. Status post cardiopulmonary arrest by history. SUGGESTION: 1. Continue current management. 2. The patient may need rectal tube in the meantime for more decompression. 3. Intravenous antibiotics to be discussed with the Infectious Disease consultants. 4. Further recommendation to follow. Lidia Lam MD [facility] # [id number]
[2017-11-09] MEDS: Vitamins A & D Oint UD Foilpak TOP SCH ×6 (00:30→20:00)
[2017-11-09] MEDS: Meropenem 1 GM in Sodium Chloride 0.9% 100 ML IVPB SCH ×3 (05:00→21:30)
[2017-11-09] MEDS: Zinc Oxide Topical 30 gm Tube TOP SCH ×3 (05:00→21:24)
[2017-11-09] MEDS: metroNIDAZOLE IV 500 mg/100 ml 500 MG/100 ML BAG IVPB SCH ×3 (06:00→21:10)
[2017-11-09] MEDS: levETIRAcetam 500 MG in Sodium Chloride 0.9% 100 ML IVPB SCH ×2 (07:45→19:50)
[2017-11-09 07:55] LABS: BASO # 0.1 K/uL (0.0-0.2); BASO % 0.8 % (0.0-2.0); EOS # 0.1 K/uL (0.0-0.7); EOS % 1.9 % (0.0-4.0); HEMOGLOBIN 11.1 g/dL (11.0-16.0); LYMPH % 13.7 % (20.0-40.0); MEAN CORPUSCULAR HEMOGLOBIN 32.7 pg (27.0-31.0); MEAN CORPUSCULAR HGB CONC 34.1 g/dL (33.0-37.0); MEAN PLATELET VOLUME 9.6 fL (7.2-11.7); MONO % 14.2 % (0.0-10.0); NEUT % 69.4 % (50.0-75.0); NRBC % 0.1 % (0.0-2.0); RBC 3.39 Mil/uL (3.80-5.20); RED CELL DISTRIBUTION WIDTH 13.9 % (11.5-14.5); WHITE BLOOD COUNT 7.1 K/uL (4.8-10.8)
[2017-11-09 08:09] LABS: ALBUMIN 3.4 g/dL (3.5-5.0); ALT/SGPT 25 U/L (9-52); AST/SGOT 23 U/L (14-36); BLOOD UREA NITROGEN 7 mg/dL (7-17); CALCIUM 8.4 mg/dl (8.6-10.4); GFR AFRICAN-AMERICAN > 60; GFR NON-AFRICAN AMERICAN > 60
[2017-11-09] MEDS: Vancomycin 1 GM in Sodium Chloride 0.9% 200 ML IVPB SCH (10:29)
[2017-11-09] MEDS: POLYETHYLENE GLYCOL 3350 17 GM/Dose PACKET GT SCH (10:35)
[2017-11-09] MEDS: Pantoprazole 40 mg Susp UD PEG SCH (10:35)
[2017-11-09] MEDS: Ammonium Lactate 12% Lotion (225 g) TOP SCH ×2 (10:36→17:32)
[2017-11-09] MEDS: Potassium Chloride 20 mEq/15 ml LIQ UD GT SCH ×2 (10:38→17:30)
--- NOTE | 2017-11-09 12:59 | PN ---
DATE: 11/09/2017. LOCATION: [facility], Bed A. SUBJECTIVE: This 67 years old female seen and examined in rounds early this morning without significant reported clinical changes by the staff in the floor with reported drop of blood pressure late last night. The entire chart is reviewed including, but not limited to the most recent lab and radiology study results, current and previous medication list, current and previous medical events, and the patient tolerated PEG feeding so far well. Today's lab showed normal CBC but low hematocrit 32.5 with normal creatinine 0.4, calcium 8.4, bilirubin 3.4. PHYSICAL EXAMINATION: VITAL SIGNS: A 67 years old female, nonverbal, somewhat awake, afebrile, pulse of 80, respiratory rate 20 to 22, blood pressure 132/66. HEENT: Showed pale, dry oral mucous membrane. Nonicteric sclerae. LUNGS: Few scattered crepitation, decreased air entry at bases. HEART: Positive S1 and S2. ABDOMEN: Soft. Bowel sounds are present with mild distention and slight erythematous mucosa around the PEG stoma. The PEG tube is in place. No mass or organomegaly. EXTREMITIES: Mild lower extremity edematous changes. No clubbing or cyanosis. NEUROLOGIC: No new reported neurological deficits, sensory or motor. IMPRESSION: 1. Dysphagia status post percutaneous endoscopic gastrostomy insertion with hypoalbuminemia. 2. Mild anterior abdominal wall cellulitis with positive culture of Methicillin-resistant Staphylococcus aureus and Staphylococcus aureus. 3. Anemia secondary to most likely chronic disease. 4. Recently diagnosed ileus secondary to infectious process, no clear evidence of bowel prolapse. 5. Known history of depression, seizure disorder. 6. Status post cardiopulmonary arrest by history. SUGGESTIONS: 1. Continue current management. 2. Subsequent increase of PEG tube feeding. 3. Case to be discussed with ID in home sales consultant in the case at length. Lidia Lam MD
[2017-11-09] MEDS: Dextrose 5%/0.45% NS 1,000 ML IV SCH (14:13)
--- NOTE | 2017-11-09 16:32 | CP.PCM.PN ---
Subjective - Date & Time of Evaluation Date of Evaluation: 11/09/17 Time of Evaluation: 07:00 - Subjective Subjective: clinically same Objective - Vital Signs/Intake and Output Vital Signs (last 24 hours): Temp Pulse Resp BP Pulse Ox 98.4 F 84 20 87/52 L 95 11/09/17 15:57 11/09/17 15:57 11/09/17 15:57 11/09/17 15:57 11/09/17 15:57 Intake and Output: 11/09/17 11/09/17 06:59 18:59 Intake Total 1634 Balance 1634 - Medications Medications: Current Medications Acetaminophen (Tylenol 650mg/20.3ml Solution Ud) 650 mg GT Q4H PRN PRN Reason: Pain, Mild (1-3) Last Admin: 11/03/17 18:24 Dose: 650 mg Amlodipine Besylate (Norvasc) 5 mg GT DAILY [facility] Last Admin: 11/09/17 10:36 Dose: Not Given Donepezil HCl (Aricept) 5 mg GT HS [facility] Last Admin: 11/08/17 21:42 Dose: 5 mg Metronidazole (Flagyl) 500 mg in 100 mls @ 100 mls/hr IVPB Q8 [facility] Last Admin: 11/09/17 14:12 Dose: 100 mls/hr Vancomycin HCl 1 gm/ Sodium (Chloride) 200 mls @ 166.7 mls/hr IVPB DAILY [facility] Last Admin: 11/09/17 10:29 Dose: 166.7 mls/hr Dextrose/Sodium Chloride (Dextrose 5%/0.45% Ns 1000 Ml) 1,000 mls @ 75 mls/hr IV .[id number] [facility] Last Admin: 11/09/17 14:13 Dose: 75 mls/hr Levetiracetam 500 mg/ Sodium (Chloride) 105 mls @ 420 mls/hr IVPB Q12H [facility] Last Admin: 11/09/17 07:45 Dose: 420 mls/hr Meropenem 1 gm/ Sodium (Chloride) 100 mls @ 100 mls/hr IVPB Q8H [facility] Last Admin: 11/09/17 14:09 Dose: 100 mls/hr Fat Emulsion Intravenous (Intralipid 20%) 500 mls @ 42 mls/hr IV MWF [facility] Last Admin: 11/08/17 12:50 Dose: 42 mls/hr Sodium Acetate 35 meq/Potassium Chloride 30 meq/Magnesium Sulfate 6 meq/Calcium Gluconate 4.65 meq/Chromium/Copper/Manganese/Seleni/Zn 1 ml/ Multivitamins/ Vitamin C 10 ml/ Amino Acids 1,054.9778 mls @ 42 mls/hr IV .Q24H [facility] Stop: 11/09/17 17:59 Last Admin: 11/08/17 17:48 Dose: 42 mls/hr Sodium Acetate 35 meq/Potassium Chloride 30 meq/Magnesium Sulfate 6 meq/Calcium Gluconate 4.5 meq/Chromium/Copper/Manganese/Seleni/Zn 1 ml/ Multivitamins/ Vitamin C 10 ml/ Amino Acids 1,054.6552 mls @ 42 mls/hr IV .Q24H [facility] Stop: 11/10/17 17:59 Lactic Acid (Lac-Hydrin 12% Lotion (225 G)) 0 gm TOP BID [facility] Last Admin: 11/09/17 10:36 Dose: 1 applic Magnesium Hydroxide (Milk Of Magnesia) 30 ml GT Q24H PRN PRN Reason: Constipation Pantoprazole Sodium (Protonix Susp) 40 mg PEG DAILY [facility] Last Admin: 11/09/17 10:35 Dose: 40 mg Petrolatum (Desitin Original) 0 gm TOP QSHIFT [facility] Last Admin: 11/09/17 14:14 Dose: 1 applic Polyethylene Glycol (Miralax) 17 gm GT DAILY [facility] Last Admin: 11/09/17 10:35 Dose: 17 gm Potassium Chloride (Potassium Chloride Oral Soln) 20 meq GT BID [facility] Last Admin: 11/09/17 10:38 Dose: 20 meq Sertraline HCl (Zoloft) 50 mg JT DAILY [facility] Last Admin: 11/09/17 10:35 Dose: 50 mg Vitamin A (Vitamin A & D Oint Ud Foilpak) 0.5 ea TOP Q4 [facility] Last Admin: 11/09/17 14:14 Dose: 0.5 ea - Labs Labs: 11/09/17 07:37 11/09/17 07:37 PT 11.6 SECONDS (9.7-12.2) 10/26/17 02:55 INR 1.0 10/26/17 02:55 APTT 34 SECONDS (21-34) 10/26/17 02:55 - Constitutional Appears: Well - Head Exam Head Exam: ATRAUMATIC, NORMAL INSPECTION, NORMOCEPHALIC - Eye Exam Eye Exam: EOMI, Normal appearance, PERRL Pupil Exam: NORMAL ACCOMODATION, PERRL - ENT Exam ENT Exam: Mucous Membranes Moist, Normal Exam - Neck Exam Neck Exam: Full ROM, Normal Inspection. absent: Lymphadenopathy - Respiratory Exam Respiratory Exam: Decreased Breath Sounds - Cardiovascular Exam Cardiovascular Exam: REGULAR RHYTHM, +S1, +S2 - GI/Abdominal Exam GI & Abdominal Exam: Soft, Diminished Bowel Sounds - Rectal Exam Rectal Exam: Deferred Assessment and Plan (1) Abdominal distension Status: Acute (2) Abdominal pain Status: Acute (3) Colon distention Status: Acute (4) Nausea Status: Acute (5) Toxic megacolon Status: Acute
[2017-11-09] MEDS ORDERED: PPN #4 IV SCH (18:00)
[2017-11-10] MEDS: Vitamins A & D Oint UD Foilpak TOP SCH ×4 (00:30→11:02)
[2017-11-10] MEDS: Dextrose 5%/0.45% NS 1,000 ML IV SCH ×3 (02:25→16:03)
[2017-11-10] MEDS: Meropenem 1 GM in Sodium Chloride 0.9% 100 ML IVPB SCH ×3 (05:00→21:09)
[2017-11-10] MEDS: Zinc Oxide Topical 30 gm Tube TOP SCH ×3 (05:30→21:14)
[2017-11-10] MEDS: metroNIDAZOLE IV 500 mg/100 ml 500 MG/100 ML BAG IVPB SCH (06:00)
[2017-11-10 08:12] LABS: HEMOGLOBIN 11.4 g/dL (11.0-16.0); MEAN CELL VOLUME 95.8 fL (81.0-99.0); MEAN CORPUSCULAR HEMOGLOBIN 32.3 pg (27.0-31.0); MEAN CORPUSCULAR HGB CONC 33.8 g/dL (33.0-37.0); MEAN PLATELET VOLUME 9.4 fL (7.2-11.7); PLATELET COUNT 297 K/uL (130-400); RBC 3.52 Mil/uL (3.80-5.20); RED CELL DISTRIBUTION WIDTH 13.9 % (11.5-14.5); WHITE BLOOD COUNT 8.3 K/uL (4.8-10.8)
[2017-11-10] MEDS: levETIRAcetam 500 MG in Sodium Chloride 0.9% 100 ML IVPB SCH ×2 (08:28→20:24)
[2017-11-10 08:31] LABS: ALBUMIN 3.4 g/dL (3.5-5.0); ALT/SGPT 22 U/L (9-52); AST/SGOT 25 U/L (14-36); BLOOD UREA NITROGEN 9 mg/dL (7-17); CALCIUM 8.4 mg/dl (8.6-10.4); GFR AFRICAN-AMERICAN > 60; GFR NON-AFRICAN AMERICAN > 60
[2017-11-10] MEDS: Vancomycin 1 GM in Sodium Chloride 0.9% 200 ML IVPB SCH (10:58)
[2017-11-10] MEDS: Ammonium Lactate 12% Lotion (225 g) TOP SCH ×2 (10:59→18:00)
[2017-11-10] MEDS: Potassium Chloride 20 mEq/15 ml LIQ UD GT SCH ×2 (11:01→17:42)
[2017-11-10] MEDS: Pantoprazole 40 mg Susp UD PEG SCH (11:02)
[2017-11-10 11:06] LABS: BASO % 0.3 % (0.0-2.0); EOS % 0.2 % (0.0-4.0); LYMPH # 0.3 K/uL (1.0-4.3); LYMPH % 3.1 % (20.0-40.0); MONO # 0.1 K/uL (0.0-0.8); MONO % 0.9 % (0.0-10.0); NEUT # 7.9 K/uL (1.8-7.0); NEUT % 95.5 % (50.0-75.0); NRBC % 0.1 % (0.0-2.0)
[2017-11-10] MEDS: POLYETHYLENE GLYCOL 3350 17 GM/Dose PACKET GT SCH (11:06)
[2017-11-10 11:07] LABS: BANDS 5 % (0-2); LYMPHOCYTE 6 % (20-40); MONOCYTE 7 % (0-10); NEUTROPHIL 82 % (50-75); TOTAL CELLS COUNTED 100
[2017-11-10 11:08] LABS: OVALOCYTES SLIGHT; PLATELET ESTIMATE NORMAL (NORMAL)
--- NOTE | 2017-11-10 13:39 | PN ---
DATE: 11/10/2017 SUBJECTIVE: This is a 67 years old female seen and examined early today by me after I had the nursing staff call and request as the patient has distended abdomen mildly more than before. Instruction was called to hold the feeding and drop in the PEG tube to decompress the patient, which apparently she is still suffering from an ileus due to an infectious process with MRSA infection recently. The entire chart is reviewed including but not limited to the most recent lab and radiology study results, current and previous medication list, current and previous medical events. The patient appeared to be awake, nonverbal, but morning was complaining of some abdominal pain. It has to be mentioned that it was reported to me that the patient had not had bowel movement for the last three days and today lactulose was given, which may help, but it may cause some gaseous feeling and the patient condition. PHYSICAL EXAMINATION: GENERAL: A 67 years old female. VITAL SIGNS: Afebrile with pulse of 98, respiratory rate 20 to 22, blood pressure 110/66. HEENT: Showed mildly pale dry oral mucous membrane. Nonicteric sclerae. LUNGS: Few scattered crepitations. Decreased air entry at bases. HEART: Positive S1 and S2 with increased rate. ABDOMEN: Soft, slightly firm with mild distention, PEG tube is in place with much less discharge and/or evidence of anterior abdominal wall cellulitis covered basically in dressing. Bowel sounds are hypoactive. EXTREMITIES: No significant clubbing, cyanosis or edema. NEUROLOGIC: No neurologic deficits, sensory or motor. Peripheral pulses are present bilaterally. LABORATORY DATA: Today's lab is still pending. IMPRESSION: 1. An ileus with evidence of anterior abdominal wall cellulitis. 2. Change of bowel movement with severe constipation most likely secondary to above. 3. Malnutrition, hypoalbuminemia, status post percutaneous endoscopic gastrostomy insertion, peptic ulcer disease by history. 4. Known history of depression, seizure disorder and status post cardiopulmonary and respiratory. 5. Electrolyte imbalance. SUGGESTIONS: 1. Agree with your plan. 2. The patient for tap water enema, to be followed by, as needed retention enema. 3. Restart feeding tube after 8 to 10 hours. 4. Repeat abdominal x-ray. 5. If no response then rectal tube to be placed. 6. Further recommendation to follow. Lidia Lam MD [facility] # [id number]
--- NOTE | 2017-11-10 14:58 | CP.PCM.PN ---
Subjective - Date & Time of Evaluation Date of Evaluation: 11/10/17 Time of Evaluation: 07:00 - Subjective Subjective: clinically same Objective - Vital Signs/Intake and Output Vital Signs (last 24 hours): Temp Pulse Resp BP Pulse Ox 99.9 F H 102 H 20 96/60 L 96 11/10/17 08:28 11/10/17 08:28 11/10/17 08:28 11/10/17 08:28 11/10/17 08:28 Intake and Output: 11/10/17 11/10/17 06:59 18:59 Intake Total 1660 Balance 1660 - Medications Medications: Current Medications Acetaminophen (Tylenol 650mg/20.3ml Solution Ud) 650 mg GT Q4H PRN PRN Reason: Pain, Mild (1-3) Last Admin: 11/03/17 18:24 Dose: 650 mg Amlodipine Besylate (Norvasc) 5 mg GT DAILY [facility] Last Admin: 11/10/17 10:53 Dose: Not Given Donepezil HCl (Aricept) 5 mg GT HS [facility] Last Admin: 11/09/17 21:27 Dose: 5 mg Vancomycin HCl 1 gm/ Sodium (Chloride) 200 mls @ 166.7 mls/hr IVPB DAILY [facility] Last Admin: 11/10/17 10:58 Dose: 166.7 mls/hr Dextrose/Sodium Chloride (Dextrose 5%/0.45% Ns 1000 Ml) 1,000 mls @ 75 mls/hr IV .[id number] [facility] Last Admin: 11/10/17 06:00 Dose: 75 mls/hr Levetiracetam 500 mg/ Sodium (Chloride) 105 mls @ 420 mls/hr IVPB Q12H [facility] Last Admin: 11/10/17 08:28 Dose: 420 mls/hr Meropenem 1 gm/ Sodium (Chloride) 100 mls @ 100 mls/hr IVPB Q8H [facility] Last Admin: 11/10/17 14:25 Dose: 100 mls/hr Sodium Acetate 35 meq/Potassium Chloride 30 meq/Magnesium Sulfate 6 meq/Calcium Gluconate 4.5 meq/Chromium/Copper/Manganese/Seleni/Zn 1 ml/ Multivitamins/ Vitamin C 10 ml/ Amino Acids 1,054.6552 mls @ 42 mls/hr IV .Q24H [facility] Stop: 11/10/17 17:59 Last Admin: 11/09/17 17:31 Dose: 42 mls/hr Sodium Acetate 35 meq/Potassium Chloride 30 meq/Magnesium Sulfate 6 meq/Calcium Gluconate 4.5 meq/Chromium/Copper/Manganese/Seleni/Zn 1 ml/ Amino Acids 1, 044.6552 mls @ 42 mls/hr IV .Q24H [facility] Stop: 11/11/17 17:59 Lactic Acid (Lac-Hydrin 12% Lotion (225 G)) 0 gm TOP BID [facility] Last Admin: 11/10/17 10:59 Dose: 1 applic Magnesium Hydroxide (Milk Of Magnesia) 30 ml GT Q24H PRN PRN Reason: Constipation Pantoprazole Sodium (Protonix Susp) 40 mg PEG DAILY [facility] Last Admin: 11/10/17 11:02 Dose: 40 mg Petrolatum (Desitin Original) 0 gm TOP QSHIFT [facility] Last Admin: 11/10/17 14:26 Dose: 1 applic Polyethylene Glycol (Miralax) 17 gm GT DAILY [facility] Last Admin: 11/10/17 11:06 Dose: 17 gm Potassium Chloride (Potassium Chloride Oral Soln) 20 meq GT BID [facility] Last Admin: 11/10/17 11:01 Dose: 20 meq Sertraline HCl (Zoloft) 50 mg JT DAILY [facility] Last Admin: 11/10/17 11:01 Dose: 50 mg - Labs Labs: 11/10/17 07:59 11/10/17 07:59 PT 11.6 SECONDS (9.7-12.2) 10/26/17 02:55 INR 1.0 10/26/17 02:55 APTT 34 SECONDS (21-34) 10/26/17 02:55 Assessment and Plan (1) Abdominal distension Status: Acute (2) Abdominal pain Status: Acute (3) Colon distention Status: Acute (4) Nausea Status: Acute (5) Toxic megacolon Status: Acute
--- NOTE | 2017-11-10 15:41 | CP.PCM.PN ---
Subjective - Date & Time of Evaluation Date of Evaluation: 11/10/17 Time of Evaluation: 09:00 - Subjective Subjective: GT site improving iv rx reordered Objective - Vital Signs/Intake and Output Vital Signs (last 24 hours): Temp Pulse Resp BP Pulse Ox 99.9 F H 102 H 20 96/60 L 96 11/10/17 08:28 11/10/17 08:28 11/10/17 08:28 11/10/17 08:28 11/10/17 08:28 Intake and Output: 11/10/17 11/10/17 06:59 18:59 Intake Total 1660 Balance 1660 - Medications Medications: Current Medications Acetaminophen (Tylenol 650mg/20.3ml Solution Ud) 650 mg GT Q4H PRN PRN Reason: Pain, Mild (1-3) Last Admin: 11/03/17 18:24 Dose: 650 mg Amlodipine Besylate (Norvasc) 5 mg GT DAILY [facility] Last Admin: 11/10/17 10:53 Dose: Not Given Donepezil HCl (Aricept) 5 mg GT HS [facility] Last Admin: 11/09/17 21:27 Dose: 5 mg Vancomycin HCl 1 gm/ Sodium (Chloride) 200 mls @ 166.7 mls/hr IVPB DAILY [facility] Last Admin: 11/10/17 10:58 Dose: 166.7 mls/hr Dextrose/Sodium Chloride (Dextrose 5%/0.45% Ns 1000 Ml) 1,000 mls @ 75 mls/hr IV .[id number] [facility] Last Admin: 11/10/17 06:00 Dose: 75 mls/hr Levetiracetam 500 mg/ Sodium (Chloride) 105 mls @ 420 mls/hr IVPB Q12H [facility] Last Admin: 11/10/17 08:28 Dose: 420 mls/hr Meropenem 1 gm/ Sodium (Chloride) 100 mls @ 100 mls/hr IVPB Q8H [facility] Last Admin: 11/10/17 14:25 Dose: 100 mls/hr Sodium Acetate 35 meq/Potassium Chloride 30 meq/Magnesium Sulfate 6 meq/Calcium Gluconate 4.5 meq/Chromium/Copper/Manganese/Seleni/Zn 1 ml/ Multivitamins/ Vitamin C 10 ml/ Amino Acids 1,054.6552 mls @ 42 mls/hr IV .Q24H [facility] Stop: 11/10/17 17:59 Last Admin: 11/09/17 17:31 Dose: 42 mls/hr Sodium Acetate 35 meq/Potassium Chloride 30 meq/Magnesium Sulfate 6 meq/Calcium Gluconate 4.5 meq/Chromium/Copper/Manganese/Seleni/Zn 1 ml/ Amino Acids 1, 044.6552 mls @ 42 mls/hr IV .Q24H [facility] Stop: 11/11/17 17:59 Lactic Acid (Lac-Hydrin 12% Lotion (225 G)) 0 gm TOP BID [facility] Last Admin: 11/10/17 10:59 Dose: 1 applic Magnesium Hydroxide (Milk Of Magnesia) 30 ml GT Q24H PRN PRN Reason: Constipation Pantoprazole Sodium (Protonix Susp) 40 mg PEG DAILY [facility] Last Admin: 11/10/17 11:02 Dose: 40 mg Petrolatum (Desitin Original) 0 gm TOP QSHIFT [facility] Last Admin: 11/10/17 14:26 Dose: 1 applic Polyethylene Glycol (Miralax) 17 gm GT DAILY [facility] Last Admin: 11/10/17 11:06 Dose: 17 gm Potassium Chloride (Potassium Chloride Oral Soln) 20 meq GT BID [facility] Last Admin: 11/10/17 11:01 Dose: 20 meq Sertraline HCl (Zoloft) 50 mg JT DAILY [facility] Last Admin: 11/10/17 11:01 Dose: 50 mg - Labs Labs: 11/10/17 07:59 11/10/17 07:59 PT 11.6 SECONDS (9.7-12.2) 10/26/17 02:55 INR 1.0 10/26/17 02:55 APTT 34 SECONDS (21-34) 10/26/17 02:55 - Constitutional Appears: Non-toxic, Chronically Ill - Head Exam Head Exam: NORMOCEPHALIC - Eye Exam Eye Exam: PERRL - ENT Exam ENT Exam: Mucous Membranes Dry - Neck Exam Neck Exam: absent: Lymphadenopathy - Respiratory Exam Respiratory Exam: Decreased Breath Sounds - Cardiovascular Exam Cardiovascular Exam: REGULAR RHYTHM - GI/Abdominal Exam GI & Abdominal Exam: Distended, Soft - Rectal Exam Rectal Exam: Deferred - Exam Exam: NORMAL INSPECTION - Extremities Exam Extremities Exam: absent: Pedal Edema - Back Exam Back Exam: absent: CVA tenderness (L), CVA tenderness (R) Assessment and Plan (1) Abdominal distension Status: Acute (2) Colon distention Status: Acute - Assessment and Plan (Free Text) Assessment: iv rx reordered
[2017-11-10] MEDS ORDERED: PPN #5 IV SCH (18:00)
[2017-11-10] MEDS ORDERED: Acetaminophen 650mg/20.3ml solution UD PO STA (20:26)
[2017-11-11] MEDS: Meropenem 1 GM in Sodium Chloride 0.9% 100 ML IVPB SCH ×3 (05:14→22:18)
[2017-11-11] MEDS: Dextrose 5%/0.45% NS 1,000 ML IV SCH ×3 (05:14→18:30)
[2017-11-11] MEDS: levETIRAcetam 500 MG in Sodium Chloride 0.9% 100 ML IVPB SCH ×2 (08:14→19:45)
[2017-11-11] MEDS: Acetaminophen 650mg/20.3ml solution UD GT PRN (09:36)
[2017-11-11] MEDS: Potassium Chloride 20 mEq/15 ml LIQ UD GT SCH ×2 (09:37→17:31)
[2017-11-11] MEDS: Pantoprazole 40 mg Susp UD PEG SCH (09:37)
[2017-11-11] MEDS: POLYETHYLENE GLYCOL 3350 17 GM/Dose PACKET GT SCH (09:39)
[2017-11-11] MEDS: Vancomycin 1 GM in Sodium Chloride 0.9% 200 ML IVPB SCH (09:52)
--- NOTE | 2017-11-11 10:19 | CP.PCM.PN ---
Subjective - Date & Time of Evaluation Date of Evaluation: 11/11/17 Time of Evaluation: 10:00 - Subjective Subjective: PROGRESS NOTE Attending: JANIS LOCKETT MD Pt seen and examined. No acute distress. No events overnight. ROS unobtainable. Objective - Vital Signs/Intake and Output Vital Signs (last 24 hours): Temp Pulse Resp BP Pulse Ox 103 F H 124 H 20 104/67 96 11/11/17 09:36 11/11/17 08:00 11/11/17 08:00 11/11/17 08:00 11/11/17 08:00 Intake and Output: 11/11/17 11/11/17 06:59 18:59 Intake Total 1366 1116 Balance 1366 1116 - Medications Medications: Current Medications Acetaminophen (Tylenol 650mg/20.3ml Solution Ud) 650 mg GT Q4H PRN PRN Reason: Pain, Mild (1-3) Last Admin: 11/11/17 09:36 Dose: 650 mg Amlodipine Besylate (Norvasc) 5 mg GT DAILY [facility] Last Admin: 11/11/17 09:37 Dose: 5 mg Vancomycin HCl 1 gm/ Sodium (Chloride) 200 mls @ 166.7 mls/hr IVPB DAILY [facility] Last Admin: 11/11/17 09:52 Dose: 166.7 mls/hr Dextrose/Sodium Chloride (Dextrose 5%/0.45% Ns 1000 Ml) 1,000 mls @ 75 mls/hr IV .[id number] [facility] Last Admin: 11/11/17 09:50 Dose: 75 mls/hr Levetiracetam 500 mg/ Sodium (Chloride) 105 mls @ 420 mls/hr IVPB Q12H [facility] Last Admin: 11/11/17 08:14 Dose: 420 mls/hr Meropenem 1 gm/ Sodium (Chloride) 100 mls @ 100 mls/hr IVPB Q8H [facility] Last Admin: 11/11/17 05:14 Dose: 100 mls/hr Sodium Acetate 35 meq/Potassium Chloride 30 meq/Magnesium Sulfate 6 meq/Calcium Gluconate 4.5 meq/Chromium/Copper/Manganese/Seleni/Zn 1 ml/ Amino Acids 1, 044.6552 mls @ 42 mls/hr IV .Q24H [facility] Stop: 11/11/17 17:59 Last Admin: 11/10/17 17:41 Dose: 42 mls/hr Sodium Acetate 35 meq/Potassium Chloride 30 meq/Magnesium Sulfate 6 meq/Calcium Gluconate 4.5 meq/Chromium/Copper/Manganese/Zinc 1 ml/ Multivitamins/Vitamin C 10 ml/ Amino Acids 1,054.6552 mls @ 42 mls/hr IV .Q24H [facility] Stop: 11/12/17 17:59 Magnesium Hydroxide (Milk Of Magnesia) 30 ml GT Q24H PRN PRN Reason: Constipation Pantoprazole Sodium (Protonix Susp) 40 mg PEG DAILY [facility] Last Admin: 11/11/17 09:37 Dose: 40 mg Polyethylene Glycol (Miralax) 17 gm GT DAILY [facility] Last Admin: 11/11/17 09:39 Dose: 17 gm Potassium Chloride (Potassium Chloride Oral Soln) 20 meq GT BID [facility] Last Admin: 11/11/17 09:37 Dose: 20 meq Sertraline HCl (Zoloft) 50 mg JT DAILY [facility] Last Admin: 11/11/17 09:37 Dose: 50 mg - Labs Labs: 11/10/17 07:59 11/10/17 07:59 PT 11.6 SECONDS (9.7-12.2) 10/26/17 02:55 INR 1.0 10/26/17 02:55 APTT 34 SECONDS (21-34) 10/26/17 02:55 - Constitutional Appears: Older Than Stated Age, Chronically Ill - Head Exam Head Exam: ATRAUMATIC, NORMAL INSPECTION, NORMOCEPHALIC - Eye Exam Eye Exam: EOMI - ENT Exam ENT Exam: Mucous Membranes Moist - Neck Exam Neck Exam: Full ROM, Normal Inspection - Respiratory Exam Respiratory Exam: NORMAL BREATHING PATTERN. absent: Respiratory Distress - Cardiovascular Exam Cardiovascular Exam: +S1, +S2 - GI/Abdominal Exam Additional comments: peg tube intact - Extremities Exam Extremities Exam: Full ROM, Normal Inspection - Back Exam Back Exam: NORMAL INSPECTION - Neurological Exam Neurological Exam: Altered. absent: Normal Gait - Psychiatric Exam Additional comments: unable to assess - Skin Skin Exam: Dry, Intact, Normal Color, Warm Assessment and Plan - Assessment and Plan (Free Text) Assessment: This is a 67 yo female admitted for chronic abdominal pain and distention colonic dilation/obstruction/pseudo- obstruction Patient stable for DC to rehab from surgical standpoint. Tube feeds on at 10cc/ hr. Patients abdomen appears improved. Patient refuses to interact today, even in a yes / no fashion via nodding. She only nods "No" when asked if she can speak with me and answer my questions. - Peg tube grew e. coli. continue IV Abx. WBC 6.7, stable. 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 -PEG site culture growing staph. aureus/MRSA/ESBL -may need to move pt to ICU because she may need neostigmine -critical care consult placed with Dr. Chang. -ID consult. recs appreciated. Dr. Oden. -repeat CT scan shows small pleural effusion along with redemonstration of colonic dilation ileus rather than obstruction. -abdominal x ray shows colonic dilation still -GI consult. DR. CANADA. recs appreciated. -sx following. dr. culp. recs appreciated; no surgical intervention planned for this admission -pt underwent endoscopy along with peg removal and replacement -endoscopy showed esophagitis along with small hiatal hernia, as well as erythematous mucosa in stomach -pt is to f/u with GI for results of biopsy from endoscopy Fever -butler cultures -will order ct scan abdomen/pelvis to check for any abscesses -ID consult already on board. recs appreciated. Anemia continue to monitor. hypokalemia -supplementation with potassium chloride daily hx of dementia -continue donepezil daily -patient is mostly non verbal but can understand commands and communicates through yes or no in portuguese. However, full comprehension and ability to answer yes/no appropriately is questionable. hx of seizure disorder -continue keppra through PEG hx of depression -continue sertraline gi/dvt ppx -continue lovenox -continue protonix Dispo: DC being held on account of fever.
--- NOTE | 2017-11-11 12:13 | CP.PCM.PN ---
Subjective - Date & Time of Evaluation Date of Evaluation: 11/11/17 Time of Evaluation: 09:00 - Subjective Subjective: FEVER 103 R/O ABSCESS FOR CT ABD CHECK CULTURES Objective - Vital Signs/Intake and Output Vital Signs (last 24 hours): Temp Pulse Resp BP Pulse Ox 100 F H 124 H 20 104/67 96 11/11/17 10:36 11/11/17 08:00 11/11/17 08:00 11/11/17 08:00 11/11/17 08:00 Intake and Output: 11/11/17 11/11/17 06:59 18:59 Intake Total 1366 1116 Balance 1366 1116 - Medications Medications: Current Medications Acetaminophen (Tylenol 650mg/20.3ml Solution Ud) 650 mg GT Q4H PRN PRN Reason: Pain, Mild (1-3) Last Admin: 11/11/17 09:36 Dose: 650 mg Amlodipine Besylate (Norvasc) 5 mg GT DAILY [facility] Last Admin: 11/11/17 09:37 Dose: 5 mg Vancomycin HCl 1 gm/ Sodium (Chloride) 200 mls @ 166.7 mls/hr IVPB DAILY [facility] Last Admin: 11/11/17 09:52 Dose: 166.7 mls/hr Dextrose/Sodium Chloride (Dextrose 5%/0.45% Ns 1000 Ml) 1,000 mls @ 75 mls/hr IV .[id number] [facility] Last Admin: 11/11/17 09:50 Dose: 75 mls/hr Levetiracetam 500 mg/ Sodium (Chloride) 105 mls @ 420 mls/hr IVPB Q12H [facility] Last Admin: 11/11/17 08:14 Dose: 420 mls/hr Meropenem 1 gm/ Sodium (Chloride) 100 mls @ 100 mls/hr IVPB Q8H [facility] Last Admin: 11/11/17 05:14 Dose: 100 mls/hr Sodium Acetate 35 meq/Potassium Chloride 30 meq/Magnesium Sulfate 6 meq/Calcium Gluconate 4.5 meq/Chromium/Copper/Manganese/Seleni/Zn 1 ml/ Amino Acids 1, 044.6552 mls @ 42 mls/hr IV .Q24H [facility] Stop: 11/11/17 17:59 Last Admin: 11/10/17 17:41 Dose: 42 mls/hr Sodium Acetate 35 meq/Potassium Chloride 30 meq/Magnesium Sulfate 6 meq/Calcium Gluconate 4.5 meq/Chromium/Copper/Manganese/Zinc 1 ml/ Multivitamins/Vitamin C 10 ml/ Amino Acids 1,054.6552 mls @ 42 mls/hr IV .Q24H [facility] Stop: 11/12/17 17:59 Magnesium Hydroxide (Milk Of Magnesia) 30 ml GT Q24H PRN PRN Reason: Constipation Pantoprazole Sodium (Protonix Susp) 40 mg PEG DAILY [facility] Last Admin: 11/11/17 09:37 Dose: 40 mg Polyethylene Glycol (Miralax) 17 gm GT DAILY [facility] Last Admin: 11/11/17 09:39 Dose: 17 gm Potassium Chloride (Potassium Chloride Oral Soln) 20 meq GT BID [facility] Last Admin: 11/11/17 09:37 Dose: 20 meq Sertraline HCl (Zoloft) 50 mg JT DAILY [facility] Last Admin: 11/11/17 09:37 Dose: 50 mg - Labs Labs: 11/10/17 07:59 11/10/17 07:59 PT 11.6 SECONDS (9.7-12.2) 10/26/17 02:55 INR 1.0 10/26/17 02:55 APTT 34 SECONDS (21-34) 10/26/17 02:55 - Constitutional Appears: Confused, Cachectic, Chronically Ill - Head Exam Head Exam: NORMOCEPHALIC - Eye Exam Eye Exam: PERRL - ENT Exam ENT Exam: Mucous Membranes Dry - Neck Exam Neck Exam: absent: Lymphadenopathy - Respiratory Exam Respiratory Exam: Decreased Breath Sounds - Cardiovascular Exam Cardiovascular Exam: Tachycardia, REGULAR RHYTHM - GI/Abdominal Exam GI & Abdominal Exam: Distended, Soft - Rectal Exam Rectal Exam: Deferred - Exam Exam: NORMAL INSPECTION Assessment and Plan (1) Abdominal distension Status: Acute (2) Colon distention Status: Acute - Assessment and Plan (Free Text) Assessment: SEPTIC WORK UP CHECK CT ABD RENEW ANTIBIOTICS
[2017-11-11 12:44] LABS: BASO % 0.3 % (0.0-2.0); HEMOGLOBIN 10.3 g/dL (11.0-16.0); LYMPH # 0.4 K/uL (1.0-4.3); LYMPH % 5.9 % (20.0-40.0); MEAN CELL VOLUME 95.7 fL (81.0-99.0); MEAN CORPUSCULAR HEMOGLOBIN 31.5 pg (27.0-31.0); MONO # 0.7 K/uL (0.0-0.8); MONO % 8.8 % (0.0-10.0); NEUT # 6.5 K/uL (1.8-7.0); NRBC % 0.1 % (0.0-2.0); PLATELET COUNT 240 K/uL (130-400); RBC 3.27 Mil/uL (3.80-5.20); RED CELL DISTRIBUTION WIDTH 14.1 % (11.5-14.5); WHITE BLOOD COUNT 7.6 K/uL (4.8-10.8)
[2017-11-11 12:57] LABS: ALB/GLOB RATIO 0.9 (1.0-2.1); ALT/SGPT 46 U/L (9-52); AST/SGOT 71 U/L (14-36); BLOOD UREA NITROGEN 9 mg/dL (7-17); CALCIUM 7.5 mg/dl (8.6-10.4); GFR AFRICAN-AMERICAN > 60; GFR NON-AFRICAN AMERICAN > 60
[2017-11-11 13:15] LABS: BANDS 6 % (0-2); BASOPHIL 1 % (0-2); LYMPHOCYTE 8 % (20-40); MONOCYTE 5 % (0-10); NEUTROPHIL 80 % (50-75); PLATELET ESTIMATE NORMAL (NORMAL); TOTAL CELLS COUNTED 100
[2017-11-11 13:16] LABS: ANISOCYTOSIS SLIGHT; HYPOCHROMIC SLIGHT; POIKILOCYTOSIS SLIGHT
--- NOTE | 2017-11-11 13:25 | RAD ---
HISTORY: fever COMPARISON: Chest x-ray performed 11/01/17 TECHNIQUE: Chest, one view. FINDINGS: Examination limited by habitus, hypoinflation, and patient obliquity. LUNGS: Right-sided PICC extends expected location of the SVC. No focal consolidation. Please note that chest x-ray has limited sensitivity for the detection of pulmonary masses. PLEURA: No significant pleural effusion identified. No definite pneumothorax . CARDIOVASCULAR: Borderline cardiomegaly. Dense atherosclerotic calcifications of the aorta. OSSEOUS STRUCTURES: Degenerative changes. Osseous demineralization. VISUALIZED UPPER ABDOMEN: Nonspecific bowel gas pattern. OTHER FINDINGS: None. IMPRESSION: Right-sided PICC extends expected location of the SVC.
[2017-11-11] MEDS ORDERED: Iodixanol 320 MG/ML 100 ML BOTTLE IV ONE (13:56)
[2017-11-11 14:51] LABS: SQUAMOUS EPITHIAL 2 /hpf (0-5); URINE BACTERIA RARE (<OCC); URINE BILIRUBIN NEGATIVE (NEGATIVE); URINE BLOOD 2+ (NEGATIVE); URINE CLARITY Hazy (Clear); URINE COLOR Yellow (YELLOW); URINE GLUCOSE (UA) NORMAL (Normal); URINE LEUKOCYTE ESTERASE NEG Leu/uL (Negative); URINE PROTEIN NEGATIVE (NEGATIVE); URINE UROBILINOGEN NORMAL mg/dL (0.2-1.0)
--- NOTE | 2017-11-11 15:44 | CP.PCM.PN ---
Subjective - Date & Time of Evaluation Date of Evaluation: 11/11/17 Time of Evaluation: 07:00 - Subjective Subjective: clinically same Objective - Vital Signs/Intake and Output Vital Signs (last 24 hours): Temp Pulse Resp BP Pulse Ox 100 F H 124 H 20 104/67 96 11/11/17 10:36 11/11/17 08:00 11/11/17 08:00 11/11/17 08:00 11/11/17 08:00 Intake and Output: 11/11/17 11/11/17 06:59 18:59 Intake Total 1366 1116 Balance 1366 1116 - Medications Medications: Current Medications Acetaminophen (Tylenol 650mg/20.3ml Solution Ud) 650 mg GT Q4H PRN PRN Reason: Pain, Mild (1-3) Last Admin: 11/11/17 09:36 Dose: 650 mg Amlodipine Besylate (Norvasc) 5 mg GT DAILY [facility] Last Admin: 11/11/17 09:37 Dose: 5 mg Vancomycin HCl 1 gm/ Sodium (Chloride) 200 mls @ 166.7 mls/hr IVPB DAILY [facility] Last Admin: 11/11/17 09:52 Dose: 166.7 mls/hr Dextrose/Sodium Chloride (Dextrose 5%/0.45% Ns 1000 Ml) 1,000 mls @ 75 mls/hr IV .[id number] [facility] Last Admin: 11/11/17 09:50 Dose: 75 mls/hr Levetiracetam 500 mg/ Sodium (Chloride) 105 mls @ 420 mls/hr IVPB Q12H [facility] Last Admin: 11/11/17 08:14 Dose: 420 mls/hr Meropenem 1 gm/ Sodium (Chloride) 100 mls @ 100 mls/hr IVPB Q8H [facility] Last Admin: 11/11/17 13:57 Dose: 100 mls/hr Sodium Acetate 35 meq/Potassium Chloride 30 meq/Magnesium Sulfate 6 meq/Calcium Gluconate 4.5 meq/Chromium/Copper/Manganese/Seleni/Zn 1 ml/ Amino Acids 1, 044.6552 mls @ 42 mls/hr IV .Q24H [facility] Stop: 11/11/17 17:59 Last Admin: 11/10/17 17:41 Dose: 42 mls/hr Sodium Acetate 35 meq/Potassium Chloride 30 meq/Magnesium Sulfate 6 meq/Calcium Gluconate 4.5 meq/Chromium/Copper/Manganese/Zinc 1 ml/ Multivitamins/Vitamin C 10 ml/ Amino Acids 1,054.6552 mls @ 42 mls/hr IV .Q24H [facility] Stop: 11/12/17 17:59 Magnesium Hydroxide (Milk Of Magnesia) 30 ml GT Q24H PRN PRN Reason: Constipation Pantoprazole Sodium (Protonix Susp) 40 mg PEG DAILY [facility] Last Admin: 11/11/17 09:37 Dose: 40 mg Polyethylene Glycol (Miralax) 17 gm GT DAILY [facility] Last Admin: 11/11/17 09:39 Dose: 17 gm Potassium Chloride (Potassium Chloride Oral Soln) 20 meq GT BID [facility] Last Admin: 11/11/17 09:37 Dose: 20 meq Sertraline HCl (Zoloft) 50 mg JT DAILY [facility] Last Admin: 11/11/17 09:37 Dose: 50 mg - Labs Labs: 11/11/17 12:35 11/11/17 12:35 PT 11.6 SECONDS (9.7-12.2) 10/26/17 02:55 INR 1.0 10/26/17 02:55 APTT 34 SECONDS (21-34) 10/26/17 02:55 - Constitutional Appears: Well - Head Exam Head Exam: ATRAUMATIC, NORMAL INSPECTION, NORMOCEPHALIC - Eye Exam Eye Exam: EOMI, Normal appearance, PERRL Pupil Exam: NORMAL ACCOMODATION, PERRL - ENT Exam ENT Exam: Mucous Membranes Moist, Normal Exam - Neck Exam Neck Exam: Full ROM, Normal Inspection. absent: Lymphadenopathy - Respiratory Exam Respiratory Exam: Decreased Breath Sounds - Cardiovascular Exam Cardiovascular Exam: REGULAR RHYTHM, +S1, +S2 - GI/Abdominal Exam GI & Abdominal Exam: Soft, Diminished Bowel Sounds - Rectal Exam Rectal Exam: Deferred Assessment and Plan (1) Abdominal distension Status: Acute (2) Abdominal pain Status: Acute (3) Colon distention Status: Acute (4) Nausea Status: Acute (5) Toxic megacolon Status: Acute
--- NOTE | 2017-11-11 15:58 | PN ---
LOCATION: [facility], Bed A. SUBJECTIVE: This is a 67-year-old female seen and examined in rounds with reported in the morning complaining of some abdominal pain again today. The entire chart is reviewed including, but not limited to the most recent lab and radiology study results, current and the previous medication list, current and previous medical events. Again, the patient reported to have no recent bowel movement for which an enema was ordered and today's lab is still pending. PHYSICAL EXAMINATION: VITAL SIGNS: This is a 67-year-old female, nonverbal with low grade temperature of 103, heart rate of 112, respiratory rate 20 to 22, blood pressure 110/68. HEENT: Showed pale, dry oral mucous membrane. Nonicteric sclerae. LUNGS: Few scattered crepitation, decreased air entry at bases. HEART: Positive S1 and S2 with increased rate. ABDOMEN: Soft, but with mild distention. A recently inserted PEG tube is in place with mild anterior abdominal wall cellulitis. Bowel sounds are hypoactive. No mass or organomegaly. EXTREMITIES: Lower extremities with mild edematous changes. No clubbing or cyanosis. NEUROLOGIC: No reported new neurological deficits, sensory or motor. IMPRESSION: 1. Malnutrition with hypoalbuminemia, hyperkalemia, statue post PEG insertion. 2. Anterior abdominal wall cellulitis. 3. An ileus rather than obstructive colon secondary to infectious process, the patient has Methicillin-resistant Staphylococcus aureus infection. 4. Known history of seizure disorder, depression status post cardiopulmonary arrest. 5. Electrolyte imbalance. SUGGESTION: 1. Continue current management. 2. Repeat abdominal x-ray. 3. Blood transfusion to keep hemoglobin around 10 gm percent. Lidia Lam MD
[2017-11-11] MEDS ORDERED: PPN#6 IV SCH (18:00)
--- NOTE | 2017-11-11 18:02 | CT ---
EXAM: CT Abdomen and Pelvis With Intravenous Contrast EXAM DATE/TIME: Exam ordered 11/11/2017 12:09 PM CLINICAL HISTORY: 67 years old, female; Signs and symptoms; Other: Abscess; Additional info: Fever, R/O abcess TECHNIQUE: Axial computed tomography images of the abdomen and pelvis with intravenous contrast. All CT scans at this facility use one or more dose reduction techniques, viz.: automated exposure control; ma/kV adjustment per patient size (including targeted exams where dose is matched to indication; i.e. head); or iterative reconstruction technique. Coronal and sagittal reformatted images were created and reviewed. CONTRAST: 100 mL of visipaqe 320 administered intravenously. COMPARISON: CT - ABD PELVIS IV CONTRAST ONLY 2017-11-04 17:52 FINDINGS: Lower thorax: There is a small left pleural effusion There is atelectasis/consolidation of most of the left lower lobe. Mild hypoventilatory changes seen in the dependent portion of the right lung. ABDOMEN: Liver: A multiloculated cyst is noted within the left lobe of the liver. This is unchanged from previous. There are multiple smaller hepatic cysts. Gallbladder and bile ducts: Unremarkable. No calcified stones. No ductal dilation. Pancreas: Unremarkable. No mass. No ductal dilation. Spleen: Unremarkable. No splenomegaly. Adrenals: Unremarkable. No mass. Kidneys and ureters: 2 less than 4 mm low density lesions are seen in the lower pole the left kidney. 4 less than 4 mm low-density lesions are seen in the right kidney. These lesions are too small to characterize. No hydronephrosis. Stomach and bowel: There is marked dilatation of the colon. Large air-fluid level is noted in the rectosigmoid colon. There is mural thickening noted of the transverse colon which appears more conspicuous than on the previous examination. No small bowel dilatation is seen. Appendix: No findings to suggest acute appendicitis. PELVIS: Bladder: Unremarkable. No mass. Reproductive: There are multiple calcified uterine fibroids. ABDOMEN and PELVIS: Intraperitoneal space: Unremarkable. No free air. No significant fluid collection. Bones/joints: A 4 mm area of sclerosis is noted within the left ilium at the level of sacroiliac joint. A 2 mm sclerotic focus is noted within the sacrum. No acute fracture. No dislocation. Soft tissues: Unremarkable. Vasculature: Unremarkable. No abdominal aortic aneurysm. Lymph nodes: Unremarkable. No enlarged lymph nodes. Tubes, lines and devices: The gastrostomy tube is present within the stomach. 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 IMPRESSION: 1. Marked dilatation of the colon and particularly the rectosigmoid colon, with new mural thickening noted of the transverse colon suggesting colitis. No pericolonic inflammatory changes. 2. Multiple hepatic cysts. Increased density is noted within the dominant left lobe cyst which may represent hemorrhage (as suggested on CT scan dated 10/31/2017.) Solid soft tissue components are another consideration. No change. 3. Near complete atelectasis/consolidation of the left lower lobe with small left pleural effusion.
[2017-11-12] MEDS: Dextrose 5%/0.45% NS 1,000 ML IV SCH ×3 (05:00→21:40)
[2017-11-12] MEDS: Meropenem 1 GM in Sodium Chloride 0.9% 100 ML IVPB SCH ×3 (05:00→21:42)
[2017-11-12 07:01] LABS: BASO % 0.3 % (0.0-2.0); EOS % 0.1 % (0.0-4.0); HEMOGLOBIN 11.1 g/dL (11.0-16.0); LYMPH # 0.5 K/uL (1.0-4.3); LYMPH % 6.4 % (20.0-40.0); MEAN CELL VOLUME 93.7 fL (81.0-99.0); MEAN CORPUSCULAR HEMOGLOBIN 32.3 pg (27.0-31.0); MEAN CORPUSCULAR HGB CONC 34.5 g/dL (33.0-37.0); MEAN PLATELET VOLUME 9.6 fL (7.2-11.7); MONO # 0.7 K/uL (0.0-0.8); NEUT # 6.9 K/uL (1.8-7.0); NEUT % 84.2 % (50.0-75.0); NRBC % 0.1 % (0.0-2.0); PLATELET COUNT 223 K/uL (130-400); RBC 3.43 Mil/uL (3.80-5.20); RED CELL DISTRIBUTION WIDTH 14.2 % (11.5-14.5); WHITE BLOOD COUNT 8.2 K/uL (4.8-10.8)
[2017-11-12 07:14] LABS: ALB/GLOB RATIO 0.9 (1.0-2.1); ALT/SGPT 55 U/L (9-52); AST/SGOT 63 U/L (14-36); BLOOD UREA NITROGEN 9 mg/dL (7-17); CALCIUM 7.6 mg/dl (8.6-10.4); GFR AFRICAN-AMERICAN > 60; GFR NON-AFRICAN AMERICAN > 60
[2017-11-12] MEDS: levETIRAcetam 500 MG in Sodium Chloride 0.9% 100 ML IVPB SCH (08:42)
[2017-11-12 08:52] LABS: BANDS 10 % (0-2); LYMPHOCYTE 9 % (20-40); MONOCYTE 9 % (0-10); NEUTROPHIL 72 % (50-75); PLATELET ESTIMATE NORMAL (NORMAL); TOTAL CELLS COUNTED 100
[2017-11-12 08:53] LABS: ANISOCYTOSIS SLIGHT; HYPOCHROMIC SLIGHT; LARGE PLATELETS PRESENT; POIKILOCYTOSIS SLIGHT
[2017-11-12] MEDS: Potassium Chloride 20 mEq/15 ml LIQ UD GT SCH ×2 (10:08→17:52)
[2017-11-12] MEDS: POLYETHYLENE GLYCOL 3350 17 GM/Dose PACKET GT SCH (10:08)
[2017-11-12] MEDS: Pantoprazole 40 mg Susp UD PEG SCH (10:08)
--- NOTE | 2017-11-12 10:26 | CP.PCM.PN ---
Subjective - Date & Time of Evaluation Date of Evaluation: 11/12/17 Time of Evaluation: 10:20 - Subjective Subjective: PROGRESS NOTE. Attending: Dr. Kelly Pt seen at bedside. No acute distress. Pt refused exam. ROS unobtainable. Objective - Vital Signs/Intake and Output Vital Signs (last 24 hours): Temp Pulse Resp BP Pulse Ox 98.1 F 100 H 20 134/71 100 11/12/17 00:00 11/12/17 06:00 11/12/17 06:00 11/12/17 06:00 11/12/17 06:00 Intake and Output: 11/12/17 11/12/17 06:59 18:59 Intake Total 1 Balance 196 - Medications Medications: Current Medications Acetaminophen (Tylenol 650mg/20.3ml Solution Ud) 650 mg GT Q4H PRN PRN Reason: Pain, Mild (1-3) Last Admin: 11/11/17 09:36 Dose: 650 mg Amlodipine Besylate (Norvasc) 5 mg GT DAILY [facility] Last Admin: 11/12/17 10:08 Dose: 5 mg Vancomycin HCl 1 gm/ Sodium (Chloride) 200 mls @ 166.7 mls/hr IVPB DAILY [facility] Last Admin: 11/11/17 09:52 Dose: 166.7 mls/hr Dextrose/Sodium Chloride (Dextrose 5%/0.45% Ns 1000 Ml) 1,000 mls @ 75 mls/hr IV .[id number] [facility] Last Admin: 11/12/17 08:43 Dose: Not Given Levetiracetam 500 mg/ Sodium (Chloride) 105 mls @ 420 mls/hr IVPB Q12H [facility] Last Admin: 11/12/17 08:42 Dose: 420 mls/hr Meropenem 1 gm/ Sodium (Chloride) 100 mls @ 100 mls/hr IVPB Q8H [facility] Last Admin: 11/12/17 05:00 Dose: 100 mls/hr Sodium Acetate 35 meq/Potassium Chloride 30 meq/Magnesium Sulfate 6 meq/Calcium Gluconate 4.5 meq/Chromium/Copper/Manganese/Zinc 1 ml/ Multivitamins/Vitamin C 10 ml/ Amino Acids 1,054.6552 mls @ 42 mls/hr IV .Q24H [facility] Stop: 11/12/17 17:59 Last Admin: 11/11/17 17:32 Dose: 42 mls/hr Sodium Acetate 35 meq/Potassium Chloride 30 meq/Magnesium Sulfate 6 meq/Calcium Gluconate 4.5 meq/Chromium/Copper/Manganese/Zinc 1 ml/ Multivitamins/Vitamin C 10 ml/ Amino Acids 1,054.6552 mls @ 42 mls/hr IV .Q24H [facility] Stop: 11/13/17 17:59 Potassium Chloride (Potassium Chloride 20 Meq/100 Ml) 20 meq in 100 mls @ 50 mls/hr IVPB ONCE ONE Stop: 11/12/17 11:37 Last Admin: 11/12/17 10:08 Dose: Not Given Fluconazole (Diflucan Iv 400mg/200ml Ns) 400 mls @ 100 mls/hr IVPB ONCE ONE Stop: 11/12/17 14:29 Fluconazole (Diflucan Iv 400mg/200ml Ns) 200 mls @ 100 mls/hr IVPB DAILY [facility] Magnesium Hydroxide (Milk Of Magnesia) 30 ml GT Q24H PRN PRN Reason: Constipation Pantoprazole Sodium (Protonix Susp) 40 mg PEG DAILY [facility] Last Admin: 11/12/17 10:08 Dose: 40 mg Polyethylene Glycol (Miralax) 17 gm GT DAILY [facility] Last Admin: 11/12/17 10:08 Dose: 17 gm Potassium Chloride (Potassium Chloride Oral Soln) 20 meq GT BID [facility] Last Admin: 11/12/17 10:08 Dose: 20 meq Sertraline HCl (Zoloft) 50 mg JT DAILY [facility] Last Admin: 11/12/17 10:08 Dose: 50 mg - Labs Labs: 11/12/17 06:42 11/12/17 06:42 PT 11.6 SECONDS (9.7-12.2) 10/26/17 02:55 INR 1.0 10/26/17 02:55 APTT 34 SECONDS (21-34) 10/26/17 02:55 - Head Exam Additional comments: PT REFUSED EXAM. Assessment and Plan - Assessment and Plan (Free Text) Assessment: This is a 67 yo female admitted for chronic abdominal pain and distention colonic dilation/obstruction/pseudo- obstruction Patient stable for DC to rehab from surgical standpoint. Tube feeds on at 10cc/ hr. Patients abdomen appears improved. Patient refuses to interact today, even in a yes / no fashion via nodding. She only nods "No" when asked if she can speak with me and answer my questions. - Peg tube grew e. coli. continue IV Abx. WBC 6.7, stable. 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 -PEG site culture growing staph. aureus/MRSA/ESBL -may need to move pt to ICU because she may need neostigmine -critical care consult placed with Dr. Chang. -ID consult. recs appreciated. Dr. Oden. -repeat CT scan shows small pleural effusion along with redemonstration of colonic dilation ileus rather than obstruction. -abdominal x ray shows colonic dilation still -GI consult. DR. CANA[place]. recs appreciated. -sx following. dr. culp. recs appreciated; no surgical intervention planned for this admission -pt underwent endoscopy along with peg removal and replacement -endoscopy showed esophagitis along with small hiatal hernia, as well as erythematous mucosa in stomach -pt is to f/u with GI for results of biopsy from endoscopy Fever -butler cultures -will order ct scan abdomen/pelvis to check for any abscesses -ID consult already on board. recs appreciated. -blood culture positive for yeast -starting IV fluconazole Anemia continue to monitor. hypokalemia -supplementation with potassium chloride daily hx of dementia -continue donepezil daily -patient is mostly non verbal but can understand commands and communicates through yes or no in albanian. However, full comprehension and ability to answer yes/no appropriately is questionable. hx of seizure disorder -continue keppra through PEG hx of depression -continue sertraline gi/dvt ppx -continue lovenox -continue protonix Dispo: DC being held on account of fever.
--- NOTE | 2017-11-12 10:27 | CP.PCM.PN ---
Subjective - Date & Time of Evaluation Date of Evaluation: 11/12/17 Time of Evaluation: 10:00 - Subjective Subjective: blood c/s + yeast needs removal PICC Diflucan added Objective - Vital Signs/Intake and Output Vital Signs (last 24 hours): Temp Pulse Resp BP Pulse Ox 98.1 F 100 H 20 134/71 100 11/12/17 00:00 11/12/17 06:00 11/12/17 06:00 11/12/17 06:00 11/12/17 06:00 Intake and Output: 11/12/17 11/12/17 06:59 18:59 Intake Total 1960 Balance 1960 - Medications Medications: Current Medications Acetaminophen (Tylenol 650mg/20.3ml Solution Ud) 650 mg GT Q4H PRN PRN Reason: Pain, Mild (1-3) Last Admin: 11/11/17 09:36 Dose: 650 mg Amlodipine Besylate (Norvasc) 5 mg GT DAILY [facility] Last Admin: 11/12/17 10:08 Dose: 5 mg Vancomycin HCl 1 gm/ Sodium (Chloride) 200 mls @ 166.7 mls/hr IVPB DAILY [facility] Last Admin: 11/11/17 09:52 Dose: 166.7 mls/hr Dextrose/Sodium Chloride (Dextrose 5%/0.45% Ns 1000 Ml) 1,000 mls @ 75 mls/hr IV .[id number] [facility] Last Admin: 11/12/17 08:43 Dose: Not Given Levetiracetam 500 mg/ Sodium (Chloride) 105 mls @ 420 mls/hr IVPB Q12H [facility] Last Admin: 11/12/17 08:42 Dose: 420 mls/hr Meropenem 1 gm/ Sodium (Chloride) 100 mls @ 100 mls/hr IVPB Q8H [facility] Last Admin: 11/12/17 05:00 Dose: 100 mls/hr Sodium Acetate 35 meq/Potassium Chloride 30 meq/Magnesium Sulfate 6 meq/Calcium Gluconate 4.5 meq/Chromium/Copper/Manganese/Zinc 1 ml/ Multivitamins/Vitamin C 10 ml/ Amino Acids 1,054.6552 mls @ 42 mls/hr IV .Q24H [facility] Stop: 11/12/17 17:59 Last Admin: 11/11/17 17:32 Dose: 42 mls/hr Sodium Acetate 35 meq/Potassium Chloride 30 meq/Magnesium Sulfate 6 meq/Calcium Gluconate 4.5 meq/Chromium/Copper/Manganese/Zinc 1 ml/ Multivitamins/Vitamin C 10 ml/ Amino Acids 1,054.6552 mls @ 42 mls/hr IV .Q24H [facility] Stop: 11/13/17 17:59 Potassium Chloride (Potassium Chloride 20 Meq/100 Ml) 20 meq in 100 mls @ 50 mls/hr IVPB ONCE ONE Stop: 11/12/17 11:37 Last Admin: 11/12/17 10:08 Dose: Not Given Fluconazole (Diflucan Iv 400mg/200ml Ns) 400 mls @ 100 mls/hr IVPB ONCE ONE Stop: 11/12/17 14:29 Fluconazole (Diflucan Iv 400mg/200ml Ns) 200 mls @ 100 mls/hr IVPB DAILY [facility] Magnesium Hydroxide (Milk Of Magnesia) 30 ml GT Q24H PRN PRN Reason: Constipation Pantoprazole Sodium (Protonix Susp) 40 mg PEG DAILY [facility] Last Admin: 11/12/17 10:08 Dose: 40 mg Polyethylene Glycol (Miralax) 17 gm GT DAILY [facility] Last Admin: 11/12/17 10:08 Dose: 17 gm Potassium Chloride (Potassium Chloride Oral Soln) 20 meq GT BID [facility] Last Admin: 11/12/17 10:08 Dose: 20 meq Sertraline HCl (Zoloft) 50 mg JT DAILY [facility] Last Admin: 11/12/17 10:08 Dose: 50 mg - Labs Labs: 11/12/17 06:42 11/12/17 06:42 PT 11.6 SECONDS (9.7-12.2) 10/26/17 02:55 INR 1.0 10/26/17 02:55 APTT 34 SECONDS (21-34) 10/26/17 02:55 - Constitutional Appears: Confused, Cachectic, Chronically Ill - Head Exam Head Exam: NORMOCEPHALIC - Eye Exam Eye Exam: absent: Scleral icterus - ENT Exam ENT Exam: Mucous Membranes Dry - Neck Exam Neck Exam: absent: Lymphadenopathy - Respiratory Exam Respiratory Exam: Decreased Breath Sounds - Cardiovascular Exam Cardiovascular Exam: REGULAR RHYTHM - GI/Abdominal Exam GI & Abdominal Exam: Distended. absent: Tenderness - Rectal Exam Rectal Exam: Deferred - Exam Exam: NORMAL INSPECTION Assessment and Plan (1) Abdominal distension Status: Acute (2) Colon distention Status: Acute - Assessment and Plan (Free Text) Assessment: fungemia / ? line sepsis remove picc add diflucan
[2017-11-12] MEDS ORDERED: SODIUM CHLORIDE IVPB ONE (10:30)
[2017-11-12] MEDS ORDERED: FLUCONAZOLE 800 MG/400 ML IVPB ONE (10:30)
[2017-11-12] MEDS: Vancomycin 1 GM in Sodium Chloride 0.9% 200 ML IVPB SCH (11:12)
[2017-11-12] MEDS ORDERED: PREMIXED IVPB ONE (12:30)
[2017-11-12] MEDS ORDERED: [UNRECOGNIZED DRUG - OTHER] IVPB ONE (12:30)
[2017-11-12] MEDS ORDERED: FLUCONAZOLE IVPB ONE (12:30)
--- NOTE | 2017-11-12 12:45 | CP.PCM.CON ---
History of Present Illness - History of Present Illness History of Present Illness: Consulted for tachycardia This is a 67 yo female admitted for chronic abdominal pain and distention. Non-verbal but responds and follows commands Unable to obtain history from patient: Chart reviewed for clinicals. Patient is not in any acute cardiopulmonary distress. No Angina or ADHF. Following problems are noted. colonic dilation/obstruction/pseudo- obstruction -sx following. dr. culp. recs appreciated; no surgical intervention planned for this admission -pt underwent endoscopy along with peg removal and replacement -endoscopy showed esophagitis along with small hiatal hernia, as well as erythematous mucosa in stomach -pt is to f/u with GI for results of biopsy from endoscopy Fever - on ABX for infection Anemia hypokalemia hx of dementia -continue donepezil daily -patient is mostly non verbal but can understand commands and communicates through yes or no in bruneian. However, full comprehension and ability to answer yes/no appropriately is questionable. hx of seizure disorder -continue keppra through PEG hx of depression -continue sertraline gi/dvt ppx -continue lovenox -continue protonix Review of Systems - Review of Systems All systems: reviewed and no additional remarkable complaints except Past Patient History - Infectious Disease Hx of Infectious Diseases: None - Past Medical History & Family History Past Medical History?: Yes - Past Social History Smoking Status: Never Smoked - CARDIAC Hx Hypertension: Yes - NEUROLOGICAL Hx Dementia: Yes Hx Seizures: Yes - HEENT Hx HEENT Problems: No - RENAL Hx Chronic Kidney Disease: No - INTEGUMENTARY Other/Comment: cellulitis - MUSCULOSKELETAL/RHEUMATOLOGICAL Hx Falls: No - GASTROINTESTINAL Other/Comment: gastrostomy - GENITOURINARY/GYNECOLOGICAL Hx Incontinence: Yes - PSYCHIATRIC Hx Depression: Yes (major) Hx Substance Use: No - SURGICAL HISTORY Other/Comment: brain surgery due to aneurysm,peg tube insertion. - ANESTHESIA Hx Anesthesia: Yes Hx Anesthesia Reactions: No Hx Malignant Hyperthermia: No Meds Allergies/Adverse Reactions: Allergies Allergy/AdvReac Type Severity Reaction Status Date / Time No Known Allergies Allergy Verified 10/25/17 22:25 - Medications Medications: Current Medications Acetaminophen (Tylenol 650mg/20.3ml Solution Ud) 650 mg GT Q4H PRN PRN Reason: Pain, Mild (1-3) Last Admin: 11/11/17 09:36 Dose: 650 mg Amlodipine Besylate (Norvasc) 5 mg GT DAILY [facility] Last Admin: 11/12/17 10:08 Dose: 5 mg Vancomycin HCl 1 gm/ Sodium (Chloride) 200 mls @ 166.7 mls/hr IVPB DAILY [facility] Last Admin: 11/12/17 11:12 Dose: Not Given Dextrose/Sodium Chloride (Dextrose 5%/0.45% Ns 1000 Ml) 1,000 mls @ 75 mls/hr IV .[id number] [facility] Last Admin: 11/12/17 08:43 Dose: Not Given Levetiracetam 500 mg/ Sodium (Chloride) 105 mls @ 420 mls/hr IVPB Q12H [facility] Last Admin: 11/12/17 08:42 Dose: 420 mls/hr Meropenem 1 gm/ Sodium (Chloride) 100 mls @ 100 mls/hr IVPB Q8H [facility] Last Admin: 11/12/17 05:00 Dose: 100 mls/hr Sodium Acetate 35 meq/Potassium Chloride 30 meq/Magnesium Sulfate 6 meq/Calcium Gluconate 4.5 meq/Chromium/Copper/Manganese/Zinc 1 ml/ Multivitamins/Vitamin C 10 ml/ Amino Acids 1,054.6552 mls @ 42 mls/hr IV .Q24H [facility] Stop: 11/12/17 17:59 Last Admin: 11/11/17 17:32 Dose: 42 mls/hr Sodium Acetate 35 meq/Potassium Chloride 30 meq/Magnesium Sulfate 6 meq/Calcium Gluconate 4.5 meq/Chromium/Copper/Manganese/Zinc 1 ml/ Multivitamins/Vitamin C 10 ml/ Amino Acids 1,054.6552 mls @ 42 mls/hr IV .Q24H [facility] Stop: 11/13/17 17:59 Fluconazole (Diflucan Iv 400mg/200ml Ns) 200 mls @ 100 mls/hr IVPB DAILY [facility] Fluconazole 800 mg/ (Miscellaneous) 400 mls @ 100 mls/hr IVPB ONCE ONE Stop: 11/12/17 16:29 Magnesium Hydroxide (Milk Of Magnesia) 30 ml GT Q24H PRN PRN Reason: Constipation Pantoprazole Sodium (Protonix Susp) 40 mg PEG DAILY [facility] Last Admin: 11/12/17 10:08 Dose: 40 mg Polyethylene Glycol (Miralax) 17 gm GT DAILY [facility] Last Admin: 11/12/17 10:08 Dose: 17 gm Potassium Chloride (Potassium Chloride Oral Soln) 20 meq GT BID [facility] Last Admin: 11/12/17 10:08 Dose: 20 meq Sertraline HCl (Zoloft) 50 mg JT DAILY [facility] Last Admin: 11/12/17 10:08 Dose: 50 mg Physical Exam - Constitutional Appears: Chronically Ill - Head Exam Head Exam: ATRAUMATIC, NORMOCEPHALIC - Eye Exam Eye Exam: Normal appearance - ENT Exam ENT Exam: Mucous Membranes Moist, Normal Oropharynx - Respiratory Exam Respiratory Exam: Clear to Auscultation Bilateral, NORMAL BREATHING PATTERN. absent: Rhonchi, Wheezes - Cardiovascular Exam Cardiovascular Exam: +S1, +S2. absent: Gallop, Systolic Murmur - Extremities Exam Extremities exam: Positive for: normal inspection. Negative for: calf tenderness, pedal edema - Neurological Exam Neurological exam: Alert - Skin Skin Exam: Normal Color, Warm Results - Vital Signs Recent Vital Signs: Last Vital Signs Temp 98.1 F 11/12/17 00:00 Pulse 100 H 11/12/17 06:00 Resp 20 11/12/17 06:00 BP 134/71 11/12/17 06:00 Pulse Ox 100 11/12/17 06:00 - Labs Result Diagrams: 11/12/17 06:42 11/12/17 06:42 Labs: Laboratory Results - last 24 hr 11/11/17 11/11/17 11/11/17 12:35 12:35 14:36 WBC 7.6 RBC 3.27 L Hgb 10.3 L Hct 31.3 L MCV 95.7 MCH 31.5 H MCHC 33.0 RDW 14.1 Plt Count 240 MPV 9.0 Neut % (Auto) 85.0 H Lymph % (Auto) 5.9 L Robertson % (Auto) 8.8 Eos % (Auto) 0.0 Baso % (Auto) 0.3 Neut # (Auto) 6.5 Lymph # (Auto) 0.4 L Robertson # (Auto) 0.7 Eos # (Auto) 0.0 Baso # (Auto) 0.0 Neutrophils % (Manual) 80 H Band Neutrophils % 6 H Lymphocytes % (Manual) 8 L Monocytes % (Manual) 5 Basophils % (Manual) 1 Platelet Estimate Normal Large Platelets Hypochromasia (manual) Slight Poikilocytosis (manual Slight Anisocytosis (manual) Slight Sodium 138 Potassium 3.9 Chloride 100 Carbon Dioxide 26 Anion Gap 16 BUN 9 Creatinine 0.5 L Est GFR ( Amer) > 60 Est GFR (Non-Af Amer) > 60 Random Glucose 159 H Calcium 7.5 L Total Bilirubin 0.2 AST 71 H D ALT 46 Alkaline Phosphatase 54 Total Protein 6.3 Albumin 3.0 L Globulin 3.3 Albumin/Globulin Ratio 0.9 L Urine Color Yellow Urine Clarity Hazy Urine pH 6.0 Ur Specific Dickinson 1.009 Urine Protein Negative Urine Glucose (UA) Normal Urine Ketones Negative Urine Blood 2+ H Urine Nitrate Negative Urine Bilirubin Negative Urine Urobilinogen Normal Ur Leukocyte Esterase Neg Urine WBC (Auto) < 1 Urine RBC (Auto) 4 H Ur Squamous Epith Cells 2 Urine Bacteria Rare 11/12/17 11/12/17 06:42 06:42 WBC 8.2 RBC 3.43 L Hgb 11.1 Hct 32.1 L MCV 93.7 D MCH 32.3 H MCHC 34.5 RDW 14.2 Plt Count 223 MPV 9.6 Neut % (Auto) 84.2 H Lymph % (Auto) 6.4 L Robertson % (Auto) 9.0 Eos % (Auto) 0.1 Baso % (Auto) 0.3 Neut # (Auto) 6.9 Lymph # (Auto) 0.5 L Robertson # (Auto) 0.7 Eos # (Auto) 0.0 Baso # (Auto) 0.0 Neutrophils % (Manual) 72 Band Neutrophils % 10 H Lymphocytes % (Manual) 9 L Monocytes % (Manual) 9 Basophils % (Manual) Platelet Estimate Normal Large Platelets Present Hypochromasia (manual) Slight Poikilocytosis (manual Slight Anisocytosis (manual) Slight Sodium 133 Potassium 3.3 L Chloride 98 Carbon Dioxide 26 Anion Gap 13 BUN 9 Creatinine 0.4 L Est GFR ( Amer) > 60 Est GFR (Non-Af Amer) > 60 Random Glucose 141 H Calcium 7.6 L Total Bilirubin 0.3 AST 63 H ALT 55 H Alkaline Phosphatase 59 Total Protein 6.4 Albumin 3.0 L Globulin 3.4 Albumin/Globulin Ratio 0.9 L Urine Color Urine Clarity Urine pH Ur Specific Dickinson Urine Protein Urine Glucose (UA) Urine Ketones Urine Blood Urine Nitrate Urine Bilirubin Urine Urobilinogen Ur Leukocyte Esterase Urine WBC (Auto) Urine RBC (Auto) Ur Squamous Epith Cells Urine Bacteria - EKG Data EKG Interpreted by: Myself (NSR, no acute ischemic changes) Assessment & Plan - Assessment and Plan (Free Text) Assessment: Non verbal Colonic distension PEG feed Dementia HTN Infectious sources as documented (Fungemia, line sepsis) on Abx Tachycardia is secondary to multiple comorbidities and infection No sx's of ACS or ADHF No high risk murmurs or signs of severe PAD Supportive care, hydration No cardiac w/u planned.
[2017-11-12] MEDS: Acetaminophen 650mg/20.3ml solution UD GT PRN ×2 (14:46→21:41)
--- NOTE | 2017-11-12 17:03 | CP.PCM.PN ---
Subjective - Date & Time of Evaluation Date of Evaluation: 11/12/17 Time of Evaluation: 07:00 - Subjective Subjective: clinically same Objective - Vital Signs/Intake and Output Vital Signs (last 24 hours): Temp Pulse Resp BP Pulse Ox 101.9 F H 78 20 101/64 96 11/12/17 16:46 11/12/17 16:46 11/12/17 16:46 11/12/17 16:46 11/12/17 16:46 Intake and Output: 11/12/17 11/12/17 06:59 18:59 Intake Total 1960 130 Balance 1960 130 - Medications Medications: Current Medications Acetaminophen (Tylenol 650mg/20.3ml Solution Ud) 650 mg GT Q4H PRN PRN Reason: Pain, Mild (1-3) Last Admin: 11/12/17 14:46 Dose: 650 mg Amlodipine Besylate (Norvasc) 5 mg GT DAILY [facility] Last Admin: 11/12/17 10:08 Dose: 5 mg Vancomycin HCl 1 gm/ Sodium (Chloride) 200 mls @ 166.7 mls/hr IVPB DAILY [facility] Last Admin: 11/12/17 11:12 Dose: Not Given Dextrose/Sodium Chloride (Dextrose 5%/0.45% Ns 1000 Ml) 1,000 mls @ 75 mls/hr IV .[id number] [facility] Last Admin: 11/12/17 08:43 Dose: Not Given Meropenem 1 gm/ Sodium (Chloride) 100 mls @ 100 mls/hr IVPB Q8H [facility] Last Admin: 11/12/17 13:22 Dose: Not Given Sodium Acetate 35 meq/Potassium Chloride 30 meq/Magnesium Sulfate 6 meq/Calcium Gluconate 4.5 meq/Chromium/Copper/Manganese/Zinc 1 ml/ Multivitamins/Vitamin C 10 ml/ Amino Acids 1,054.6552 mls @ 42 mls/hr IV .Q24H [facility] Stop: 11/12/17 17:59 Last Admin: 11/11/17 17:32 Dose: 42 mls/hr Fluconazole (Diflucan Iv 400mg/200ml Ns) 200 mls @ 100 mls/hr IVPB DAILY [facility] Levetiracetam (Keppra) 500 mg PEG Q12 [facility] Magnesium Hydroxide (Milk Of Magnesia) 30 ml GT Q24H PRN PRN Reason: Constipation Pantoprazole Sodium (Protonix Susp) 40 mg PEG DAILY [facility] Last Admin: 11/12/17 10:08 Dose: 40 mg Polyethylene Glycol (Miralax) 17 gm GT DAILY [facility] Last Admin: 11/12/17 10:08 Dose: 17 gm Potassium Chloride (Potassium Chloride Oral Soln) 20 meq GT BID [facility] Last Admin: 11/12/17 10:08 Dose: 20 meq Sertraline HCl (Zoloft) 50 mg JT DAILY [facility] Last Admin: 11/12/17 10:08 Dose: 50 mg - Labs Labs: 11/12/17 06:42 11/12/17 06:42 PT 11.6 SECONDS (9.7-12.2) 10/26/17 02:55 INR 1.0 10/26/17 02:55 APTT 34 SECONDS (21-34) 10/26/17 02:55 - Constitutional Appears: Well - Head Exam Head Exam: ATRAUMATIC, NORMAL INSPECTION, NORMOCEPHALIC - Eye Exam Eye Exam: EOMI, Normal appearance, PERRL Pupil Exam: NORMAL ACCOMODATION, PERRL - ENT Exam ENT Exam: Mucous Membranes Moist, Normal Exam - Neck Exam Neck Exam: Full ROM, Normal Inspection. absent: Lymphadenopathy - Respiratory Exam Respiratory Exam: Decreased Breath Sounds - Cardiovascular Exam Cardiovascular Exam: REGULAR RHYTHM, +S1, +S2 - GI/Abdominal Exam GI & Abdominal Exam: Soft, Diminished Bowel Sounds - Rectal Exam Rectal Exam: Deferred Assessment and Plan (1) Abdominal distension Status: Acute (2) Abdominal pain Status: Acute (3) Colon distention Status: Acute (4) Nausea Status: Acute (5) Toxic megacolon Status: Acute
[2017-11-12] MEDS ORDERED: PPN#7 IV SCH (18:00)
[2017-11-12] MEDS ORDERED: Fluconazole IV 400mg/200ml NS 200 ML IVPB STA (21:07)
[2017-11-12] MEDS: levETIRAcetam 100 mg/ml (5ml) Oral Syringe PEG SCH (22:03)
[2017-11-13] MEDS: Acetaminophen 650mg/20.3ml solution UD GT PRN ×2 (05:25→09:38)
[2017-11-13] MEDS: Meropenem 1 GM in Sodium Chloride 0.9% 100 ML IVPB SCH ×3 (05:25→22:17)
[2017-11-13 07:32] LABS: BASO % 0.3 % (0.0-2.0); HEMOGLOBIN 9.8 g/dL (11.0-16.0); LYMPH # 0.6 K/uL (1.0-4.3); LYMPH % 10.5 % (20.0-40.0); MEAN CELL VOLUME 94.3 fL (81.0-99.0); MEAN CORPUSCULAR HEMOGLOBIN 31.9 pg (27.0-31.0); MEAN CORPUSCULAR HGB CONC 33.9 g/dL (33.0-37.0); MEAN PLATELET VOLUME 10.1 fL (7.2-11.7); MONO # 0.6 K/uL (0.0-0.8); MONO % 9.5 % (0.0-10.0); NEUT # 4.8 K/uL (1.8-7.0); NEUT % 79.7 % (50.0-75.0); RBC 3.07 Mil/uL (3.80-5.20); RED CELL DISTRIBUTION WIDTH 14.1 % (11.5-14.5); WHITE BLOOD COUNT 6.1 K/uL (4.8-10.8)
[2017-11-13 07:55] LABS: ALB/GLOB RATIO 0.9 (1.0-2.1); ALBUMIN 2.8 g/dL (3.5-5.0); ALT/SGPT 65 U/L (9-52); AST/SGOT 85 U/L (14-36); BLOOD UREA NITROGEN 11 mg/dL (7-17); CALCIUM 7.5 mg/dl (8.6-10.4); GFR AFRICAN-AMERICAN > 60; GFR NON-AFRICAN AMERICAN > 60
[2017-11-13] MEDS: Potassium Chloride 20 mEq/15 ml LIQ UD GT SCH ×2 (09:37→18:00)
[2017-11-13] MEDS: POLYETHYLENE GLYCOL 3350 17 GM/Dose PACKET GT SCH (09:37)
[2017-11-13] MEDS: Pantoprazole 40 mg Susp UD PEG SCH (09:37)
[2017-11-13] MEDS: Dextrose 5%/0.45% NS 1,000 ML IV SCH ×2 (09:38→23:45)
[2017-11-13] MEDS: Fluconazole IV 400mg/200ml NS 200 ML IVPB SCH (10:16)
[2017-11-13] MEDS: Vancomycin 1 GM in Sodium Chloride 0.9% 200 ML IVPB SCH (10:20)
[2017-11-13] MEDS: levETIRAcetam 100 mg/ml (5ml) Oral Syringe PEG SCH ×2 (11:31→22:18)
--- NOTE | 2017-11-13 12:51 | CP.PCM.PN ---
Subjective - Date & Time of Evaluation Date of Evaluation: 11/13/17 Time of Evaluation: 12:50 - Subjective Subjective: PROGRESS NOTE. Attending: JANIS LOCKETT MD Pt seen and examined at bedside. No acute distress. No fevers, chills, vomiting , diarrhea. Objective - Vital Signs/Intake and Output Vital Signs (last 24 hours): Temp Pulse Resp BP Pulse Ox 98.9 F 71 20 94/59 L 98 11/13/17 10:38 11/13/17 09:05 11/13/17 09:05 11/13/17 09:05 11/13/17 09:05 Intake and Output: 11/13/17 11/13/17 06:59 18:59 Intake Total 1810 Output Total 0 Balance 1810 - Medications Medications: Current Medications Acetaminophen (Tylenol 650mg/20.3ml Solution Ud) 650 mg GT Q4H PRN PRN Reason: Pain, Mild (1-3) Last Admin: 11/13/17 09:38 Dose: 650 mg Amlodipine Besylate (Norvasc) 5 mg GT DAILY [facility] Last Admin: 11/13/17 09:23 Dose: Not Given Vancomycin HCl 1 gm/ Sodium (Chloride) 200 mls @ 166.7 mls/hr IVPB DAILY [facility] Last Admin: 11/13/17 10:20 Dose: 166.7 mls/hr Dextrose/Sodium Chloride (Dextrose 5%/0.45% Ns 1000 Ml) 1,000 mls @ 75 mls/hr IV .[id number] [facility] Last Admin: 11/13/17 09:38 Dose: Not Given Meropenem 1 gm/ Sodium (Chloride) 100 mls @ 100 mls/hr IVPB Q8H [facility] Last Admin: 11/13/17 05:25 Dose: 100 mls/hr Fluconazole (Diflucan Iv 400mg/200ml Ns) 200 mls @ 100 mls/hr IVPB DAILY [facility] Last Admin: 11/13/17 10:16 Dose: 100 mls/hr Levetiracetam (Keppra) 500 mg PEG Q12 [facility] Last Admin: 11/13/17 11:31 Dose: 500 mg Magnesium Hydroxide (Milk Of Magnesia) 30 ml GT Q24H PRN PRN Reason: Constipation Pantoprazole Sodium (Protonix Susp) 40 mg PEG DAILY [facility] Last Admin: 11/13/17 09:37 Dose: 40 mg Polyethylene Glycol (Miralax) 17 gm GT DAILY [facility] Last Admin: 11/13/17 09:37 Dose: 17 gm Potassium Chloride (Potassium Chloride Oral Soln) 20 meq GT BID [facility] Last Admin: 11/13/17 09:37 Dose: 20 meq Sertraline HCl (Zoloft) 50 mg JT DAILY [facility] Last Admin: 11/13/17 09:38 Dose: 50 mg - Labs Labs: 11/13/17 07:12 11/13/17 07:12 PT 11.6 SECONDS (9.7-12.2) 10/26/17 02:55 INR 1.0 10/26/17 02:55 APTT 34 SECONDS (21-34) 10/26/17 02:55 - Constitutional Appears: Non-toxic, No Acute Distress, Chronically Ill - Head Exam Head Exam: ATRAUMATIC, NORMAL INSPECTION, NORMOCEPHALIC - Eye Exam Eye Exam: EOMI - ENT Exam ENT Exam: Mucous Membranes Moist - Neck Exam Neck Exam: Full ROM, Normal Inspection - Respiratory Exam Respiratory Exam: NORMAL BREATHING PATTERN. absent: Respiratory Distress - Cardiovascular Exam Cardiovascular Exam: +S1, +S2 - GI/Abdominal Exam GI & Abdominal Exam: Soft, Normal Bowel Sounds. absent: Tenderness - Extremities Exam Extremities Exam: Full ROM, Normal Inspection - Back Exam Back Exam: NORMAL INSPECTION - Neurological Exam Neurological Exam: Altered. absent: Normal Gait - Psychiatric Exam Additional comments: unable to assess - Skin Skin Exam: Dry, Intact, Normal Color, Warm Assessment and Plan - Assessment and Plan (Free Text) Assessment: This is a 67 yo female admitted for chronic abdominal pain and distention colonic dilation/obstruction/pseudo- obstruction Patient stable for DC to rehab from surgical standpoint. Tube feeds on at 10cc/ hr. Patients abdomen appears improved. Patient refuses to interact today, even in a yes / no fashion via nodding. She only nods "No" when asked if she can speak with me and answer my questions. - Peg tube grew e. coli. continue IV Abx. WBC 6.7, stable. 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 -PEG site culture growing staph. aureus/MRSA/ESBL -may need to move pt to ICU because she may need neostigmine -critical care consult placed with Dr. Chang. -ID consult. recs appreciated. Dr. Oden. -repeat CT scan shows small pleural effusion along with redemonstration of colonic dilation ileus rather than obstruction. -abdominal x ray shows colonic dilation still -GI consult. DR. [place]. recs appreciated. -sx following. dr. culp. recs appreciated; no surgical intervention planned for this admission -pt underwent endoscopy along with peg removal and replacement -endoscopy showed esophagitis along with small hiatal hernia, as well as erythematous mucosa in stomach -pt is to f/u with GI for results of biopsy from endoscopy -repeat CT scan shows marked dilation of colon and particularly the rectosigmoid colon, along with multiple hepatic cysts. Fever -butler cultures>> shows yeast growing in blood -ID consult already on board. recs appreciated. -blood culture positive for yeast -starting IV fluconazole Anemia continue to monitor. hypokalemia -supplementation with potassium chloride daily hx of dementia -continue donepezil daily -patient is mostly non verbal but can understand commands and communicates through yes or no in slovenian. However, full comprehension and ability to answer yes/no appropriately is questionable. hx of seizure disorder -continue keppra through PEG hx of depression -continue sertraline gi/dvt ppx -continue lovenox -continue protonix Dispo: DC being held on account of fever; waiting to get in touch with son
--- NOTE | 2017-11-13 13:56 | PN ---
DATE: LOCATION: 355. SUBJECTIVE: This 67 years old female seen and examined in rounds without significant clinical changes or reported active bleeding. The entire chart is reviewed including, but not limited to the most recent lab and radiology study results. Case discussed with the staff at length as well as all the consultants. It is to be reported that the patient is nonverbal, but occasionally responds and follows commands. PEG tube simply shows mild abdominal distention. The patient had abdominal and pelvic CAT scan recently. Official report is seen, again indicative of marked dilation of the colon, especially the rectosigmoid area with new mural thickening at the transverse colon indicative of colitis. Multiple hepatic cysts are seen with possible hemangioma versus hemorrhage. PHYSICAL EXAMINATION: GENERAL: A 67 years old female. VITAL SIGNS: Low-grade temperature 99.7, most likely secondary to recently diagnosed pneumonia, blood pressure 98/62, pulse of 76, respiratory rate 20 to 22. HEENT: Showed pale, dry oral mucous membrane. Nonicteric sclerae. LUNGS: Few scattered crepitation, decreased air entry at bases. HEART: Positive S1 and S2. ABDOMEN: Soft, with mild generalized tenderness. No mass or organomegaly. No rebound tenderness or guarding. PEG tube is in place with no clear evidence of anterior abdominal wall cellulitis now. resistance in the PEG tube. Abdominal distention was noted. EXTREMITIES: With lower extremity edematous changes. No clubbing or cyanosis. NEUROLOGIC: No new reported neurological deficits, sensory or motor. IMPRESSION: 1. Ileus again, the possibility of mild colitis was raised. 2. Status post percutaneous endoscopic gastrostomy insertion. 3. Malnutrition, hypoalbuminemia. 4. Anemia. 5. Electrolyte imbalance. 6. Known history of depression, seizure disorder with cardiopulmonary arrest by history. 7. Methicillin-resistant Staphylococcus aureus infection by recent history. SUGGESTIONS: 1. Agree with your plan. 2. Cardiology full evaluation is in process. 3. Rectal tube and open the PEG tube top to the air for decompression again. 4. Surgical reevaluation. 5. Further recommendation to follow. iLdia Lam MD
--- NOTE | 2017-11-13 15:11 | CP.PCM.PN ---
Subjective - Date & Time of Evaluation Date of Evaluation: 11/13/17 Time of Evaluation: 07:00 - Subjective Subjective: clinically same Objective - Vital Signs/Intake and Output Vital Signs (last 24 hours): Temp Pulse Resp BP Pulse Ox 98.9 F 71 20 94/59 L 98 11/13/17 10:38 11/13/17 09:05 11/13/17 09:05 11/13/17 09:05 11/13/17 09:05 Intake and Output: 11/13/17 11/13/17 06:59 18:59 Intake Total 1810 410 Output Total 0 0 Balance 1810 410 - Medications Medications: Current Medications Acetaminophen (Tylenol 650mg/20.3ml Solution Ud) 650 mg GT Q4H PRN PRN Reason: Pain, Mild (1-3) Last Admin: 11/13/17 09:38 Dose: 650 mg Amlodipine Besylate (Norvasc) 5 mg GT DAILY [facility] Last Admin: 11/13/17 09:23 Dose: Not Given Vancomycin HCl 1 gm/ Sodium (Chloride) 200 mls @ 166.7 mls/hr IVPB DAILY [facility] Last Admin: 11/13/17 10:20 Dose: 166.7 mls/hr Dextrose/Sodium Chloride (Dextrose 5%/0.45% Ns 1000 Ml) 1,000 mls @ 75 mls/hr IV .[id number] [facility] Last Admin: 11/13/17 09:38 Dose: Not Given Meropenem 1 gm/ Sodium (Chloride) 100 mls @ 100 mls/hr IVPB Q8H [facility] Last Admin: 11/13/17 13:03 Dose: 100 mls/hr Fluconazole (Diflucan Iv 400mg/200ml Ns) 200 mls @ 100 mls/hr IVPB DAILY [facility] Last Admin: 11/13/17 10:16 Dose: 100 mls/hr Levetiracetam (Keppra) 500 mg PEG Q12 [facility] Last Admin: 11/13/17 11:31 Dose: 500 mg Magnesium Hydroxide (Milk Of Magnesia) 30 ml GT Q24H PRN PRN Reason: Constipation Pantoprazole Sodium (Protonix Susp) 40 mg PEG DAILY [facility] Last Admin: 11/13/17 09:37 Dose: 40 mg Polyethylene Glycol (Miralax) 17 gm GT DAILY [facility] Last Admin: 11/13/17 09:37 Dose: 17 gm Potassium Chloride (Potassium Chloride Oral Soln) 20 meq GT BID [facility] Last Admin: 11/13/17 09:37 Dose: 20 meq Sertraline HCl (Zoloft) 50 mg JT DAILY [facility] Last Admin: 11/13/17 09:38 Dose: 50 mg - Labs Labs: 11/13/17 07:12 11/13/17 07:12 PT 11.6 SECONDS (9.7-12.2) 10/26/17 02:55 INR 1.0 10/26/17 02:55 APTT 34 SECONDS (21-34) 10/26/17 02:55 - Constitutional Appears: Well - Head Exam Head Exam: ATRAUMATIC, NORMAL INSPECTION, NORMOCEPHALIC - Eye Exam Eye Exam: EOMI, Normal appearance, PERRL Pupil Exam: NORMAL ACCOMODATION, PERRL - ENT Exam ENT Exam: Mucous Membranes Moist, Normal Exam - Neck Exam Neck Exam: Full ROM, Normal Inspection. absent: Lymphadenopathy - Respiratory Exam Respiratory Exam: Decreased Breath Sounds - Cardiovascular Exam Cardiovascular Exam: REGULAR RHYTHM, +S1, +S2 - GI/Abdominal Exam GI & Abdominal Exam: Soft, Diminished Bowel Sounds - Rectal Exam Rectal Exam: Deferred Assessment and Plan (1) Abdominal distension Status: Acute (2) Abdominal pain Status: Acute (3) Colon distention Status: Acute (4) Nausea Status: Acute (5) Toxic megacolon Status: Acute
--- NOTE | 2017-11-13 18:48 | CP.PCM.PN ---
Subjective - Date & Time of Evaluation Date of Evaluation: 11/13/17 Time of Evaluation: 08:00 - Subjective Subjective: t max lower remains confused all lines removed IV rx in progress Objective - Vital Signs/Intake and Output Vital Signs (last 24 hours): Temp Pulse Resp BP Pulse Ox 98.3 F 92 H 20 102/61 95 11/13/17 15:15 11/13/17 15:15 11/13/17 15:15 11/13/17 15:15 11/13/17 15:15 Intake and Output: 11/13/17 11/13/17 06:59 18:59 Intake Total 1810 410 Output Total 0 0 Balance 1810 410 - Medications Medications: Current Medications Acetaminophen (Tylenol 650mg/20.3ml Solution Ud) 650 mg GT Q4H PRN PRN Reason: Pain, Mild (1-3) Last Admin: 11/13/17 09:38 Dose: 650 mg Amlodipine Besylate (Norvasc) 5 mg GT DAILY [facility] Last Admin: 11/13/17 09:23 Dose: Not Given Vancomycin HCl 1 gm/ Sodium (Chloride) 200 mls @ 166.7 mls/hr IVPB DAILY [facility] Last Admin: 11/13/17 10:20 Dose: 166.7 mls/hr Dextrose/Sodium Chloride (Dextrose 5%/0.45% Ns 1000 Ml) 1,000 mls @ 75 mls/hr IV .[id number] [facility] Last Admin: 11/13/17 09:38 Dose: Not Given Meropenem 1 gm/ Sodium (Chloride) 100 mls @ 100 mls/hr IVPB Q8H [facility] Last Admin: 11/13/17 13:03 Dose: 100 mls/hr Fluconazole (Diflucan Iv 400mg/200ml Ns) 200 mls @ 100 mls/hr IVPB DAILY [facility] Last Admin: 11/13/17 10:16 Dose: 100 mls/hr Levetiracetam (Keppra) 500 mg PEG Q12 [facility] Last Admin: 11/13/17 11:31 Dose: 500 mg Magnesium Hydroxide (Milk Of Magnesia) 30 ml GT Q24H PRN PRN Reason: Constipation Pantoprazole Sodium (Protonix Susp) 40 mg PEG DAILY [facility] Last Admin: 11/13/17 09:37 Dose: 40 mg Polyethylene Glycol (Miralax) 17 gm GT DAILY [facility] Last Admin: 11/13/17 09:37 Dose: 17 gm Potassium Chloride (Potassium Chloride Oral Soln) 20 meq GT BID [facility] Last Admin: 11/13/17 09:37 Dose: 20 meq Sertraline HCl (Zoloft) 50 mg JT DAILY [facility] Last Admin: 11/13/17 09:38 Dose: 50 mg - Labs Labs: 11/13/17 07:12 11/13/17 07:12 PT 11.6 SECONDS (9.7-12.2) 10/26/17 02:55 INR 1.0 10/26/17 02:55 APTT 34 SECONDS (21-34) 10/26/17 02:55 - Constitutional Appears: Non-toxic, Chronically Ill - Head Exam Head Exam: NORMOCEPHALIC - Eye Exam Eye Exam: PERRL - ENT Exam ENT Exam: Mucous Membranes Dry - Neck Exam Neck Exam: absent: Lymphadenopathy - Respiratory Exam Respiratory Exam: Decreased Breath Sounds, Rhonchi - Cardiovascular Exam Cardiovascular Exam: REGULAR RHYTHM, +S1, +S2 - GI/Abdominal Exam GI & Abdominal Exam: Distended, Soft. absent: Tenderness - Rectal Exam Rectal Exam: Deferred - Exam Exam: NORMAL INSPECTION - Extremities Exam Extremities Exam: absent: Pedal Edema - Back Exam Back Exam: absent: CVA tenderness (L), CVA tenderness (R) - Neurological Exam Neurological Exam: Alert, Awake Assessment and Plan (1) Abdominal distension Status: Acute (2) Colon distention Status: Acute - Assessment and Plan (Free Text) Assessment: cont antifungal
--- NOTE | 2017-11-13 21:54 | CON ---
DATE: 11/13/2017 Consultation was made for patient having yeast on blood culture and to rule out any ocular involvement. HISTORY OF PRESENT ILLNESS: The patient is a 67-year-old female with a complicated past medical history. She has a history of CVA, hypertension, depression, dementia, seizure disorder, peptic ulcer disease. She is currently unable to get out of bed. She is nonverbal. I got her medical information from the medical staff. PHYSICAL EXAMINATION: HEENT: On exam, I examined her with an indirect light and lens. I could note that her corneas in both eyes were clear. Her anterior segment appeared clear. She does appear to have mild cataracts in both eyes. She has no signs of any debris in her vitreous, in both her eyes. There were no signs of any infection in both eyes. ASSESSMENT: 1. Mild cataracts. 2. No signs of infection. RECOMMENDATION: Once the patient is discharged, she should have annual routine check with her ultrasound applications specialist. Again if there are any questions, please call [phone]. Ramiro Rossi MD
[2017-11-14] MEDS: Meropenem 1 GM in Sodium Chloride 0.9% 100 ML IVPB SCH ×3 (05:15→21:30)
[2017-11-14] MEDS ORDERED: Iohexol 240 (50 ml) PO ONE ×2 (09:55→10:30)
[2017-11-14] MEDS: Vancomycin 1 GM in Sodium Chloride 0.9% 200 ML IVPB SCH (10:58)
[2017-11-14] MEDS: Fluconazole IV 400mg/200ml NS 200 ML IVPB SCH (10:58)
[2017-11-14] MEDS: Potassium Chloride 20 mEq/15 ml LIQ UD GT SCH ×2 (13:27→18:13)
--- NOTE | 2017-11-14 13:27 | RAD ---
HISTORY: eval for contrast extravasation COMPARISON: 11/07/2017 abdomen supine portable ; abdomen and pelvic CT 11/11/2017 FINDINGS: BOWEL: The dilated sigmoid colon is again suggested other loops of gaseous dilated large bowel loops are also suggested right lateral to this. There is tech note of 45 mL of oral contrast administered via PEG tube The gastric and proximal small bowel loops are not dilated. BONES: Normal. OTHER FINDINGS: None. IMPRESSION: Persistent colonic distention especially the sigmoid colon. A sigmoid volvulus is still a consideration. No a small bowel dilated loops noted. No administered oral contrast extravasation seen. Clinical correlation recommended
[2017-11-14] MEDS: Pantoprazole 40 mg Susp UD PEG SCH (13:28)
[2017-11-14] MEDS: levETIRAcetam 100 mg/ml (5ml) Oral Syringe PEG SCH ×2 (13:29→21:30)
[2017-11-14] MEDS: POLYETHYLENE GLYCOL 3350 17 GM/Dose PACKET GT SCH (13:30)
--- NOTE | 2017-11-14 13:44 | CP.PCM.PN ---
Subjective - Date & Time of Evaluation Date of Evaluation: 11/14/17 Time of Evaluation: 07:00 - Subjective Subjective: clinically same Objective - Vital Signs/Intake and Output Vital Signs (last 24 hours): Temp Pulse Resp BP Pulse Ox 97.9 F 94 H 20 132/90 100 11/14/17 09:00 11/14/17 09:00 11/14/17 09:00 11/14/17 09:00 11/14/17 09:00 Intake and Output: 11/14/17 11/14/17 06:59 18:59 Intake Total 645 Balance 645 - Medications Medications: Current Medications Acetaminophen (Tylenol 650mg/20.3ml Solution Ud) 650 mg GT Q4H PRN PRN Reason: Pain, Mild (1-3) Last Admin: 11/13/17 09:38 Dose: 650 mg Amlodipine Besylate (Norvasc) 5 mg GT DAILY [facility] Last Admin: 11/14/17 13:28 Dose: 5 mg Vancomycin HCl 1 gm/ Sodium (Chloride) 200 mls @ 166.7 mls/hr IVPB DAILY [facility] Last Admin: 11/14/17 10:58 Dose: 166.7 mls/hr Meropenem 1 gm/ Sodium (Chloride) 100 mls @ 100 mls/hr IVPB Q8H [facility] Last Admin: 11/14/17 05:15 Dose: 100 mls/hr Fluconazole (Diflucan Iv 400mg/200ml Ns) 200 mls @ 100 mls/hr IVPB DAILY [facility] Last Admin: 11/14/17 10:58 Dose: 100 mls/hr Fat Emulsion Intravenous (Intralipid 20%) 500 mls @ 42 mls/hr IV TTS@1800 [facility] Stop: 11/20/17 18:01 Multivitamins/Vitamin C 10 ml/ (Amino Acids) 1,010 mls @ 42 mls/hr IV .Q24H [facility] Stop: 11/15/17 17:59 Levetiracetam (Keppra) 500 mg PEG Q12 [facility] Last Admin: 11/14/17 13:29 Dose: 500 mg Magnesium Hydroxide (Milk Of Magnesia) 30 ml GT Q24H PRN PRN Reason: Constipation Pantoprazole Sodium (Protonix Susp) 40 mg PEG DAILY [facility] Last Admin: 11/14/17 13:28 Dose: 40 mg Polyethylene Glycol (Miralax) 17 gm GT DAILY [facility] Last Admin: 11/14/17 13:30 Dose: 17 gm Potassium Chloride (Potassium Chloride Oral Soln) 20 meq GT BID [facility] Last Admin: 11/14/17 13:27 Dose: 20 meq Sertraline HCl (Zoloft) 50 mg JT DAILY [facility] Last Admin: 11/14/17 13:29 Dose: 50 mg - Labs Labs: 11/13/17 07:12 11/13/17 07:12 PT 11.6 SECONDS (9.7-12.2) 10/26/17 02:55 INR 1.0 10/26/17 02:55 APTT 34 SECONDS (21-34) 10/26/17 02:55 - Constitutional Appears: Well - Head Exam Head Exam: ATRAUMATIC, NORMAL INSPECTION, NORMOCEPHALIC - Eye Exam Eye Exam: EOMI, Normal appearance, PERRL Pupil Exam: NORMAL ACCOMODATION, PERRL - ENT Exam ENT Exam: Mucous Membranes Moist, Normal Exam - Neck Exam Neck Exam: Full ROM, Normal Inspection. 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 hurst and dr. culp for refollowup iv antibiotic spetic work up followup
--- NOTE | 2017-11-14 13:48 | RAD ---
HISTORY: eval for contrast extravasation COMPARISON: 07/11/2018 at 1127 hours. FINDINGS: LUNGS: Low-normal lung volumes. No interval consolidation. Mild left basal compressive atelectasis with small left pleural effusion possible. Oval change here perceived. PLEURA: Small left pleural effusion. -similar-appearing CARDIOVASCULAR: Mild cardiomegaly-similar. OSSEOUS STRUCTURES: Bilateral shoulder arthrosis VISUALIZED UPPER ABDOMEN: Contrast partially visualized all with contrast infused per PEG tube. Grossly no unexpected contrast localization/extravasation appreciated. Dilated colonic loops -similar OTHER FINDINGS: None. IMPRESSION: Dilated colon loops -similar. The contrast she is partly visualized appears confined to expected normal anatomy. No extravasated contrast appreciated. Small left pleural effusion. Passive compressive atelectasis left lung base compatible with this. No interval infiltrates noted. Appearance of the chest is similar
--- NOTE | 2017-11-14 13:50 | CP.PCM.PN ---
Subjective - Date & Time of Evaluation Date of Evaluation: 11/14/17 Time of Evaluation: 13:48 - Subjective Subjective: PGY2 Medicine Note for Dr. Boris Kelly; all management as per Dr. Boris Kelly patient seen and examined at bedside without attending physician; patient able to make needs known via yes no questions; denies fevers/chills, [place], CP, abdominal pain, N/V/D dysuria/freq/urg or lower extremity pain/swelling; patient had rectal tube inserted which drained 1500ml of acevedo liqiud stool; abdominal distention much less and stomach is now soft Objective - Vital Signs/Intake and Output Vital Signs (last 24 hours): Temp Pulse Resp BP Pulse Ox 97.9 F 94 H 20 132/90 100 11/14/17 09:00 11/14/17 09:00 11/14/17 09:00 11/14/17 09:00 11/14/17 09:00 Intake and Output: 11/14/17 11/14/17 06:59 18:59 Intake Total 645 Balance 645 - Medications Medications: Current Medications Acetaminophen (Tylenol 650mg/20.3ml Solution Ud) 650 mg GT Q4H PRN PRN Reason: Pain, Mild (1-3) Last Admin: 11/13/17 09:38 Dose: 650 mg Amlodipine Besylate (Norvasc) 5 mg GT DAILY [facility] Last Admin: 11/14/17 13:28 Dose: 5 mg Vancomycin HCl 1 gm/ Sodium (Chloride) 200 mls @ 166.7 mls/hr IVPB DAILY [facility] Last Admin: 11/14/17 10:58 Dose: 166.7 mls/hr Meropenem 1 gm/ Sodium (Chloride) 100 mls @ 100 mls/hr IVPB Q8H [facility] Last Admin: 11/14/17 05:15 Dose: 100 mls/hr Fluconazole (Diflucan Iv 400mg/200ml Ns) 200 mls @ 100 mls/hr IVPB DAILY [facility] Last Admin: 11/14/17 10:58 Dose: 100 mls/hr Fat Emulsion Intravenous (Intralipid 20%) 500 mls @ 42 mls/hr IV TTS@1800 [facility] Stop: 11/20/17 18:01 Multivitamins/Vitamin C 10 ml/ (Amino Acids) 1,010 mls @ 42 mls/hr IV .Q24H [facility] Stop: 11/15/17 17:59 Levetiracetam (Keppra) 500 mg PEG Q12 [facility] Last Admin: 11/14/17 13:29 Dose: 500 mg Magnesium Hydroxide (Milk Of Magnesia) 30 ml GT Q24H PRN PRN Reason: Constipation Pantoprazole Sodium (Protonix Susp) 40 mg PEG DAILY [facility] Last Admin: 11/14/17 13:28 Dose: 40 mg Polyethylene Glycol (Miralax) 17 gm GT DAILY [facility] Last Admin: 11/14/17 13:30 Dose: 17 gm Potassium Chloride (Potassium Chloride Oral Soln) 20 meq GT BID [facility] Last Admin: 11/14/17 13:27 Dose: 20 meq Sertraline HCl (Zoloft) 50 mg JT DAILY [facility] Last Admin: 11/14/17 13:29 Dose: 50 mg - Labs Labs: 11/13/17 07:12 11/13/17 07:12 PT 11.6 SECONDS (9.7-12.2) 10/26/17 02:55 INR 1.0 10/26/17 02:55 APTT 34 SECONDS (21-34) 10/26/17 02:55 - Constitutional Appears: Non-toxic - Head Exam Head Exam: ATRAUMATIC - Eye Exam Eye Exam: EOMI. absent: Scleral icterus - ENT Exam ENT Exam: Mucous Membranes Moist - Neck Exam Neck Exam: absent: Lymphadenopathy - Respiratory Exam Respiratory Exam: Clear to Ausculation Bilateral - Cardiovascular Exam Cardiovascular Exam: REGULAR RHYTHM - GI/Abdominal Exam GI & Abdominal Exam: Soft - Extremities Exam Extremities Exam: absent: Calf Tenderness - Back Exam Back Exam: absent: CVA tenderness (L), CVA tenderness (R) - Neurological Exam Neurological Exam: Alert, Awake - Skin Skin Exam: Warm Assessment and Plan - Assessment and Plan (Free Text) Assessment: This is a 67 yo female admitted for chronic abdominal pain and distention colonic dilation/obstruction/pseudo- obstruction ; resolved Patient stable for DC to rehab from surgical standpoint. Tube feeds on at 10cc/ hr. Patients abdomen appears improved. Patient refuses to interact today, even in a yes / no fashion via nodding. She only nods "No" when asked if she can speak with me and answer my questions. - Peg tube grew e. coli. continue IV Abx. WBC 6.7, stable. 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 -PEG site culture growing staph. aureus/MRSA/ESBL -may need to move pt to ICU because she may need neostigmine -critical care consult placed with Dr. Chang. -ID consult. recs appreciated. Dr. Oden. -repeat CT scan shows small pleural effusion along with redemonstration of colonic dilation ileus rather than obstruction. -abdominal x ray shows colonic dilation still -GI consult. DR. CANADA. recs appreciated. -sx following. dr. culp. recs appreciated; no surgical intervention planned for this admission -pt underwent endoscopy along with peg removal and replacement -endoscopy showed esophagitis along with small hiatal hernia, as well as erythematous mucosa in stomach -pt is to f/u with GI for results of biopsy from endoscopy -repeat CT scan shows marked dilation of colon and particularly the rectosigmoid colon, along with multiple hepatic cysts. Fever -butler cultures>> shows yeast growing in blood -ID consult already on board. recs appreciated. -blood culture positive for yeast; f/u repeat cultures -starting IV fluconazole; will continue as per ID for 14 days Anemia;chronic and stable continue to monitor. hypokalemia; will continue to replete -supplementation with potassium chloride daily hx of dementia -continue donepezil daily -patient is mostly non verbal but can understand commands and communicates through yes or no in sami. However, full comprehension and ability to answer yes/no appropriately is questionable. hx of seizure disorder -continue keppra through PEG hx of depression -continue sertraline gi/dvt ppx -continue lovenox -continue protonix Dispo: DC being held on account of +blood cultures; tube feeds stopped today as per surgery
[2017-11-14 14:14] LABS: BASO # 0.1 K/uL (0.0-0.2); BASO % 0.9 % (0.0-2.0); EOS % 0.2 % (0.0-4.0); HEMOGLOBIN 10.2 g/dL (11.0-16.0); LYMPH # 2.2 K/uL (1.0-4.3); LYMPH % 18.2 % (20.0-40.0); MEAN CELL VOLUME 93.6 fL (81.0-99.0); MEAN CORPUSCULAR HEMOGLOBIN 31.7 pg (27.0-31.0); MEAN CORPUSCULAR HGB CONC 33.9 g/dL (33.0-37.0); MONO # 1.5 K/uL (0.0-0.8); MONO % 12.2 % (0.0-10.0); NEUT # 8.2 K/uL (1.8-7.0); NEUT % 68.5 % (50.0-75.0); NRBC % 0.1 % (0.0-2.0); RBC 3.21 Mil/uL (3.80-5.20); RED CELL DISTRIBUTION WIDTH 14.6 % (11.5-14.5)
[2017-11-14 14:27] LABS: ALB/GLOB RATIO 0.8 (1.0-2.1); ALBUMIN 2.9 g/dL (3.5-5.0); ALT/SGPT 128 U/L (9-52); AST/SGOT 163 U/L (14-36); BLOOD UREA NITROGEN 8 mg/dL (7-17); CALCIUM 7.6 mg/dl (8.6-10.4); GFR AFRICAN-AMERICAN > 60; GFR NON-AFRICAN AMERICAN > 60
[2017-11-14] MEDS: Fat Emulsion 20% IV 500 ML IV SCH (18:00)
[2017-11-14] MEDS: Vitamins A & D Oint UD Foilpak TOP SCH (18:00)
[2017-11-14] MEDS ORDERED: PPN #1 IV SCH (18:00)
--- NOTE | 2017-11-14 19:04 | CP.PCM.PN ---
Subjective - Date & Time of Evaluation Date of Evaluation: 11/14/17 Time of Evaluation: 08:00 - Subjective Subjective: IV RX ADJUSTED + FUNGEMIA REPEAT C/S PENDING CONSIDER ECHO Objective - Vital Signs/Intake and Output Vital Signs (last 24 hours): Temp Pulse Resp BP Pulse Ox 99.8 F H 92 H 20 95/60 L 95 11/14/17 15:15 11/14/17 15:15 11/14/17 15:15 11/14/17 15:15 11/14/17 15:15 Intake and Output: 11/14/17 11/15/17 18:59 06:59 Intake Total 560 Output Total 1200 Balance -640 - Medications Medications: Current Medications Acetaminophen (Tylenol 650mg/20.3ml Solution Ud) 650 mg GT Q4H PRN PRN Reason: Pain, Mild (1-3) Last Admin: 11/13/17 09:38 Dose: 650 mg Amlodipine Besylate (Norvasc) 5 mg GT DAILY [facility] Last Admin: 11/14/17 13:28 Dose: 5 mg Vancomycin HCl 1 gm/ Sodium (Chloride) 200 mls @ 166.7 mls/hr IVPB DAILY [facility] Last Admin: 11/14/17 10:58 Dose: 166.7 mls/hr Meropenem 1 gm/ Sodium (Chloride) 100 mls @ 100 mls/hr IVPB Q8H [facility] Last Admin: 11/14/17 14:30 Dose: 100 mls/hr Fluconazole (Diflucan Iv 400mg/200ml Ns) 200 mls @ 100 mls/hr IVPB DAILY [facility] Last Admin: 11/14/17 10:58 Dose: 100 mls/hr Fat Emulsion Intravenous (Intralipid 20%) 500 mls @ 42 mls/hr IV TTS@1800 [facility] Stop: 11/20/17 18:01 Multivitamins/Vitamin C 10 ml/ (Amino Acids) 1,010 mls @ 42 mls/hr IV .Q24H [facility] Stop: 11/15/17 17:59 Levetiracetam (Keppra) 500 mg PEG Q12 [facility] Last Admin: 11/14/17 13:29 Dose: 500 mg Magnesium Hydroxide (Milk Of Magnesia) 30 ml GT Q24H PRN PRN Reason: Constipation Pantoprazole Sodium (Protonix Susp) 40 mg PEG DAILY [facility] Last Admin: 11/14/17 13:28 Dose: 40 mg Polyethylene Glycol (Miralax) 17 gm GT DAILY [facility] Last Admin: 11/14/17 13:30 Dose: 17 gm Sertraline HCl (Zoloft) 50 mg JT DAILY [facility] Last Admin: 11/14/17 13:29 Dose: 50 mg Vitamin A (Vitamin A & D Oint Ud Foilpak) 1 ea TOP BID [facility] - Labs Labs: 11/14/17 14:04 11/14/17 14:04 PT 11.6 SECONDS (9.7-12.2) 10/26/17 02:55 INR 1.0 10/26/17 02:55 APTT 34 SECONDS (21-34) 10/26/17 02:55 - Constitutional Appears: Confused, Cachectic, Chronically Ill - Head Exam Head Exam: NORMOCEPHALIC - Eye Exam Eye Exam: absent: Scleral icterus - ENT Exam ENT Exam: Mucous Membranes Dry - Neck Exam Neck Exam: absent: Lymphadenopathy - Respiratory Exam Respiratory Exam: Decreased Breath Sounds - Cardiovascular Exam Cardiovascular Exam: REGULAR RHYTHM - GI/Abdominal Exam GI & Abdominal Exam: Distended - Rectal Exam Rectal Exam: Deferred Assessment and Plan (1) Abdominal distension Status: Acute (2) Colon distention Status: Acute (3) Fungemia Status: Acute (4) Sepsis Status: Acute (5) Sepsis Status: Acute
[2017-11-15] MEDS: Meropenem 1 GM in Sodium Chloride 0.9% 100 ML IVPB SCH ×3 (06:01→22:50)
--- NOTE | 2017-11-15 07:47 | PN ---
DATE: LOCATION: [facility]. SUBJECTIVE: This 67-year-old female seen and examined around early today without reported significant changes. No reported active bleeding or reported chest pain or palpitation but abdominal mild distention, PEG tube is still in place with evidence of slight anterior abdominal wall cellulitis. The entire chart is reviewed including, but not limited to most recent lab and radiology study results, current and previous medication list, current and previous medical events. Today's lab is still pending, but the patient reported to have low hemoglobin and hematocrit without evidence of active bleeding with low potassium, low calcium, low albumin, and low total protein with mildly elevated AST and ALT, blood glucose level of 178. PHYSICAL EXAMINATION GENERAL: A 67-year-old female. VITAL SIGNS: Afebrile, nonverbal with pulse of 92, respiratory rate 20 to 22, blood pressure 124/88. HEENT: Showed pale, dry oral mucosal membranes. Nonicteric sclera. LUNGS: Few scattered crepitation. Decreased air entry at bases. HEART: Positive S1 and S2. ABDOMEN: Soft with mild to moderate distention, slightly firm. PEG tube is in place. No reported bleeding, residual or resistant. EXTREMITIES: Lower extremity, mild edematous changes. No clubbing or cyanosis. NEUROLOGIC: No reported new neurological deficit, sensory or motor. IMPRESSION: 1. Anterior abdominal wall mild cellulitis with methicillin-resistant Staphylococcus aureus infection. 2. Ileus with colon dilation, most likely secondary to above. 3. Malnutrition, hypoalbuminemia, dysphagia status post percutaneous endoscopic gastrostomy insertion. 4. Electrolyte imbalance. 5. Anemia secondary to above. 6. Known history of depression. 7. Status post cardiopulmonary arrest by history. 8. Abnormal liver function test secondary to an infectious process most likely. SUGGESTION: 1. Continue current management. 2. The patient will need hyperalimentation. 3. Repeat abdominal x-ray. 4. Surgical reevaluation. Lidia Lam MD
[2017-11-15] MEDS: Vancomycin 1 GM in Sodium Chloride 0.9% 200 ML IVPB SCH (09:49)
[2017-11-15] MEDS: levETIRAcetam 100 mg/ml (5ml) Oral Syringe PEG SCH ×2 (11:00→22:40)
[2017-11-15] MEDS: Pantoprazole 40 mg Susp UD PEG SCH (11:00)
[2017-11-15] MEDS: Vitamins A & D Oint UD Foilpak TOP SCH ×2 (11:00→18:45)
[2017-11-15] MEDS: POLYETHYLENE GLYCOL 3350 17 GM/Dose PACKET GT SCH (11:00)
[2017-11-15] MEDS: Fluconazole IV 400mg/200ml NS 200 ML IVPB SCH (11:04)
[2017-11-15 11:48] LABS: BASO % 0.3 % (0.0-2.0); EOS # 0.1 K/uL (0.0-0.7); EOS % 1.2 % (0.0-4.0); HEMOGLOBIN 10.4 g/dL (11.0-16.0); LYMPH # 2.5 K/uL (1.0-4.3); LYMPH % 20.3 % (20.0-40.0); MEAN CELL VOLUME 94.2 fL (81.0-99.0); MEAN CORPUSCULAR HEMOGLOBIN 31.7 pg (27.0-31.0); MEAN CORPUSCULAR HGB CONC 33.6 g/dL (33.0-37.0); MEAN PLATELET VOLUME 10.5 fL (7.2-11.7); MONO # 1.8 K/uL (0.0-0.8); MONO % 14.5 % (0.0-10.0); NEUT % 63.7 % (50.0-75.0); NRBC % 0.1 % (0.0-2.0); RBC 3.29 Mil/uL (3.80-5.20); RED CELL DISTRIBUTION WIDTH 14.6 % (11.5-14.5); WHITE BLOOD COUNT 12.5 K/uL (4.8-10.8)
[2017-11-15 12:40] LABS: BLOOD UREA NITROGEN 8 mg/dL (7-17)
[2017-11-15 12:41] LABS: CALCIUM 7.8 mg/dl (8.6-10.4); GFR AFRICAN-AMERICAN > 60; GFR NON-AFRICAN AMERICAN > 60
--- NOTE | 2017-11-15 12:48 | CP.PCM.PN ---
Subjective - Date & Time of Evaluation Date of Evaluation: 11/15/17 Time of Evaluation: 07:15 - Subjective Subjective: PGY2 Medicine Note for Dr. Boris Kelly; all management as per Dr. Boris Kelly Patient seen and examined at bedside this AM. Patient able to make needs known via yes no questions and she was more coherent today via this questioning. She continues to have output via rectal tube (acevedo liqiud stool) - 400 cc noted this am. Abdominal distention much improved. Denies fevers/chills, [place], CP, abdominal pain, N/V, dysuria, or any additional acute complaints. Objective - Vital Signs/Intake and Output Vital Signs (last 24 hours): Temp Pulse Resp BP Pulse Ox 98.4 F 89 20 103/63 95 11/15/17 08:00 11/15/17 08:00 11/15/17 08:00 11/15/17 08:00 11/15/17 08:00 Intake and Output: 11/15/17 11/15/17 06:59 18:59 Intake Total 636 446 Output Total 500 100 Balance 136 346 - Medications Medications: Current Medications Acetaminophen (Tylenol 650mg/20.3ml Solution Ud) 650 mg GT Q4H PRN PRN Reason: Pain, Mild (1-3) Last Admin: 11/13/17 09:38 Dose: 650 mg Amlodipine Besylate (Norvasc) 5 mg GT DAILY [facility] Last Admin: 11/15/17 11:00 Dose: 5 mg Vancomycin HCl 1 gm/ Sodium (Chloride) 200 mls @ 166.7 mls/hr IVPB DAILY [facility] Last Admin: 11/15/17 09:49 Dose: 166.7 mls/hr Meropenem 1 gm/ Sodium (Chloride) 100 mls @ 100 mls/hr IVPB Q8H [facility] Last Admin: 11/15/17 06:01 Dose: 100 mls/hr Fluconazole (Diflucan Iv 400mg/200ml Ns) 200 mls @ 100 mls/hr IVPB DAILY [facility] Last Admin: 11/15/17 11:04 Dose: 100 mls/hr Fat Emulsion Intravenous (Intralipid 20%) 500 mls @ 42 mls/hr IV TTS@1800 [facility] Stop: 11/20/17 18:01 Last Admin: 11/14/17 18:00 Dose: 42 mls/hr Multivitamins/Vitamin C 10 ml/ (Amino Acids) 1,010 mls @ 42 mls/hr IV .Q24H [facility] Stop: 11/15/17 17:59 Last Admin: 11/14/17 18:00 Dose: 42 mls/hr Multivitamins/Vitamin C 10 ml/ (Amino Acids) 1,010 mls @ 42 mls/hr IV .Q24H [facility] Stop: 11/16/17 17:59 Levetiracetam (Keppra) 500 mg PEG Q12 [facility] Last Admin: 11/15/17 11:00 Dose: 500 mg Magnesium Hydroxide (Milk Of Magnesia) 30 ml GT Q24H PRN PRN Reason: Constipation Pantoprazole Sodium (Protonix Susp) 40 mg PEG DAILY [facility] Last Admin: 11/15/17 11:00 Dose: 40 mg Polyethylene Glycol (Miralax) 17 gm GT DAILY [facility] Last Admin: 11/15/17 11:00 Dose: 17 gm Sertraline HCl (Zoloft) 50 mg JT DAILY [facility] Last Admin: 11/15/17 11:00 Dose: 50 mg Vitamin A (Vitamin A & D Oint Ud Foilpak) 1 ea TOP BID [facility] Last Admin: 11/15/17 11:00 Dose: 1 ea - Labs Labs: 11/15/17 11:33 11/15/17 11:33 PT 11.6 SECONDS (9.7-12.2) 10/26/17 02:55 INR 1.0 10/26/17 02:55 APTT 34 SECONDS (21-34) 10/26/17 02:55 - Additional Findings Additional findings: - Constitutional Appears: Non-toxic - Head Exam Head Exam: ATRAUMATIC - Eye Exam Eye Exam: EOMI. absent: Scleral icterus - ENT Exam ENT Exam: Mucous Membranes Moist - Neck Exam Neck Exam: absent: Lymphadenopathy - Respiratory Exam Respiratory Exam: Clear to Ausculation Bilateral absent: Wheezes, Rales, Rhonchi - Cardiovascular Exam Cardiovascular Exam: REGULAR RHYTHM, S1, S2 - GI/Abdominal Exam GI & Abdominal Exam: Soft - Extremities Exam Extremities Exam: absent: Calf Tenderness - Back Exam Back Exam: absent: CVA tenderness (L), CVA tenderness (R) - Neurological Exam Neurological Exam: Alert, Awake Assessment and Plan - Assessment and Plan (Free Text) Assessment: This is a 67 yo female admitted for chronic abdominal pain and distention Colonic dilation/obstruction/pseudo- obstruction 11/15/17: Surgery team wants to try neostigmine under ICU monitoring (2/2 possible side effects of bradycardia / hypotension). Tube feeds on this morning. Patient is interacting in a yes/no fashion today is answering in a coherent fashion, however she does not want to be "bothered." f/u swallow eval. If allowed, may start pleasure feeds. Continue Tube feed diet. Patient stable for DC to rehab from surgical standpoint. Tube feeds on at 10cc/ hr. Patients abdomen appears improved. Patient refuses to interact today, even in a yes / no fashion via nodding. She only nods "No" when asked if she can speak with me and answer my questions. - Peg tube grew e. coli. continue IV Abx. WBC 6.7, stable. 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 -PEG site culture growing staph. aureus/MRSA/ESBL -may need to move pt to ICU because she may need neostigmine -critical care consult placed with Dr. Chang. -ID consult. recs appreciated. Dr. Oden. -repeat CT scan shows small pleural effusion along with redemonstration of colonic dilation ileus rather than obstruction. -abdominal x ray shows colonic dilation still -GI consult. DR. CANADA. recs appreciated. -sx following. dr. culp. recs appreciated; no surgical intervention planned for this admission -pt underwent endoscopy along with peg removal and replacement -endoscopy showed esophagitis along with small hiatal hernia, as well as erythematous mucosa in stomach -pt is to f/u with GI for results of biopsy from endoscopy -repeat CT scan shows marked dilation of colon and particularly the rectosigmoid colon, along with multiple hepatic cysts. Fungemia 11/15: blood culture positive for yeast 11/11/17; repeat cultures negative x24hrs. Continue IV fluconazole x14d (started 11/13) -butler cultures>> shows yeast growing in blood -ID consult Dr. Oden already on board. recs appreciated. -starting IV fluconazole; will continue as per ID for 14 days Anemia;chronic and stable continue to monitor. hx of dementia -continue donepezil daily -patient is mostly non verbal but can understand commands and communicates through yes or no in stateless. However, full comprehension and ability to answer yes/no appropriately is questionable. hx of seizure disorder -continue keppra through PEG hx of depression -continue sertraline Electrolyte Abnormality 11/15: Hypokalemia, K3.0 - KCl 20meq BID via PEG (x4 total doses). f/u -supplementation with potassium chloride daily gi/dvt ppx -Resume lovenox -continue protonix Dispo: DC being held on account of +blood cultures; Likely PICC line placement .
--- NOTE | 2017-11-15 13:46 | CP.PCM.CON ---
<Ivan Gonzales - Last Filed: 11/15/17 13:38> History of Present Illness - History of Present Illness History of Present Illness: CCU Consult HPI: 67F w/ Hx of CVA w/ R. Hemiparesis and dysphagia, PEG and abdominal distension. Patient has multiple admissions for abdominal distension. CT scan on this admission shows colonic distension measuring 8.4cm. Surgery was able to decompress with rectal tube, however the problem continues to occur. ICU consult was called as the surgery team would like to give neostigmine. As the use of this drug can cause bradycardia, hypotension they requested to do this in the ICU. We will accept this patient to monitor her for the administration. PMH: s/p cva with residual r hemiparesis and difficulty swallowing, Dementia, Depression, Seizures, history of brain aneurysm Meds: As per EMR Allergy: NKDA PSH: PEG feeding tube, surgery for brain aneurysm FH: unknown Social: no EtOH/illicit drug use in past Review of Systems - Review of Systems Review of Systems: per hpi Past Patient History - Infectious Disease Hx of Infectious Diseases: None - Past Medical History & Family History Past Medical History?: Yes - Past Social History Smoking Status: Never Smoked - CARDIAC Hx Hypertension: Yes - NEUROLOGICAL Hx Dementia: Yes Hx Seizures: Yes - HEENT Hx HEENT Problems: No - RENAL Hx Chronic Kidney Disease: No - INTEGUMENTARY Other/Comment: cellulitis - MUSCULOSKELETAL/RHEUMATOLOGICAL Hx Falls: No - GASTROINTESTINAL Other/Comment: gastrostomy - GENITOURINARY/GYNECOLOGICAL Hx Incontinence: Yes - PSYCHIATRIC Hx Depression: Yes (major) Hx Substance Use: No - SURGICAL HISTORY Other/Comment: brain surgery due to aneurysm,peg tube insertion. - ANESTHESIA Hx Anesthesia: Yes Hx Anesthesia Reactions: No Hx Malignant Hyperthermia: No Meds Allergies/Adverse Reactions: Allergies Allergy/AdvReac Type Severity Reaction Status Date / Time No Known Allergies Allergy Verified 10/25/17 22:25 - Medications Medications: Current Medications Acetaminophen (Tylenol 650mg/20.3ml Solution Ud) 650 mg GT Q4H PRN PRN Reason: Pain, Mild (1-3) Last Admin: 11/13/17 09:38 Dose: 650 mg Amlodipine Besylate (Norvasc) 5 mg GT DAILY [facility] Last Admin: 11/15/17 11:00 Dose: 5 mg Vancomycin HCl 1 gm/ Sodium (Chloride) 200 mls @ 166.7 mls/hr IVPB DAILY [facility] Last Admin: 11/15/17 09:49 Dose: 166.7 mls/hr Meropenem 1 gm/ Sodium (Chloride) 100 mls @ 100 mls/hr IVPB Q8H [facility] Last Admin: 11/15/17 06:01 Dose: 100 mls/hr Fluconazole (Diflucan Iv 400mg/200ml Ns) 200 mls @ 100 mls/hr IVPB DAILY [facility] Last Admin: 11/15/17 11:04 Dose: 100 mls/hr Fat Emulsion Intravenous (Intralipid 20%) 500 mls @ 42 mls/hr IV TTS@1800 [facility] Stop: 11/20/17 18:01 Last Admin: 11/14/17 18:00 Dose: 42 mls/hr Multivitamins/Vitamin C 10 ml/ (Amino Acids) 1,010 mls @ 42 mls/hr IV .Q24H [facility] Stop: 11/15/17 17:59 Last Admin: 11/14/17 18:00 Dose: 42 mls/hr Multivitamins/Vitamin C 10 ml/ (Amino Acids) 1,010 mls @ 42 mls/hr IV .Q24H [facility] Stop: 11/16/17 17:59 Levetiracetam (Keppra) 500 mg PEG Q12 [facility] Last Admin: 11/15/17 11:00 Dose: 500 mg Magnesium Hydroxide (Milk Of Magnesia) 30 ml GT Q24H PRN PRN Reason: Constipation Pantoprazole Sodium (Protonix Susp) 40 mg PEG DAILY [facility] Last Admin: 11/15/17 11:00 Dose: 40 mg Polyethylene Glycol (Miralax) 17 gm GT DAILY [facility] Last Admin: 11/15/17 11:00 Dose: 17 gm Potassium Chloride (Potassium Chloride Oral Soln) 20 meq PEG BID [facility] Stop: 11/16/17 18:01 Sertraline HCl (Zoloft) 50 mg JT DAILY [facility] Last Admin: 11/15/17 11:00 Dose: 50 mg Vitamin A (Vitamin A & D Oint Ud Foilpak) 1 ea TOP BID [facility] Last Admin: 11/15/17 11:00 Dose: 1 ea Physical Exam - Constitutional Appears: Chronically Ill - Head Exam Head Exam: ATRAUMATIC, NORMAL INSPECTION, NORMOCEPHALIC - Eye Exam Eye Exam: EOMI - ENT Exam ENT Exam: Mucous Membranes Moist - Respiratory Exam Respiratory Exam: Clear to Auscultation Bilateral, NORMAL BREATHING PATTERN - Cardiovascular Exam Cardiovascular Exam: REGULAR RHYTHM - GI/Abdominal Exam GI & Abdominal Exam: Normal Bowel Sounds, Soft. absent: Distended, Tenderness - Extremities Exam Extremities exam: Negative for: joint swelling, tenderness - Neurological Exam Neurological exam: Alert, Oriented x3 - Psychiatric Exam Psychiatric exam: Normal Affect, Normal Mood - Skin Skin Exam: Dry, Intact, Normal Color, Warm Results - Vital Signs Recent Vital Signs: Last Vital Signs Temp 98.4 F 11/15/17 08:00 Pulse 89 11/15/17 08:00 Resp 20 11/15/17 08:00 BP 103/63 11/15/17 08:00 Pulse Ox 95 11/15/17 08:00 - Labs Result Diagrams: 11/15/17 11:33 11/15/17 11:33 Labs: Laboratory Results - last 24 hr 11/14/17 11/14/17 11/15/17 14:04 14:04 11:33 WBC 12.0 H D 12.5 H RBC 3.21 L 3.29 L Hgb 10.2 L 10.4 L Hct 30.0 L 31.0 L MCV 93.6 94.2 MCH 31.7 H 31.7 H MCHC 33.9 33.6 RDW 14.6 H 14.6 H Plt Count 220 281 MPV 10.0 10.5 Neut % (Auto) 68.5 63.7 Lymph % (Auto) 18.2 L 20.3 [place] % (Auto) 12.2 H 14.5 H Eos % (Auto) 0.2 1.2 Baso % (Auto) 0.9 0.3 Neut # (Auto) 8.2 H 8.0 H Lymph # (Auto) 2.2 2.5 [place] # (Auto) 1.5 H 1.8 H Eos # (Auto) 0.0 0.1 Baso # (Auto) 0.1 0.0 Sodium 137 Potassium 3.6 Chloride 101 Carbon Dioxide 27 Anion Gap 13 BUN 8 Creatinine 0.5 L Est GFR ( Amer) > 60 Est GFR (Non-Af Amer) > 60 Random Glucose 123 H Calcium 7.6 L Total Bilirubin 0.4 AST 163 H D ALT 128 H D Alkaline Phosphatase 68 Total Protein 6.3 Albumin 2.9 L Globulin 3.5 Albumin/Globulin Ratio 0.8 L 11/15/17 11:33 WBC RBC Hgb Hct MCV MCH MCHC RDW Plt Count MPV Neut % (Auto) Lymph % (Auto) [place] % (Auto) Eos % (Auto) Baso % (Auto) Neut # (Auto) Lymph # (Auto) [place] # (Auto) Eos # (Auto) Baso # (Auto) Sodium 143 Potassium 3.0 L Chloride 102 Carbon Dioxide 31 H Anion Gap 13 BUN 8 Creatinine 0.5 L Est GFR ( Amer) > 60 Est GFR (Non-Af Amer) > 60 Random Glucose 123 H Calcium 7.8 L Total Bilirubin AST ALT Alkaline Phosphatase Total Protein Albumin Globulin Albumin/Globulin Ratio Assessment & Plan - Assessment and Plan (Free Text) Assessment: 67F with recurrent abdominal distension of unknown etiology Plan: Neuro: History of CVA, siezure d/o on Keppra. Cards: [facility] for HTN Pulm: No acute issues GI: TPN, Tube feeds. Recurrent abdominal distension. Decompressed previously with rectal tube and colonoscopy. Surgery team wants to try neostigmine so will do so under ICU monitoring given the possible effects including bradycardia and hypotension. PEG tube grew e.coli so primary team giving merrem, vanco, fluconazole. Renal: No acute issues PX: Protonix, lovenox <Elyse Kelly M - Last Filed: 11/16/17 11:03> Meds - Medications Medications: Current Medications Acetaminophen (Tylenol 650mg/20.3ml Solution Ud) 650 mg GT Q4H PRN PRN Reason: Pain, Mild (1-3) Last Admin: 11/13/17 09:38 Dose: 650 mg Amlodipine Besylate (Norvasc) 5 mg GT DAILY [facility] Last Admin: 11/16/17 09:08 Dose: 5 mg Enoxaparin Sodium (Lovenox) 40 mg SC DAILY [facility] Last Admin: 11/16/17 09:07 Dose: 40 mg Vancomycin HCl 1 gm/ Sodium (Chloride) 200 mls @ 166.7 mls/hr IVPB DAILY [facility] Last Admin: 11/16/17 10:19 Dose: 166.7 mls/hr Meropenem 1 gm/ Sodium (Chloride) 100 mls @ 100 mls/hr IVPB Q8H [facility] Last Admin: 11/16/17 06:40 Dose: 100 mls/hr Fluconazole (Diflucan Iv 400mg/200ml Ns) 200 mls @ 100 mls/hr IVPB DAILY [facility] Last Admin: 11/16/17 09:16 Dose: 100 mls/hr Fat Emulsion Intravenous (Intralipid 20%) 500 mls @ 42 mls/hr IV TTS@1800 [facility] Stop: 11/20/17 18:01 Last Admin: 11/14/17 18:00 Dose: 42 mls/hr Multivitamins/Vitamin C 10 ml/ (Amino Acids) 1,010 mls @ 42 mls/hr IV .Q24H [facility] Stop: 11/16/17 17:59 Last Admin: 11/15/17 18:46 Dose: 42 mls/hr Multivitamins/Vitamin C 10 ml/ (Amino Acids) 1,010 mls @ 42 mls/hr IV .Q24H [facility] Stop: 11/17/17 17:59 Levetiracetam (Keppra) 500 mg PEG Q12 [facility] Last Admin: 11/16/17 09:08 Dose: 500 mg Magnesium Hydroxide (Milk Of Magnesia) 30 ml GT Q24H PRN PRN Reason: Constipation Pantoprazole Sodium (Protonix Susp) 40 mg PEG DAILY [facility] Last Admin: 11/16/17 09:08 Dose: 40 mg Polyethylene Glycol (Miralax) 17 gm GT DAILY [facility] Last Admin: 11/16/17 09:11 Dose: Not Given Potassium Chloride (Potassium Chloride Oral Soln) 20 meq PEG BID [facility] Stop: 11/16/17 18:01 Last Admin: 11/16/17 09:10 Dose: 20 meq Sertraline HCl (Zoloft) 50 mg JT DAILY [facility] Last Admin: 11/16/17 09:08 Dose: 50 mg Vitamin A (Vitamin A & D Oint Ud Foilpak) 1 ea TOP BID [facility] Last Admin: 11/16/17 09:11 Dose: 1 ea Results - Vital Signs Recent Vital Signs: Last Vital Signs Temp 97.9 F 11/16/17 08:00 Pulse 74 11/16/17 08:02 Resp 15 11/16/17 08:02 BP 106/50 L 11/16/17 08:02 Pulse Ox 96 11/16/17 08:02 - Labs Result Diagrams: 11/16/17 06:18 11/16/17 06:18 Labs: Laboratory Results - last 24 hr 11/15/17 11/15/17 11/15/17 11:33 11:33 17:40 WBC 12.5 H RBC 3.29 L Hgb 10.4 L Hct 31.0 L MCV 94.2 MCH 31.7 H MCHC 33.6 RDW 14.6 H Plt Count 281 MPV 10.5 Neut % (Auto) 63.7 Lymph % (Auto) 20.3 [place] % (Auto) 14.5 H Eos % (Auto) 1.2 Baso % (Auto) 0.3 Neut # (Auto) 8.0 H Lymph # (Auto) 2.5 [place] # (Auto) 1.8 H Eos # (Auto) 0.1 Baso # (Auto) 0.0 Sodium 143 Potassium 3.0 L Chloride 102 Carbon Dioxide 31 H Anion Gap 13 BUN 8 Creatinine 0.5 L Est GFR ( Amer) > 60 Est GFR (Non-Af Amer) > 60 POC Glucose (mg/dL) 128 H Random Glucose 123 H Calcium 7.8 L Phosphorus Magnesium Total Bilirubin AST ALT Alkaline Phosphatase Total Protein Albumin Globulin Albumin/Globulin Ratio Vancomycin Trough 11/16/17 11/16/17 11/16/17 06:18 06:18 08:33 WBC 12.3 H RBC 3.57 L Hgb 11.2 Hct 33.2 L MCV 93.0 MCH 31.3 H MCHC 33.6 RDW 14.7 H Plt Count 319 MPV 10.9 Neut % (Auto) 65.6 Lymph % (Auto) 21.5 [place] % (Auto) 10.7 H Eos % (Auto) 1.2 Baso % (Auto) 1.0 Neut # (Auto) 8.1 H Lymph # (Auto) 2.6 [place] # (Auto) 1.3 H Eos # (Auto) 0.1 Baso # (Auto) 0.1 Sodium 142 Potassium 3.6 Chloride 105 Carbon Dioxide 28 Anion Gap 12 BUN 11 Creatinine 0.4 L Est GFR ( Amer) > 60 Est GFR (Non-Af Amer) > 60 POC Glucose (mg/dL) Random Glucose 111 H Calcium 8.3 L Phosphorus 2.7 Magnesium 2.3 Total Bilirubin 0.4 AST 137 H ALT 180 H D Alkaline Phosphatase 70 Total Protein 6.5 Albumin 2.9 L Globulin 3.6 Albumin/Globulin Ratio 0.8 L Vancomycin Trough 6.5 Assessment & Plan - Assessment and Plan (Free Text) Plan: Primary team requested telemetry monitoring during neostigmine infusion. patient tolerated neostigmine without any side effects. -Patient can be transferred back to her general med/surg bed once neostigmine infusion completed. - Date & Time Date: 11/15/17 Time: 19:00
[2017-11-15] MEDS: Potassium Chloride 20 mEq/15 ml LIQ UD PEG SCH ×2 (13:55→18:44)
[2017-11-15] MEDS: Enoxaparin 40 mg Syringe SC SCH (14:35)
[2017-11-15] MEDS ORDERED: Neostigmine 1:2000 (0.5 mg/mL) Inj IV ONE (15:45)
--- NOTE | 2017-11-15 17:39 | CP.PCM.PN ---
Subjective - Date & Time of Evaluation Date of Evaluation: 11/15/17 Time of Evaluation: 09:00 - Subjective Subjective: transferred to icu for neostigmine infusion no fever and latest blood c/s neg Objective - Vital Signs/Intake and Output Vital Signs (last 24 hours): Temp Pulse Resp BP Pulse Ox 98.4 F 89 20 103/63 95 11/15/17 08:00 11/15/17 08:00 11/15/17 08:00 11/15/17 08:00 11/15/17 08:00 Intake and Output: 11/15/17 11/15/17 06:59 18:59 Intake Total 636 446 Output Total 500 100 Balance 136 346 - Medications Medications: Current Medications Acetaminophen (Tylenol 650mg/20.3ml Solution Ud) 650 mg GT Q4H PRN PRN Reason: Pain, Mild (1-3) Last Admin: 11/13/17 09:38 Dose: 650 mg Amlodipine Besylate (Norvasc) 5 mg GT DAILY [facility] Last Admin: 11/15/17 11:00 Dose: 5 mg Enoxaparin Sodium (Lovenox) 40 mg SC DAILY [facility] Last Admin: 11/15/17 14:35 Dose: 40 mg Vancomycin HCl 1 gm/ Sodium (Chloride) 200 mls @ 166.7 mls/hr IVPB DAILY [facility] Last Admin: 11/15/17 09:49 Dose: 166.7 mls/hr Meropenem 1 gm/ Sodium (Chloride) 100 mls @ 100 mls/hr IVPB Q8H [facility] Last Admin: 11/15/17 13:55 Dose: 100 mls/hr Fluconazole (Diflucan Iv 400mg/200ml Ns) 200 mls @ 100 mls/hr IVPB DAILY [facility] Last Admin: 11/15/17 11:04 Dose: 100 mls/hr Fat Emulsion Intravenous (Intralipid 20%) 500 mls @ 42 mls/hr IV TTS@1800 [facility] Stop: 11/20/17 18:01 Last Admin: 11/14/17 18:00 Dose: 42 mls/hr Multivitamins/Vitamin C 10 ml/ (Amino Acids) 1,010 mls @ 42 mls/hr IV .Q24H [facility] Stop: 11/15/17 17:59 Last Admin: 11/14/17 18:00 Dose: 42 mls/hr Multivitamins/Vitamin C 10 ml/ (Amino Acids) 1,010 mls @ 42 mls/hr IV .Q24H [facility] Stop: 11/16/17 17:59 Levetiracetam (Keppra) 500 mg PEG Q12 [facility] Last Admin: 11/15/17 11:00 Dose: 500 mg Magnesium Hydroxide (Milk Of Magnesia) 30 ml GT Q24H PRN PRN Reason: Constipation Pantoprazole Sodium (Protonix Susp) 40 mg PEG DAILY [facility] Last Admin: 11/15/17 11:00 Dose: 40 mg Polyethylene Glycol (Miralax) 17 gm GT DAILY [facility] Last Admin: 11/15/17 11:00 Dose: 17 gm Potassium Chloride (Potassium Chloride Oral Soln) 20 meq PEG BID [facility] Stop: 11/16/17 18:01 Last Admin: 11/15/17 13:55 Dose: 20 meq Sertraline HCl (Zoloft) 50 mg JT DAILY [facility] Last Admin: 11/15/17 11:00 Dose: 50 mg Vitamin A (Vitamin A & D Oint Ud Foilpak) 1 ea TOP BID [facility] Last Admin: 11/15/17 11:00 Dose: 1 ea - Labs Labs: 11/15/17 11:33 11/15/17 11:33 PT 11.6 SECONDS (9.7-12.2) 10/26/17 02:55 INR 1.0 10/26/17 02:55 APTT 34 SECONDS (21-34) 10/26/17 02:55 - Constitutional Appears: Confused, Cachectic, Chronically Ill - Head Exam Head Exam: NORMOCEPHALIC - Eye Exam Eye Exam: absent: Scleral icterus - ENT Exam ENT Exam: Mucous Membranes Dry - Neck Exam Neck Exam: absent: Lymphadenopathy - Respiratory Exam Respiratory Exam: Decreased Breath Sounds - Cardiovascular Exam Cardiovascular Exam: REGULAR RHYTHM - GI/Abdominal Exam GI & Abdominal Exam: Distended - Rectal Exam Rectal Exam: Deferred - Exam Exam: NORMAL INSPECTION - Extremities Exam Extremities Exam: absent: Pedal Edema - Back Exam Back Exam: absent: CVA tenderness (L), CVA tenderness (R) Assessment and Plan (1) Abdominal distension Status: Acute (2) Colon distention Status: Acute (3) Fungemia Status: Acute (4) Sepsis Status: Acute (5) Sepsis Status: Acute - Assessment and Plan (Free Text) Assessment: 67F w/ Hx of CVA w/ R. Hemiparesis and dysphagia, PEG and abdominal distension. CT scan on this admission shows colonic distension measuring 8.4cm. Surgery was able to decompress with rectal tube, however the problem continues to occur. ICU consult was called as the surgery team would like to give neostigmine. As the use of this drug can cause bradycardia, hypotension they requested to do this in the ICU. so far repeat cultures neg for yeast- the PICC line was removed IV rx recommended for min 14 days
--- NOTE | 2017-11-15 17:51 | CP.PCM.PN ---
Subjective - Date & Time of Evaluation Date of Evaluation: 11/15/17 Time of Evaluation: 11:50 - Subjective Subjective: clinically same Objective - Vital Signs/Intake and Output Vital Signs (last 24 hours): Temp Pulse Resp BP Pulse Ox 98.4 F 89 20 103/63 95 11/15/17 08:00 11/15/17 08:00 11/15/17 08:00 11/15/17 08:00 11/15/17 08:00 Intake and Output: 11/15/17 11/15/17 06:59 18:59 Intake Total 636 446 Output Total 500 100 Balance 136 346 - Medications Medications: Current Medications Acetaminophen (Tylenol 650mg/20.3ml Solution Ud) 650 mg GT Q4H PRN PRN Reason: Pain, Mild (1-3) Last Admin: 11/13/17 09:38 Dose: 650 mg Amlodipine Besylate (Norvasc) 5 mg GT DAILY [facility] Last Admin: 11/15/17 11:00 Dose: 5 mg Enoxaparin Sodium (Lovenox) 40 mg SC DAILY [facility] Last Admin: 11/15/17 14:35 Dose: 40 mg Vancomycin HCl 1 gm/ Sodium (Chloride) 200 mls @ 166.7 mls/hr IVPB DAILY [facility] Last Admin: 11/15/17 09:49 Dose: 166.7 mls/hr Meropenem 1 gm/ Sodium (Chloride) 100 mls @ 100 mls/hr IVPB Q8H [facility] Last Admin: 11/15/17 13:55 Dose: 100 mls/hr Fluconazole (Diflucan Iv 400mg/200ml Ns) 200 mls @ 100 mls/hr IVPB DAILY [facility] Last Admin: 11/15/17 11:04 Dose: 100 mls/hr Fat Emulsion Intravenous (Intralipid 20%) 500 mls @ 42 mls/hr IV TTS@1800 [facility] Stop: 11/20/17 18:01 Last Admin: 11/14/17 18:00 Dose: 42 mls/hr Multivitamins/Vitamin C 10 ml/ (Amino Acids) 1,010 mls @ 42 mls/hr IV .Q24H [facility] Stop: 11/15/17 17:59 Last Admin: 11/14/17 18:00 Dose: 42 mls/hr Multivitamins/Vitamin C 10 ml/ (Amino Acids) 1,010 mls @ 42 mls/hr IV .Q24H [facility] Stop: 11/16/17 17:59 Levetiracetam (Keppra) 500 mg PEG Q12 [facility] Last Admin: 11/15/17 11:00 Dose: 500 mg Magnesium Hydroxide (Milk Of Magnesia) 30 ml GT Q24H PRN PRN Reason: Constipation Pantoprazole Sodium (Protonix Susp) 40 mg PEG DAILY [facility] Last Admin: 11/15/17 11:00 Dose: 40 mg Polyethylene Glycol (Miralax) 17 gm GT DAILY [facility] Last Admin: 11/15/17 11:00 Dose: 17 gm Potassium Chloride (Potassium Chloride Oral Soln) 20 meq PEG BID [facility] Stop: 11/16/17 18:01 Last Admin: 11/15/17 13:55 Dose: 20 meq Sertraline HCl (Zoloft) 50 mg JT DAILY [facility] Last Admin: 11/15/17 11:00 Dose: 50 mg Vitamin A (Vitamin A & D Oint Ud Foilpak) 1 ea TOP BID [facility] Last Admin: 11/15/17 11:00 Dose: 1 ea - Labs Labs: 11/15/17 11:33 11/15/17 11:33 PT 11.6 SECONDS (9.7-12.2) 10/26/17 02:55 INR 1.0 10/26/17 02:55 APTT 34 SECONDS (21-34) 10/26/17 02:55 - Constitutional Appears: Well - Head Exam Head Exam: ATRAUMATIC, NORMAL INSPECTION, NORMOCEPHALIC - Eye Exam Eye Exam: EOMI, Normal appearance, PERRL Pupil Exam: NORMAL ACCOMODATION, PERRL - ENT Exam ENT Exam: Mucous Membranes Moist, Normal Exam - Neck Exam Neck Exam: Full ROM, Normal Inspection. absent: Lymphadenopathy - Respiratory Exam Respiratory Exam: Decreased Breath Sounds - Cardiovascular Exam Cardiovascular Exam: REGULAR RHYTHM, +S1, +S2 - GI/Abdominal Exam GI & Abdominal Exam: Soft, Diminished Bowel Sounds - Rectal Exam Rectal Exam: Deferred Assessment and Plan (1) Abdominal distension Status: Acute (2) Abdominal pain Status: Acute (3) Colon distention Status: Acute (4) Nausea Status: Acute (5) Toxic megacolon Status: Acute
[2017-11-15] MEDS ORDERED: PPN #2 IV SCH (18:00)
[2017-11-15] MEDS ORDERED: Potassium Chloride 20 mEq ER Tab PO STA (19:54)
[2017-11-15] MEDS ORDERED: Potassium Chloride 20 mEq/15 ml LIQ UD PO STA (20:39)
[2017-11-15 21:15] VITALS: BMI 18.4
--- NOTE | 2017-11-15 23:35 | PN ---
DATE: LOCATION: ICU-14 SUBJECTIVE: This is a 67-year-old female seen and examined in rounds in the intensive care unit early today after being 0052 to the floor. Appeared to be more coherent today with the rectal tube in place with much less abdominal distention. The entire chart is reviewed including, but not limited to the most recent lab and radiology study results, current and previous medication list. Case is discussed with ID staff. LABORATORY DATA: Most recent lab results showed 0222 12.5, hemoglobin 10.4, hematocrit 31 with normal platelet count with low potassium of 3.0, CO2 content of 31 indicative of respiratory alkalosis with blood glucose level 128, calcium 7.3 with reported mildly elevated AST and ALT yesterday but low albumin. PHYSICAL EXAMINATION: GENERAL: A 67-year-old female, afebrile. VITAL SIGNS: Pulse of 88, respiratory rate 20 to 22, blood pressure 110/66. HEENT: Showed pale, dry mucus membrane. Nonicteric sclerae. LUNGS: Few scattered crepitation, decreased air entry at bases. HEART: Positive S1 and S2. ABDOMEN: With mild to moderate distention. Feeding tube is in place with evidence of mild anterior abdominal wall cellulitis. No mass or organomegaly. EXTREMITIES: With mild lower extremity edematous changes. NEUROLOGIC: No new reported neurological deficits, sensory or motor. IMPRESSION: 1. Distended colon secondary to most likely ileus rather than obstructive phenomena. 2. Anemia secondary to chronic disease. No evidence of active bleeding from the gastrointestinal tract. 3. Known history of depression, seizure disorder with mild dementia. 4. Malnutrition with dehydration and hypoalbuminemia with status post percutaneous endoscopic gastrostomy insertion. 5. Anterior abdominal wall mild cellulitis with infected percutaneous endoscopic gastrostomy stoma. 6. Electrolyte imbalance. 7. Status post cardiopulmonary arrest by history. 8. Mildly elevated liver function test secondary to an infectious process as above. SUGGESTION: 1. Continue current management. 2. Keep PEG tube open for decompression in the meantime. 3. The patient may need rectal tube insertion for decompression. Further evaluation and recommendation to follow. Case is to be discussed with the surgical staff. Lidia Lam MD
[2017-11-16] MEDS: Meropenem 1 GM in Sodium Chloride 0.9% 100 ML IVPB SCH ×3 (06:40→22:30)
[2017-11-16 06:47] LABS: ALB/GLOB RATIO 0.8 (1.0-2.1); ALBUMIN 2.9 g/dL (3.5-5.0); ALT/SGPT 180 U/L (9-52); AST/SGOT 137 U/L (14-36); BLOOD UREA NITROGEN 11 mg/dL (7-17); CALCIUM 8.3 mg/dl (8.6-10.4); GFR AFRICAN-AMERICAN > 60; GFR NON-AFRICAN AMERICAN > 60
[2017-11-16 06:54] LABS: BASO # 0.1 K/uL (0.0-0.2); EOS # 0.1 K/uL (0.0-0.7); EOS % 1.2 % (0.0-4.0); HEMOGLOBIN 11.2 g/dL (11.0-16.0); LYMPH # 2.6 K/uL (1.0-4.3); LYMPH % 21.5 % (20.0-40.0); MEAN CORPUSCULAR HEMOGLOBIN 31.3 pg (27.0-31.0); MEAN CORPUSCULAR HGB CONC 33.6 g/dL (33.0-37.0); MEAN PLATELET VOLUME 10.9 fL (7.2-11.7); MONO # 1.3 K/uL (0.0-0.8); MONO % 10.7 % (0.0-10.0); NEUT # 8.1 K/uL (1.8-7.0); NEUT % 65.6 % (50.0-75.0); NRBC % 2.6 % (0.0-2.0); RBC 3.57 Mil/uL (3.80-5.20); RED CELL DISTRIBUTION WIDTH 14.7 % (11.5-14.5); WHITE BLOOD COUNT 12.3 K/uL (4.8-10.8)
[2017-11-16] MEDS: Enoxaparin 40 mg Syringe SC SCH (09:07)
[2017-11-16] MEDS: Pantoprazole 40 mg Susp UD PEG SCH (09:08)
[2017-11-16] MEDS: levETIRAcetam 100 mg/ml (5ml) Oral Syringe PEG SCH ×2 (09:08→23:00)
[2017-11-16] MEDS: Potassium Chloride 20 mEq/15 ml LIQ UD PEG SCH ×2 (09:10→17:12)
[2017-11-16] MEDS: Vitamins A & D Oint UD Foilpak TOP SCH ×2 (09:11→17:14)
[2017-11-16] MEDS: POLYETHYLENE GLYCOL 3350 17 GM/Dose PACKET GT SCH ×2 (09:11)
[2017-11-16] MEDS: Fluconazole IV 400mg/200ml NS 200 ML IVPB SCH (09:16)
[2017-11-16] MEDS: Vancomycin 1 GM in Sodium Chloride 0.9% 200 ML IVPB SCH (10:19)
--- NOTE | 2017-11-16 11:52 | PN ---
LOCATION: ICU 14. Bed A. SUBJECTIVE: This is a 67-year-old female seen in the intensive care unit with a [place] spoken audiology director from the staff, nonverbal, with abdominal distention and reported mild hypertension before, the patient is seen and evaluated by the surgical team. No reported new significant clinical changes. The entire chart is reviewed including, but not limited to, the most recent lab and radiology study results, current and previous medication list, current and the previous medical events. Case discussed with the staff at length. Today's lab showed white blood cells at 12.3 with normal H and H as well as normal platelet count with low creatinine, calcium 8.3, AST went down to 137, ALT 180 with normal total bilirubin and total protein, but low albumin 2.9. PHYSICAL EXAMINATION: GENERAL: This is a 67-year-old female. VITAL SIGNS: Afebrile with pulse of 72, blood pressure of 100/48, respiratory rate 20 to 22. HEENT: Showed pale dry oral mucous membranes. Nonicteric sclerae. LUNGS: Scattered crepitation with decreased air entry at bases. HEART: Positive S1 and S2. ABDOMEN: Soft with mild to moderate distention. Bowel sounds are present. Feeding tube is still in place. No masses or organomegaly. EXTREMITIES: Without clubbing or cyanosis but slight lower extremity edematous changes. NEUROLOGIC: No new reported neurological deficits, sensory, or motor; no new reported focal deficits. Peripheral pulses are present bilaterally but week. The patient is still nonverbal. IMPRESSION: 1. Colon dilation of unclear etiology, most likely secondary to an ileus with infectious process versus fecal impaction. 2. Known history of dysphagia, malnutrition, status post feeding tube insertion. 3. History of seizure disorder and depression. 4. Malnutrition with hypoalbuminemia and hypoproteinemia. 5. Anterior abdominal wall mild cellulitis. 6. Status post cardiopulmonary arrest by history. 7. Electrolyte imbalance. 8. Abnormal liver function test, slightly improving, most likely secondary to an infectious process. SUGGESTIONS: 1. Agree with your plan. 2. Hepatitis profile due to the elevated liver function test. 3. If the patient's abdominal distention continued, then may repeat abdominal CAT scan with rectal tube insertion, that to be discussed with the surgical team. Lidia Lam MD
--- NOTE | 2017-11-16 13:49 | CP.PCM.PN ---
<Macario Aldridge Ze - Last Filed: 11/16/17 17:23> Subjective - Date & Time of Evaluation Date of Evaluation: 11/16/17 Time of Evaluation: 17:23 - Subjective Subjective: General Surgery: Dr Ramsey Pt S&E in ICU. Was transferred down for administration of neostigmine yesterday. Tolerated well. Significant output from rectal tube. Pt denies pain, though disoriented. Abdomen is soft and non-distended. Objective - Vital Signs/Intake and Output Vital Signs (last 24 hours): Temp Pulse Resp BP Pulse Ox 98.1 F 80 17 99/57 L 93 L 11/16/17 12:00 11/16/17 12:02 11/16/17 12:02 11/16/17 12:02 11/16/17 12:02 Intake and Output: 11/16/17 11/16/17 06:59 18:59 Intake Total 804 772 Output Total 1400 200 Balance -596 572 - Medications Medications: Current Medications Acetaminophen (Tylenol 650mg/20.3ml Solution Ud) 650 mg GT Q4H PRN PRN Reason: Pain, Mild (1-3) Last Admin: 11/13/17 09:38 Dose: 650 mg Amlodipine Besylate (Norvasc) 5 mg GT DAILY [facility] Last Admin: 11/16/17 09:08 Dose: 5 mg Enoxaparin Sodium (Lovenox) 40 mg SC DAILY [facility] Last Admin: 11/16/17 09:07 Dose: 40 mg Vancomycin HCl 1 gm/ Sodium (Chloride) 200 mls @ 166.7 mls/hr IVPB DAILY [facility] Last Admin: 11/16/17 10:19 Dose: 166.7 mls/hr Meropenem 1 gm/ Sodium (Chloride) 100 mls @ 100 mls/hr IVPB Q8H [facility] Last Admin: 11/16/17 06:40 Dose: 100 mls/hr Fluconazole (Diflucan Iv 400mg/200ml Ns) 200 mls @ 100 mls/hr IVPB DAILY [facility] Last Admin: 11/16/17 09:16 Dose: 100 mls/hr Fat Emulsion Intravenous (Intralipid 20%) 500 mls @ 42 mls/hr IV TTS@1800 [facility] Stop: 11/20/17 18:01 Last Admin: 11/14/17 18:00 Dose: 42 mls/hr Multivitamins/Vitamin C 10 ml/ (Amino Acids) 1,010 mls @ 42 mls/hr IV .Q24H [facility] Stop: 11/16/17 17:59 Last Admin: 11/15/17 18:46 Dose: 42 mls/hr Multivitamins/Vitamin C 10 ml/ (Amino Acids) 1,010 mls @ 42 mls/hr IV .Q24H [facility] Stop: 11/17/17 17:59 Levetiracetam (Keppra) 500 mg PEG Q12 [facility] Last Admin: 11/16/17 09:08 Dose: 500 mg Magnesium Hydroxide (Milk Of Magnesia) 30 ml GT Q24H PRN PRN Reason: Constipation Pantoprazole Sodium (Protonix Susp) 40 mg PEG DAILY [facility] Last Admin: 11/16/17 09:08 Dose: 40 mg Polyethylene Glycol (Miralax) 17 gm GT DAILY [facility] Last Admin: 11/16/17 09:11 Dose: Not Given Potassium Chloride (Potassium Chloride Oral Soln) 20 meq PEG BID [facility] Stop: 11/16/17 18:01 Last Admin: 11/16/17 09:10 Dose: 20 meq Sertraline HCl (Zoloft) 50 mg JT DAILY [facility] Last Admin: 11/16/17 09:08 Dose: 50 mg Vitamin A (Vitamin A & D Oint Ud Foilpak) 1 ea TOP BID [facility] Last Admin: 11/16/17 09:11 Dose: 1 ea - Labs Labs: 11/16/17 06:18 11/16/17 06:18 PT 11.6 SECONDS (9.7-12.2) 10/26/17 02:55 INR 1.0 10/26/17 02:55 APTT 34 SECONDS (21-34) 10/26/17 02:55 - Constitutional Appears: No Acute Distress - Respiratory Exam Respiratory Exam: absent: Respiratory Distress - Cardiovascular Exam Cardiovascular Exam: REGULAR RHYTHM - GI/Abdominal Exam GI & Abdominal Exam: Soft. absent: Distended, Tenderness - Extremities Exam Extremities Exam: absent: Pedal Edema - Neurological Exam Neurological Exam: Awake. absent: Oriented x3 - Psychiatric Exam Psychiatric exam: Normal Affect Assessment and Plan - Assessment and Plan (Free Text) Assessment: 67F with presumptive Oglivie's Syndrome; s/p neostigmine administration Plan: s/p neostigmine ok for tx to floor d/c rectal tube at your discretion cont tube feeds no surgical intervention planned please reconsult as necessary d/w Dr Braulio Aldridge, PGY3 <Jorge Ramsey - Last Filed: 11/18/17 11:34> Objective - Vital Signs/Intake and Output Vital Signs (last 24 hours): Temp Pulse Resp BP Pulse Ox 97.4 F L 82 18 103/57 L 98 11/18/17 07:15 11/18/17 07:15 11/18/17 07:15 11/18/17 07:15 11/18/17 00:38 Intake and Output: 11/18/17 11/18/17 06:59 18:59 Intake Total 852 Output Total 700 Balance 152 - Medications Medications: Current Medications Acetaminophen (Tylenol 650mg/20.3ml Solution Ud) 650 mg GT Q4H PRN PRN Reason: Pain, Mild (1-3) Last Admin: 11/13/17 09:38 Dose: 650 mg Amlodipine Besylate (Norvasc) 5 mg GT DAILY [facility] Last Admin: 11/18/17 10:55 Dose: 5 mg Enoxaparin Sodium (Lovenox) 40 mg SC DAILY [facility] Last Admin: 11/18/17 10:55 Dose: 40 mg Vancomycin HCl 1 gm/ Sodium (Chloride) 200 mls @ 166.7 mls/hr IVPB DAILY [facility] Last Admin: 11/18/17 10:54 Dose: 166.7 mls/hr Meropenem 1 gm/ Sodium (Chloride) 100 mls @ 100 mls/hr IVPB Q8H [facility] Last Admin: 11/18/17 05:38 Dose: 100 mls/hr Fluconazole (Diflucan Iv 400mg/200ml Ns) 200 mls @ 100 mls/hr IVPB DAILY [facility] Last Admin: 11/17/17 11:06 Dose: 100 mls/hr Amino Acids (Clinimix 4.25/5 % "E" (1000 Ml)) 1,000 mls @ 42 mls/hr IV .[id number] [facility] Stop: 11/18/17 17:48 Last Admin: 11/17/17 19:00 Dose: 42 mls/hr Multivitamins/Vitamin C 10 ml/ (Amino Acids) 1,010 mls @ 42 mls/hr IV .Q24H [facility] Stop: 11/19/17 17:59 Levetiracetam (Keppra) 500 mg PEG Q12 [facility] Last Admin: 11/18/17 10:56 Dose: 500 mg Magnesium Hydroxide (Milk Of Magnesia) 30 ml GT Q24H PRN PRN Reason: Constipation Pantoprazole Sodium (Protonix Susp) 40 mg PEG DAILY [facility] Last Admin: 11/18/17 10:55 Dose: 40 mg Polyethylene Glycol (Miralax) 17 gm GT DAILY [facility] Last Admin: 11/18/17 10:55 Dose: 17 gm Sertraline HCl (Zoloft) 50 mg JT DAILY [facility] Last Admin: 11/18/17 10:54 Dose: 50 mg Vitamin A (Vitamin A & D Oint Ud Foilpak) 1 ea TOP BID [facility] Last Admin: 11/18/17 10:55 Dose: 1 ea - Labs Labs: 11/18/17 11:09 11/16/17 06:18 PT 11.6 SECONDS (9.7-12.2) 10/26/17 02:55 INR 1.0 10/26/17 02:55 APTT 34 SECONDS (21-34) 10/26/17 02:55 Attending/Attestation - Attestation I have personally seen and examined this patient.: Yes I have fully participated in the care of the patient.: Yes I have reviewed all pertinent clinical information, including history, physical exam and plan: Yes Notes (Text): Pt was seen and examined at bedside Agree with above note and assessment Pt is improved clinically after neostigmine No abdominal distention Can start tube feeds C/w current mx No acute general surgical intervention required at present. DC plan Plan d.w primary team in detail
[2017-11-16] MEDS: Fat Emulsion 20% IV 500 ML IV SCH (17:13)
[2017-11-16] MEDS ORDERED: PPN #3 IV SCH (18:00)
--- NOTE | 2017-11-16 19:25 | CP.PCM.PN ---
Subjective - Date & Time of Evaluation Date of Evaluation: 11/16/17 Time of Evaluation: 14:00 - Subjective Subjective: Patient transferred to the ICU Discussed with the supervisor photoengraving Continue Keppra Continue meropenem Continue other medications Continue vancomycin Follow-up with ID Status post neostigmine patient had a 600 mL of stool came out Further management as per supervisor photoengraving and surgical Dr. Follow-up with the GI Case discussed with Dr. Tejada who called me back and stated that he has a meeting with the son on Saturday at 10 AM Continue same Objective - Vital Signs/Intake and Output Vital Signs (last 24 hours): Temp Pulse Resp BP Pulse Ox 97.7 F 80 16 122/68 94 L 11/16/17 16:00 11/16/17 17:02 11/16/17 17:02 11/16/17 17:02 11/16/17 17:02 Intake and Output: 11/16/17 11/17/17 18:59 06:59 Intake Total 1032 Output Total 300 Balance 732 - Medications Medications: Current Medications Acetaminophen (Tylenol 650mg/20.3ml Solution Ud) 650 mg GT Q4H PRN PRN Reason: Pain, Mild (1-3) Last Admin: 11/13/17 09:38 Dose: 650 mg Amlodipine Besylate (Norvasc) 5 mg GT DAILY [facility] Last Admin: 11/16/17 09:08 Dose: 5 mg Enoxaparin Sodium (Lovenox) 40 mg SC DAILY [facility] Last Admin: 11/16/17 09:07 Dose: 40 mg Vancomycin HCl 1 gm/ Sodium (Chloride) 200 mls @ 166.7 mls/hr IVPB DAILY [facility] Last Admin: 11/16/17 10:19 Dose: 166.7 mls/hr Meropenem 1 gm/ Sodium (Chloride) 100 mls @ 100 mls/hr IVPB Q8H [facility] Last Admin: 11/16/17 14:01 Dose: 100 mls/hr Fluconazole (Diflucan Iv 400mg/200ml Ns) 200 mls @ 100 mls/hr IVPB DAILY [facility] Last Admin: 11/16/17 09:16 Dose: 100 mls/hr Fat Emulsion Intravenous (Intralipid 20%) 500 mls @ 42 mls/hr IV TTS@1800 [facility] Stop: 11/20/17 18:01 Last Admin: 11/16/17 17:13 Dose: 42 mls/hr Multivitamins/Vitamin C 10 ml/ (Amino Acids) 1,010 mls @ 42 mls/hr IV .Q24H [facility] Stop: 11/17/17 17:59 Last Admin: 11/16/17 17:15 Dose: 42 mls/hr Levetiracetam (Keppra) 500 mg PEG Q12 [facility] Last Admin: 11/16/17 09:08 Dose: 500 mg Magnesium Hydroxide (Milk Of Magnesia) 30 ml GT Q24H PRN PRN Reason: Constipation Pantoprazole Sodium (Protonix Susp) 40 mg PEG DAILY [facility] Last Admin: 11/16/17 09:08 Dose: 40 mg Polyethylene Glycol (Miralax) 17 gm GT DAILY [facility] Last Admin: 11/16/17 09:11 Dose: 17 gm Sertraline HCl (Zoloft) 50 mg JT DAILY [facility] Last Admin: 11/16/17 09:08 Dose: 50 mg Vitamin A (Vitamin A & D Oint Ud Foilpak) 1 ea TOP BID [facility] Last Admin: 11/16/17 17:14 Dose: 1 ea - Labs Labs: 11/16/17 06:18 11/16/17 06:18 PT 11.6 SECONDS (9.7-12.2) 10/26/17 02:55 INR 1.0 10/26/17 02:55 APTT 34 SECONDS (21-34) 10/26/17 02:55 - Constitutional Appears: Chronically Ill - Head Exam Head Exam: ATRAUMATIC - Eye Exam Eye Exam: PERRL Pupil Exam: PERRL - ENT Exam ENT Exam: Mucous Membranes Dry - Respiratory Exam Respiratory Exam: Decreased Breath Sounds - Cardiovascular Exam Cardiovascular Exam: REGULAR RHYTHM, +S1, +S2 - GI/Abdominal Exam GI & Abdominal Exam: Distended, Hypoactive Bowel Sounds - Rectal Exam Rectal Exam: Deferred Assessment and Plan (1) Abdominal distension Status: Acute (2) Abdominal pain Status: Acute (3) Colon distention Status: Acute (4) Nausea Status: Acute (5) Toxic megacolon Status: Acute (6) Fungemia Status: Acute (7) Sepsis Status: Acute (8) Sepsis Status: Acute - Assessment and Plan (Free Text) Plan: vanco trough 6.5
[2017-11-17] MEDS: Meropenem 1 GM in Sodium Chloride 0.9% 100 ML IVPB SCH ×2 (05:14→21:26)
[2017-11-17] MEDS: Fluconazole IV 400mg/200ml NS 200 ML IVPB SCH (11:06)
[2017-11-17] MEDS: Pantoprazole 40 mg Susp UD PEG SCH (11:09)
[2017-11-17] MEDS: Vitamins A & D Oint UD Foilpak TOP SCH ×2 (11:09→19:00)
[2017-11-17] MEDS: levETIRAcetam 100 mg/ml (5ml) Oral Syringe PEG SCH ×2 (11:09→22:59)
[2017-11-17] MEDS: Enoxaparin 40 mg Syringe SC SCH (11:10)
[2017-11-17] MEDS: Vancomycin 1 GM in Sodium Chloride 0.9% 200 ML IVPB SCH (11:10)
[2017-11-17] MEDS: POLYETHYLENE GLYCOL 3350 17 GM/Dose PACKET GT SCH (11:10)
--- NOTE | 2017-11-17 12:38 | PN ---
DATE: LOCATION: 571, bed A. SUBJECTIVE: This is a 67-year-old female seen early this morning out of the intensive care, appeared to be somewhat more alert and awake, nonverbal with rectal tube still in place for decompression. PEG tube is in place without reported residual bleeding or resistance so far. The entire chart is reviewed including, but not limited to the most recent lab and radiology study results, current and previous medication list, current and previous medical events. Case discussed at length with the staff as well as all the consultants at length. Today's labs are still pending, however, the patient still has leukocytosis of 12.3, with mildly low hemoglobin and hematocrit, but normal platelet counts, with low creatinine, mildly increased blood glucose level, low calcium, and reported elevated ALT and AST with normal albumin. Hepatitis profile report is still pending. PHYSICAL EXAMINATION GENERAL: A 67-year-old female. VITAL SIGNS: Temperature 99.3, blood pressure 108/72, respiratory rate 20 to 22. HEENT: Showed pale, dry oral mucous membrane. Nonicteric sclerae. LUNGS: Few scattered crepitation. Decreased air entry at bases. HEART: Positive S1 and S2. ABDOMEN: Soft with mild tenderness and mild distention. Bowel sounds are hypoactive. PEG tube is in place without clear evidence of anterior abdominal wall cellulitis. RECTAL: Rectal tube is in place. It was reported that the patient had significant bowel movement through the rectal tube yesterday. EXTREMITIES: With mild lower extremity edematous changes. No clubbing or cyanosis. NEUROLOGIC: No reported neurological deficits, sensory or motor. IMPRESSION: 1. 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 2. Status post percutaneous endoscopic gastrostomy insertion due to patient's dysphagia and malnutrition with hypoalbuminemia, intact. 3. History of seizure disorder, depression, status post cardiopulmonary arrest. 4. Abnormal liver function test, most likely secondary to infectious process, patient reported to have anterior abdominal wall stoma infectious process. SUGGESTIONS: 1. Continue current management. 2. Follow up hepatitis profile. 3. Keep PEG tube in place in the meantime until full compression of the patient's dilated colon. 4. Further recommendation to follow. Lidia Lam MD [facility] # [id number]
--- NOTE | 2017-11-17 14:32 | CP.PCM.PN ---
Subjective - Date & Time of Evaluation Date of Evaluation: 11/17/17 Time of Evaluation: 09:00 - Subjective Subjective: IV rx renewed cont rx Objective - Vital Signs/Intake and Output Vital Signs (last 24 hours): Temp Pulse Resp BP Pulse Ox 97.6 F 87 18 116/72 95 11/17/17 09:30 11/17/17 09:30 11/17/17 09:30 11/17/17 09:30 11/17/17 09:30 - Medications Medications: Current Medications Acetaminophen (Tylenol 650mg/20.3ml Solution Ud) 650 mg GT Q4H PRN PRN Reason: Pain, Mild (1-3) Last Admin: 11/13/17 09:38 Dose: 650 mg Amlodipine Besylate (Norvasc) 5 mg GT DAILY [facility] Last Admin: 11/17/17 11:09 Dose: 5 mg Enoxaparin Sodium (Lovenox) 40 mg SC DAILY [facility] Last Admin: 11/17/17 11:10 Dose: 40 mg Vancomycin HCl 1 gm/ Sodium (Chloride) 200 mls @ 166.7 mls/hr IVPB DAILY [facility] Last Admin: 11/17/17 11:10 Dose: 166.7 mls/hr Meropenem 1 gm/ Sodium (Chloride) 100 mls @ 100 mls/hr IVPB Q8H [facility] Last Admin: 11/17/17 05:14 Dose: 100 mls/hr Fluconazole (Diflucan Iv 400mg/200ml Ns) 200 mls @ 100 mls/hr IVPB DAILY [facility] Last Admin: 11/17/17 11:06 Dose: 100 mls/hr Multivitamins/Vitamin C 10 ml/ (Amino Acids) 1,010 mls @ 42 mls/hr IV .Q24H [facility] Stop: 11/17/17 17:59 Last Admin: 11/16/17 17:15 Dose: 42 mls/hr Amino Acids (Clinimix 4.25/5 % "E" (1000 Ml)) 1,000 mls @ 42 mls/hr IV .[id number] [facility] Stop: 11/18/17 17:48 Levetiracetam (Keppra) 500 mg PEG Q12 [facility] Last Admin: 11/17/17 11:09 Dose: 500 mg Magnesium Hydroxide (Milk Of Magnesia) 30 ml GT Q24H PRN PRN Reason: Constipation Pantoprazole Sodium (Protonix Susp) 40 mg PEG DAILY [facility] Last Admin: 11/17/17 11:09 Dose: 40 mg Polyethylene Glycol (Miralax) 17 gm GT DAILY [facility] Last Admin: 11/17/17 11:10 Dose: 17 gm Sertraline HCl (Zoloft) 50 mg JT DAILY [facility] Last Admin: 11/17/17 11:09 Dose: 50 mg Vitamin A (Vitamin A & D Oint Ud Foilpak) 1 ea TOP BID [facility] Last Admin: 11/17/17 11:09 Dose: 1 ea - Labs Labs: 11/16/17 06:18 11/16/17 06:18 PT 11.6 SECONDS (9.7-12.2) 10/26/17 02:55 INR 1.0 10/26/17 02:55 APTT 34 SECONDS (21-34) 10/26/17 02:55 - Constitutional Appears: Non-toxic, Chronically Ill - Head Exam Head Exam: NORMOCEPHALIC - Eye Exam Eye Exam: PERRL. absent: Scleral icterus - ENT Exam ENT Exam: Mucous Membranes Dry - Neck Exam Neck Exam: absent: Lymphadenopathy - Respiratory Exam Respiratory Exam: Decreased Breath Sounds - Cardiovascular Exam Cardiovascular Exam: REGULAR RHYTHM - GI/Abdominal Exam GI & Abdominal Exam: Distended, Soft - Rectal Exam Rectal Exam: Deferred - Exam Exam: NORMAL INSPECTION - Extremities Exam Extremities Exam: absent: Pedal Edema - Back Exam Back Exam: absent: CVA tenderness (L), CVA tenderness (R) - Neurological Exam Neurological Exam: Altered Neuro motor strength exam: Left Upper Extremity: 2/1, Right Upper Extremity: 4, Left Lower Extremity: 2/1, Right Lower Extremity: 4 - Psychiatric Exam Psychiatric exam: Depressed - Skin Skin Exam: Dry Assessment and Plan (1) Abdominal distension Status: Acute (2) Colon distention Status: Acute (3) Fungemia Status: Acute (4) Sepsis Status: Acute (5) Sepsis Status: Acute - Assessment and Plan (Free Text) Assessment: cont iv diflucan min 14 days
--- NOTE | 2017-11-17 15:53 | CP.PCM.PN ---
Subjective - Date & Time of Evaluation Date of Evaluation: 11/17/17 Time of Evaluation: 08:50 - Subjective Subjective: clinically same Objective - Vital Signs/Intake and Output Vital Signs (last 24 hours): Temp Pulse Resp BP Pulse Ox 97.6 F 87 18 116/72 95 11/17/17 09:30 11/17/17 09:30 11/17/17 09:30 11/17/17 09:30 11/17/17 09:30 - Medications Medications: Current Medications Acetaminophen (Tylenol 650mg/20.3ml Solution Ud) 650 mg GT Q4H PRN PRN Reason: Pain, Mild (1-3) Last Admin: 11/13/17 09:38 Dose: 650 mg Amlodipine Besylate (Norvasc) 5 mg GT DAILY [facility] Last Admin: 11/17/17 11:09 Dose: 5 mg Enoxaparin Sodium (Lovenox) 40 mg SC DAILY [facility] Last Admin: 11/17/17 11:10 Dose: 40 mg Vancomycin HCl 1 gm/ Sodium (Chloride) 200 mls @ 166.7 mls/hr IVPB DAILY [facility] Last Admin: 11/17/17 11:10 Dose: 166.7 mls/hr Meropenem 1 gm/ Sodium (Chloride) 100 mls @ 100 mls/hr IVPB Q8H [facility] Last Admin: 11/17/17 05:14 Dose: 100 mls/hr Fluconazole (Diflucan Iv 400mg/200ml Ns) 200 mls @ 100 mls/hr IVPB DAILY [facility] Last Admin: 11/17/17 11:06 Dose: 100 mls/hr Multivitamins/Vitamin C 10 ml/ (Amino Acids) 1,010 mls @ 42 mls/hr IV .Q24H [facility] Stop: 11/17/17 17:59 Last Admin: 11/16/17 17:15 Dose: 42 mls/hr Amino Acids (Clinimix 4.25/5 % "E" (1000 Ml)) 1,000 mls @ 42 mls/hr IV .[id number] [facility] Stop: 11/18/17 17:48 Levetiracetam (Keppra) 500 mg PEG Q12 [facility] Last Admin: 11/17/17 11:09 Dose: 500 mg Magnesium Hydroxide (Milk Of Magnesia) 30 ml GT Q24H PRN PRN Reason: Constipation Pantoprazole Sodium (Protonix Susp) 40 mg PEG DAILY [facility] Last Admin: 11/17/17 11:09 Dose: 40 mg Polyethylene Glycol (Miralax) 17 gm GT DAILY [facility] Last Admin: 11/17/17 11:10 Dose: 17 gm Sertraline HCl (Zoloft) 50 mg JT DAILY [facility] Last Admin: 11/17/17 11:09 Dose: 50 mg Vitamin A (Vitamin A & D Oint Ud Foilpak) 1 ea TOP BID [facility] Last Admin: 11/17/17 11:09 Dose: 1 ea - Labs Labs: 11/16/17 06:18 11/16/17 06:18 PT 11.6 SECONDS (9.7-12.2) 10/26/17 02:55 INR 1.0 10/26/17 02:55 APTT 34 SECONDS (21-34) 10/26/17 02:55 - Constitutional Appears: Well - Head Exam Head Exam: ATRAUMATIC, NORMAL INSPECTION, NORMOCEPHALIC - Eye Exam Eye Exam: EOMI, Normal appearance, PERRL Pupil Exam: NORMAL ACCOMODATION, PERRL - ENT Exam ENT Exam: Mucous Membranes Moist, Normal Exam - Neck Exam Neck Exam: Full ROM, Normal Inspection. absent: Lymphadenopathy - Respiratory Exam Respiratory Exam: Decreased Breath Sounds - Cardiovascular Exam Cardiovascular Exam: REGULAR RHYTHM, +S1, +S2 - GI/Abdominal Exam GI & Abdominal Exam: Soft, Diminished Bowel Sounds - Rectal Exam Rectal Exam: Deferred Assessment and Plan (1) Abdominal distension Status: Acute (2) Abdominal pain Status: Acute (3) Colon distention Status: Acute (4) Nausea Status: Acute (5) Toxic megacolon Status: Acute (6) Fungemia Status: Acute (7) Sepsis Status: Acute (8) Sepsis Status: Acute - Assessment and Plan (Free Text) Plan: Patient is going for swelling evaluations tomorrow although patient PEG tube feeding is resumed Continue Clinimix E Tomorrow morning 10:00 meeting with the son and Dr. Yanes Continue Diflucan Continue meropenem Continue vancomycin Continue as ordered Continue follow-up with surgical Follow-up with Dr. Oden Follow-up with other individual pension consultant as ordered
[2017-11-17] MEDS ORDERED: PPN # 4 IV SCH (18:00)
[2017-11-18] MEDS: Meropenem 1 GM in Sodium Chloride 0.9% 100 ML IVPB SCH ×3 (05:38→21:46)
[2017-11-18] MEDS: Vancomycin 1 GM in Sodium Chloride 0.9% 200 ML IVPB SCH (10:54)
[2017-11-18] MEDS: Pantoprazole 40 mg Susp UD PEG SCH (10:55)
[2017-11-18] MEDS: Enoxaparin 40 mg Syringe SC SCH (10:55)
[2017-11-18] MEDS: Vitamins A & D Oint UD Foilpak TOP SCH ×2 (10:55→18:52)
[2017-11-18] MEDS: POLYETHYLENE GLYCOL 3350 17 GM/Dose PACKET GT SCH (10:55)
[2017-11-18] MEDS: levETIRAcetam 100 mg/ml (5ml) Oral Syringe PEG SCH ×2 (10:56→21:45)
[2017-11-18 11:24] LABS: BASO # 0.1 K/uL (0.0-0.2); BASO % 0.7 % (0.0-2.0); EOS # 0.1 K/uL (0.0-0.7); EOS % 1.1 % (0.0-4.0); HEMOGLOBIN 10.2 g/dL (11.0-16.0); LYMPH # 1.9 K/uL (1.0-4.3); LYMPH % 20.3 % (20.0-40.0); MEAN CELL VOLUME 93.3 fL (81.0-99.0); MEAN CORPUSCULAR HEMOGLOBIN 31.7 pg (27.0-31.0); MEAN PLATELET VOLUME 9.7 fL (7.2-11.7); MONO # 0.9 K/uL (0.0-0.8); MONO % 10.2 % (0.0-10.0); NEUT # 6.3 K/uL (1.8-7.0); NEUT % 67.7 % (50.0-75.0); RBC 3.22 Mil/uL (3.80-5.20); RED CELL DISTRIBUTION WIDTH 14.7 % (11.5-14.5); WHITE BLOOD COUNT 9.3 K/uL (4.8-10.8)
[2017-11-18 11:50] LABS: ALB/GLOB RATIO 0.8 (1.0-2.1); ALT/SGPT 104 U/L (9-52); AST/SGOT 60 U/L (14-36); BLOOD UREA NITROGEN 11 mg/dL (7-17); GFR AFRICAN-AMERICAN > 60; GFR NON-AFRICAN AMERICAN > 60
[2017-11-18] MEDS: Fluconazole IV 400mg/200ml NS 200 ML IVPB SCH (12:09)
--- NOTE | 2017-11-18 13:31 | CP.PCM.PN ---
Subjective - Date & Time of Evaluation Date of Evaluation: 11/18/17 Time of Evaluation: 13:30 - Subjective Subjective: Progress note. Attending: Dr. Kulwinder Kelly. Pt seen and examined at bedside. Son present at bedside. No acute distress. ROS unobtainable. Pt refused exam. Workup in progress with general surgery and GI. Objective - Vital Signs/Intake and Output Vital Signs (last 24 hours): Temp Pulse Resp BP Pulse Ox 97.4 F L 82 18 103/57 L 98 11/18/17 07:15 11/18/17 07:15 11/18/17 07:15 11/18/17 07:15 11/18/17 00:38 Intake and Output: 11/18/17 11/18/17 06:59 18:59 Intake Total 852 Output Total 700 Balance 152 - Medications Medications: Current Medications Acetaminophen (Tylenol 650mg/20.3ml Solution Ud) 650 mg GT Q4H PRN PRN Reason: Pain, Mild (1-3) Last Admin: 11/13/17 09:38 Dose: 650 mg Amlodipine Besylate (Norvasc) [address] [facility] Last Admin: 11/18/17 10:55 Dose: 5 mg Enoxaparin Sodium (Lovenox) [address] [facility] Last Admin: 11/18/17 10:55 Dose: 40 mg Vancomycin HCl 1 gm/ Sodium (Chloride) 200 mls @ 166.7 mls/hr IVPB DAILY [facility] Last Admin: 11/18/17 10:54 Dose: 166.7 mls/hr Meropenem 1 gm/ Sodium (Chloride) 100 mls @ 100 mls/hr IVPB Q8H [facility] Last Admin: 11/18/17 05:38 Dose: 100 mls/hr Fluconazole (Diflucan Iv 400mg/200ml Ns) 200 mls @ 100 mls/hr IVPB DAILY [facility] Last Admin: 11/18/17 12:09 Dose: 100 mls/hr Amino Acids (Clinimix 4.25/5 % "E" (1000 Ml)) 1,000 mls @ 42 mls/hr IV .[id number] [facility] Stop: 11/18/17 17:48 Last Admin: 11/17/17 19:00 Dose: 42 mls/hr Multivitamins/Vitamin C 10 ml/ (Amino Acids) 1,010 mls @ 42 mls/hr IV .Q24H [facility] Stop: 11/19/17 17:59 Levetiracetam (Keppra) [address] [facility] Last Admin: 11/18/17 10:56 Dose: 500 mg Magnesium Hydroxide (Milk Of Magnesia) 30 ml GT Q24H PRN PRN Reason: Constipation Pantoprazole Sodium (Protonix Susp) [address] [facility] Last Admin: 11/18/17 10:55 Dose: 40 mg Polyethylene Glycol (Miralax) [address] [facility] Last Admin: 11/18/17 10:55 Dose: 17 gm Sertraline HCl (Zoloft) [address] [facility] Last Admin: 11/18/17 10:54 Dose: 50 mg Vitamin A (Vitamin A & D Oint Ud Foilpak) [address] [facility] Last Admin: 11/18/17 10:55 Dose: 1 ea - Labs Labs: 11/18/17 11:09 11/18/17 11:09 PT 11.6 SECONDS (9.7-12.2) 10/26/17 02:55 INR 1.0 10/26/17 02:55 APTT 34 SECONDS (21-34) 10/26/17 02:55 - Constitutional Appears: Older Than Stated Age, Chronically Ill - Head Exam Additional comments: Pt refused exam. Assessment and Plan - Assessment and Plan (Free Text) Assessment: This is a 67 yo female admitted for chronic abdominal pain and distention Colonic dilation/obstruction/pseudo- obstruction 11/18- pt currently out of ICU; care is being coordinated btw. surgery and son who is now present. 11/15/17: Surgery team wants to try neostigmine under ICU monitoring (2/2 possible side effects of bradycardia / hypotension). Tube feeds on this morning. Patient is interacting in a yes/no fashion today is answering in a coherent fashion, however she does not want to be "bothered." -f/u swallow eval. If allowed, may start pleasure feeds. Continue Tube feed diet. - Peg tube grew e. coli. continue IV Abx. 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 -PEG site culture growing staph. aureus/MRSA/ESBL -critical care consult placed with Dr. Chang. -ID consult. recs appreciated. Dr. Oden. -repeat CT scan shows small pleural effusion along with redemonstration of colonic dilation ileus rather than obstruction. -abdominal x ray shows colonic dilation still -GI consult. DR. GIBSON. recs appreciated. -sx following. dr. culp. recs appreciated; no surgical intervention planned for this admission -pt underwent endoscopy along with peg removal and replacement -endoscopy showed esophagitis along with small hiatal hernia, as well as erythematous mucosa in stomach -pt is to f/u with GI for results of biopsy from endoscopy -repeat CT scan shows marked dilation of colon and particularly the rectosigmoid colon, along with multiple hepatic cysts. -pt is on parenteral nutrition. Fungemia 11/15: blood culture positive for yeast 11/11/17; repeat cultures negative x24hrs. Continue IV fluconazole x14d (started 11/13) -butler cultures>> shows yeast growing in blood >>> jeovanny tropicalis. -ID consult Dr. Oden already on board. recs appreciated. -starting IV fluconazole; will continue as per ID for 14 days Anemia -normocytic -continue to monitor. hx of dementia -continue donepezil daily -patient is mostly non verbal but can understand commands and communicates through yes or no in iranian. However, full comprehension and ability to answer yes/no appropriately is questionable. hx of seizure disorder -continue keppra through PEG hx of depression -continue sertraline Hypokalemia -resolved. -continue to monitor Elevated LFTs -trending down -GI consult. Dr. Gibson. recs appreciated. gi/dvt ppx -Resume lovenox -continue protonix Dispo: Discharge planning in progress, but needs clearance by surgery; will hold off on picc line for now.
--- NOTE | 2017-11-18 15:14 | PN ---
DATE: LOCATION: [facility], bed A. SUBJECTIVE: This is a 67-year-old female, seen and examined in rounds, somewhat tolerating PEG feeding at low rate without any reported residual bleeding or resistant with less abdominal distention. Very minimal discharge around the stoma of the PEG was reported. The entire chart is reviewed including but not limited to most recent lab and radiology study results, current and the previous medication list, current and the previous medical events, as well as allergy to medication list. No reported, as per the staff chest pain or significant palpitation and/or shortness of breath and no reported chills or fever. Most recent lab results showed leukocytosis with mildly low hematocrit. Today's lab is still pending and the patient still has elevated liver function test, but low albumin. PHYSICAL EXAMINATION GENERAL: A 67-year-old female. VITAL SIGNS: Afebrile, with pulse of 80, respiratory rate 18 to 20, blood pressure 106/56. HEENT: Showed pale, dry oral mucous membrane. Nonicteric sclerae. LUNGS: Few scattered crepitation. Decreased air entry at bases. HEART: Positive S1 and S2. ABDOMEN: Soft, bowel sounds are present with mild abdominal distention and tenderness, but less than before. No rebound tenderness or guarding. EXTREMITIES: Slight lower extremity edematous changes. No clubbing or cyanosis. NEUROLOGIC: No reported new neurological deficit, sensory or motor. IMPRESSION: 1. Cecal impaction, dilated colon with an ileus with questionable toxic megacolon, less likely. 2. Status post percutaneous endoscopic gastrostomy insertion before due to the patient's malnutrition, dysphagia, and hypoalbuminemia, intact so far. 3. Known history orf seizure disorder, depression, status post cardiopulmonary arrest. 4. Abnormal liver function tests, most likely secondary to starvation or an infection. 5. Anterior abdominal wall mild cellulitis with infected tumor, is still on antibiotics. 6. Electrolyte imbalance with hypocalcemia. SUGGESTIONS: 1. I agree with your plan. 2. Surgical followup. 3. Subsequent increase rate of feeding as tolerated. 4. Again, no need for further aggressive GI workup in the meantime. Lidia Lam MD [facility] # [id number]
--- NOTE | 2017-11-18 15:58 | CP.PCM.PN ---
Subjective - Date & Time of Evaluation Date of Evaluation: 11/18/17 Time of Evaluation: 13:30 - Subjective Subjective: DISCUSSED PLAN FOR D/C TODAY WITH MDS AND PT'S SON, JOE, AT BEDSIDE. HAD LENGTHY DISCUSSION WITH DR. GUSTAFSON VIA TELEPHONE WITH SON; PER DR. GUSTAFSON, NO FURTHER SURGICAL INTERVENTION FOR NOW; HE ALSO EXPLAINED IN DETAIL TO THE PT HER DIAGNOSIS AND RISK FOR CHRONIC CONSTIPATION, WELL NO NEED FOR SURGERY NOW. ALL SURGICAL RELATED QUESTIONS ANSWERED BY DR. GUSTAFSON ; SON VERBALIZES UNDERSTANDING OF SURGICAL PLAN. I DISCUSSED IV ABX WITH DR. VALLEJO; WILL CONTINUE IV FLUCONAZOLE X1 WEEK FOLLOWED BY DIFLUCAN 200 MG PO BID X1 WEEK. LAST DATE FOR THE IV FLUCONAZOLE IS 11/25/17; CAN CONTINUE PO DIFLUCAN UPON D/C. CM TO DISCUSS D/C FACILITY W SON. WILL D/C RECTAL TUBE TODAY, RESTART PEG FEEDINGS AT ORDERED RATE, AND BEGIN PUREED DIET (PT PASSED SWALLOW EVAL). NO FURTHER ORDERS. Objective - Vital Signs/Intake and Output Vital Signs (last 24 hours): Temp Pulse Resp BP Pulse Ox 97.4 F L 82 18 103/57 L 98 11/18/17 07:15 11/18/17 07:15 11/18/17 07:15 11/18/17 07:15 11/18/17 00:38 Intake and Output: 11/18/17 11/18/17 06:59 18:59 Intake Total 852 600 Output Total 700 350 Balance 152 250 - Medications Medications: Current Medications Acetaminophen (Tylenol 650mg/20.3ml Solution Ud) 650 mg GT Q4H PRN PRN Reason: Pain, Mild (1-3) Last Admin: 11/13/17 09:38 Dose: 650 mg Amlodipine Besylate (Norvasc) 5 mg GT DAILY [facility] Last Admin: 11/18/17 10:55 Dose: 5 mg Enoxaparin Sodium (Lovenox) 40 mg SC DAILY [facility] Last Admin: 11/18/17 10:55 Dose: 40 mg Vancomycin HCl 1 gm/ Sodium (Chloride) 200 mls @ 166.7 mls/hr IVPB DAILY [facility] Last Admin: 11/18/17 10:54 Dose: 166.7 mls/hr Meropenem 1 gm/ Sodium (Chloride) 100 mls @ 100 mls/hr IVPB Q8H [facility] Last Admin: 11/18/17 14:24 Dose: 100 mls/hr Fluconazole (Diflucan Iv 400mg/200ml Ns) 200 mls @ 100 mls/hr IVPB DAILY [facility] Last Admin: 11/18/17 12:09 Dose: 100 mls/hr Amino Acids (Clinimix 4.25/5 % "E" (1000 Ml)) 1,000 mls @ 42 mls/hr IV .[id number] [facility] Stop: 11/18/17 17:48 Last Admin: 11/17/17 19:00 Dose: 42 mls/hr Multivitamins/Vitamin C 10 ml/ (Amino Acids) 1,010 mls @ 42 mls/hr IV .Q24H [facility] Stop: 11/19/17 17:59 Levetiracetam (Keppra) 500 mg PEG Q12 [facility] Last Admin: 11/18/17 10:56 Dose: 500 mg Magnesium Hydroxide (Milk Of Magnesia) 30 ml GT Q24H PRN PRN Reason: Constipation Pantoprazole Sodium (Protonix Susp) 40 mg PEG DAILY [facility] Last Admin: 11/18/17 10:55 Dose: 40 mg Polyethylene Glycol (Miralax) 17 gm GT DAILY [facility] Last Admin: 11/18/17 10:55 Dose: 17 gm Sertraline HCl (Zoloft) 50 mg JT DAILY [facility] Last Admin: 11/18/17 10:54 Dose: 50 mg Vitamin A (Vitamin A & D Oint Ud Foilpak) 1 ea TOP BID [facility] Last Admin: 11/18/17 10:55 Dose: 1 ea - Labs Labs: 11/18/17 11:09 11/18/17 11:09 PT 11.6 SECONDS (9.7-12.2) 10/26/17 02:55 INR 1.0 10/26/17 02:55 APTT 34 SECONDS (21-34) 10/26/17 02:55
[2017-11-18] MEDS ORDERED: PPN # 5 IV SCH (18:00)
--- NOTE | 2017-11-18 19:36 | CP.PCM.PN ---
Subjective - Date & Time of Evaluation Date of Evaluation: 11/18/17 Time of Evaluation: 11:10 - Subjective Subjective: clinically same Objective - Vital Signs/Intake and Output Vital Signs (last 24 hours): Temp Pulse Resp BP Pulse Ox 98.2 F 79 20 110/64 95 11/18/17 16:41 11/18/17 16:41 11/18/17 16:41 11/18/17 16:41 11/18/17 16:41 Intake and Output: 11/18/17 11/19/17 18:59 06:59 Intake Total 600 Output Total 350 Balance 250 - Medications Medications: Current Medications Acetaminophen (Tylenol 650mg/20.3ml Solution Ud) 650 mg GT Q4H PRN PRN Reason: Pain, Mild (1-3) Last Admin: 11/13/17 09:38 Dose: 650 mg Amlodipine Besylate (Norvasc) 5 mg GT DAILY [facility] Last Admin: 11/18/17 10:55 Dose: 5 mg Enoxaparin Sodium (Lovenox) 40 mg SC DAILY [facility] Last Admin: 11/18/17 10:55 Dose: 40 mg Vancomycin HCl 1 gm/ Sodium (Chloride) 200 mls @ 166.7 mls/hr IVPB DAILY [facility] Last Admin: 11/18/17 10:54 Dose: 166.7 mls/hr Meropenem 1 gm/ Sodium (Chloride) 100 mls @ 100 mls/hr IVPB Q8H [facility] Last Admin: 11/18/17 14:24 Dose: 100 mls/hr Fluconazole (Diflucan Iv 400mg/200ml Ns) 200 mls @ 100 mls/hr IVPB DAILY [facility] Last Admin: 11/18/17 12:09 Dose: 100 mls/hr Multivitamins/Vitamin C 10 ml/ (Amino Acids) 1,010 mls @ 42 mls/hr IV .Q24H [facility] Stop: 11/19/17 17:59 Last Admin: 11/18/17 18:50 Dose: 42 mls/hr Levetiracetam (Keppra) 500 mg PEG Q12 [facility] Last Admin: 11/18/17 10:56 Dose: 500 mg Magnesium Hydroxide (Milk Of Magnesia) 30 ml GT Q24H PRN PRN Reason: Constipation Pantoprazole Sodium (Protonix Susp) 40 mg PEG DAILY [facility] Last Admin: 11/18/17 10:55 Dose: 40 mg Polyethylene Glycol (Miralax) 17 gm GT DAILY [facility] Last Admin: 11/18/17 10:55 Dose: 17 gm Sertraline HCl (Zoloft) 50 mg JT DAILY [facility] Last Admin: 11/18/17 10:54 Dose: 50 mg Vitamin A (Vitamin A & D Oint Ud Foilpak) 1 ea TOP BID [facility] Last Admin: 11/18/17 18:52 Dose: 1 ea - Labs Labs: 11/18/17 11:09 11/18/17 11:09 PT 11.6 SECONDS (9.7-12.2) 10/26/17 02:55 INR 1.0 10/26/17 02:55 APTT 34 SECONDS (21-34) 10/26/17 02:55 - Constitutional Appears: Well - Head Exam Head Exam: ATRAUMATIC, NORMAL INSPECTION, NORMOCEPHALIC - Eye Exam Eye Exam: EOMI, Normal appearance, PERRL Pupil Exam: NORMAL ACCOMODATION, PERRL - ENT Exam ENT Exam: Mucous Membranes Moist, Normal Exam - Neck Exam Neck Exam: Full ROM, Normal Inspection. absent: Lymphadenopathy - Respiratory Exam Respiratory Exam: Decreased Breath Sounds - Cardiovascular Exam Cardiovascular Exam: REGULAR RHYTHM, +S1, +S2 - GI/Abdominal Exam GI & Abdominal Exam: Soft, Diminished Bowel Sounds - Rectal Exam Rectal Exam: Deferred Assessment and Plan (1) Abdominal distension Status: Acute (2) Abdominal pain Status: Acute (3) Colon distention Status: Acute (4) Nausea Status: Acute (5) Toxic megacolon Status: Acute (6) Fungemia Status: Acute (7) Sepsis Status: Acute (8) Sepsis Status: Acute
[2017-11-19] MEDS: Meropenem 1 GM in Sodium Chloride 0.9% 100 ML IVPB SCH ×3 (05:07→22:00)
[2017-11-19] MEDS: Enoxaparin 40 mg Syringe SC SCH (09:38)
[2017-11-19] MEDS: Vitamins A & D Oint UD Foilpak TOP SCH ×2 (09:38→22:31)
[2017-11-19] MEDS: Vancomycin 1 GM in Sodium Chloride 0.9% 200 ML IVPB SCH (09:38)
[2017-11-19] MEDS: POLYETHYLENE GLYCOL 3350 17 GM/Dose PACKET GT SCH (09:38)
[2017-11-19] MEDS: Pantoprazole 40 mg Susp UD PEG SCH (09:39)
[2017-11-19] MEDS: levETIRAcetam 100 mg/ml (5ml) Oral Syringe PEG SCH ×2 (09:39→22:00)
[2017-11-19] MEDS: Fluconazole IV 400mg/200ml NS 200 ML IVPB SCH (10:55)
--- NOTE | 2017-11-19 11:12 | CP.PCM.PN ---
<Johan Juarez - Last Filed: 11/19/17 11:17> Subjective - Date & Time of Evaluation Date of Evaluation: 11/19/17 Time of Evaluation: 11:10 - Subjective Subjective: Progress note. Attending: Kulwinder Kelly. Pt seen and examined at bedside. No acute distress. No events overnight. ROS unobtainable. Objective - Vital Signs/Intake and Output Vital Signs (last 24 hours): Temp Pulse Resp BP Pulse Ox 98.4 F 81 18 94/60 L 96 11/19/17 07:15 11/19/17 07:15 11/19/17 07:15 11/19/17 07:15 11/19/17 07:15 Intake and Output: 11/19/17 11/19/17 06:59 18:59 Intake Total 394 Output Total 1000 Balance 394 -1000 - Medications Medications: Current Medications Acetaminophen (Tylenol 650mg/20.3ml Solution Ud) 650 mg GT Q4H PRN PRN Reason: Pain, Mild (1-3) Last Admin: 11/13/17 09:38 Dose: 650 mg Amlodipine Besylate (Norvasc) 5 mg GT DAILY [facility] Last Admin: 11/19/17 09:39 Dose: 5 mg Enoxaparin Sodium (Lovenox) 40 mg SC DAILY [facility] Last Admin: 11/19/17 09:38 Dose: 40 mg Vancomycin HCl 1 gm/ Sodium (Chloride) 200 mls @ 166.7 mls/hr IVPB DAILY [facility] Last Admin: 11/19/17 09:38 Dose: 166.7 mls/hr Meropenem 1 gm/ Sodium (Chloride) 100 mls @ 100 mls/hr IVPB Q8H [facility] Last Admin: 11/19/17 05:07 Dose: 100 mls/hr Fluconazole (Diflucan Iv 400mg/200ml Ns) 200 mls @ 100 mls/hr IVPB DAILY [facility] Last Admin: 11/19/17 10:55 Dose: 100 mls/hr Multivitamins/Vitamin C 10 ml/ (Amino Acids) 1,010 mls @ 42 mls/hr IV .Q24H [facility] Stop: 11/19/17 17:59 Last Admin: 11/18/17 18:50 Dose: 42 mls/hr Multivitamins/Vitamin C 10 ml/ (Amino Acids) 1,010 mls @ 42 mls/hr IV .Q24H [facility] Stop: 11/20/17 17:59 Levetiracetam (Keppra) 500 mg PEG Q12 [facility] Last Admin: 11/19/17 09:39 Dose: 500 mg Magnesium Hydroxide (Milk Of Magnesia) 30 ml GT Q24H PRN PRN Reason: Constipation Pantoprazole Sodium (Protonix Susp) 40 mg PEG DAILY [facility] Last Admin: 11/19/17 09:39 Dose: 40 mg Polyethylene Glycol (Miralax) 17 gm GT DAILY [facility] Last Admin: 11/19/17 09:38 Dose: 17 gm Sertraline HCl (Zoloft) 50 mg JT DAILY [facility] Last Admin: 11/19/17 09:38 Dose: 50 mg Vitamin A (Vitamin A & D Oint Ud Foilpak) 1 ea TOP BID [facility] Last Admin: 11/19/17 09:38 Dose: 1 ea - Labs Labs: 11/18/17 11:09 11/18/17 11:09 PT 11.6 SECONDS (9.7-12.2) 10/26/17 02:55 INR 1.0 10/26/17 02:55 APTT 34 SECONDS (21-34) 10/26/17 02:55 - Constitutional Appears: Older Than Stated Age, Chronically Ill - Head Exam Head Exam: ATRAUMATIC, NORMAL INSPECTION, NORMOCEPHALIC - Eye Exam Eye Exam: EOMI - ENT Exam ENT Exam: Mucous Membranes Moist - Neck Exam Neck Exam: Full ROM, Normal Inspection - Respiratory Exam Respiratory Exam: NORMAL BREATHING PATTERN. absent: Respiratory Distress - Cardiovascular Exam Cardiovascular Exam: +S1, +S2 - GI/Abdominal Exam GI & Abdominal Exam: Soft, Normal Bowel Sounds. absent: Tenderness - Extremities Exam Extremities Exam: Full ROM, Normal Inspection - Back Exam Back Exam: NORMAL INSPECTION - Neurological Exam Neurological Exam: Alert, Awake, Oriented x3 - Psychiatric Exam Additional comments: unable to assess - Skin Skin Exam: Dry, Intact, Normal Color, Warm Assessment and Plan - Assessment and Plan (Free Text) Assessment: This is a 67 yo female admitted for chronic abdominal pain and distention Colonic dilation/obstruction/pseudo- obstruction 3/5- pt currently out of ICU; care is being coordinated btw. surgery and son who is now present. 11/15/17: Surgery team wants to try neostigmine under ICU monitoring (2/2 possible side effects of bradycardia / hypotension). Tube feeds on this morning. Patient is interacting in a yes/no fashion today is answering in a coherent fashion, however she does not want to be "bothered." -f/u swallow eval. If allowed, may start pleasure feeds. Continue Tube feed diet. - Peg tube grew e. coli. continue IV Abx. 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 -PEG site culture growing staph. aureus/MRSA/ESBL -critical care consult placed with Dr. Chang. -ID consult. recs appreciated. Dr. Oden. -repeat CT scan shows small pleural effusion along with redemonstration of colonic dilation ileus rather than obstruction. -abdominal x ray shows colonic dilation still -GI consult. DR. GIBSON. recs appreciated. -sx following. dr. culp. recs appreciated; no surgical intervention planned for this admission -pt underwent endoscopy along with peg removal and replacement -endoscopy showed esophagitis along with small hiatal hernia, as well as erythematous mucosa in stomach -pt is to f/u with GI for results of biopsy from endoscopy -repeat CT scan shows marked dilation of colon and particularly the rectosigmoid colon, along with multiple hepatic cysts. -pt is on parenteral nutrition. Fungemia 11/15: blood culture positive for yeast 11/11/17; repeat cultures negative x24hrs. Continue IV fluconazole x14d (started 11/13) -butler cultures>> shows yeast growing in blood >>> jeovanny tropicalis. -ID consult Dr. Oden already on board. recs appreciated. -starting IV fluconazole; will continue as per ID for 14 days -continue meropenem IV 1 g q 8 hrs. Hx of HTN -amlodipine 5 mg GT daily Anemia -normocytic -continue to monitor. hx of dementia -continue donepezil daily -patient is mostly non verbal but can understand commands and communicates through yes or no in [place]. However, full comprehension and ability to answer yes/no appropriately is questionable. hx of seizure disorder -continue keppra through PEG hx of depression -continue sertraline Hypokalemia -resolved. -continue to monitor Elevated LFTs -trending down -GI consult. Dr. Gibson. recs appreciated. gi/dvt ppx -lovenox 40 mg sc daily -continue protonix Dispo: Discharge planning in progress, but needs clearance by surgery; will hold off on picc line for now. <Lolly Kelly - Last Filed: 11/19/17 19:58> Objective - Vital Signs/Intake and Output Vital Signs (last 24 hours): Temp Pulse Resp BP Pulse Ox 98.0 F 77 20 112/68 95 11/19/17 16:44 11/19/17 16:44 11/19/17 16:44 11/19/17 16:44 11/19/17 16:44 Intake and Output: 11/19/17 11/20/17 18:59 06:59 Output Total 1000 Balance -1000 - Medications Medications: Current Medications Acetaminophen (Tylenol 650mg/20.3ml Solution Ud) 650 mg GT Q4H PRN PRN Reason: Pain, Mild (1-3) Last Admin: 11/13/17 09:38 Dose: 650 mg Amlodipine Besylate (Norvasc) 5 mg GT DAILY [facility] Last Admin: 11/19/17 09:39 Dose: 5 mg Enoxaparin Sodium (Lovenox) 40 mg SC DAILY [facility] Last Admin: 11/19/17 09:38 Dose: 40 mg Vancomycin HCl 1 gm/ Sodium (Chloride) 200 mls @ 166.7 mls/hr IVPB DAILY [facility] Last Admin: 11/19/17 09:38 Dose: 166.7 mls/hr Meropenem 1 gm/ Sodium (Chloride) 100 mls @ 100 mls/hr IVPB Q8H [facility] Last Admin: 11/19/17 13:44 Dose: 100 mls/hr Fluconazole (Diflucan Iv 400mg/200ml Ns) 200 mls @ 100 mls/hr IVPB DAILY [facility] Last Admin: 11/19/17 10:55 Dose: 100 mls/hr Levetiracetam (Keppra) 500 mg PEG Q12 [facility] Last Admin: 11/19/17 09:39 Dose: 500 mg Magnesium Hydroxide (Milk Of Magnesia) 30 ml GT Q24H PRN PRN Reason: Constipation Pantoprazole Sodium (Protonix Susp) 40 mg PEG DAILY [facility] Last Admin: 11/19/17 09:39 Dose: 40 mg Polyethylene Glycol (Miralax) 17 gm GT DAILY [facility] Last Admin: 11/19/17 09:38 Dose: 17 gm Sertraline HCl (Zoloft) 50 mg JT DAILY [facility] Last Admin: 11/19/17 09:38 Dose: 50 mg Vitamin A (Vitamin A & D Oint Ud Foilpak) 1 ea TOP BID [facility] Last Admin: 11/19/17 09:38 Dose: 1 ea - Labs Labs: 11/18/17 11:09 11/18/17 11:09 PT 11.6 SECONDS (9.7-12.2) 10/26/17 02:55 INR 1.0 10/26/17 02:55 APTT 34 SECONDS (21-34) 10/26/17 02:55 Assessment and Plan (1) Abdominal distension Status: Acute (2) Abdominal pain Status: Acute (3) Colon distention Status: Acute (4) Nausea Status: Acute (5) Toxic megacolon Status: Acute (6) Fungemia Status: Acute (7) Sepsis Status: Acute (8) Sepsis Status: Acute - Assessment and Plan (Free Text) Plan: Casein and discussed with the staff and resident discharge planning case discussed with the son yesterday at length and agree with the current management increase the PEG tube feeding DC TPN will discharge the patient and discharge planning
[2017-11-19] MEDS ORDERED: PPN #6 IV SCH (18:00)
--- NOTE | 2017-11-19 19:55 | CP.PCM.PN ---
Subjective - Date & Time of Evaluation Date of Evaluation: 11/19/17 Time of Evaluation: 11:15 - Subjective Subjective: clinically same Objective - Vital Signs/Intake and Output Vital Signs (last 24 hours): Temp Pulse Resp BP Pulse Ox 98.0 F 77 20 112/68 95 11/19/17 16:44 11/19/17 16:44 11/19/17 16:44 11/19/17 16:44 11/19/17 16:44 Intake and Output: 11/19/17 11/20/17 18:59 06:59 Output Total 1000 Balance -1000 - Medications Medications: Current Medications Acetaminophen (Tylenol 650mg/20.3ml Solution Ud) 650 mg GT Q4H PRN PRN Reason: Pain, Mild (1-3) Last Admin: 11/13/17 09:38 Dose: 650 mg Amlodipine Besylate (Norvasc) 5 mg GT DAILY [facility] Last Admin: 11/19/17 09:39 Dose: 5 mg Enoxaparin Sodium (Lovenox) 40 mg SC DAILY [facility] Last Admin: 11/19/17 09:38 Dose: 40 mg Vancomycin HCl 1 gm/ Sodium (Chloride) 200 mls @ 166.7 mls/hr IVPB DAILY [facility] Last Admin: 11/19/17 09:38 Dose: 166.7 mls/hr Meropenem 1 gm/ Sodium (Chloride) 100 mls @ 100 mls/hr IVPB Q8H [facility] Last Admin: 11/19/17 13:44 Dose: 100 mls/hr Fluconazole (Diflucan Iv 400mg/200ml Ns) 200 mls @ 100 mls/hr IVPB DAILY [facility] Last Admin: 11/19/17 10:55 Dose: 100 mls/hr Levetiracetam (Keppra) 500 mg PEG Q12 [facility] Last Admin: 11/19/17 09:39 Dose: 500 mg Magnesium Hydroxide (Milk Of Magnesia) 30 ml GT Q24H PRN PRN Reason: Constipation Pantoprazole Sodium (Protonix Susp) 40 mg PEG DAILY [facility] Last Admin: 11/19/17 09:39 Dose: 40 mg Polyethylene Glycol (Miralax) 17 gm GT DAILY [facility] Last Admin: 11/19/17 09:38 Dose: 17 gm Sertraline HCl (Zoloft) 50 mg JT DAILY [facility] Last Admin: 11/19/17 09:38 Dose: 50 mg Vitamin A (Vitamin A & D Oint Ud Foilpak) 1 ea TOP BID [facility] Last Admin: 11/19/17 09:38 Dose: 1 ea - Labs Labs: 11/18/17 11:09 11/18/17 11:09 PT 11.6 SECONDS (9.7-12.2) 10/26/17 02:55 INR 1.0 10/26/17 02:55 APTT 34 SECONDS (21-34) 10/26/17 02:55 - Constitutional Appears: Well - Head Exam Head Exam: ATRAUMATIC, NORMAL INSPECTION, NORMOCEPHALIC - Eye Exam Eye Exam: EOMI, Normal appearance, PERRL Pupil Exam: NORMAL ACCOMODATION, PERRL - ENT Exam ENT Exam: Mucous Membranes Moist, Normal Exam - Neck Exam Neck Exam: Full ROM, Normal Inspection. absent: Lymphadenopathy - Respiratory Exam Respiratory Exam: Decreased Breath Sounds - Cardiovascular Exam Cardiovascular Exam: REGULAR RHYTHM, +S1, +S2 - GI/Abdominal Exam GI & Abdominal Exam: Soft, Diminished Bowel Sounds - Rectal Exam Rectal Exam: Deferred Assessment and Plan (1) Abdominal distension Status: Acute (2) Abdominal pain Status: Acute (3) Colon distention Status: Acute (4) Nausea Status: Acute (5) Toxic megacolon Status: Acute (6) Fungemia Status: Acute (7) Sepsis Status: Acute (8) Sepsis Status: Acute - Assessment and Plan (Free Text) Plan: Extensive discussions done with the family yesterday discussed with Dr. culp but Will DC the PPN today Continue antibiotic Continue Lovenox and Protonix Discussed with the son Antonio at length about different options We will discharge the patient's Patient's PEG feeding has increased to 40 mL Case discussed with the staff Discharge planning This is a 67 yo female admitted for chronic abdominal pain and distention Colonic dilation/obstruction/pseudo- obstruction 3/5- pt currently out of ICU; care is being coordinated btw. surgery and son who is now present. 11/15/17: Surgery team wants to try neostigmine under ICU monitoring (2/2 possible side effects of bradycardia / hypotension). Tube feeds on this morning. Patient is interacting in a yes/no fashion today is answering in a coherent fashion, however she does not want to be "bothered." -f/u swallow eval. If allowed, may start pleasure feeds. Continue Tube feed diet. - Peg tube grew e. coli. continue IV Abx. 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 -PEG site culture growing staph. aureus/MRSA/ESBL -critical care consult placed with Dr. Chang. -ID consult. recs appreciated. Dr. Oden. -repeat CT scan shows small pleural effusion along with redemonstration of colonic dilation ileus rather than obstruction. -abdominal x ray shows colonic dilation still -GI consult. DR. GIBSON. recs appreciated. -sx following. dr. culp. recs appreciated; no surgical intervention planned for this admission -pt underwent endoscopy along with peg removal and replacement -endoscopy showed esophagitis along with small hiatal hernia, as well as erythematous mucosa in stomach -pt is to f/u with GI for results of biopsy from endoscopy -repeat CT scan shows marked dilation of colon and particularly the rectosigmoid colon, along with multiple hepatic cysts. -pt is on parenteral nutrition. Fungemia 11/15: blood culture positive for yeast 11/11/17; repeat cultures negative x24hrs. Continue IV fluconazole x14d (started 11/13) -butler cultures>> shows yeast growing in blood >>> jeovanny tropicalis. -ID consult Dr. Oden already on board. recs appreciated. -starting IV fluconazole; will continue as per ID for 14 days -continue meropenem IV 1 g q 8 hrs. Hx of HTN -amlodipine 5 mg GT daily Anemia -normocytic -continue to monitor. hx of dementia -continue donepezil daily -patient is mostly non verbal but can understand commands and communicates through yes or no in czech. However, full comprehension and ability to answer yes/no appropriately is questionable. hx of seizure disorder -continue keppra through PEG hx of depression -continue sertraline Hypokalemia -resolved. -continue to monitor Elevated LFTs -trending down -GI consult. Dr. Gibson. recs appreciated. gi/dvt ppx -lovenox 40 mg sc daily -continue protonix Dispo: Discharge planning in progress, but needs clearance by surgery; will hold off on picc line for now.
--- NOTE | 2017-11-19 20:44 | CP.PCM.PN ---
Subjective - Date & Time of Evaluation Date of Evaluation: 11/19/17 Time of Evaluation: 08:00 - Subjective Subjective: IMPROVING SLOWLY CONT IV RX FOR 7 DAYS THEN PO RX FOR 2 WEEKS WITH LFT'S Sat Objective - Vital Signs/Intake and Output Vital Signs (last 24 hours): Temp Pulse Resp BP Pulse Ox 98.0 F 77 20 112/68 95 11/19/17 16:44 11/19/17 16:44 11/19/17 16:44 11/19/17 16:44 11/19/17 16:44 Intake and Output: 11/19/17 11/20/17 18:59 06:59 Output Total 1000 Balance -1000 - Medications Medications: Current Medications Acetaminophen (Tylenol 650mg/20.3ml Solution Ud) 650 mg GT Q4H PRN PRN Reason: Pain, Mild (1-3) Last Admin: 11/13/17 09:38 Dose: 650 mg Amlodipine Besylate (Norvasc) 5 mg GT DAILY [facility] Last Admin: 11/19/17 09:39 Dose: 5 mg Enoxaparin Sodium (Lovenox) 40 mg SC DAILY [facility] Last Admin: 11/19/17 09:38 Dose: 40 mg Vancomycin HCl 1 gm/ Sodium (Chloride) 200 mls @ 166.7 mls/hr IVPB DAILY [facility] Last Admin: 11/19/17 09:38 Dose: 166.7 mls/hr Meropenem 1 gm/ Sodium (Chloride) 100 mls @ 100 mls/hr IVPB Q8H [facility] Last Admin: 11/19/17 13:44 Dose: 100 mls/hr Fluconazole (Diflucan Iv 400mg/200ml Ns) 200 mls @ 100 mls/hr IVPB DAILY [facility] Last Admin: 11/19/17 10:55 Dose: 100 mls/hr Levetiracetam (Keppra) 500 mg PEG Q12 [facility] Last Admin: 11/19/17 09:39 Dose: 500 mg Magnesium Hydroxide (Milk Of Magnesia) 30 ml GT Q24H PRN PRN Reason: Constipation Pantoprazole Sodium (Protonix Susp) 40 mg PEG DAILY [facility] Last Admin: 11/19/17 09:39 Dose: 40 mg Polyethylene Glycol (Miralax) 17 gm GT DAILY [facility] Last Admin: 11/19/17 09:38 Dose: 17 gm Sertraline HCl (Zoloft) 50 mg JT DAILY [facility] Last Admin: 11/19/17 09:38 Dose: 50 mg Vitamin A (Vitamin A & D Oint Ud Foilpak) 1 ea TOP BID [facility] Last Admin: 11/19/17 09:38 Dose: 1 ea - Labs Labs: 11/18/17 11:09 11/18/17 11:09 PT 11.6 SECONDS (9.7-12.2) 10/26/17 02:55 INR 1.0 10/26/17 02:55 APTT 34 SECONDS (21-34) 10/26/17 02:55 Assessment and Plan (1) Abdominal distension Status: Acute (2) Colon distention Status: Acute (3) Fungemia Status: Acute (4) Sepsis Status: Acute (5) Sepsis Status: Acute
[2017-11-20] MEDS: Meropenem 1 GM in Sodium Chloride 0.9% 100 ML IVPB SCH ×3 (06:14→22:23)
[2017-11-20] MEDS: Vancomycin 1 GM in Sodium Chloride 0.9% 200 ML IVPB SCH (09:33)
[2017-11-20] MEDS: POLYETHYLENE GLYCOL 3350 17 GM/Dose PACKET GT SCH (09:34)
[2017-11-20] MEDS: levETIRAcetam 100 mg/ml (5ml) Oral Syringe PEG SCH ×2 (09:34→22:22)
[2017-11-20] MEDS: Pantoprazole 40 mg Susp UD PEG SCH (09:34)
[2017-11-20] MEDS: Enoxaparin 40 mg Syringe SC SCH (09:34)
[2017-11-20] MEDS: Acetaminophen 650mg/20.3ml solution UD GT PRN (09:34)
[2017-11-20] MEDS: Vitamins A & D Oint UD Foilpak TOP SCH ×2 (09:35→18:11)
--- NOTE | 2017-11-20 10:16 | CP.PCM.PN ---
<Johan Juarez - Last Filed: 11/20/17 15:36> Subjective - Date & Time of Evaluation Date of Evaluation: 11/20/17 Time of Evaluation: 10:15 - Subjective Subjective: Progress note. Attending: Dr. Kulwinder Kelly. Pt seen and examined at bedside. No acute distress. No events overnight. Pt refused exam this morning. ROS unobtainable. Objective - Vital Signs/Intake and Output Vital Signs (last 24 hours): Temp Pulse Resp BP Pulse Ox 98.4 F 82 18 93/53 L 95 11/20/17 07:20 11/20/17 07:20 11/20/17 07:20 11/20/17 07:20 11/20/17 07:20 Intake and Output: 11/20/17 11/20/17 06:59 18:59 Intake Total 460 Output Total 500 Balance -40 - Medications Medications: Current Medications Acetaminophen (Tylenol 650mg/20.3ml Solution Ud) 650 mg GT Q4H PRN PRN Reason: Pain, Mild (1-3) Last Admin: 11/20/17 09:34 Dose: 650 mg Amlodipine Besylate (Norvasc) 5 mg GT DAILY [facility] Last Admin: 11/20/17 09:35 Dose: 5 mg Enoxaparin Sodium (Lovenox) 40 mg SC DAILY [facility] Last Admin: 11/20/17 09:34 Dose: 40 mg Vancomycin HCl 1 gm/ Sodium (Chloride) 200 mls @ 166.7 mls/hr IVPB DAILY [facility] Last Admin: 11/20/17 09:33 Dose: 166.7 mls/hr Meropenem 1 gm/ Sodium (Chloride) 100 mls @ 100 mls/hr IVPB Q8H [facility] Last Admin: 11/20/17 06:14 Dose: 100 mls/hr Fluconazole (Diflucan Iv 400mg/200ml Ns) 200 mls @ 100 mls/hr IVPB DAILY [facility] Last Admin: 11/19/17 10:55 Dose: 100 mls/hr Levetiracetam (Keppra) 500 mg PEG Q12 [facility] Last Admin: 11/20/17 09:34 Dose: 500 mg Magnesium Hydroxide (Milk Of Magnesia) 30 ml GT Q24H PRN PRN Reason: Constipation Pantoprazole Sodium (Protonix Susp) 40 mg PEG DAILY [facility] Last Admin: 11/20/17 09:34 Dose: 40 mg Polyethylene Glycol (Miralax) 17 gm GT DAILY [facility] Last Admin: 11/20/17 09:34 Dose: 17 gm Sertraline HCl (Zoloft) 50 mg JT DAILY [facility] Last Admin: 11/20/17 09:35 Dose: 50 mg Vitamin A (Vitamin A & D Oint Ud Foilpak) 1 ea TOP BID [facility] Last Admin: 11/20/17 09:35 Dose: 1 ea - Labs Labs: 11/18/17 11:09 11/18/17 11:09 PT 11.6 SECONDS (9.7-12.2) 10/26/17 02:55 INR 1.0 10/26/17 02:55 APTT 34 SECONDS (21-34) 10/26/17 02:55 - Head Exam Additional comments: PT REFUSED EXAM. Assessment and Plan - Assessment and Plan (Free Text) Assessment: This is a 67 yo female admitted for chronic abdominal pain and distention 1. 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 -PEG site culture growing staph. aureus/MRSA/ESBL -critical care consult placed with Dr. Chang. -ID consult. recs appreciated. Dr. Oden. -repeat CT scan shows small pleural effusion along with redemonstration of colonic dilation ileus rather than obstruction. -abdominal x ray shows colonic dilation still -GI consult. DR. GIBSON. recs appreciated. -sx following. dr. culp. recs appreciated; no surgical intervention planned for this admission -pt underwent endoscopy along with peg removal and replacement -endoscopy showed esophagitis along with small hiatal hernia, as well as erythematous mucosa in stomach -pt is to f/u with GI for results of biopsy from endoscopy -repeat CT scan shows marked dilation of colon and particularly the rectosigmoid colon, along with multiple hepatic cysts. -pt is getting tube feeds through PEG tube. continue jevity 1.5 and water flushes -pt is also getting pureed diet pleasure feeds. 2. Fungemia -ID consult. Dr. Oden. recs appreciated. -2 blood cultures from 11/11 grew jeovanny tropicalis -2 repeat blood cultures have been negative -continue IV fluconazole. 3. Infected PEG site -wound culture grew E Coli and MRSA -ID consult as above. -continue IV meropenem 4. Hx of HTN -amlodipine 5 mg GT daily 5. Anemia -normocytic -continue to monitor. 6. hx of dementia -patient is mostly non verbal but can understand commands and communicates through yes or no in nepalese. However, full comprehension and ability to answer yes/no appropriately is questionable. 7. hx of seizure disorder -continue keppra through PEG -EEG in 2018 shows abnormality, bilateral cerebral dysfunction 8. hx of depression -continue sertraline 9. Hypokalemia -resolved. -continue to monitor 10. Elevated LFTs -trending down -GI consult. Dr. Gibson. recs appreciated. -will continue to monitor 11. Hx of brain aneurysm -continue to monitor. -previously treated surgically. 12. Hypotension -bp has been running on the lower side -could be secondary to general autonomic failure/decline and aging process. -continue to monitor. -also on amlodipine; consider holding 13. gi/dvt ppx -lovenox 40 mg sc daily -continue protonix Dispo: Discharge planning in progress, but needs clearance by surgery, GI, ID ; will hold off on picc line for now. <Lolly Kelly S - Last Filed: 11/20/17 18:26> Objective - Vital Signs/Intake and Output Vital Signs (last 24 hours): Temp Pulse Resp BP Pulse Ox 97.6 F 85 20 107/71 96 11/20/17 16:13 11/20/17 16:13 11/20/17 16:13 11/20/17 16:13 11/20/17 16:13 Intake and Output: 11/20/17 11/20/17 06:59 18:59 Intake Total 460 Output Total 500 Balance -40 - Medications Medications: Current Medications Acetaminophen (Tylenol 650mg/20.3ml Solution Ud) 650 mg GT Q4H PRN PRN Reason: Pain, Mild (1-3) Last Admin: 11/20/17 09:34 Dose: 650 mg Amlodipine Besylate (Norvasc) 5 mg GT DAILY [facility] Last Admin: 11/20/17 09:35 Dose: 5 mg Enoxaparin Sodium (Lovenox) 40 mg SC DAILY [facility] Last Admin: 11/20/17 09:34 Dose: 40 mg Vancomycin HCl 1 gm/ Sodium (Chloride) 200 mls @ 166.7 mls/hr IVPB DAILY [facility] Last Admin: 11/20/17 09:33 Dose: 166.7 mls/hr Meropenem 1 gm/ Sodium (Chloride) 100 mls @ 100 mls/hr IVPB Q8H [facility] Last Admin: 11/20/17 13:21 Dose: 100 mls/hr Fluconazole (Diflucan Iv 400mg/200ml Ns) 200 mls @ 100 mls/hr IVPB DAILY [facility] Last Admin: 11/20/17 10:57 Dose: 100 mls/hr Levetiracetam (Keppra) 500 mg PEG Q12 [facility] Last Admin: 11/20/17 09:34 Dose: 500 mg Magnesium Hydroxide (Milk Of Magnesia) 30 ml GT Q24H PRN PRN Reason: Constipation Pantoprazole Sodium (Protonix Susp) 40 mg PEG DAILY [facility] Last Admin: 11/20/17 09:34 Dose: 40 mg Polyethylene Glycol (Miralax) 17 gm GT DAILY [facility] Last Admin: 11/20/17 09:34 Dose: 17 gm Sertraline HCl (Zoloft) 50 mg JT DAILY [facility] Last Admin: 11/20/17 09:35 Dose: 50 mg Vitamin A (Vitamin A & D Oint Ud Foilpak) 1 ea TOP BID [facility] Last Admin: 11/20/17 18:11 Dose: 1 ea - Labs Labs: 11/18/17 11:09 11/18/17 11:09 PT 11.6 SECONDS (9.7-12.2) 10/26/17 02:55 INR 1.0 10/26/17 02:55 APTT 34 SECONDS (21-34) 10/26/17 02:55 Assessment and Plan (1) Abdominal distension Status: Acute (2) Abdominal pain Status: Acute (3) Colon distention Status: Acute (4) Nausea Status: Acute (5) Toxic megacolon Status: Acute (6) Fungemia Status: Acute (7) Sepsis Status: Acute (8) Sepsis Status: Acute Attending/Attestation - Attestation I have personally seen and examined this patient.: Yes I have fully participated in the care of the patient.: Yes I have reviewed all pertinent clinical information, including history, physical exam and plan: Yes Notes (Text): 11/20/17 18:26 Casein and discussed with the staff for a pseudoobstruction versus oLIGIVE syndrome
[2017-11-20] MEDS: Fluconazole IV 400mg/200ml NS 200 ML IVPB SCH (10:57)
--- NOTE | 2017-11-20 11:03 | CP.PCM.PN ---
Subjective - Date & Time of Evaluation Date of Evaluation: 11/20/17 Time of Evaluation: 11:15 - Subjective Subjective: clinically same Objective - Vital Signs/Intake and Output Vital Signs (last 24 hours): Temp Pulse Resp BP Pulse Ox 98.4 F 82 18 93/53 L 95 11/20/17 07:20 11/20/17 07:20 11/20/17 07:20 11/20/17 07:20 11/20/17 07:20 Intake and Output: 11/20/17 11/20/17 06:59 18:59 Intake Total 460 Output Total 500 Balance -40 - Medications Medications: Current Medications Acetaminophen (Tylenol 650mg/20.3ml Solution Ud) 650 mg GT Q4H PRN PRN Reason: Pain, Mild (1-3) Last Admin: 11/20/17 09:34 Dose: 650 mg Amlodipine Besylate (Norvasc) 5 mg GT DAILY [facility] Last Admin: 11/20/17 09:35 Dose: 5 mg Enoxaparin Sodium (Lovenox) 40 mg SC DAILY [facility] Last Admin: 11/20/17 09:34 Dose: 40 mg Vancomycin HCl 1 gm/ Sodium (Chloride) 200 mls @ 166.7 mls/hr IVPB DAILY [facility] Last Admin: 11/20/17 09:33 Dose: 166.7 mls/hr Meropenem 1 gm/ Sodium (Chloride) 100 mls @ 100 mls/hr IVPB Q8H [facility] Last Admin: 11/20/17 06:14 Dose: 100 mls/hr Fluconazole (Diflucan Iv 400mg/200ml Ns) 200 mls @ 100 mls/hr IVPB DAILY [facility] Last Admin: 11/19/17 10:55 Dose: 100 mls/hr Levetiracetam (Keppra) 500 mg PEG Q12 [facility] Last Admin: 11/20/17 09:34 Dose: 500 mg Magnesium Hydroxide (Milk Of Magnesia) 30 ml GT Q24H PRN PRN Reason: Constipation Pantoprazole Sodium (Protonix Susp) 40 mg PEG DAILY [facility] Last Admin: 11/20/17 09:34 Dose: 40 mg Polyethylene Glycol (Miralax) 17 gm GT DAILY [facility] Last Admin: 11/20/17 09:34 Dose: 17 gm Sertraline HCl (Zoloft) 50 mg JT DAILY [facility] Last Admin: 11/20/17 09:35 Dose: 50 mg Vitamin A (Vitamin A & D Oint Ud Foilpak) 1 ea TOP BID [facility] Last Admin: 11/20/17 09:35 Dose: 1 ea - Labs Labs: 11/18/17 11:09 11/18/17 11:09 PT 11.6 SECONDS (9.7-12.2) 10/26/17 02:55 INR 1.0 10/26/17 02:55 APTT 34 SECONDS (21-34) 10/26/17 02:55 - Constitutional Appears: Well - Head Exam Head Exam: ATRAUMATIC, NORMAL INSPECTION, NORMOCEPHALIC - Eye Exam Eye Exam: EOMI, Normal appearance, PERRL Pupil Exam: NORMAL ACCOMODATION, PERRL - ENT Exam ENT Exam: Mucous Membranes Moist, Normal Exam - Neck Exam Neck Exam: Full ROM, Normal Inspection. absent: Lymphadenopathy - Respiratory Exam Respiratory Exam: Decreased Breath Sounds - Cardiovascular Exam Cardiovascular Exam: REGULAR RHYTHM, +S1, +S2 - GI/Abdominal Exam GI & Abdominal Exam: Soft, Diminished Bowel Sounds - Rectal Exam Rectal Exam: Deferred Assessment and Plan (1) Abdominal distension Status: Acute (2) Abdominal pain Status: Acute (3) Colon distention Status: Acute (4) Nausea Status: Acute (5) Toxic megacolon Status: Acute (6) Fungemia Status: Acute (7) Sepsis Status: Acute (8) Sepsis Status: Acute - Assessment and Plan (Free Text) Plan: Discussed with the [place] day before yesterday at length continue with the Diflucan continuing the Continue with the Lovenox continue with the meropenem continue with the other medications follow-up with the surgery patient may be transferred to [place] where the son lives Dr. Maldonado but may speak to another surgeon close to the area except the patient's patient may transfer from rehab to rehab patient may be for discharge no other complaint patient's will continue to get a PEG tube feeding PPN DC continue same 1. 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 -PEG site culture growing staph. aureus/MRSA/ESBL -critical care consult placed with Dr. Chang. -ID consult. recs appreciated. Dr. Oden. -repeat CT scan shows small pleural effusion along with redemonstration of colonic dilation ileus rather than obstruction. -abdominal x ray shows colonic dilation still -GI consult. DR. GIBSON. recs appreciated. -sx following. dr. culp. recs appreciated; no surgical intervention planned for this admission -pt underwent endoscopy along with peg removal and replacement -endoscopy showed esophagitis along with small hiatal hernia, as well as erythematous mucosa in stomach -pt is to f/u with GI for results of biopsy from endoscopy -repeat CT scan shows marked dilation of colon and particularly the rectosigmoid colon, along with multiple hepatic cysts. -pt is getting tube feeds through PEG tube. continue jevity 1.5 and water flushes -pt is also getting pureed diet pleasure feeds. 2. Fungemia -ID consult. Dr. Oden. recs appreciated. -2 blood cultures from 11/11 grew jeovanny tropicalis -2 repeat blood cultures have been negative -continue IV fluconazole. 3. Infected PEG site -wound culture grew E Coli and MRSA -ID consult as above. -continue IV meropenem 4. Hx of HTN -amlodipine 5 mg GT daily 5. Anemia -normocytic -continue to monitor. 6. hx of dementia -patient is mostly non verbal but can understand commands and communicates through yes or no in canadian. However, full comprehension and ability to answer yes/no appropriately is questionable. 7. hx of seizure disorder -continue keppra through PEG -EEG in 2018 shows abnormality, bilateral cerebral dysfunction 8. hx of depression -continue sertraline 9. Hypokalemia -resolved. -continue to monitor 10. Elevated LFTs -trending down -GI consult. Dr. Gibson. recs appreciated. -will continue to monitor 11. Hx of brain aneurysm -continue to monitor. -previously treated surgically. 12. Hypotension -bp has been running on the lower side -could be secondary to general autonomic failure/decline and aging process. -continue to monitor. -also on amlodipine; consider holding 13. gi/dvt ppx -lovenox 40 mg sc
--- NOTE | 2017-11-20 14:28 | PN ---
DATE: 11/20/2017. LOCATION: [facility], bed A. SUBJECTIVE: This is an 67 years old female seen and examined in rounds without significant clinical changes or reported active bleeding somewhat tolerating current feeding process, still nonverbal. The entire chart is reviewed including but not limited to the most recent lab and radiology study results, current and previous medication list, current and previous medical events with today's labs still pending, but the patient still have low hemoglobin and hematocrit with mildly increased blood glucose level as well as AST and ALT with low albumin. PHYSICAL EXAMINATION: GENERAL: A 67 years old female. VITAL SIGNS: Afebrile with pulse of 80 and blood pressure 100/56. HEENT: Showed pale, dry oral mucous membranes. Nonicteric sclerae. LUNGS: Few scattered crepitation, decreased air entry at bases. HEART: Positive S1 and S2. ABDOMEN: Soft. PEG tube shows mild distention. No mass or organomegaly. No rebound tenderness or guarding. Feeding tube is in place with mild intraabdominal wall cellulitis. EXTREMITIES: Without significant edema, clubbing or cyanosis. NEUROLOGIC: No reported new neurological deficits, sensory or motor. IMPRESSION: 1. Mildly dilated colon with fecal impaction. 2. Status post percutaneous endoscopic gastrostomy insertion. 3. Anemia. 4. Normal liver function test secondary to infectious process. 5. Known history of seizure disorder, status post cardiopulmonary arrest and depression. SUGGESTIONS: 1. Continue current management. 2. Increase the rate of feeding as tolerated. 3. Further recommendation to follow. Lidia Lam MD
[2017-11-21] MEDS: Meropenem 1 GM in Sodium Chloride 0.9% 100 ML IVPB SCH (05:01)
[2017-11-21] MEDS: Acetaminophen 650mg/20.3ml solution UD GT PRN (10:44)
[2017-11-21] MEDS: levETIRAcetam 100 mg/ml (5ml) Oral Syringe PEG SCH ×2 (10:44→22:00)
[2017-11-21] MEDS: Fluconazole IV 400mg/200ml NS 200 ML IVPB SCH (10:44)
[2017-11-21] MEDS: Enoxaparin 40 mg Syringe SC SCH (10:44)
[2017-11-21] MEDS: Pantoprazole 40 mg Susp UD PEG SCH (10:44)
[2017-11-21] MEDS: Vitamins A & D Oint UD Foilpak TOP SCH ×2 (10:44→20:24)
[2017-11-21] MEDS: POLYETHYLENE GLYCOL 3350 17 GM/Dose PACKET GT SCH (10:44)
--- NOTE | 2017-11-21 14:15 | CP.PCM.PN ---
<David Dahl - Last Filed: 11/21/17 14:11> Subjective - Date & Time of Evaluation Date of Evaluation: 11/21/17 Time of Evaluation: 14:14 - Subjective Subjective: PGY2 Medicine Note for Dr. Boris Lyon; all management as per Dr. 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 Denies abdominal pain. Objective - Vital Signs/Intake and Output Vital Signs (last 24 hours): Temp Pulse Resp BP Pulse Ox 98.4 F 79 18 92/50 L 95 11/21/17 07:10 11/21/17 07:10 11/21/17 07:10 11/21/17 07:10 11/21/17 07:10 Intake and Output: 11/21/17 11/21/17 06:59 18:59 Intake Total 100 Output Total 800 Balance -700 - Medications Medications: Current Medications Acetaminophen (Tylenol 650mg/20.3ml Solution Ud) 650 mg GT Q4H PRN PRN Reason: Pain, Mild (1-3) Last Admin: 11/21/17 10:44 Dose: 650 mg Amlodipine Besylate (Norvasc) 5 mg GT DAILY [facility] Last Admin: 11/21/17 10:44 Dose: 5 mg Enoxaparin Sodium (Lovenox) 40 mg SC DAILY [facility] Last Admin: 11/21/17 10:44 Dose: 40 mg Fluconazole (Diflucan Iv 400mg/200ml Ns) 200 mls @ 100 mls/hr IVPB DAILY [facility] Last Admin: 11/21/17 10:44 Dose: 100 mls/hr Levetiracetam (Keppra) 500 mg PEG Q12 [facility] Last Admin: 11/21/17 10:44 Dose: 500 mg Magnesium Hydroxide (Milk Of Magnesia) 30 ml GT Q24H PRN PRN Reason: Constipation Pantoprazole Sodium (Protonix Susp) 40 mg PEG DAILY [facility] Last Admin: 11/21/17 10:44 Dose: 40 mg Polyethylene Glycol (Miralax) 17 gm GT DAILY [facility] Last Admin: 03/08/18 10:44 Dose: 17 gm Sertraline HCl (Zoloft) 50 mg JT DAILY [facility] Last Admin: 11/21/17 10:44 Dose: 50 mg Vitamin A (Vitamin A & D Oint Ud Foilpak) 1 ea TOP BID [facility] Last Admin: 11/21/17 10:44 Dose: 1 ea - Labs Labs: 11/18/17 11:09 11/18/17 11:09 PT 11.6 SECONDS (9.7-12.2) 10/26/17 02:55 INR 1.0 10/26/17 02:55 APTT 34 SECONDS (21-34) 10/26/17 02:55 - Constitutional Appears: Non-toxic - Head Exam Head Exam: ATRAUMATIC - Eye Exam Eye Exam: EOMI - ENT Exam ENT Exam: Mucous Membranes Moist - Neck Exam Neck Exam: Full ROM - Respiratory Exam Respiratory Exam: Clear to Ausculation Bilateral, NORMAL BREATHING PATTERN. absent: Rales, Rhonchi, Wheezes - Cardiovascular Exam Cardiovascular Exam: REGULAR RHYTHM - GI/Abdominal Exam GI & Abdominal Exam: Soft (PEG tube was leaking today, was fixed immediately at bedside; no signs of infection) - Extremities Exam Extremities Exam: absent: Calf Tenderness - Back Exam Back Exam: absent: CVA tenderness (L), CVA tenderness (R) - Neurological Exam Neurological Exam: Awake - Psychiatric Exam Psychiatric exam: Normal Affect - Skin Skin Exam: Warm Assessment and Plan - Assessment and Plan (Free Text) Assessment: This is a 67 yo female admitted for chronic abdominal pain and distention 1. 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 -PEG site culture growing staph. aureus/MRSA/ESBL -critical care consult placed with Dr. Chang. -ID consult. recs appreciated. Dr. Oden. -repeat CT scan shows small pleural effusion along with redemonstration of colonic dilation ileus rather than obstruction. -abdominal x ray shows colonic dilation still -GI consult. DR. GIBSON. recs appreciated. -sx following. dr. culp. recs appreciated; no surgical intervention planned for this admission -pt underwent endoscopy along with peg removal and replacement -endoscopy showed esophagitis along with small hiatal hernia, as well as erythematous mucosa in stomach -pt is to f/u with GI for results of biopsy from endoscopy -repeat CT scan shows marked dilation of colon and particularly the rectosigmoid colon, along with multiple hepatic cysts. -pt is getting tube feeds through PEG tube. continue jevity 1.5 and water flushes -pt is also getting pureed diet pleasure feeds. 2. Fungemia -ID consult. Dr. Oden. recs appreciated. -2 blood cultures from 11/11 grew jeovanny tropicalis -2 repeat blood cultures have been negative -continue IV fluconazole; f/u ID recs 3. Infected PEG site -wound culture grew E Coli and MRSA -ID consult as above. -last day of meropenem was today 11/21; f/u with ID recs -contact precautions 4. Hx of HTN -amlodipine 5 mg GT daily 5. Anemia;chronic -normocytic -continue to monitor. 6. hx of dementia -patient is mostly non verbal but can understand commands and communicates through yes or no in mexican. However, full comprehension and ability to answer yes/no appropriately is questionable. -11/21 patient was speaking in full sentences today 7. hx of seizure disorder -continue keppra through PEG -EEG in 2018 shows abnormality, bilateral cerebral dysfunction 8. hx of depression -continue sertraline 9. Hypokalemia -resolved. -continue to monitor 10. Elevated LFTs -trending down -GI consult. Dr. Gibson. recs appreciated. -will continue to monitor 11. Hx of brain aneurysm -continue to monitor. -previously treated surgically. 12. Hypotension -bp has been running on the lower side -could be secondary to general autonomic failure/decline and aging process. -continue to monitor. -also on amlodipine; consider holding 13. gi/dvt ppx -lovenox 40 mg sc daily -continue protonix <Lolly Lyon S - Last Filed: 11/21/17 22:31> Objective - Vital Signs/Intake and Output Vital Signs (last 24 hours): Temp Pulse Resp BP Pulse Ox 98.4 F 84 18 100/50 L 97 11/21/17 15:42 11/21/17 15:42 11/21/17 15:42 11/21/17 15:42 11/21/17 15:42 Intake and Output: 11/21/17 11/22/17 18:59 06:59 Intake Total 750 Output Total 250 200 Balance 500 -200 - Medications Medications: Current Medications Acetaminophen (Tylenol 650mg/20.3ml Solution Ud) 650 mg GT Q4H PRN PRN Reason: Pain, Mild (1-3) Last Admin: 11/21/17 10:44 Dose: 650 mg Amlodipine Besylate (Norvasc) 5 mg GT DAILY [facility] Last Admin: 11/21/17 10:44 Dose: 5 mg Enoxaparin Sodium (Lovenox) 40 mg SC DAILY [facility] Last Admin: 11/21/17 10:44 Dose: 40 mg Fluconazole (Diflucan Iv 400mg/200ml Ns) 200 mls @ 100 mls/hr IVPB DAILY [facility] Last Admin: 11/21/17 10:44 Dose: 100 mls/hr Levetiracetam (Keppra) 500 mg PEG Q12 [facility] Last Admin: 11/21/17 22:00 Dose: 500 mg Magnesium Hydroxide (Milk Of Magnesia) 30 ml GT Q24H PRN PRN Reason: Constipation Pantoprazole Sodium (Protonix Susp) 40 mg PEG DAILY [facility] Last Admin: 11/21/17 10:44 Dose: 40 mg Polyethylene Glycol (Miralax) 17 gm GT DAILY [facility] Last Admin: 11/21/17 10:44 Dose: 17 gm Sertraline HCl (Zoloft) 50 mg JT DAILY [facility] Last Admin: 11/21/17 10:44 Dose: 50 mg Vitamin A (Vitamin A & D Oint Ud Foilpak) 1 ea TOP BID [facility] Last Admin: 11/21/17 20:24 Dose: 1 ea - Labs Labs: 11/18/17 11:09 11/18/17 11:09 PT 11.6 SECONDS (9.7-12.2) 10/26/17 02:55 INR 1.0 10/26/17 02:55 APTT 34 SECONDS (21-34) 10/26/17 02:55 Assessment and Plan (1) Abdominal distension Status: Acute (2) Abdominal pain Status: Acute (3) Colon distention Status: Acute (4) Nausea Status: Acute (5) Toxic megacolon Status: Acute (6) Fungemia Status: Acute (7) Sepsis Status: Acute (8) Sepsis Status: Acute Attending/Attestation - Attestation I have personally seen and examined this patient.: Yes I have fully participated in the care of the patient.: Yes I have reviewed all pertinent clinical information, including history, physical exam and plan: Yes Notes (Text): 11/21/17 22:31 case seeanneliese n d/w son pt with ogilive syndrome mx agreed and discussed
--- NOTE | 2017-11-21 17:57 | CP.PCM.PN ---
Subjective - Date & Time of Evaluation Date of Evaluation: 11/21/17 Time of Evaluation: 07:00 - Subjective Subjective: awake alert appears less confused remains with left hemiparesis afeb on antifungal rx Objective - Vital Signs/Intake and Output Vital Signs (last 24 hours): Temp Pulse Resp BP Pulse Ox 98.4 F 84 18 100/50 L 97 11/21/17 15:42 11/21/17 15:42 11/21/17 15:42 11/21/17 15:42 11/21/17 15:42 Intake and Output: 11/21/17 11/21/17 06:59 18:59 Intake Total 100 750 Output Total 800 250 Balance -700 500 - Medications Medications: Current Medications Acetaminophen (Tylenol 650mg/20.3ml Solution Ud) 650 mg GT Q4H PRN PRN Reason: Pain, Mild (1-3) Last Admin: 11/21/17 10:44 Dose: 650 mg Amlodipine Besylate (Norvasc) 5 mg GT DAILY [facility] Last Admin: 11/21/17 10:44 Dose: 5 mg Enoxaparin Sodium (Lovenox) 40 mg SC DAILY [facility] Last Admin: 11/21/17 10:44 Dose: 40 mg Fluconazole (Diflucan Iv 400mg/200ml Ns) 200 mls @ 100 mls/hr IVPB DAILY [facility] Last Admin: 11/21/17 10:44 Dose: 100 mls/hr Levetiracetam (Keppra) 500 mg PEG Q12 [facility] Last Admin: 11/21/17 10:44 Dose: 500 mg Magnesium Hydroxide (Milk Of Magnesia) 30 ml GT Q24H PRN PRN Reason: Constipation Pantoprazole Sodium (Protonix Susp) 40 mg PEG DAILY [facility] Last Admin: 11/21/17 10:44 Dose: 40 mg Polyethylene Glycol (Miralax) 17 gm GT DAILY [facility] Last Admin: 11/21/17 10:44 Dose: 17 gm Sertraline HCl (Zoloft) 50 mg JT DAILY [facility] Last Admin: 11/21/17 10:44 Dose: 50 mg Vitamin A (Vitamin A & D Oint Ud Foilpak) 1 ea TOP BID [facility] Last Admin: 11/21/17 10:44 Dose: 1 ea - Labs Labs: 11/18/17 11:09 11/18/17 11:09 PT 11.6 SECONDS (9.7-12.2) 10/26/17 02:55 INR 1.0 10/26/17 02:55 APTT 34 SECONDS (21-34) 10/26/17 02:55 - Constitutional Appears: Non-toxic, Cachectic, Chronically Ill - Head Exam Head Exam: NORMOCEPHALIC - Eye Exam Eye Exam: PERRL. absent: Scleral icterus - ENT Exam ENT Exam: Mucous Membranes Dry - Neck Exam Neck Exam: absent: Lymphadenopathy - Respiratory Exam Respiratory Exam: Decreased Breath Sounds - Cardiovascular Exam Cardiovascular Exam: REGULAR RHYTHM - GI/Abdominal Exam GI & Abdominal Exam: Distended, Soft - Rectal Exam Rectal Exam: Deferred - Exam Exam: NORMAL INSPECTION - Extremities Exam Extremities Exam: absent: Pedal Edema - Back Exam Back Exam: absent: CVA tenderness (L), CVA tenderness (R) Assessment and Plan (1) Abdominal distension Status: Acute (2) Colon distention Status: Acute (3) Fungemia Status: Acute (4) Sepsis Status: Acute (5) Sepsis Status: Acute
--- NOTE | 2017-11-21 22:32 | CP.PCM.PN ---
Subjective - Date & Time of Evaluation Date of Evaluation: 11/21/17 Time of Evaluation: 12:45 - Subjective Subjective: clinically same Objective - Vital Signs/Intake and Output Vital Signs (last 24 hours): Temp Pulse Resp BP Pulse Ox 98.4 F 84 18 100/50 L 97 11/21/17 15:42 11/21/17 15:42 11/21/17 15:42 11/21/17 15:42 11/21/17 15:42 Intake and Output: 11/21/17 11/22/17 18:59 06:59 Intake Total 750 Output Total 250 200 Balance 500 -200 - Medications Medications: Current Medications Acetaminophen (Tylenol 650mg/20.3ml Solution Ud) 650 mg GT Q4H PRN PRN Reason: Pain, Mild (1-3) Last Admin: 11/21/17 10:44 Dose: 650 mg Amlodipine Besylate (Norvasc) 5 mg GT DAILY [facility] Last Admin: 11/21/17 10:44 Dose: 5 mg Enoxaparin Sodium (Lovenox) 40 mg SC DAILY [facility] Last Admin: 11/21/17 10:44 Dose: 40 mg Fluconazole (Diflucan Iv 400mg/200ml Ns) 200 mls @ 100 mls/hr IVPB DAILY [facility] Last Admin: 11/21/17 10:44 Dose: 100 mls/hr Levetiracetam (Keppra) 500 mg PEG Q12 [facility] Last Admin: 11/21/17 22:00 Dose: 500 mg Magnesium Hydroxide (Milk Of Magnesia) 30 ml GT Q24H PRN PRN Reason: Constipation Pantoprazole Sodium (Protonix Susp) 40 mg PEG DAILY [facility] Last Admin: 11/21/17 10:44 Dose: 40 mg Polyethylene Glycol (Miralax) 17 gm GT DAILY [facility] Last Admin: 11/21/17 10:44 Dose: 17 gm Sertraline HCl (Zoloft) 50 mg JT DAILY [facility] Last Admin: 11/21/17 10:44 Dose: 50 mg Vitamin A (Vitamin A & D Oint Ud Foilpak) 1 ea TOP BID [facility] Last Admin: 11/21/17 20:24 Dose: 1 ea - Labs Labs: 11/18/17 11:09 11/18/17 11:09 PT 11.6 SECONDS (9.7-12.2) 10/26/17 02:55 INR 1.0 10/26/17 02:55 APTT 34 SECONDS (21-34) 10/26/17 02:55 - Constitutional Appears: Well - Head Exam Head Exam: ATRAUMATIC, NORMAL INSPECTION, NORMOCEPHALIC - Eye Exam Eye Exam: EOMI, Normal appearance, PERRL Pupil Exam: NORMAL ACCOMODATION, PERRL - ENT Exam ENT Exam: Mucous Membranes Moist, Normal Exam - Neck Exam Neck Exam: Full ROM, Normal Inspection. absent: Lymphadenopathy - Respiratory Exam Respiratory Exam: Decreased Breath Sounds - Cardiovascular Exam Cardiovascular Exam: REGULAR RHYTHM, +S1, +S2 - GI/Abdominal Exam GI & Abdominal Exam: Soft, Diminished Bowel Sounds - Rectal Exam Rectal Exam: Deferred Assessment and Plan (1) Abdominal distension Status: Acute (2) Abdominal pain Status: Acute (3) Colon distention Status: Acute (4) Nausea Status: Acute (5) Toxic megacolon Status: Acute (6) Fungemia Status: Acute (7) Sepsis Status: Acute (8) Sepsis Status: Acute - Assessment and Plan (Free Text) Plan: Patient is more answering the questions patient is continue the same patient for discharge IV antibiotic Long discussion with the son before
[2017-11-22 07:15] LABS: BASO # 0.1 K/uL (0.0-0.2); BASO % 0.7 % (0.0-2.0); EOS # 0.1 K/uL (0.0-0.7); LYMPH # 1.7 K/uL (1.0-4.3); LYMPH % 22.5 % (20.0-40.0); MEAN CELL VOLUME 93.9 fL (81.0-99.0); MEAN CORPUSCULAR HEMOGLOBIN 31.4 pg (27.0-31.0); MEAN CORPUSCULAR HGB CONC 33.5 g/dL (33.0-37.0); MEAN PLATELET VOLUME 8.4 fL (7.2-11.7); MONO # 0.7 K/uL (0.0-0.8); MONO % 9.5 % (0.0-10.0); NEUT # 5.1 K/uL (1.8-7.0); NEUT % 66.3 % (50.0-75.0); RBC 3.19 Mil/uL (3.80-5.20); RED CELL DISTRIBUTION WIDTH 15.1 % (11.5-14.5); WHITE BLOOD COUNT 7.7 K/uL (4.8-10.8)
[2017-11-22 07:45] LABS: ALB/GLOB RATIO 0.8 (1.0-2.1); ALBUMIN 3.2 g/dL (3.5-5.0); ALT/SGPT 55 U/L (9-52); AST/SGOT 29 U/L (14-36); BLOOD UREA NITROGEN 12 mg/dL (7-17); CALCIUM 8.5 mg/dl (8.6-10.4); GFR AFRICAN-AMERICAN > 60; GFR NON-AFRICAN AMERICAN > 60
[2017-11-22] MEDS: POLYETHYLENE GLYCOL 3350 17 GM/Dose PACKET GT SCH (10:32)
[2017-11-22] MEDS: Fluconazole IV 400mg/200ml NS 200 ML IVPB SCH (10:32)
[2017-11-22] MEDS: Vitamins A & D Oint UD Foilpak TOP SCH ×2 (10:32→21:58)
[2017-11-22] MEDS: levETIRAcetam 100 mg/ml (5ml) Oral Syringe PEG SCH ×2 (10:32→21:58)
[2017-11-22] MEDS: Pantoprazole 40 mg Susp UD PEG SCH (10:33)
[2017-11-22] MEDS: Enoxaparin 40 mg Syringe SC SCH (10:34)
--- NOTE | 2017-11-22 10:54 | CP.PCM.PN ---
<Hiren Walker - Last Filed: 11/22/17 16:24> Subjective - Date & Time of Evaluation Date of Evaluation: 11/22/17 Time of Evaluation: 07:30 - Subjective Subjective: PGY2 Medicine Note for Dr. Boris Kelly Patient seen and examined this AM. Yesterday, she spoke in full accurate sentences, however today she is again non-verbal. She exhibits periods of full speech and then reverts back to not speaking. I answered simple yes not questions - denies fever, SOB, chest pain, abdominal pain, constipation, or general pain. I attempted to orient her to time, place, self, however she did not cooperate. I also gave her a pen and paper to write, however she only doodled indistinguishable objects, and did not write in response to my questioning. Further ROS could not be obtained. Objective - Vital Signs/Intake and Output Vital Signs (last 24 hours): Temp Pulse Resp BP Pulse Ox 97.9 F 81 20 118/75 98 11/22/17 00:19 11/22/17 00:19 11/22/17 00:19 11/22/17 00:19 11/22/17 00:19 Intake and Output: 11/22/17 11/22/17 06:59 18:59 Intake Total 900 Output Total 400 Balance 500 - Medications Medications: Current Medications Acetaminophen (Tylenol 650mg/20.3ml Solution Ud) 650 mg GT Q4H PRN PRN Reason: Pain, Mild (1-3) Last Admin: 11/21/17 10:44 Dose: 650 mg Amlodipine Besylate (Norvasc) 5 mg GT DAILY [facility] Last Admin: 11/22/17 10:33 Dose: Not Given Enoxaparin Sodium (Lovenox) 40 mg SC DAILY [facility] Last Admin: 11/22/17 10:34 Dose: 40 mg Fluconazole (Diflucan Iv 400mg/200ml Ns) 200 mls @ 100 mls/hr IVPB DAILY [facility] Last Admin: 11/22/17 10:32 Dose: 100 mls/hr Levetiracetam (Keppra) 500 mg PEG Q12 [facility] Last Admin: 11/22/17 10:32 Dose: 500 mg Magnesium Hydroxide (Milk Of Magnesia) 30 ml GT Q24H PRN PRN Reason: Constipation Pantoprazole Sodium (Protonix Susp) 40 mg PEG DAILY [facility] Last Admin: 11/22/17 10:33 Dose: 40 mg Polyethylene Glycol (Miralax) 17 gm GT DAILY [facility] Last Admin: 11/22/17 10:32 Dose: 17 gm Sertraline HCl (Zoloft) 50 mg JT DAILY [facility] Last Admin: 11/22/17 10:32 Dose: 50 mg Vitamin A (Vitamin A & D Oint Ud Foilpak) 1 ea TOP BID [facility] Last Admin: 11/22/17 10:32 Dose: 1 ea - Labs Labs: 11/22/17 07:02 11/22/17 07:02 PT 11.6 SECONDS (9.7-12.2) 10/26/17 02:55 INR 1.0 10/26/17 02:55 APTT 34 SECONDS (21-34) 10/26/17 02:55 - Additional Findings Additional findings: - Constitutional Appears: Non-toxic - Head Exam Head Exam: ATRAUMATIC - Eye Exam Eye Exam: EOMI - ENT Exam ENT Exam: Mucous Membranes Moist - Neck Exam Neck Exam: Full ROM - Respiratory Exam Respiratory Exam: Clear to Ausculation Bilateral, NORMAL BREATHING PATTERN. absent: Rales, Rhonchi, Wheezes - Cardiovascular Exam Cardiovascular Exam: REGULAR RHYTHM - GI/Abdominal Exam GI & Abdominal Exam: Soft (PEG tube was leaking today, was fixed immediately at bedside) -Purulent discharge noted from peg site today. - Extremities Exam Extremities Exam: absent: Calf Tenderness - Back Exam Back Exam: absent: CVA tenderness (L), CVA tenderness (R) - Neurological Exam Neurological Exam: Awake - Psychiatric Exam Psychiatric exam: Normal Affect - Skin Skin Exam: Warm Assessment and Plan - Assessment and Plan (Free Text) Assessment: This is a 67 yo female admitted for chronic abdominal pain and distention 1. Colonic dilation/obstruction/pseudo- obstruction 3: rectal tube removed several days ago, patient tolerated bowel cleansing with Neostigmine in ICU. Continue tube feeds and PO pleasure feeds. -may be secondary to [place]'s syndrome. -PEG site culture growing staph. aureus/MRSA/ESBL -critical care consult placed with Dr. Chang. -ID consult. recs appreciated. Dr. Oden. -repeat CT scan shows small pleural effusion along with redemonstration of colonic dilation ileus rather than obstruction. -abdominal x ray shows colonic dilation still -GI consult. DR. GIBSON. recs appreciated. -sx following. dr. culp. recs appreciated; no surgical intervention planned for this admission -pt underwent endoscopy along with peg removal and replacement -endoscopy showed esophagitis along with small hiatal hernia, as well as erythematous mucosa in stomach -pt is to f/u with GI for results of biopsy from endoscopy -repeat CT scan shows marked dilation of colon and particularly the rectosigmoid colon, along with multiple hepatic cysts. -pt is getting tube feeds through PEG tube. continue jevity 1.5 and water flushes -pt is also getting pureed diet pleasure feeds. 2. Fungemia 11/22: continue IV fluconazole; f/u ID recs -ID consult. Dr. Oden. recs appreciated. -2 blood cultures from 11/11 grew jeovanny tropicalis -2 repeat blood cultures have been negative 3. Infected PEG site 11/22: Purulent discharge noted from peg site today - infection vs food leakage? f /u Peg culture; f/u ID recs -wound culture grew E Coli and MRSA -ID consult as above. -last day of meropenem was today 11/21; f/u with ID recs -contact precautions 4. Hx of HTN -amlodipine 5 mg GT daily 5. Anemia;chronic 11/22: Hgb 10, stable, continue to monitor. -normocytic -continue to monitor. 6. hx of dementia 11/22: patient would not speak today; She exhibits periods of full speech and then reverts back to not speaking. -11/21 patient was speaking in full sentences today -patient is mostly non verbal but can understand commands and communicates through yes or no in mongolian. However, full comprehension and ability to answer yes/no appropriately is questionable. 7. hx of seizure disorder -continue keppra through PEG -EEG in 2018 shows abnormality, bilateral cerebral dysfunction 8. hx of depression -continue sertraline 9. Hypokalemia -resolved. -continue to monitor 10. Elevated LFTs -trending down -GI consult. Dr. Gibson. recs appreciated. -will continue to monitor 11. Hx of brain aneurysm -continue to monitor. -previously treated surgically. 12. Hypotension 11/22: BP 118/75, monitor. -bp has been running on the lower side -could be secondary to general autonomic failure/decline and aging process. -continue to monitor. -also on amlodipine; consider holding 13. gi/dvt ppx -lovenox 40 mg sc daily -continue protonix Case discussed with attending. All medical management as per Dr. Boris Kelly. <Lolly Kelly - Last Filed: 11/25/17 19:55> Objective - Vital Signs/Intake and Output Vital Signs (last 24 hours): Temp Pulse Resp BP Pulse Ox 97.5 F L 79 20 113/61 95 11/25/17 15:50 11/25/17 15:50 11/25/17 15:50 11/25/17 15:50 11/25/17 15:50 Intake and Output: 11/25/17 11/26/17 18:59 06:59 Intake Total 360 Balance 360 - Medications Medications: Current Medications Acetaminophen (Tylenol 650mg/20.3ml Solution Ud) 650 mg GT Q4H PRN PRN Reason: Pain, Mild (1-3) Last Admin: 11/21/17 10:44 Dose: 650 mg Amlodipine Besylate (Norvasc) 5 mg GT DAILY [facility] Last Admin: 11/25/17 10:14 Dose: 5 mg Enoxaparin Sodium (Lovenox) 40 mg SC DAILY [facility] Last Admin: 11/25/17 10:15 Dose: 40 mg Fluconazole (Diflucan Iv 400mg/200ml Ns) 200 mls @ 100 mls/hr IVPB DAILY [facility] Last Admin: 11/25/17 10:15 Dose: 100 mls/hr Levetiracetam (Keppra) 500 mg PEG Q12 [facility] Last Admin: 11/25/17 10:15 Dose: 500 mg Magnesium Hydroxide (Milk Of Magnesia) 30 ml GT Q24H PRN PRN Reason: Constipation Last Admin: 11/24/17 11:04 Dose: 30 ml Pantoprazole Sodium (Protonix Susp) 40 mg PEG DAILY [facility] Last Admin: 11/25/17 10:15 Dose: 40 mg Sertraline HCl (Zoloft) 50 mg JT DAILY [facility] Last Admin: 11/25/17 10:14 Dose: 50 mg Vitamin A (Vitamin A & D Oint Ud Foilpak) 1 ea TOP BID [facility] Last Admin: 11/25/17 17:09 Dose: 1 ea - Labs Labs: 11/25/17 13:58 11/25/17 13:58 PT 11.6 SECONDS (9.7-12.2) 10/26/17 02:55 INR 1.0 10/26/17 02:55 APTT 34 SECONDS (21-34) 10/26/17 02:55 Assessment and Plan (1) Abdominal distension Status: Acute (2) Abdominal pain Status: Acute (3) Colon distention Status: Acute (4) Nausea Status: Acute (5) Toxic megacolon Status: Acute (6) Fungemia Status: Acute (7) Sepsis Status: Acute (8) Sepsis Status: Acute Attending/Attestation - Attestation I have personally seen and examined this patient.: Yes I have fully participated in the care of the patient.: Yes I have reviewed all pertinent clinical information, including history, physical exam and plan: Yes Notes (Text): 11/25/17 19:55 Casein and discussed with the staff
--- NOTE | 2017-11-22 18:29 | PN ---
LOCATION: [facility], bed A. SUBJECTIVE: This is a 67-year-old female seen and examined in rounds without significant clinical changes or reported active bleeding, tolerating PEG feeding well. No residual, no bleeding, and no resistant. The patient is still nonverbal. The entire chart is reviewed including, but not limited to, the most recent lab and radiology study results, current and previous medication list, current and previous medical events. Labs today showed hemoglobin 10.0, hematocrit 30.0, thrombocytosis of 484, CO2 content of 32 indicative of respiratory alkalosis, low creatinine of 0.5, low calcium at 8.5, ALT 55, albumin 3.2. PHYSICAL EXAMINATION: GENERAL: A 67-year-old female. VITAL SIGNS: Afebrile with pulse of 78, respiratory 20 to 22, blood pressure 114/72. HEENT: Showed pale, dry mucous membranes. Nonicteric sclerae. LUNGS: Few scattered crepitation, decreased air entry at bases. HEART: Positive S1 and S2. ABDOMEN: Soft. PEG tube is in place without discharge, covered with clean dressing. No evidence of anterior abdominal wall cellulitis. No mass or organomegaly. No rebound tenderness or guarding. EXTREMITIES: With lower extremities mild edematous changes. No clubbing or cyanosis. NEUROLOGIC: No reported new neurological deficits, sensory, or motor. No new focal deficits. Peripheral pulses are present bilaterally but decreased. IMPRESSION: 1. Recent history of dilated colon, believed to be secondary to an ileus. 2. Anterior abdominal wall cellulitis, treated with antibiotics. 3. Known history of, but not limited to, cerebrovascular accident, dysphagia, hypertension, dementia, seizure disorder, and depression. 4. Mildly elevated liver function test most likely secondary to an infectious process. SUGGESTIONS: 1. Continue current management. 2. Subsequent increase of the rate of feeding as tolerated. 3. Further evaluation to follow. Lidia Lam MD
--- NOTE | 2017-11-22 19:20 | CP.PCM.PN ---
Subjective - Date & Time of Evaluation Date of Evaluation: 11/22/17 Time of Evaluation: 08:10 - Subjective Subjective: clinically same Objective - Vital Signs/Intake and Output Vital Signs (last 24 hours): Temp Pulse Resp BP Pulse Ox 98.7 F 84 20 104/65 95 11/22/17 15:15 11/22/17 15:15 11/22/17 15:15 11/22/17 15:15 11/22/17 15:15 Intake and Output: 11/22/17 11/23/17 18:59 06:59 Intake Total 600 Balance 600 - Medications Medications: Current Medications Acetaminophen (Tylenol 650mg/20.3ml Solution Ud) 650 mg GT Q4H PRN PRN Reason: Pain, Mild (1-3) Last Admin: 11/21/17 10:44 Dose: 650 mg Amlodipine Besylate (Norvasc) 5 mg GT DAILY [facility] Last Admin: 11/22/17 10:33 Dose: Not Given Enoxaparin Sodium (Lovenox) 40 mg SC DAILY [facility] Last Admin: 11/22/17 10:34 Dose: 40 mg Fluconazole (Diflucan Iv 400mg/200ml Ns) 200 mls @ 100 mls/hr IVPB DAILY [facility] Last Admin: 11/22/17 10:32 Dose: 100 mls/hr Levetiracetam (Keppra) 500 mg PEG Q12 JF Last Admin: 11/22/17 10:32 Dose: 500 mg Magnesium Hydroxide (Milk Of Magnesia) 30 ml GT Q24H PRN PRN Reason: Constipation Pantoprazole Sodium (Protonix Susp) 40 mg PEG DAILY [facility] Last Admin: 11/22/17 10:33 Dose: 40 mg Polyethylene Glycol (Miralax) 17 gm GT DAILY [facility] Last Admin: 11/22/17 10:32 Dose: 17 gm Sertraline HCl (Zoloft) 50 mg JT DAILY [facility] Last Admin: 11/22/17 10:32 Dose: 50 mg Vitamin A (Vitamin A & D Oint Ud Foilpak) 1 ea TOP BID [facility] Last Admin: 11/22/17 10:32 Dose: 1 ea - Labs Labs: 11/22/17 07:02 11/22/17 07:02 PT 11.6 SECONDS (9.7-12.2) 10/26/17 02:55 INR 1.0 10/26/17 02:55 APTT 34 SECONDS (21-34) 10/26/17 02:55 Assessment and Plan (1) Abdominal distension Status: Acute (2) Abdominal pain Status: Acute (3) Colon distention Status: Acute (4) Nausea Status: Acute (5) Toxic megacolon Status: Acute (6) Fungemia Status: Acute (7) Sepsis Status: Acute (8) Sepsis Status: Acute - Assessment and Plan (Free Text) Plan: 1. Colonic dilation/obstruction/pseudo- obstruction 11/22: rectal tube removed several days ago, patient tolerated bowel cleansing with Neostigmine in ICU. Continue tube feeds and PO pleasure feeds. 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 -PEG site culture growing staph. aureus/MRSA/ESBL -critical care consult placed with Dr. Chang. -ID consult. recs appreciated. Dr. Oden. -repeat CT scan shows small pleural effusion along with redemonstration of colonic dilation ileus rather than obstruction. -abdominal x ray shows colonic dilation still -GI consult. DR. GIBSON. recs appreciated. -sx following. dr. culp. recs appreciated; no surgical intervention planned for this admission -pt underwent endoscopy along with peg removal and replacement -endoscopy showed esophagitis along with small hiatal hernia, as well as erythematous mucosa in stomach -pt is to f/u with GI for results of biopsy from endoscopy -repeat CT scan shows marked dilation of colon and particularly the rectosigmoid colon, along with multiple hepatic cysts. -pt is getting tube feeds through PEG tube. continue jevity 1.5 and water flushes -pt is also getting pureed diet pleasure feeds. 2. Fungemia 11/22: continue IV fluconazole; f/u ID recs -ID consult. Dr. Oden. recs appreciated. -2 blood cultures from 11/11 grew jeovanny tropicalis -2 repeat blood cultures have been negative 3. Infected PEG site 11/22: Purulent discharge noted from peg site today - infection vs food leakage? f /u Peg culture; f/u ID recs -wound culture grew E Coli and MRSA -ID consult as above. -last day of meropenem was today 11/21; f/u with ID recs -contact precautions 4. Hx of HTN -amlodipine 5 mg GT daily 5. Anemia;chronic 11/22: Hgb 10, stable, continue to monitor. -normocytic -continue to monitor. 6. hx of dementia 11/22: patient would not speak today; She exhibits periods of full speech and then reverts back to not speaking. -11/21 patient was speaking in full sentences today -patient is mostly non verbal but can understand commands and communicates through yes or no in georgian. However, full comprehension and ability to answer yes/no appropriately is questionable. 7. hx of seizure disorder -continue keppra through PEG -EEG in 2018 shows abnormality, bilateral cerebral dysfunction 8. hx of depression -continue sertraline 9. Hypokalemia -resolved. -continue to monitor 10. Elevated LFTs -trending down -GI consult. Dr. Gibson. recs appreciated. -will continue to monitor 11. Hx of brain aneurysm -continue to monitor. -previously treated surgically. 12. Hypotension 11/22: BP 118/75, monitor. -bp has been running on the lower side -could be secondary to general autonomic failure/decline and aging process. -continue to monitor. -also on amlodipine; consider holding 13. gi/dvt ppx -lovenox 40 mg sc daily -continue protonix
[2017-11-23] MEDS: Vitamins A & D Oint UD Foilpak TOP SCH ×2 (09:04→18:20)
[2017-11-23] MEDS: Enoxaparin 40 mg Syringe SC SCH (09:04)
[2017-11-23] MEDS: Pantoprazole 40 mg Susp UD PEG SCH (09:05)
[2017-11-23] MEDS: levETIRAcetam 100 mg/ml (5ml) Oral Syringe PEG SCH ×2 (09:05→21:21)
[2017-11-23] MEDS: POLYETHYLENE GLYCOL 3350 17 GM/Dose PACKET GT SCH (09:05)
[2017-11-23] MEDS: Fluconazole IV 400mg/200ml NS 200 ML IVPB SCH (09:51)
--- NOTE | 2017-11-23 11:54 | PN ---
LOCATION: 4, bed A. SUBJECTIVE: This is a 67-year-old female seen and examined in rounds without any significant clinical changes, tolerating PEG feeding well and able to have very small amount of pureed food orally, surprisingly. The patient is still nonverbal. No reported active bleeding, significant reported chest pain, palpitation, or significant shortness of breath. The entire chart is reviewed including, but not limited to, the most recent lab and radiology study results, current and previous medication list, current and previous medical events. Case discussed with the staff. Today's lab is still pending and the latest hemoglobin and the hematocrit were low but with thrombocytosis and mild increased CO2 content of 32 indicative of respiratory alkalosis with low calcium, low albumin with increased ALT 255 but normal the rest of the liver function test. PHYSICAL EXAMINATION: GENERAL: A 67-year-old female. VITAL SIGNS: Afebrile with pulse of 74, respiratory rate 20 to 22, and blood pressure of 108/56. HEENT: Showed pale, dry mucous membranes. Nonicteric sclerae. LUNGS: Few scattered crepitation with decreased air entry at bases. HEART: Positive S1 and S2. ABDOMEN: Soft. Bowel sounds are present. No mass or organomegaly. No rebound tenderness or guarding. PEG tube is in place with very mild evidence of anterior abdominal wall cellulitis, covered with clean dressing. EXTREMITIES: Lower extremities with mild edematous changes. No clubbing or cyanosis. NEUROLOGIC: No reported new neurological deficits, sensory, or motor. IMPRESSION: 1. Recent history of colon distention most likely secondary to an ileus due to recent infectious process, gradually subsiding. 2. Anterior abdominal wall cellulitis, still on antibiotics. 3. Malnutrition, dysphagia, and was status post percutaneous endoscopic gastrostomy insertions. 4. Known history of, but not limited to, hypertension, cerebrovascular accident, reported seizure disorder with mild depression and dementia. 4. Recently elevated liver function test secondary to infectious process, improving. SUGGESTIONS: 1. Continue current management. 2. Subsequent increase of PEG feeding rate as tolerated. 3. Guaiac occult stool daily x3. 4. Further recommendation to follow. Lidia Lam MD [facility] # [id number]
--- NOTE | 2017-11-23 17:42 | CP.PCM.PN ---
Subjective - Date & Time of Evaluation Date of Evaluation: 11/23/17 Time of Evaluation: 09:10 - Subjective Subjective: clinically same Objective - Vital Signs/Intake and Output Vital Signs (last 24 hours): Temp Pulse Resp BP Pulse Ox 97.6 F 96 H 20 109/63 95 11/23/17 16:00 11/23/17 16:00 11/23/17 16:00 11/23/17 16:00 11/23/17 16:00 Intake and Output: 11/23/17 11/23/17 06:59 18:59 Intake Total 380 Balance 380 - Medications Medications: Current Medications Acetaminophen (Tylenol 650mg/20.3ml Solution Ud) 650 mg GT Q4H PRN PRN Reason: Pain, Mild (1-3) Last Admin: 11/21/17 10:44 Dose: 650 mg Amlodipine Besylate (Norvasc) 5 mg GT DAILY [facility] Last Admin: 11/23/17 09:05 Dose: 5 mg Enoxaparin Sodium (Lovenox) 40 mg SC DAILY [facility] Last Admin: 11/23/17 09:04 Dose: 40 mg Fluconazole (Diflucan Iv 400mg/200ml Ns) 200 mls @ 100 mls/hr IVPB DAILY [facility] Last Admin: 11/23/17 09:51 Dose: 100 mls/hr Levetiracetam (Keppra) 500 mg PEG Q12 JF Last Admin: 11/23/17 09:05 Dose: 500 mg Magnesium Hydroxide (Milk Of Magnesia) 30 ml GT Q24H PRN PRN Reason: Constipation Pantoprazole Sodium (Protonix Susp) 40 mg PEG DAILY [facility] Last Admin: 11/23/17 09:05 Dose: 40 mg Polyethylene Glycol (Miralax) 17 gm GT DAILY [facility] Last Admin: 11/23/17 09:05 Dose: 17 gm Sertraline HCl (Zoloft) 50 mg JT DAILY [facility] Last Admin: 11/23/17 09:05 Dose: 50 mg Vitamin A (Vitamin A & D Oint Ud Foilpak) 1 ea TOP BID [facility] Last Admin: 11/23/17 09:04 Dose: 1 ea - Labs Labs: 11/22/17 07:02 11/22/17 07:02 PT 11.6 SECONDS (9.7-12.2) 10/26/17 02:55 INR 1.0 10/26/17 02:55 APTT 34 SECONDS (21-34) 10/26/17 02:55 - Constitutional Appears: Well - Head Exam Head Exam: ATRAUMATIC, NORMAL INSPECTION, NORMOCEPHALIC - Eye Exam Eye Exam: EOMI, Normal appearance, PERRL Pupil Exam: NORMAL ACCOMODATION, PERRL - ENT Exam ENT Exam: Mucous Membranes Moist, Normal Exam - Neck Exam Neck Exam: Full ROM, Normal Inspection. absent: Lymphadenopathy - Respiratory Exam Respiratory Exam: Decreased Breath Sounds - Cardiovascular Exam Cardiovascular Exam: REGULAR RHYTHM, +S1, +S2 - GI/Abdominal Exam GI & Abdominal Exam: Soft, Diminished Bowel Sounds - Rectal Exam Rectal Exam: Deferred Assessment and Plan (1) Abdominal distension Status: Acute (2) Abdominal pain Status: Acute (3) Colon distention Status: Acute (4) Nausea Status: Acute (5) Toxic megacolon Status: Acute (6) Fungemia Status: Acute (7) Sepsis Status: Acute (8) Sepsis Status: Acute - Assessment and Plan (Free Text) Plan: Jerardo Castillo Off the antibiotic Possible discharge PEG tube feeding Discussed with the son at length before Continue same
[2017-11-24] MEDS: levETIRAcetam 100 mg/ml (5ml) Oral Syringe PEG SCH ×2 (11:03→21:01)
[2017-11-24] MEDS: Fluconazole IV 400mg/200ml NS 200 ML IVPB SCH (11:03)
[2017-11-24] MEDS: Pantoprazole 40 mg Susp UD PEG SCH (11:04)
[2017-11-24] MEDS: POLYETHYLENE GLYCOL 3350 17 GM/Dose PACKET GT SCH (11:04)
[2017-11-24] MEDS: Vitamins A & D Oint UD Foilpak TOP SCH ×2 (11:04→17:04)
[2017-11-24] MEDS: Enoxaparin 40 mg Syringe SC SCH (11:05)
--- NOTE | 2017-11-24 12:34 | PN ---
LOCATION: [facility], bed A. SUBJECTIVE: This 67-year-old female seen and examined in rounds. Still nonverbal but mildly more awake and alert. The patient tolerating PEG feeding so far well without reported active bleeding residual or resistance. No reported recent history of chest pain, significant palpitation, or shortness of breath. No reported fever. Most recent lab result showed low hemoglobin, hematocrit or thrombocytosis and low calcium, low albumin but mildly elevated ALT to 55. PHYSICAL EXAMINATION: GENERAL: A 67-year-old female. VITAL SIGNS: Afebrile with pulse of 86, respiratory rate 20 to 22, blood pressure 104/56. HEENT: Showed pale, dry oral mucous membranes. Nonicteric sclerae. LUNGS: Few scattered crepitation, decreased air entry at bases. HEART: Positive S1 and S2. ABDOMEN: Soft. Bowel sounds are present. The PEG tube is in place covered with clean dressing. No mass or organomegaly. No rebound tenderness or guarding. EXTREMITIES: With lower extremity mild edematous changes. No clubbing or cyanosis. NEUROLOGIC: No reported new neurological deficits, sensory or motor. Peripheral pulses are present bilaterally but weak. It has to be mentioned that the patient's abdominal distention has been subsided and improving gradually without any reported bleeding. IMPRESSION: 1. Recent history of an ileus, subsided. 2. Dysphagia, malnutrition, status post percutaneous endoscopic gastrostomy insertion with percutaneous endoscopic gastrostomy change recently. 3. Peptic ulcer disease, 4. Know history of hypertension, cerebrovascular accident. 5. Depression as well as seizure disorder with questionable dementia by history. 6. Anemia most likely secondary to above. 7. Recent episode of anterior abdominal wall cellulitis around the stoma of the percutaneous endoscopic gastrostomy, improved. SUGGESTIONS: 1. Continue current IV antibiotic. 2. Subsequent increase of the rate of feeding. 3. Follow up on electrolytes as well as lipids panel profile. 4. Further recommendations to follow and no need for further aggressive GI workup in the meantime. Lidia Lam MD
--- NOTE | 2017-11-24 15:45 | CP.PCM.PN ---
Subjective - Date & Time of Evaluation Date of Evaluation: 11/24/17 Time of Evaluation: 08:00 - Subjective Subjective: awake alert afeb nad Objective - Vital Signs/Intake and Output Vital Signs (last 24 hours): Temp Pulse Resp BP Pulse Ox 98.3 F 84 18 112/60 95 11/24/17 07:45 11/24/17 07:45 11/24/17 07:45 11/24/17 07:45 11/24/17 07:45 Intake and Output: 11/24/17 11/24/17 06:59 18:59 Intake Total Output Total Balance - Medications Medications: Current Medications Acetaminophen (Tylenol 650mg/20.3ml Solution Ud) 650 mg GT Q4H PRN PRN Reason: Pain, Mild (1-3) Last Admin: 11/21/17 10:44 Dose: 650 mg Amlodipine Besylate (Norvasc) 5 mg GT DAILY [facility] Last Admin: 11/24/17 11:04 Dose: 5 mg Enoxaparin Sodium (Lovenox) 40 mg SC DAILY [facility] Last Admin: 11/24/17 11:05 Dose: 40 mg Fluconazole (Diflucan Iv 400mg/200ml Ns) 200 mls @ 100 mls/hr IVPB DAILY [facility] Last Admin: 11/24/17 11:03 Dose: 100 mls/hr Levetiracetam (Keppra) 500 mg PEG Q12 JF Last Admin: 11/24/17 11:03 Dose: 500 mg Magnesium Hydroxide (Milk Of Magnesia) 30 ml GT Q24H PRN PRN Reason: Constipation Last Admin: 11/24/17 11:04 Dose: 30 ml Pantoprazole Sodium (Protonix Susp) 40 mg PEG DAILY [facility] Last Admin: 11/24/17 11:04 Dose: 40 mg Polyethylene Glycol (Miralax) 17 gm GT DAILY [facility] Last Admin: 11/24/17 11:04 Dose: 17 gm Sertraline HCl (Zoloft) 50 mg JT DAILY [facility] Last Admin: 11/24/17 11:04 Dose: 50 mg Vitamin A (Vitamin A & D Oint Ud Foilpak) 1 ea TOP BID [facility] Last Admin: 11/24/17 11:04 Dose: 1 ea - Labs Labs: 11/22/17 07:02 11/22/17 07:02 PT 11.6 SECONDS (9.7-12.2) 10/26/17 02:55 INR 1.0 10/26/17 02:55 APTT 34 SECONDS (21-34) 10/26/17 02:55 - Constitutional Appears: Non-toxic, Chronically Ill - Head Exam Head Exam: NORMOCEPHALIC - Eye Exam Eye Exam: PERRL. absent: Scleral icterus - ENT Exam ENT Exam: Mucous Membranes Dry - Neck Exam Neck Exam: absent: Lymphadenopathy - Respiratory Exam Respiratory Exam: Decreased Breath Sounds - Cardiovascular Exam Cardiovascular Exam: REGULAR RHYTHM - GI/Abdominal Exam GI & Abdominal Exam: Distended - Rectal Exam Rectal Exam: Deferred - Exam Exam: NORMAL INSPECTION Assessment and Plan (1) Abdominal distension Status: Acute (2) Colon distention Status: Acute (3) Fungemia Status: Acute (4) Sepsis Status: Acute (5) Sepsis Status: Acute - Assessment and Plan (Free Text) Assessment: cont rx as per dr lyon repeat cultures upon completion of rx
--- NOTE | 2017-11-24 16:07 | CP.PCM.PN ---
Subjective - Date & Time of Evaluation Date of Evaluation: 11/24/17 Time of Evaluation: 09:00 - Subjective Subjective: clinically same Objective - Vital Signs/Intake and Output Vital Signs (last 24 hours): Temp Pulse Resp BP Pulse Ox 98.3 F 84 18 112/60 95 11/24/17 07:45 11/24/17 07:45 11/24/17 07:45 11/24/17 07:45 11/24/17 07:45 Intake and Output: 11/24/17 11/24/17 06:59 18:59 Intake Total Output Total Balance - Medications Medications: Current Medications Acetaminophen (Tylenol 650mg/20.3ml Solution Ud) 650 mg GT Q4H PRN PRN Reason: Pain, Mild (1-3) Last Admin: 11/21/17 10:44 Dose: 650 mg Amlodipine Besylate (Norvasc) 5 mg GT DAILY [facility] Last Admin: 11/24/17 11:04 Dose: 5 mg Enoxaparin Sodium (Lovenox) 40 mg SC DAILY [facility] Last Admin: 11/24/17 11:05 Dose: 40 mg Fluconazole (Diflucan Iv 400mg/200ml Ns) 200 mls @ 100 mls/hr IVPB DAILY [facility] Last Admin: 11/24/17 11:03 Dose: 100 mls/hr Levetiracetam (Keppra) 500 mg PEG Q12 JF Last Admin: 11/24/17 11:03 Dose: 500 mg Magnesium Hydroxide (Milk Of Magnesia) 30 ml GT Q24H PRN PRN Reason: Constipation Last Admin: 11/24/17 11:04 Dose: 30 ml Pantoprazole Sodium (Protonix Susp) 40 mg PEG DAILY [facility] Last Admin: 11/24/17 11:04 Dose: 40 mg Polyethylene Glycol (Miralax) 17 gm GT DAILY [facility] Last Admin: 11/24/17 11:04 Dose: 17 gm Sertraline HCl (Zoloft) 50 mg JT DAILY [facility] Last Admin: 11/24/17 11:04 Dose: 50 mg Vitamin A (Vitamin A & D Oint Ud Foilpak) 1 ea TOP BID [facility] Last Admin: 11/24/17 11:04 Dose: 1 ea - Labs Labs: 11/22/17 07:02 11/22/17 07:02 PT 11.6 SECONDS (9.7-12.2) 10/26/17 02:55 INR 1.0 10/26/17 02:55 APTT 34 SECONDS (21-34) 10/26/17 02:55 - Constitutional Appears: Well - Head Exam Head Exam: ATRAUMATIC, NORMAL INSPECTION, NORMOCEPHALIC - Eye Exam Eye Exam: EOMI, Normal appearance, PERRL Pupil Exam: NORMAL ACCOMODATION, PERRL - ENT Exam ENT Exam: Mucous Membranes Moist, Normal Exam - Neck Exam Neck Exam: Full ROM, Normal Inspection. absent: Lymphadenopathy - Respiratory Exam Respiratory Exam: Decreased Breath Sounds - Cardiovascular Exam Cardiovascular Exam: REGULAR RHYTHM, +S1, +S2 - GI/Abdominal Exam GI & Abdominal Exam: Soft, Diminished Bowel Sounds - Rectal Exam Rectal Exam: Deferred Assessment and Plan (1) Abdominal distension Status: Acute (2) Abdominal pain Status: Acute (3) Colon distention Status: Acute (4) Nausea Status: Acute (5) Toxic megacolon Status: Acute (6) Fungemia Status: Acute (7) Sepsis Status: Acute (8) Sepsis Status: Acute
[2017-11-24 17:32] VITALS: RESP 20
[2017-11-25] MEDS: Fluconazole IV 400mg/200ml NS 200 ML IVPB SCH (10:15)
[2017-11-25] MEDS: Pantoprazole 40 mg Susp UD PEG SCH (10:15)
[2017-11-25] MEDS: Enoxaparin 40 mg Syringe SC SCH (10:15)
[2017-11-25] MEDS: levETIRAcetam 100 mg/ml (5ml) Oral Syringe PEG SCH (10:15)
[2017-11-25] MEDS: Vitamins A & D Oint UD Foilpak TOP SCH ×2 (10:15→17:09)
[2017-11-25 14:10] LABS: BASO # 0.1 K/uL (0.0-0.2); BASO % 0.9 % (0.0-2.0); EOS # 0.1 K/uL (0.0-0.7); HEMOGLOBIN 11.7 g/dL (11.0-16.0); LYMPH # 1.8 K/uL (1.0-4.3); LYMPH % 22.6 % (20.0-40.0); MEAN CELL VOLUME 95.3 fL (81.0-99.0); MEAN CORPUSCULAR HGB CONC 32.5 g/dL (33.0-37.0); MEAN PLATELET VOLUME 8.6 fL (7.2-11.7); MONO # 0.8 K/uL (0.0-0.8); NEUT # 5.3 K/uL (1.8-7.0); NEUT % 65.5 % (50.0-75.0); RBC 3.77 Mil/uL (3.80-5.20); RED CELL DISTRIBUTION WIDTH 15.7 % (11.5-14.5); WHITE BLOOD COUNT 8.1 K/uL (4.8-10.8)
[2017-11-25 14:26] LABS: ALB/GLOB RATIO 0.9 (1.0-2.1); ALBUMIN 3.7 g/dL (3.5-5.0); ALT/SGPT 44 U/L (9-52); AST/SGOT 24 U/L (14-36); BLOOD UREA NITROGEN 15 mg/dL (7-17); CALCIUM 8.9 mg/dl (8.6-10.4); GFR AFRICAN-AMERICAN > 60; GFR NON-AFRICAN AMERICAN > 60
--- NOTE | 2017-11-25 15:06 | CP.PCM.PN ---
Subjective - Date & Time of Evaluation Date of Evaluation: 11/25/17 Time of Evaluation: 09:30 - Subjective Subjective: clinically same Objective - Vital Signs/Intake and Output Vital Signs (last 24 hours): Temp Pulse Resp BP Pulse Ox 97.7 F 82 20 119/76 94 L 11/25/17 08:25 11/25/17 08:25 11/25/17 08:25 11/25/17 08:25 11/25/17 08:25 Intake and Output: 11/25/17 11/25/17 06:59 18:59 Intake Total 320 Output Total 650 Balance -330 - Medications Medications: Current Medications Acetaminophen (Tylenol 650mg/20.3ml Solution Ud) 650 mg GT Q4H PRN PRN Reason: Pain, Mild (1-3) Last Admin: 11/21/17 10:44 Dose: 650 mg Amlodipine Besylate (Norvasc) 5 mg GT DAILY [facility] Last Admin: 11/25/17 10:14 Dose: 5 mg Enoxaparin Sodium (Lovenox) 40 mg SC DAILY [facility] Last Admin: 11/25/17 10:15 Dose: 40 mg Fluconazole (Diflucan Iv 400mg/200ml Ns) 200 mls @ 100 mls/hr IVPB DAILY [facility] Last Admin: 11/25/17 10:15 Dose: 100 mls/hr Levetiracetam (Keppra) 500 mg PEG Q12 [facility] Last Admin: 11/25/17 10:15 Dose: 500 mg Magnesium Hydroxide (Milk Of Magnesia) 30 ml GT Q24H PRN PRN Reason: Constipation Last Admin: 11/24/17 11:04 Dose: 30 ml Pantoprazole Sodium (Protonix Susp) 40 mg PEG DAILY [facility] Last Admin: 11/25/17 10:15 Dose: 40 mg Sertraline HCl (Zoloft) 50 mg JT DAILY [facility] Last Admin: 11/25/17 10:14 Dose: 50 mg Vitamin A (Vitamin A & D Oint Ud Foilpak) 1 ea TOP BID [facility] Last Admin: 11/25/17 10:15 Dose: 1 ea - Labs Labs: 11/25/17 13:58 11/25/17 13:58 PT 11.6 SECONDS (9.7-12.2) 10/26/17 02:55 INR 1.0 10/26/17 02:55 APTT 34 SECONDS (21-34) 10/26/17 02:55 - Constitutional Appears: Well - Head Exam Head Exam: ATRAUMATIC, NORMAL INSPECTION, NORMOCEPHALIC - Eye Exam Eye Exam: EOMI, Normal appearance, PERRL Pupil Exam: NORMAL ACCOMODATION, PERRL - ENT Exam ENT Exam: Mucous Membranes Moist, Normal Exam - Neck Exam Neck Exam: Full ROM, Normal Inspection. absent: Lymphadenopathy - Respiratory Exam Respiratory Exam: Decreased Breath Sounds - Cardiovascular Exam Cardiovascular Exam: REGULAR RHYTHM, +S1, +S2 - GI/Abdominal Exam GI & Abdominal Exam: Soft, Diminished Bowel Sounds - Rectal Exam Rectal Exam: Deferred Assessment and Plan (1) Abdominal distension Status: Acute (2) Abdominal pain Status: Acute (3) Colon distention Status: Acute (4) Nausea Status: Acute (5) Toxic megacolon Status: Acute (6) Fungemia Status: Acute (7) Sepsis Status: Acute (8) Sepsis Status: Acute
[2017-11-25 15:51] VITALS: BP 113/61; PULSE 79; TEMP 97.5; O2SAT 95
--- NOTE | 2017-11-25 16:02 | CP.PCM.PN ---
<ArnathalieKorin - Last Filed: 11/25/17 16:02> Subjective - Date & Time of Evaluation Date of Evaluation: 11/25/17 Time of Evaluation: 16:02 - Subjective Subjective: -PLACE UNDER THE SERVICE OF DR. Jaime KELLY WHILE AT [facility]---CALL DR. KELLY UPON ARRIVAL TO FACILITY FOR ADMITTING ORDERS. -CONTINUE ALL MEDICATIONS PER THE MED REC FORM. CHANGES TO BE MADE BY DR. KELLY. -PEG FEEDINGS: JEVITY 1.5 TO RUN AT 40 ML/HR (GOAL RATE) WITH WATER FLUSH OF 50 ML Q8 HOURS. -CONTINUE DIFLUCAN 200 MG PO BID X1 WEEK PER ID (START 11/26/17-12/03/17). -PED SITE CARE PER DR. Boris KELLY'S ORDERS. PER DR. KELLY HE WILL MANAGE THE PEG SITE CARE WHILE MRS. BAKER AT [facility]; HE IS AWARE OF REPEAT CULTURE RESULTS (ENTERO. FAEC. AND E COLI). ANTIBIOTICS PER DR. KELLY' S ORDERS ONCE AT [facility]. -PUREED DIET PLEASURE FEEDINGS WITH PEG FEEDINGS ALLOWED. -MONITOR FOR CONSTIPATION AND ABDOMINAL DISTENTION. NOTIFY DR. KELLY IF OCCURS. -PLEASE HAVE MRS. BAKER FOLLOW UP WITH DR. CANADA (GI) AND DR. ESPINOZA ( SURGERY) IN 1 WEEK AFTER [facility] D/C. Objective - Vital Signs/Intake and Output Vital Signs (last 24 hours): Temp Pulse Resp BP Pulse Ox 97.5 F L 79 20 113/61 95 11/25/17 15:50 11/25/17 15:50 11/25/17 15:50 11/25/17 15:50 11/25/17 15:50 Intake and Output: 11/25/17 11/25/17 06:59 18:59 Intake Total 320 360 Output Total 650 Balance -330 360 - Medications Medications: Current Medications Acetaminophen (Tylenol 650mg/20.3ml Solution Ud) 650 mg GT Q4H PRN PRN Reason: Pain, Mild (1-3) Last Admin: 11/21/17 10:44 Dose: 650 mg Amlodipine Besylate (Norvasc) 5 mg GT DAILY [facility] Last Admin: 11/25/17 10:14 Dose: 5 mg Enoxaparin Sodium (Lovenox) 40 mg SC DAILY [facility] Last Admin: 11/25/17 10:15 Dose: 40 mg Fluconazole (Diflucan Iv 400mg/200ml Ns) 200 mls @ 100 mls/hr IVPB DAILY [facility] Last Admin: 11/25/17 10:15 Dose: 100 mls/hr Levetiracetam (Keppra) 500 mg PEG Q12 [facility] Last Admin: 11/25/17 10:15 Dose: 500 mg Magnesium Hydroxide (Milk Of Magnesia) 30 ml GT Q24H PRN PRN Reason: Constipation Last Admin: 11/24/17 11:04 Dose: 30 ml Pantoprazole Sodium (Protonix Susp) 40 mg PEG DAILY [facility] Last Admin: 11/25/17 10:15 Dose: 40 mg Sertraline HCl (Zoloft) 50 mg JT DAILY [facility] Last Admin: 11/25/17 10:14 Dose: 50 mg Vitamin A (Vitamin A & D Oint Ud Foilpak) 1 ea TOP BID [facility] Last Admin: 11/25/17 10:15 Dose: 1 ea - Labs Labs: 11/25/17 13:58 11/25/17 13:58 PT 11.6 SECONDS (9.7-12.2) 10/26/17 02:55 INR 1.0 10/26/17 02:55 APTT 34 SECONDS (21-34) 10/26/17 02:55 <Lolly Kelly S - Last Filed: 11/25/17 19:54> Objective - Vital Signs/Intake and Output Vital Signs (last 24 hours): Temp Pulse Resp BP Pulse Ox 97.5 F L 79 20 113/61 95 11/25/17 15:50 11/25/17 15:50 11/25/17 15:50 11/25/17 15:50 11/25/17 15:50 Intake and Output: 11/25/17 11/26/17 18:59 06:59 Intake Total 360 Balance 360 - Medications Medications: Current Medications Acetaminophen (Tylenol 650mg/20.3ml Solution Ud) 650 mg GT Q4H PRN PRN Reason: Pain, Mild (1-3) Last Admin: 11/21/17 10:44 Dose: 650 mg Amlodipine Besylate (Norvasc) 5 mg GT DAILY [facility] Last Admin: 11/25/17 10:14 Dose: 5 mg Enoxaparin Sodium (Lovenox) 40 mg SC DAILY [facility] Last Admin: 11/25/17 10:15 Dose: 40 mg Fluconazole (Diflucan Iv 400mg/200ml Ns) 200 mls @ 100 mls/hr IVPB DAILY [facility] Last Admin: 11/25/17 10:15 Dose: 100 mls/hr Levetiracetam (Keppra) 500 mg PEG Q12 [facility] Last Admin: 11/25/17 10:15 Dose: 500 mg Magnesium Hydroxide (Milk Of Magnesia) 30 ml GT Q24H PRN PRN Reason: Constipation Last Admin: 11/24/17 11:04 Dose: 30 ml Pantoprazole Sodium (Protonix Susp) 40 mg PEG DAILY [facility] Last Admin: 11/25/17 10:15 Dose: 40 mg Sertraline HCl (Zoloft) 50 mg JT DAILY [facility] Last Admin: 11/25/17 10:14 Dose: 50 mg Vitamin A (Vitamin A & D Oint Ud Foilpak) 1 ea TOP BID [facility] Last Admin: 11/25/17 17:09 Dose: 1 ea - Labs Labs: 11/25/17 13:58 11/25/17 13:58 PT 11.6 SECONDS (9.7-12.2) 10/26/17 02:55 INR 1.0 10/26/17 02:55 APTT 34 SECONDS (21-34) 10/26/17 02:55 Assessment and Plan (1) Abdominal distension Status: Acute (2) Abdominal pain Status: Acute (3) Colon distention Status: Acute (4) Nausea Status: Acute (5) Toxic megacolon Status: Acute (6) Fungemia Status: Acute (7) Sepsis Status: Acute (8) Sepsis Status: Acute - Assessment and Plan (Free Text) Plan: Spoke to the son possible discharge to [facility] today continue same also discussed with the staff on the duty continue PEG tube feeding at 40 mL per 8 we will continue to give her Diflucan 200 mg p.o.twice daily until treatment is a last date continue same same monitor for the abdominal distension
== END 2017-11-25 21:15 | DRG 393 ==
LOC: C.ER 21:50 → C.9E 10-26 03:11 → C.6T 10-26 22:23 → C.3T 11-07 19:08 → C.9I 11-15 14:36 → C.5S 11-16 17:46
PROVIDERS: ADMIT Internal Medicine Nephrology; ATTEND Internal Medicine Nephrology
PROC: 0DBM8ZX Excision of Descending Colon, Via Natural or Artificial Opening Endoscopic, Diagnostic (ICD-10-PCS; 2017-10-29)
PROC: 0D20XUZ Change Feeding Device in Upper Intestinal Tract, External Approach (ICD-10-PCS; principal; 2017-10-30 12:23)
PROC: 02HV33Z Insertion of Infusion Device into Superior Vena Cava, Percutaneous Approach (ICD-10-PCS; 2017-11-01)
DX: K59.31 Toxic megacolon (principal); B37.7 Candidal sepsis; I67.1 Cerebral aneurysm, nonruptured; E46 Unspecified protein-calorie malnutrition; I69.954 Hemiplegia and hemiparesis following unspecified cerebrovascular disease affecting left non-dominant side; K56.7 Ileus, unspecified; K94.22 Gastrostomy infection; L03.311 Cellulitis of abdominal wall; T83.511A Infection and inflammatory reaction due to indwelling urethral catheter, initial encounter; K27.3 Acute peptic ulcer, site unspecified, without hemorrhage or perforation; F03.90 Unspecified dementia, unspecified severity, without behavioral disturbance, psychotic disturbance, mood disturbance, and anxiety; I10 Essential (primary) hypertension; F32.9 Major depressive disorder, single episode, unspecified; K56.41 Fecal impaction; G40.909 Epilepsy, unspecified, not intractable, without status epilepticus; E87.6 Hypokalemia; Y83.3 Surgical operation with formation of external stoma as the cause of abnormal reaction of the patient, or of later complication, without mention of misadventure at the time of the procedure; R00.0 Tachycardia, unspecified; H26.9 Unspecified cataract; R97.0 Elevated carcinoembryonic antigen [CEA]; D64.9 Anemia, unspecified; K44.9 Diaphragmatic hernia without obstruction or gangrene; K20.8 Other esophagitis; K58.0 Irritable bowel syndrome with diarrhea; K64.4 Residual hemorrhoidal skin tags; K64.8 Other hemorrhoids

== ENCOUNTER 2017-12-04 01:16 | Inpatient (IN) | payer MEDICARE, OTHER ==
[2017-12-04 01:16] VITALS: BMI 18.4
[2017-12-04] MEDS ORDERED: Sodium Chloride 0.9% 1,000 ML IV ONE ×2 (01:36→03:18)
[2017-12-04] MEDS ORDERED: Sodium Chloride 0.9% 1,000 ML ONE ×2 (01:57→03:38)
--- NOTE | 2017-12-04 01:57 | C.PDOC ---
History Of Present Illness 67 year old female with PMhx of dementia is sent to the ED from her longterm [facility] for evaluation of abnormal CT. As per CT report patient has a distended sigmoid colon with multiple fluid levels, thick distended sigmoind colon and rectum. Patient is aphasic unable to answer question so history is limited. Chief Complaint (Nursing): GI Problem History Per: EMS History/Exam Limitations: no limitations Onset/Duration Of Symptoms: Days Current Symptoms Are (Timing): Still Present Radiation Of Pain To:: None Quality Of Discomfort: Unable To Describe Exacerbating Factors: None Alleviating Factors: None Additional History Per: [facility], Prior Records Abnormal Vaginal Bleeding: No Past Medical History Reviewed: Historical Data, Nursing Documentation, Vital Signs Vital Signs: Last Vital Signs Temp 98.4 F 12/04/17 03:30 Pulse 95 H 12/04/17 04:23 Resp 17 12/04/17 04:23 BP 116/59 L 12/04/17 04:23 Pulse Ox 96 12/04/17 05:26 - Medical History PMH: CVA, Dementia, Depression (major), HTN, Seizures Denies: Chronic Kidney Disease Surgical History: No Surg Hx - [facility] Procedures CHANGE FEEDING DEVICE IN UP INTEST TRACT, PRODUCTION BROACHER APPROACH (10/26/17) EXCISION OF DESCENDING COLON, ENDO, DIAGN (10/26/17) INSERTION OF INFUSION DEV INTO SUP VENA CAVA, PERC APPROACH (10/26/17) INTRODUCTION OF NUTRITIONAL INTO UP GI, VIA OPENING (09/30/17) Family History: States: Unknown Family Hx - Social History Hx Tobacco Use: No Hx Alcohol Use: No (unknown) Hx Substance Use: No - Immunization History Hx Tetanus Toxoid Vaccination: No Hx Influenza Vaccination: No Hx Pneumococcal Vaccination: No Review Of Systems Review Of Systems: ROS cannot be obtained secondary to pt's inabilty to answer questions. Physical Exam - Physical Exam Appears: Non-toxic, No Acute Distress Skin: Normal Color, Warm, Dry Head: Atraumatic, Normacephalic Eye(s): bilateral: Normal Inspection Nose: No Discharge Oral Mucosa: Moist Neck: Normal ROM, Supple Chest: Symmetrical Cardiovascular: Rhythm Regular, No Murmur Respiratory: Normal Breath Sounds, No Rales, No Rhonchi, No Wheezing Gastrointestinal/Abdominal: Soft, No Tenderness, Distention, No Guarding, No Rebound, Other (GT tube in place) Extremity: Normal ROM, No Tenderness, No Swelling Neurological/Psych: No Oriented x3 (Patient has dementia) Additional Physical Exam Comments: Patient is uncooperative, curled up in a ball ED Course And Treatment - Laboratory Results Result Diagrams: 12/04/17 02:00 12/04/17 02:00 O2 Sat by Pulse Oximetry: 96 (On RA) Pulse Ox Interpretation: Normal Medical Decision Making Medical Decision Making: Impression: abnormal CT Plan: * Labs * Blood culture * IV fluids Patient has similar presentation last month when she was admitted under Dr. Kulwinder Kelly then seen by Dr. Ramsey who placed a rectal tube along with some enemas. Patient was D/C on 11/25 without having any surgical procedure. Disposition - Disposition Disposition: HOSPITALIZED Disposition Time: 05:26 Condition: FAIR - Clinical Impression Clinical Impression: Large bowel obstruction - Scribe Statement The provider has reviewed the documentation as recorded by the Scribe Brady Alas All medical record entries made by the Scribe were at my direction and personally dictated by me. I have reviewed the chart and agree that the record accurately reflects my personal performance of the history, physical exam, medical decision making, and the department course for this patient. I have also personally directed, reviewed, and agree with the discharge instructions and disposition.
[2017-12-04 02:03] LABS: BASO # 0.1 K/uL (0.0-0.2); BASO % 0.7 % (0.0-2.0); EOS # 0.1 K/uL (0.0-0.7); EOS % 1.3 % (0.0-4.0); HEMOGLOBIN 11.9 g/dL (11.0-16.0); LYMPH # 1.9 K/uL (1.0-4.3); MEAN CELL VOLUME 92.9 fL (81.0-99.0); MEAN CORPUSCULAR HGB CONC 33.4 g/dL (33.0-37.0); MEAN PLATELET VOLUME 9.1 fL (7.2-11.7); MONO # 1.1 K/uL (0.0-0.8); NEUT # 5.6 K/uL (1.8-7.0); RBC 3.84 Mil/uL (3.80-5.20); RED CELL DISTRIBUTION WIDTH 15.9 % (11.5-14.5); WHITE BLOOD COUNT 8.8 K/uL (4.8-10.8)
[2017-12-04 02:13] LABS: INR 1.1; PROTHROMBIN TIME 12.9 SECONDS (9.7-12.2)
[2017-12-04 02:23] LABS: ALB/GLOB RATIO 0.8 (1.0-2.1); ALBUMIN 3.8 g/dL (3.5-5.0); ALT/SGPT 52 U/L (9-52); AST/SGOT 35 U/L (14-36); CALCIUM 8.8 mg/dl (8.6-10.4); GFR AFRICAN-AMERICAN > 60; GFR NON-AFRICAN AMERICAN > 60; LIPASE 165 U/L (23-300)
[2017-12-04 02:54] LABS: VENOUS BLOOD GAS BASE EXCESS 7.5 mmol/L (0.0-2.0); VENOUS BLOOD GAS PCO2 50 mmHg (40-60); VENOUS BLOOD GAS PO2 40 mm/Hg (30-55); VENOUS BLOOD PH 7.43 (7.32-7.43)
[2017-12-04 03:08] LABS: SQUAMOUS EPITHIAL 1 /hpf (0-5); URINE AMORPHOUS SEDIMENT RARE /ul (<OCC); URINE BILIRUBIN NEGATIVE (NEGATIVE); URINE BLOOD NEGATIVE (NEGATIVE); URINE CALCIUM OXALATE CRYSTALS RARE /hpf (<OCC); URINE CLARITY Hazy (Clear); URINE COLOR Yellow (YELLOW); URINE GLUCOSE (UA) NORMAL (Normal); URINE LEUKOCYTE ESTERASE NEG Leu/uL (Negative); URINE PROTEIN NEGATIVE (NEGATIVE)
[2017-12-04 04:02] LABS: BLOOD UREA NITROGEN 12 mg/dL (7-17)
[2017-12-04] MEDS ORDERED: cefOXitin IV 2 gm in Saline 2 GM in Sodium Chloride 0.9% 50 ML IV STA (04:21)
[2017-12-04] MEDS ORDERED: cefOXitin IV 2 gm in Saline 2 GM in Sodium Chloride 0.9% 100 ML IV STA (04:32)
--- NOTE | 2017-12-04 05:57 | PCM.SEPTIC ---
Sepsis Progress Note - Reassessment Type Date of Evaluation: 12/04/17 Time of Evaluation: 05:50 Reassessment Type: Non-invasive reassessment - Non Invasive Reassessment Were the most recent vital sign reviewed: Yes Vital Sign (Latest): Temp Pulse Resp BP Pulse Ox 98.4 F 95 H 17 116/59 L 96 12/04/17 03:30 12/04/17 04:23 12/04/17 04:23 12/04/17 04:23 12/04/17 05:26 Cardiovascular: Yes: Tachycardia Respiratory: Yes: Rhonchi Capillary Refill: Normal (Less than 2 sec) Skin: Normal Color, Warm, Dry - Invasive Reassessment (complete 2 of 4) Was a Central Venous Pressure Measurement obtained within 6 Hours after the presentation of septic shock: No Was a central venous oxygen measurement obtained within 6 hours after the presentation of septic shock: No Fluid Challenge performed: Yes
--- NOTE | 2017-12-04 06:32 | CP.PCM.CON ---
<Macario Aldridge - Last Filed: 12/04/17 06:27> History of Present Illness - History of Present Illness History of Present Illness: General Surgery: Dr Ramsey Pt is a 67F sent in from retirement because she had a CT scan read as large bowel obstruction. Pt presents to ED, but there is no copy of CT or report available. Pt is aphasic and unable to provide an history. Was given enema in ED and had a bowel movement. Abdomen is soft and non-distended. Pt is in no apparent distress. Review of Systems - Review of Systems Systems not reviewed;Unavailable: Altered Mental Status Past Patient History - Infectious Disease Hx of Infectious Diseases: None - Past Medical History & Family History Past Medical History?: Yes - Past Social History Smoking Status: Never Smoked - CARDIAC Hx Hypertension: Yes - NEUROLOGICAL Hx Dementia: Yes Hx Seizures: Yes - HEENT Hx HEENT Problems: No - RENAL Hx Chronic Kidney Disease: No - INTEGUMENTARY Other/Comment: cellulitis - MUSCULOSKELETAL/RHEUMATOLOGICAL Hx Falls: No - GASTROINTESTINAL Other/Comment: gastrostomy - GENITOURINARY/GYNECOLOGICAL Hx Incontinence: Yes - PSYCHIATRIC Hx Depression: Yes (major) Hx Substance Use: No - SURGICAL HISTORY Other/Comment: brain surgery due to aneurysm,peg tube insertion. - ANESTHESIA Hx Anesthesia: Yes Hx Anesthesia Reactions: No Hx Malignant Hyperthermia: No Meds Allergies/Adverse Reactions: Allergies Allergy/AdvReac Type Severity Reaction Status Date / Time No Known Allergies Allergy Verified 12/04/17 01:32 - Medications Medications: Current Medications Cefoxitin Sodium 2 gm/ Sodium (Chloride) 150 mls @ 50 mls/hr IV STAT STA PRN Reason: Protocol Stop: 12/04/17 07:31 Last Admin: 12/04/17 05:06 Dose: Not Given Physical Exam - Constitutional Appears: No Acute Distress, Chronically Ill - ENT Exam ENT Exam: Mucous Membranes Dry - Respiratory Exam Respiratory Exam: absent: Accessory Muscle Use, Respiratory Distress - Cardiovascular Exam Cardiovascular Exam: absent: Tachycardia - GI/Abdominal Exam GI & Abdominal Exam: Soft. absent: Distended, Firm, Guarding, Hernia, Tenderness - Psychiatric Exam Psychiatric exam: Agitated - Skin Skin Exam: Normal Color Results - Vital Signs Recent Vital Signs: Last Vital Signs Temp 98.4 F 12/04/17 03:30 Pulse 95 H 12/04/17 04:23 Resp 17 12/04/17 04:23 BP 116/59 L 12/04/17 04:23 Pulse Ox 96 12/04/17 05:26 - Labs Result Diagrams: 12/04/17 02:00 12/04/17 02:00 Labs: Laboratory Results - last 24 hr 12/04/17 12/04/17 12/04/17 01:36 02:00 02:00 WBC 8.8 RBC 3.84 Hgb 11.9 Hct 35.7 MCV 92.9 D MCH 31.0 MCHC 33.4 RDW 15.9 H Plt Count 352 D MPV 9.1 Neut % (Auto) 64.0 Lymph % (Auto) 22.0 [place] % (Auto) 12.0 H Eos % (Auto) 1.3 Baso % (Auto) 0.7 Neut # (Auto) 5.6 Lymph # (Auto) 1.9 [place] # (Auto) 1.1 H Eos # (Auto) 0.1 Baso # (Auto) 0.1 PT 12.9 H INR 1.1 APTT 32 pO2 VBG pH VBG pCO2 VBG HCO3 VBG Total CO2 VBG O2 Sat (Calc) VBG Base Excess VBG Potassium Glucose Lactate Crit Value Called To Crit Value Called By Crit Value Read Back Blood Gas Notified Time Sodium 142 Potassium 3.3 L Chloride 95 L Carbon Dioxide 33 H Anion Gap 18 BUN 12 Creatinine 0.5 L Est GFR ( Amer) > 60 Est GFR (Non-Af Amer) > 60 Random Glucose 118 H Lactic Acid Calcium 8.8 Total Bilirubin 0.3 AST 35 ALT 52 Alkaline Phosphatase 128 H D Total Protein 8.5 H Albumin 3.8 Globulin 4.7 H Albumin/Globulin Ratio 0.8 L Lipase 165 Venous Blood Potassium Urine Color Urine Clarity Urine pH Ur Specific [place] Urine Protein Urine Glucose (UA) Urine Ketones Urine Blood Urine Nitrate Urine Bilirubin Urine Urobilinogen Ur Leukocyte Esterase Urine WBC (Auto) Urine RBC (Auto) Ur Squamous Epith Cells Calcium Oxalate Crystal Amorphous Sediment 12/04/17 12/04/17 12/04/17 02:45 02:46 04:33 WBC RBC Hgb Hct MCV MCH MCHC RDW Plt Count MPV Neut % (Auto) Lymph % (Auto) [place] % (Auto) Eos % (Auto) Baso % (Auto) Neut # (Auto) Lymph # (Auto) [place] # (Auto) Eos # (Auto) Baso # (Auto) PT INR APTT pO2 40 VBG pH 7.43 VBG pCO2 50 VBG HCO3 30.2 VBG Total CO2 34.7 H VBG O2 Sat (Calc) 77.0 H VBG Base Excess 7.5 H VBG Potassium 3.0 L Glucose 106 H Lactate 2.4 H Crit Value Called To Dr tuttle Crit Value Called By Flaca morgan rt Crit Value Read Back Y Blood Gas Notified Time 253 Sodium 139.0 Potassium Chloride 99.0 Carbon Dioxide Anion Gap BUN Creatinine Est GFR ( Amer) Est GFR (Non-Af Amer) Random Glucose Lactic Acid 2.6 H Calcium Total Bilirubin AST ALT Alkaline Phosphatase Total Protein Albumin Globulin Albumin/Globulin Ratio Lipase Venous Blood Potassium 3.0 L Urine Color Yellow Urine Clarity Hazy Urine pH 7.0 Ur Specific [place] 1.019 Urine Protein Negative Urine Glucose (UA) Normal Urine Ketones Negative Urine Blood Negative Urine Nitrate Negative Urine Bilirubin Negative Urine Urobilinogen 2.0 H Ur Leukocyte Esterase Neg Urine WBC (Auto) 2 Urine RBC (Auto) 21 H Ur Squamous Epith Cells 1 Calcium Oxalate Crystal Rare Amorphous Sediment Rare H Assessment & Plan - Assessment and Plan (Free Text) Assessment: 67F with recurrent large bowel pseudo-obstruction Plan: abdomen is soft, non-distended pt having BMs no surgical intervention planned further mgmt per primary will d/w Dr suni Aldridge, PGY3 <Jorge Ramsey - Last Filed: 12/08/17 15:55> Results - Vital Signs Recent Vital Signs: Last Vital Signs Temp 98.2 F 12/06/17 15:35 Pulse 89 12/06/17 15:35 Resp 18 12/06/17 15:35 BP 111/58 L 12/06/17 15:35 Pulse Ox 99 12/06/17 15:35 - Labs Result Diagrams: 12/06/17 07:24 12/06/17 07:24 Attending/Attestation - Attestation I have personally seen and examined this patient.: Yes I have fully participated in the care of the patient.: Yes I have reviewed all pertinent clinical information: Yes Notes (Text): Pt was seen and examined at bedside Agree with above note and assessment Pt with chronic colonic dilatation, present with constipation At present, pt is having BM CT scan of A/P c.w current mx Plan d.w pt in detail
[2017-12-04] MEDS: Sodium Chloride 0.9% 1,000 ML IV SCH ×2 (08:15→21:19)
--- NOTE | 2017-12-04 12:50 | CT ---
PROCEDURE: CT Abdomen and Pelvis without intravenous contrast HISTORY: r/o obstruction COMPARISON: 11/11/2017 TECHNIQUE: Without contrast.. 2.5 mm contiguous axial sections were acquired from the lung base to the pelvic floor. Sagittal and coronal images were reformatted from the axial scan. The examination is somewhat technically limited due to patient motion artifact. Contrast Dose: 0 Radiation dose: Total exam DLP = 1061.08 mGy-cm. This CT exam was performed using on small left pleural effusion and left lower lobe subsegmental atelectasis. E or more of the following dose reduction techniques: Automated exposure control, adjustment of the mA and/or kV according to patient size, and/or use of iterative reconstruction technique. FINDINGS: LOWER THORAX: Small left pleural effusion and left lower lobe subsegmental atelectasis. LIVER: Normal attenuation. Smooth contour. Large multi-cystic mass in left lobe of liver unchanged from prior examination, uncertain significance. This measures 10.4 cm in greatest dimension. Additional low-density hepatic masses noted elsewhere in the right hepatic lobe, unchanged. No biliary dilatation. GALLBLADDER AND BILE DUCTS: Unremarkable. PANCREAS: Unremarkable. No gross lesion or ductal dilatation. SPLEEN: Unremarkable. ADRENALS: Unremarkable. No mass. KIDNEYS AND URETERS: No mass, calculus or hydronephrosis. VASCULATURE: Unremarkable. No aortic aneurysm. BOWEL: Dilatation of the sigmoid colon with moderate fluid within the colon. Decreased dilatation compared to prior examination. There is mural thickening of the transverse colon and splenic flexure of the colon, nonspecific. Consider infectious or inflammatory colitis. Percutaneous gastrostomy noted. APPENDIX: Unremarkable. Normal appendix. PERITONEUM: Unremarkable. No free fluid. No free air. LYMPH NODES: Unremarkable. No enlarged lymph nodes. BLADDER: Stone catheter. Nondistended. REPRODUCTIVE: Unremarkable uterus BONES: No acute fracture. OTHER FINDINGS: None. IMPRESSION: Dilatation of the rectosigmoid colon with a moderate amount of fluid. Decreased dilatation compared to prior examination of 11/11/2017. Mural thickening of the transverse colon and splenic flexure common nonspecific. Consider infectious/ inflammatory colitis. Percutaneous gastrostomy. Stone catheter. Multi cystic mass in left hepatic lobe, unchanged. Additional multiple low-density hepatic lesions.
[2017-12-04] MEDS: metroNIDAZOLE IV 500 mg/100 ml 500 MG/100 ML BAG IVPB SCH ×2 (13:35→21:19)
--- NOTE | 2017-12-04 17:59 | CP.PCM.HP ---
Past Patient History - Infectious Disease Hx of Infectious Diseases: None - Past Medical History & Family History Past Medical History?: Yes - Past Social History Smoking Status: Never Smoked - CARDIAC Hx Hypertension: Yes - NEUROLOGICAL Hx Dementia: Yes Hx Seizures: Yes - HEENT Hx HEENT Problems: No - RENAL Hx Chronic Kidney Disease: No - INTEGUMENTARY Other/Comment: cellulitis - MUSCULOSKELETAL/RHEUMATOLOGICAL Hx Falls: No - GASTROINTESTINAL Other/Comment: gastrostomy - GENITOURINARY/GYNECOLOGICAL Hx Incontinence: Yes - PSYCHIATRIC Hx Substance Use: No - SURGICAL HISTORY Other/Comment: brain surgery due to aneurysm,peg tube insertion. - ANESTHESIA Hx Anesthesia: Yes Hx Anesthesia Reactions: No Hx Malignant Hyperthermia: No Meds Allergies/Adverse Reactions: Allergies Allergy/AdvReac Type Severity Reaction Status Date / Time No Known Allergies Allergy Verified 12/04/17 01:32 Physical Exam - Constitutional Appears: Well - Head Exam Head Exam: ATRAUMATIC, NORMAL INSPECTION, NORMOCEPHALIC - Eye Exam Eye Exam: EOMI, Normal appearance, PERRL Pupil Exam: NORMAL ACCOMODATION, PERRL - ENT Exam ENT Exam: Mucous Membranes Moist, Normal Exam - Neck Exam Neck exam: Positive for: Normal Inspection - Respiratory Exam Respiratory Exam: Decreased Breath Sounds - Cardiovascular Exam Cardiovascular Exam: REGULAR RHYTHM, +S1, +S2 - GI/Abdominal Exam GI & Abdominal Exam: Diminished Bowel Sounds, Soft - Rectal Exam Rectal Exam: Deferred Results - Vital Signs Recent Vital Signs: Last Vital Signs Temp 98.4 F 12/04/17 15:09 Pulse 91 H 12/04/17 15:09 Resp 20 12/04/17 15:09 BP 112/53 L 12/04/17 15:09 Pulse Ox 95 12/04/17 15:09 - Labs Result Diagrams: 12/04/17 02:00 12/04/17 02:00 Labs: Laboratory Results - last 24 hr 12/04/17 12/04/17 12/04/17 01:36 02:00 02:00 WBC 8.8 RBC 3.84 Hgb 11.9 Hct 35.7 MCV 92.9 D MCH 31.0 MCHC 33.4 RDW 15.9 H Plt Count 352 D MPV 9.1 Neut % (Auto) 64.0 Lymph % (Auto) 22.0 [place] % (Auto) 12.0 H Eos % (Auto) 1.3 Baso % (Auto) 0.7 Neut # (Auto) 5.6 Lymph # (Auto) 1.9 [place] # (Auto) 1.1 H Eos # (Auto) 0.1 Baso # (Auto) 0.1 PT 12.9 H INR 1.1 APTT 32 pO2 VBG pH VBG pCO2 VBG HCO3 VBG Total CO2 VBG O2 Sat (Calc) VBG Base Excess VBG Potassium Glucose Lactate Crit Value Called To Crit Value Called By Crit Value Read Back Blood Gas Notified Time Sodium 142 Potassium 3.3 L Chloride 95 L Carbon Dioxide 33 H Anion Gap 18 BUN 12 Creatinine 0.5 L Est GFR ( Amer) > 60 Est GFR (Non-Af Amer) > 60 Random Glucose 118 H Lactic Acid Calcium 8.8 Total Bilirubin 0.3 AST 35 ALT 52 Alkaline Phosphatase 128 H D Total Protein 8.5 H Albumin 3.8 Globulin 4.7 H Albumin/Globulin Ratio 0.8 L Lipase 165 Venous Blood Potassium Urine Color Urine Clarity Urine pH Ur Specific [place] Urine Protein Urine Glucose (UA) Urine Ketones Urine Blood Urine Nitrate Urine Bilirubin Urine Urobilinogen Ur Leukocyte Esterase Urine WBC (Auto) Urine RBC (Auto) Ur Squamous Epith Cells Calcium Oxalate Crystal Amorphous Sediment 12/04/17 12/04/17 12/04/17 02:45 02:46 04:33 WBC RBC Hgb Hct MCV MCH MCHC RDW Plt Count MPV Neut % (Auto) Lymph % (Auto) [place] % (Auto) Eos % (Auto) Baso % (Auto) Neut # (Auto) Lymph # (Auto) [place] # (Auto) Eos # (Auto) Baso # (Auto) PT INR APTT pO2 40 VBG pH 7.43 VBG pCO2 50 VBG HCO3 30.2 VBG Total CO2 34.7 H VBG O2 Sat (Calc) 77.0 H VBG Base Excess 7.5 H VBG Potassium 3.0 L Glucose 106 H Lactate 2.4 H Crit Value Called To Dr tuttle Crit Value Called By Flaca morgan rt Crit Value Read Back Y Blood Gas Notified Time 253 Sodium 139.0 Potassium Chloride 99.0 Carbon Dioxide Anion Gap BUN Creatinine Est GFR ( Amer) Est GFR (Non-Af Amer) Random Glucose Lactic Acid 2.6 H Calcium Total Bilirubin AST ALT Alkaline Phosphatase Total Protein Albumin Globulin Albumin/Globulin Ratio Lipase Venous Blood Potassium 3.0 L Urine Color Yellow Urine Clarity Hazy Urine pH 7.0 Ur Specific [place] 1.019 Urine Protein Negative Urine Glucose (UA) Normal Urine Ketones Negative Urine Blood Negative Urine Nitrate Negative Urine Bilirubin Negative Urine Urobilinogen 2.0 H Ur Leukocyte Esterase Neg Urine WBC (Auto) 2 Urine RBC (Auto) 21 H Ur Squamous Epith Cells 1 Calcium Oxalate Crystal Rare Amorphous Sediment Rare H
[2017-12-05] MEDS: Sodium Chloride 0.9% 1,000 ML IV SCH ×2 (04:16→14:33)
[2017-12-05] MEDS: metroNIDAZOLE IV 500 mg/100 ml 500 MG/100 ML BAG IVPB SCH ×3 (05:13→21:21)
[2017-12-05 07:26] LABS: BASO % 0.7 % (0.0-2.0); EOS # 0.2 K/uL (0.0-0.7); EOS % 3.4 % (0.0-4.0); HEMOGLOBIN 10.3 g/dL (11.0-16.0); LYMPH # 1.4 K/uL (1.0-4.3); LYMPH % 28.1 % (20.0-40.0); MEAN CELL VOLUME 92.7 fL (81.0-99.0); MEAN CORPUSCULAR HEMOGLOBIN 31.2 pg (27.0-31.0); MEAN CORPUSCULAR HGB CONC 33.6 g/dL (33.0-37.0); MONO # 0.5 K/uL (0.0-0.8); MONO % 10.9 % (0.0-10.0); NEUT # 2.8 K/uL (1.8-7.0); NEUT % 56.9 % (50.0-75.0); NRBC % 0.1 % (0.0-2.0); RBC 3.3 Mil/uL (3.80-5.20); RED CELL DISTRIBUTION WIDTH 15.6 % (11.5-14.5)
[2017-12-05 07:38] LABS: BLOOD UREA NITROGEN 5 mg/dL (7-17); CALCIUM 8.1 mg/dl (8.6-10.4); GFR AFRICAN-AMERICAN > 60; GFR NON-AFRICAN AMERICAN > 60
--- NOTE | 2017-12-05 12:50 | CP.PCM.CON ---
History of Present Illness - History of Present Illness History of Present Illness: 67F sent in from longterm because she had a CT scan read as large bowel obstruction. Pt presents to ED, but there is no copy of CT or report available. Pt is aphasic and unable to provide an history. Was given enema in ED and had a bowel movement. Abdomen is soft and non-distended. Pt is in no apparent distress. Past Patient History - Infectious Disease Hx of Infectious Diseases: None - Past Medical History & Family History Past Medical History?: Yes - Past Social History Smoking Status: Never Smoked - CARDIAC Hx Hypertension: Yes - NEUROLOGICAL Hx Dementia: Yes Hx Seizures: Yes - HEENT Hx HEENT Problems: No - RENAL Hx Chronic Kidney Disease: No - INTEGUMENTARY Other/Comment: cellulitis - MUSCULOSKELETAL/RHEUMATOLOGICAL Hx Falls: No - GASTROINTESTINAL Other/Comment: gastrostomy - GENITOURINARY/GYNECOLOGICAL Hx Incontinence: Yes - PSYCHIATRIC Hx Substance Use: No - SURGICAL HISTORY Other/Comment: brain surgery due to aneurysm,peg tube insertion. - ANESTHESIA Hx Anesthesia: Yes Hx Anesthesia Reactions: No Hx Malignant Hyperthermia: No Meds Allergies/Adverse Reactions: Allergies Allergy/AdvReac Type Severity Reaction Status Date / Time No Known Allergies Allergy Verified 12/04/17 01:32 - Medications Medications: Current Medications Sodium Chloride (Sodium Chloride 0.9%) 1,000 mls @ 100 mls/hr IV .Q10H [facility] Last Admin: 12/05/17 04:16 Dose: Not Given Metronidazole (Flagyl) 500 mg in 100 mls @ 100 mls/hr IVPB Q8 [facility] PRN Reason: Protocol Last Admin: 12/05/17 05:13 Dose: 100 mls/hr Potassium Chloride (Potassium Chloride 20 Meq/100 Ml) 20 meq in 100 mls @ 50 mls/hr IVPB Q2 [facility] Stop: 12/05/17 17:59 Last Admin: 12/05/17 10:12 Dose: 50 mls/hr Mupirocin (Bactroban Ointment) 0 gm TOP BID [facility] Pantoprazole Sodium (Protonix Inj) 40 mg IVP DAILY [facility] Last Admin: 12/05/17 09:13 Dose: 40 mg Results - Vital Signs Recent Vital Signs: Last Vital Signs Temp 98.4 F 12/05/17 08:36 Pulse 92 H 12/05/17 08:36 Resp 20 12/05/17 08:36 BP 136/69 12/05/17 08:36 Pulse Ox 96 12/05/17 08:36 - Labs Result Diagrams: 12/05/17 07:00 12/05/17 07:00 Labs: Laboratory Results - last 24 hr 12/05/17 12/05/17 07:00 07:00 WBC 5.0 RBC 3.30 L Hgb 10.3 L Hct 30.6 L MCV 92.7 MCH 31.2 H MCHC 33.6 RDW 15.6 H Plt Count 309 MPV 9.0 Neut % (Auto) 56.9 Lymph % (Auto) 28.1 [place] % (Auto) 10.9 H Eos % (Auto) 3.4 Baso % (Auto) 0.7 Neut # (Auto) 2.8 Lymph # (Auto) 1.4 [place] # (Auto) 0.5 Eos # (Auto) 0.2 Baso # (Auto) 0.0 Sodium 143 Potassium 2.6 L Chloride 103 Carbon Dioxide 29 Anion Gap 14 BUN 5 L Creatinine 0.4 L Est GFR ( Amer) > 60 Est GFR (Non-Af Amer) > 60 Random Glucose 85 Calcium 8.1 L Magnesium 1.6
--- NOTE | 2017-12-05 13:16 | PN ---
DATE: 12/05/2017. LOCATION: [facility], bed B. SUBJECTIVE: This 67 years old female nonverbal, seen and examined earlier in rounds today, is still n.p.o. this morning due to the reported abdominal distention. The entire chart is reviewed including, but not limited to, the most recent lab and radiology study results, current and the previous medication list, current and previous medical events. Case discussed with the staff at length. Today's lab showed hemoglobin 10.3, hematocrit 30.6 with normal white blood cells and the platelet count, low potassium 2.6, low BUN and creatinine with low calcium with reported increase alkaline phosphatase and lactic acid before. The patient had abdominal and pelvic CAT scan yesterday, official report is seen again indicative of dilation of rectosigmoid colon with moderate amount of fluid, less than what reported before. PHYSICAL EXAMINATION: GENERAL: A 67 years old female. VITAL SIGNS: Afebrile with pulse of 90, respiratory rate 20 to 22, blood pressure 124/66. HEENT: Showed pale, dry oral mucous membrane. Nonicteric sclerae. LUNGS: Few scattered crepitation. Decreased air entry at bases. HEART: Positive S1 and S2. ABDOMEN: Soft. Bowel sounds are present, but hypoactive with abdominal distention. PEG tube is in place without residual, resistant or reported bleeding. EXTREMITIES: Without significant cyanosis or clubbing, but lower extremities mild edematous changes. NEUROLOGIC: No new reported neurological deficits, sensory or motor. IMPRESSION: 1. An ileus of unclear etiology; however, the possibility of toxic megacolon was raised before. 2. Known history of cerebrovascular accident, dementia with major depression and seizure disorder. 3. Hypertension by history. 4. Dysphagia, malnutrition with status post percutaneous endoscopic gastrostomy insertion, is stable. 5. Anemia, most likely secondary to chronic disease, no evidence of active bleeding. SUGGESTIONS: 1. Agree with your plan. 2. Correct any underlying electrolyte imbalance. 3. Surgical reevaluation. 4. Maintain rectal tube in place. 5. Further recommendation to follow. Lidia Lam MD
--- NOTE | 2017-12-05 14:02 | CP.PCM.PN ---
Subjective - Date & Time of Evaluation Date of Evaluation: 12/05/17 Time of Evaluation: 12:00 - Subjective Subjective: clinically same Objective - Vital Signs/Intake and Output Vital Signs (last 24 hours): Temp Pulse Resp BP Pulse Ox 98.4 F 92 H 20 136/69 96 12/05/17 08:36 12/05/17 08:36 12/05/17 08:36 12/05/17 08:36 12/05/17 08:36 Intake and Output: 12/05/17 12/05/17 06:59 18:59 Intake Total 800 Output Total 1400 Balance -600 - Medications Medications: Current Medications Sodium Chloride (Sodium Chloride 0.9%) 1,000 mls @ 100 mls/hr IV .Q10H [facility] Last Admin: 12/05/17 04:16 Dose: Not Given Metronidazole (Flagyl) 500 mg in 100 mls @ 100 mls/hr IVPB Q8 [facility] PRN Reason: Protocol Last Admin: 12/05/17 13:27 Dose: 100 mls/hr Potassium Chloride (Potassium Chloride 20 Meq/100 Ml) 20 meq in 100 mls @ 50 mls/hr IVPB Q2 [facility] Stop: 12/05/17 17:59 Last Admin: 12/05/17 12:15 Dose: 50 mls/hr Mupirocin (Bactroban Ointment) 0 gm TOP BID [facility] Last Admin: 12/05/17 11:31 Dose: 1 applic Pantoprazole Sodium (Protonix Inj) 40 mg IVP DAILY [facility] Last Admin: 12/05/17 09:13 Dose: 40 mg - Labs Labs: 12/05/17 07:00 12/05/17 07:00 PT 12.9 SECONDS (9.7-12.2) H 12/04/17 01:36 INR 1.1 12/04/17 01:36 APTT 32 SECONDS (21-34) 12/04/17 01:36 - Constitutional Appears: Well - Head Exam Head Exam: ATRAUMATIC, NORMAL INSPECTION, NORMOCEPHALIC - Eye Exam Eye Exam: EOMI, Normal appearance, PERRL Pupil Exam: NORMAL ACCOMODATION, PERRL - ENT Exam ENT Exam: Mucous Membranes Moist, Normal Exam - Neck Exam Neck Exam: Full ROM, Normal Inspection. absent: Lymphadenopathy - Respiratory Exam Respiratory Exam: Decreased Breath Sounds - Cardiovascular Exam Cardiovascular Exam: REGULAR RHYTHM, +S1, +S2 - GI/Abdominal Exam GI & Abdominal Exam: Soft, Diminished Bowel Sounds - Rectal Exam Rectal Exam: Deferred
--- NOTE | 2017-12-05 14:10 | CON ---
DATE: 12/04/2017 HISTORY OF PRESENT ILLNESS: I was called for GI consultation by Dr. Jaime Kelly. The patient was seen and fully examined on 12/04/2017 as requested. The entire chart is reviewed including, but not limited to the most recent lab and radiology study results, current and the previous medication list, current and previous medical events, case discussed with the staff at length. This 67 years old female, a [facility] resident, nonverbal, was admitted to the hospital through the emergency room due to recurrent distended abdomen with reported distended sigmoid colon with multiple fluid-air level as well as thickened distended sigmoid colon and rectum as per CAT scan report. It has to be mentioned that due to the patient's neurological status, all the information were obtained from the medical record, medical staff, and nursing staff records. It has to be mentioned as per record, no reported active bleeding, nausea, or vomiting. No reported significant shortness of breath or chills or fever. The patient had been in [facility] recently. Endoscopic evaluation of the GI tract was status post PEG insertion recently. PAST MEDICAL HISTORY: Including, but not limited to: 1. Dementia with CVA. 2. History of depression, major. 3. Known history of hypertension with coronary artery disease. 4. Seizures disorder by history. 5. Peptic ulcer disease. FAMILY HISTORY: Unknown. SOCIAL HISTORY: No known recent history of cigarette smoking or alcohol intake. The patient is a [facility] resident. CURRENT MEDICATION: Medication list post admission were reviewed. ALLERGIES TO MEDICATION: UNCLEAR SO FAR. After being admitted to the hospital, the patient was found to have normal CBC with elevated blood glucose level of , CO2 content of 33 indicative of respiratory alkalosis with low potassium at 3.3, low albumin and low total protein. PHYSICAL EXAMINATION: GENERAL: A 67-year-old female, aphasic. VITAL SIGNS: Afebrile with pulse of 92, respiratory rate of 18 to 20, blood pressure 120/56. HEENT: Showed pale, dry oral mucous membrane. Nonicteric sclerae. LUNGS: Few scattered crepitation. Decreased air entry at bases with few rhonchi bilaterally and few rales. HEART: Positive S1 and S2 with increased rate. ABDOMEN: With moderate distention. Bowel sounds are hypoactive. No appreciated mass or organomegaly. No rebound tenderness, or guarding. Feeding tube is in place with evidence of slight anterior abdominal wall cellulitis. No residual bleeding or resistance. EXTREMITIES: Lower extremities with edematous changes. No clubbing or cyanosis. NEUROLOGIC: No new reported neurological deficits sensory or motor. Peripheral pulses are present, but weak bilaterally. No new focal deficits reported. IMPRESSION: 1. Distended left-sided colon with possible partial obstruction versus an ileus megacolon was placed. 2. Re-exacerbation of peptic ulcer disease. 3. Past medical history as mentioned above including, but not limited to hypertension, cardiovascular arrest, seizure disorder, dementia with major depression. 4. Hyperglycemia of unclear etiology. 5. Hypoalbuminemia, malnutrition, status post PEG insertion mild anterior abdominal wall cellulitis. SUGGESTION: 1. Agree with your plan. 2. Rectal tube. 3. IV Flagyl. 4. Blood culture x2. 5. Stool workup including C. diff toxins and antigen as the patient has history of pseudomembranous colitis before. 6. Proton pump inhibitors IV. 7. Flat and upright abdominal x-ray, within the next 24 to 48 hours. 8. Further recommendations to follow. Lidia Lam MD
--- NOTE | 2017-12-05 16:25 | CP.PCM.PN ---
<JordyShane - Last Filed: 12/05/17 16:20> Subjective - Date & Time of Evaluation Date of Evaluation: 12/05/17 Time of Evaluation: 07:05 - Subjective Subjective: Surgery progress note. Dr. Ramsey Pt seen and examined at bedside. No acute events reported overnight. As per staff, patient had multiple episode of bowel movements yesterday after enema. No F/C. No new complaints. Objective - Vital Signs/Intake and Output Vital Signs (last 24 hours): Temp Pulse Resp BP Pulse Ox 98.4 F 92 H 20 136/69 96 12/05/17 08:36 12/05/17 08:36 12/05/17 08:36 12/05/17 08:36 12/05/17 08:36 Intake and Output: 12/05/17 12/05/17 06:59 18:59 Intake Total 800 Output Total 1400 Balance -600 - Medications Medications: Current Medications Sodium Chloride (Sodium Chloride 0.9%) 1,000 mls @ 100 mls/hr IV .Q10H [facility] Last Admin: 12/05/17 04:16 Dose: Not Given Metronidazole (Flagyl) 500 mg in 100 mls @ 100 mls/hr IVPB Q8 [facility] PRN Reason: Protocol Last Admin: 12/05/17 13:27 Dose: 100 mls/hr Potassium Chloride (Potassium Chloride 20 Meq/100 Ml) 20 meq in 100 mls @ 50 mls/hr IVPB Q2 [facility] Stop: 12/05/17 17:59 Last Admin: 12/05/17 16:05 Dose: 50 mls/hr Mupirocin (Bactroban Ointment) 0 gm TOP BID [facility] Last Admin: 12/05/17 11:31 Dose: 1 applic Pantoprazole Sodium (Protonix Inj) 40 mg IVP DAILY [facility] Last Admin: 12/05/17 09:13 Dose: 40 mg - Labs Labs: 12/05/17 07:00 12/05/17 07:00 PT 12.9 SECONDS (9.7-12.2) H 12/04/17 01:36 INR 1.1 12/04/17 01:36 APTT 32 SECONDS (21-34) 12/04/17 01:36 - Constitutional Appears: Non-toxic, No Acute Distress - Head Exam Head Exam: ATRAUMATIC, NORMAL INSPECTION, NORMOCEPHALIC - Eye Exam Eye Exam: EOMI, Normal appearance - ENT Exam ENT Exam: Mucous Membranes Moist - Respiratory Exam Respiratory Exam: NORMAL BREATHING PATTERN. absent: Accessory Muscle Use, Respiratory Distress - Cardiovascular Exam Cardiovascular Exam: absent: JVD - GI/Abdominal Exam GI & Abdominal Exam: Soft. absent: Guarding, Rigid, Rebound Additional comments: Gastrostomy in place - Extremities Exam Extremities Exam: Normal Inspection. absent: Calf Tenderness - Neurological Exam Neurological Exam: Alert Assessment and Plan - Assessment and Plan (Free Text) Assessment: 67yo F with recurrent large bowel pseudo-obstruction - Repeat CT scan with sigmoid distention, however, improved compared to previous studies Plan: - No planned surgical intervention - May resume feeds as tolerated - continue current mgmt as per primary Further recs as per Dr. Braulio Spence PGY1 surgery pager: [phone] <Jorge Ramsey - Last Filed: 12/08/17 16:00> Objective - Vital Signs/Intake and Output Vital Signs (last 24 hours): Temp Pulse Resp BP Pulse Ox 98.2 F 89 18 111/58 L 99 12/06/17 15:35 12/06/17 15:35 12/06/17 15:35 12/06/17 15:35 12/06/17 15:35 - Labs Labs: 12/06/17 07:24 12/06/17 07:24 PT 12.9 SECONDS (9.7-12.2) H 12/04/17 01:36 INR 1.1 12/04/17 01:36 APTT 32 SECONDS (21-34) 12/04/17 01:36 Attending/Attestation - Attestation I have personally seen and examined this patient.: Yes I have fully participated in the care of the patient.: Yes I have reviewed all pertinent clinical information, including history, physical exam and plan: Yes Notes (Text): Pt was seen and examined at bedside Agree with above note and assessment Repeat CT scan of A/P suggestive of Sigmoid dilatation, No obstruction Pt is having BMs Stool softner DC plan c.w current mx Plan d.w pt and primary team in detail
--- NOTE | 2017-12-05 19:01 | CP.PCM.CON ---
History of Present Illness - History of Present Illness History of Present Illness: 67 year old female with PMhx of dementia is sent to the ED from her senior living [facility] for evaluation of abnormal CT. As per CT report patient has a distended sigmoid colon with multiple fluid levels, thick distended sigmoind colon and rectum. Patient is aphasic unable to answer question so history is limited. - Medical History PMH: CVA, Dementia, Depression (major), HTN, Seizures Denies: Chronic Kidney Disease Surgical History: No Surg Hx Review of Systems - Review of Systems Systems not reviewed;Unavailable: Altered Mental Status All systems: reviewed and no additional remarkable complaints except - Constitutional Constitutional: As Per HPI - EENT Eyes: absent: As Per HPI, Blind Spots, Blurred Vision, Change in Vision, Decreased Night Vision, Diplopia, Discharge, Dry Eye, Exophthalmos, Floaters, Irritation, Itchy Eyes, Loss of Peripheral Vision, Pain, Photophobia, Requires Corrective Lenses, Sees Flashes, Spots in Vision, Tunnel Vision, Other Visual Disturbances, Loss of Vision, Other Ears: absent: As Per HPI, Decreased Hearing, Ear Discharge, Ear Pain, Tinnitus, Abnormal Hearing, Disequilibrium, Dizziness, Other - Respiratory Respiratory: absent: As Per HPI, Cough, Dyspnea, Hemoptysis, Dyspnea on Exertion , Wheezing, Snoring, Stridor, Pain on Inspiration, Chest Congestion, Excessive Mucous Production, Change in Mucous Color, Pain with Coughing, Other - Gastrointestinal Gastrointestinal: As Per HPI - Genitourinary Genitourinary: absent: As Per HPI, Change in Urinary Stream, Difficulty Urinating, Dysuria, Flank Pain, Hematuria, Pyuria, Nocturia, Urinary Incontinence, Urinary Frequency, Urinary Hesitance, Urinary Urgency, Voiding Freq/Small Amts, Freq UTI, Hx Renal/Bladder Calculi, Hx /Renal Surgery, Bladder Distension, Other - Menstruation Menstruation: absent: As Per HPI, Amenorrhea, Amenorrhea/ Control, Currently Menstual, Cycle <21 Days, Cycle >35 Days, Cycle Variable, Menses 1-7 Days, Menses >/= 8 Days, Menses Variable, Cycle > 4 Weeks Between, No Menses for 6 Months, Heavy Menses, Light Menses, Normal Menses, Spotting Between Cycles , S/P Hysterectomy, Menopausal, Post Menopausal, Premenarche, Abnormal Vaginal Bleeding, Dysmenorrhea, Other - Musculoskeletal Musculoskeletal: absent: As Per HPI, Abnormal Gait, Arthralgias, Atrophy, Back Pain, Deformity, Joint Swelling, Limited Range of Motion, Loss of Height, Muscle Cramps, Muscle Weakness, Myalgias, Neck Pain, Numbness, Radiating Pain into Limb, Stiffness, Tingling, Other - Integumentary Integumentary: absent: As Per HPI, Acne, Alopecia, Bleeding Lesions, Change in Hair, Change in Nails, Change in Pigmentation, Changing Lesions, Dry Skin, Erythema, Furuncle, Hirsutism, Lesions, New Lesions, Non-Healing Lesions, Photosensitivity, Pruritus, Rash, Skin Pain, Skin Ulcer, Sores, Striae, Swelling , Unusual Bruising, Wounds, Jaundice, Other - Neurological Neurological: As Per HPI - Psychiatric Psychiatric: absent: As Per HPI, Abnormal Sleep Pattern, Anhedonia, Anxiety, Auditory Hallucinations, Behavioral Changes, Change in Appetite, Change in Libido, Confusion, Depression, Difficulty Concentrating, Hallucinations, Homicidal Ideation, Hopelessness, Irritability, Memory Loss, Mood Swings, Panic Attacks, Paranoia, Suicidal Ideation, Visual Hallucinations, Tactile Hallucinations, Other - Endocrine Endocrine: absent: As Per HPI, Change in Body Appearance, Change in Libido, Cold Intolorance, Deepening of Voice, Excessive Sweating, Fatigue, Flushing, Heat Intolorance, Increase in Ring/Shoe/Hat Size, Palpitations, Polydipsia, Polyphagia, Polyuria, Other Past Patient History - Infectious Disease Hx of Infectious Diseases: None - Past Medical History & Family History Past Medical History?: Yes - Past Social History Smoking Status: Never Smoked - CARDIAC Hx Hypertension: Yes - NEUROLOGICAL Hx Dementia: Yes Hx Seizures: Yes - HEENT Hx HEENT Problems: No - RENAL Hx Chronic Kidney Disease: No - INTEGUMENTARY Other/Comment: cellulitis - MUSCULOSKELETAL/RHEUMATOLOGICAL Hx Falls: No - GASTROINTESTINAL Other/Comment: gastrostomy - GENITOURINARY/GYNECOLOGICAL Hx Incontinence: Yes - PSYCHIATRIC Hx Substance Use: No - SURGICAL HISTORY Other/Comment: brain surgery due to aneurysm,peg tube insertion. - ANESTHESIA Hx Anesthesia: Yes Hx Anesthesia Reactions: No Hx Malignant Hyperthermia: No Meds Allergies/Adverse Reactions: Allergies Allergy/AdvReac Type Severity Reaction Status Date / Time No Known Allergies Allergy Verified 12/04/17 01:32 - Medications Medications: Current Medications Sodium Chloride (Sodium Chloride 0.9%) 1,000 mls @ 100 mls/hr IV .Q10H [facility] Last Admin: 12/05/17 14:33 Dose: 100 mls/hr Metronidazole (Flagyl) 500 mg in 100 mls @ 100 mls/hr IVPB Q8 [facility] PRN Reason: Protocol Last Admin: 12/05/17 13:27 Dose: 100 mls/hr Mupirocin (Bactroban Ointment) 0 gm TOP BID [facility] Last Admin: 12/05/17 11:31 Dose: 1 applic Pantoprazole Sodium (Protonix Inj) 40 mg IVP DAILY [facility] Last Admin: 12/05/17 09:13 Dose: 40 mg Physical Exam - Constitutional Appears: Confused, Cachectic, Chronically Ill - Head Exam Head Exam: NORMOCEPHALIC - Eye Exam Eye Exam: PERRL. absent: Scleral icterus - ENT Exam ENT Exam: Mucous Membranes Dry, Normal External Ear Exam - Neck Exam Neck exam: Negative for: Lymphadenopathy, Meningismus, Thyromegaly - Respiratory Exam Respiratory Exam: Decreased Breath Sounds, Clear to Auscultation Bilateral. absent: Chest Wall Tenderness - Cardiovascular Exam Cardiovascular Exam: REGULAR RHYTHM, +S1, +S2 - GI/Abdominal Exam GI & Abdominal Exam: Diminished Bowel Sounds, Distended, Soft. absent: Guarding , Rebound, Rigid, Tenderness - Rectal Exam Rectal Exam: Deferred - Exam Exam: NORMAL INSPECTION - Extremities Exam Extremities exam: Negative for: pedal edema - Back Exam Back exam: absent: CVA tenderness (L), CVA tenderness (R), paraspinal tenderness - Neurological Exam Neurological exam: Altered - Psychiatric Exam Psychiatric exam: Depressed - Skin Skin Exam: Dry Results - Vital Signs Recent Vital Signs: Last Vital Signs Temp 97.3 F L 12/05/17 16:30 Pulse 96 H 12/05/17 16:30 Resp 20 12/05/17 16:30 BP 111/62 12/05/17 16:30 Pulse Ox 96 12/05/17 16:30 - Labs Result Diagrams: 12/05/17 07:00 12/05/17 07:00 Labs: Laboratory Results - last 24 hr 12/05/17 12/05/17 07:00 07:00 WBC 5.0 RBC 3.30 L Hgb 10.3 L Hct 30.6 L MCV 92.7 MCH 31.2 H MCHC 33.6 RDW 15.6 H Plt Count 309 MPV 9.0 Neut % (Auto) 56.9 Lymph % (Auto) 28.1 [facility] % (Auto) 10.9 H Eos % (Auto) 3.4 Baso % (Auto) 0.7 Neut # (Auto) 2.8 Lymph # (Auto) 1.4 [facility] # (Auto) 0.5 Eos # (Auto) 0.2 Baso # (Auto) 0.0 Sodium 143 Potassium 2.6 L Chloride 103 Carbon Dioxide 29 Anion Gap 14 BUN 5 L Creatinine 0.4 L Est GFR ( Amer) > 60 Est GFR (Non-Af Amer) > 60 Random Glucose 85 Calcium 8.1 L Magnesium 1.6 Assessment & Plan (1) Large bowel obstruction Status: Acute (2) Abdominal distension Status: Acute - Assessment and Plan (Free Text) Assessment: admitted with int obst GI and Surg on board await cultures cont empiric rx
[2017-12-05] MEDS ORDERED: Potassium Chloride 20 mEq/15 ml LIQ UD PO ONE (19:15)
[2017-12-05 22:51] LABS: ALB/GLOB RATIO 0.8 (1.0-2.1); ALBUMIN 3.2 g/dL (3.5-5.0); ALT/SGPT 47 U/L (9-52); AST/SGOT 35 U/L (14-36); BLOOD UREA NITROGEN 7 mg/dL (7-17); CALCIUM 8.2 mg/dl (8.6-10.4); GFR AFRICAN-AMERICAN > 60; GFR NON-AFRICAN AMERICAN > 60
[2017-12-06] MEDS: Sodium Chloride 0.9% 1,000 ML IV SCH ×2 (00:39→04:04)
[2017-12-06] MEDS: metroNIDAZOLE IV 500 mg/100 ml 500 MG/100 ML BAG IVPB SCH (05:22)
[2017-12-06 07:34] LABS: BASO # 0.1 K/uL (0.0-0.2); BASO % 1.2 % (0.0-2.0); EOS # 0.2 K/uL (0.0-0.7); EOS % 2.6 % (0.0-4.0); HEMOGLOBIN 10.8 g/dL (11.0-16.0); LYMPH # 1.5 K/uL (1.0-4.3); LYMPH % 24.8 % (20.0-40.0); MEAN CELL VOLUME 92.6 fL (81.0-99.0); MEAN CORPUSCULAR HEMOGLOBIN 31.1 pg (27.0-31.0); MEAN CORPUSCULAR HGB CONC 33.5 g/dL (33.0-37.0); MEAN PLATELET VOLUME 8.9 fL (7.2-11.7); MONO # 0.7 K/uL (0.0-0.8); NEUT # 3.5 K/uL (1.8-7.0); NEUT % 59.4 % (50.0-75.0); NRBC % 0.1 % (0.0-2.0); RBC 3.49 Mil/uL (3.80-5.20); RED CELL DISTRIBUTION WIDTH 15.5 % (11.5-14.5); WHITE BLOOD COUNT 5.9 K/uL (4.8-10.8)
[2017-12-06 07:52] VITALS: RESP 18
[2017-12-06 08:06] LABS: ALB/GLOB RATIO 0.8 (1.0-2.1); ALBUMIN 3.1 g/dL (3.5-5.0); ALT/SGPT 49 U/L (9-52); AST/SGOT 37 U/L (14-36); BLOOD UREA NITROGEN 5 mg/dL (7-17); CALCIUM 7.9 mg/dl (8.6-10.4); GFR AFRICAN-AMERICAN > 60; GFR NON-AFRICAN AMERICAN > 60
--- NOTE | 2017-12-06 08:17 | CP.PCM.PN ---
<Ana Maria Stone - Last Filed: 12/06/17 08:14> Subjective - Date & Time of Evaluation Date of Evaluation: 12/06/17 Time of Evaluation: 08:14 - Subjective Subjective: Surgery: Dr. Ramsey Pt seen and examined. No acute overnight events. Pt able to respond to commands with gestures, denies pain at this time. Tube feeds have been started which pt is tolerating. No fevers recorded overnight. Per nursing, pt having BMs yesterday morning. Objective - Vital Signs/Intake and Output Vital Signs (last 24 hours): Temp Pulse Resp BP Pulse Ox 98.1 F 96 H 18 128/77 98 12/06/17 07:35 12/06/17 07:35 12/06/17 07:35 12/06/17 07:35 12/06/17 07:35 Intake and Output: 12/06/17 12/06/17 06:59 18:59 Intake Total 2120 Output Total 900 Balance 1220 - Medications Medications: Current Medications Sodium Chloride (Sodium Chloride 0.9%) 1,000 mls @ 100 mls/hr IV .Q10H [facility] Last Admin: 12/06/17 04:04 Dose: 100 mls/hr Metronidazole (Flagyl) 500 mg in 100 mls @ 100 mls/hr IVPB Q8 JF PRN Reason: Protocol Last Admin: 12/06/17 05:22 Dose: 100 mls/hr Cefazolin Sodium 500 mg/ (Sodium Chloride) 100 mls @ 100 mls/hr IVPB Q8H JF PRN Reason: Protocol Last Admin: 12/06/17 04:00 Dose: 100 mls/hr Mupirocin (Bactroban Ointment) 0 gm TOP BID [facility] Last Admin: 12/05/17 21:22 Dose: 1 applic Pantoprazole Sodium (Protonix Inj) 40 mg IVP DAILY [facility] Last Admin: 12/05/17 09:13 Dose: 40 mg - Labs Labs: 12/06/17 07:24 12/06/17 07:24 PT 12.9 SECONDS (9.7-12.2) H 12/04/17 01:36 INR 1.1 12/04/17 01:36 APTT 32 SECONDS (21-34) 12/04/17 01:36 - Constitutional Appears: No Acute Distress - Head Exam Head Exam: ATRAUMATIC, NORMOCEPHALIC - ENT Exam ENT Exam: Mucous Membranes Moist - Respiratory Exam Respiratory Exam: NORMAL BREATHING PATTERN - Cardiovascular Exam Cardiovascular Exam: Tachycardia - GI/Abdominal Exam GI & Abdominal Exam: Soft. absent: Distended Additional comments: PEG in place; C/D/I - Neurological Exam Neurological Exam: Alert, Awake - Skin Skin Exam: Dry, Warm Assessment and Plan - Assessment and Plan (Free Text) Assessment: 67F with recurrent episodes of colonic distention treated conservatively Plan: - cont conservative management - pt tolerating tube feeds - rec PRN enemas for constipation - no further surgical intervention at this time - d/w Dr. Ramsey who agrees with above Chase, PGY-3 <Jorge Ramsey - Last Filed: 12/08/17 16:02> Objective - Vital Signs/Intake and Output Vital Signs (last 24 hours): Temp Pulse Resp BP Pulse Ox 98.2 F 89 18 111/58 L 99 12/06/17 15:35 12/06/17 15:35 12/06/17 15:35 12/06/17 15:35 12/06/17 15:35 - Labs Labs: 12/06/17 07:24 12/06/17 07:24 PT 12.9 SECONDS (9.7-12.2) H 12/04/17 01:36 INR 1.1 12/04/17 01:36 APTT 32 SECONDS (21-34) 12/04/17 01:36 Attending/Attestation - Attestation I have personally seen and examined this patient.: Yes I have fully participated in the care of the patient.: Yes I have reviewed all pertinent clinical information, including history, physical exam and plan: Yes Notes (Text): Pt was seen and examined at bedside Agree with above note and assessment Pt is improving clinically Have Bowel movement Abdomen is soft, NT DC Plan c.w current mx Plan d.w pt and primary team in detail
--- NOTE | 2017-12-06 09:57 | CP.PCM.PN ---
Subjective - Date & Time of Evaluation Date of Evaluation: 12/06/17 Time of Evaluation: 09:54 - Subjective Subjective: PGY-[address] Kelly's service: Pt seen and examined at bedside. Nursing reports no acute events overnight. Pt with PMHx of brain aneurysm. Patient aphasic but able to shake head yes/no. Denies pain anywhere on her body at this time. Per nursing/EMR pt afebrile. She shakes head 'no' to fever/chills/CP/abd pain/ N/V. Per nursing pt had multiple BMs yesterday AM, and PEG tube functioning without difficulty. Objective - Vital Signs/Intake and Output Vital Signs (last 24 hours): Temp Pulse Resp BP Pulse Ox 98.1 F 96 H 18 128/77 98 12/06/17 07:35 12/06/17 07:35 12/06/17 07:35 12/06/17 07:35 12/06/17 07:35 Intake and Output: 12/06/17 12/06/17 06:59 18:59 Intake Total 2120 Output Total 900 Balance 1220 - Medications Medications: Current Medications Metronidazole (Flagyl) 500 mg in 100 mls @ 100 mls/hr IVPB Q8 JF PRN Reason: Protocol Last Admin: 12/06/17 05:22 Dose: 100 mls/hr Cefazolin Sodium 500 mg/ (Sodium Chloride) 100 mls @ 100 mls/hr IVPB Q8H JF PRN Reason: Protocol Last Admin: 12/06/17 04:00 Dose: 100 mls/hr Mupirocin (Bactroban Ointment) 0 gm TOP BID JF Last Admin: 12/05/17 21:22 Dose: 1 applic Pantoprazole Sodium (Protonix Inj) 40 mg IVP DAILY [facility] Last Admin: 12/05/17 09:13 Dose: 40 mg - Labs Labs: 12/06/17 07:24 12/06/17 07:24 PT 12.9 SECONDS (9.7-12.2) H 12/04/17 01:36 INR 1.1 12/04/17 01:36 APTT 32 SECONDS (21-34) 12/04/17 01:36 - Constitutional Appears: Non-toxic, No Acute Distress - Head Exam Head Exam: ATRAUMATIC, NORMAL INSPECTION - Eye Exam Eye Exam: EOMI, PERRL - ENT Exam ENT Exam: Mucous Membranes Moist - Neck Exam Neck Exam: Full ROM - Respiratory Exam Respiratory Exam: Clear to Ausculation Bilateral, NORMAL BREATHING PATTERN - Cardiovascular Exam Cardiovascular Exam: REGULAR RHYTHM, +S1, +S2 - GI/Abdominal Exam GI & Abdominal Exam: Soft, Normal Bowel Sounds. absent: Tenderness - Extremities Exam Extremities Exam: absent: Normal Inspection, Pedal Edema, Tenderness Additional comments: limbs contracted - Back Exam Back Exam: absent: CVA tenderness (L), CVA tenderness (R) - Neurological Exam Neurological Exam: Alert, Awake, Oriented x3 - Skin Skin Exam: Dry, Normal Color, Warm Assessment and Plan - Assessment and Plan (Free Text) Plan: LBO Admit to tele Sent to ED from [facility] for evaluation of abnormal CT - per CT report patient has a distended sigmoid colon with multiple fluid levels CT A/P (12/04/17) at [facility]: Dilatation of rectosigmoid colon with moderate amt of fluid. Decreased dilatation vs 11/11/17 exam. Mural thickeing of transverse colon and splenic flexure nonspecific. Consider infectious/inflammatory colitis. Percutaneous gastrostomy. medical device sales consultant, Dr. Ramsey, help appreciated: - pt tolerating tube feeds - Enema for constipation - No surgical intervention at this time Dr. Gibson, GI golf tournament consultant - ileus of unclear etiology; possibility of toxic megacolon - consider Rectal tube Abdominal wound infection Dr. Oden, ID golf tournament consultant Abd Wound Cx (12/04/17): Pseudomonas aeruginosa, Staph aureus Cipro 500mg PEG Q12H (start 12/06/17) Vancomycin 1 gm IV Q12H (start 12/06/17) Discounted Cefazolin 500mg IV Q8H (12/05/17, 2 Days) & Flagyl 500mg IV Q8H ( start 12/04/17, 3 Days) Blood culture (12/04/17): No growth x 48 hrs Urine Cx (12/04/17): No growth Hx of seizures Restart home Keppra 500mg PO BID Major Depression Restart home Sertraline 50mg PO Tablet Sepsis, resolved Lactate 2.4 on admission No leukocytosis/fever over hospital course Wound culture (12/04/17): P. aeruginosa, S. aureus (see antibiotics above) HTN Well controlled HOLD Norvasc 5mg GT at this time Electrolyte Abnormality: K 3.5, repleted Mg 1.5 on AM labs, repleted Sacral wounds Wedge/optimize for offloading Evaluation by wound care nurse Prophylaxis Protonix 40mg IV Daily SCDs Disposition: Per attending, Dr. Kelly, he will speak with Dr. Ramsey about patient treatment moving forward. Appreciate recommendations from Dr. Oden regarding antibiotics. All medical management per Dr. Kelly
[2017-12-06] MEDS ORDERED: Potassium Chloride 20 mEq/15 ml LIQ UD PEG ONE (10:39)
[2017-12-06] MEDS ORDERED: Magnesium Sulfate 1 gm in D5W 1 GM/100 ML BAG IVPB ONE (10:41)
[2017-12-06] MEDS ORDERED: Vancomycin 1 gm/NS 200 ml 1 GM/200 ML BAG IVPB SCH (12:00)
--- NOTE | 2017-12-06 13:04 | CP.PCM.PN ---
Subjective - Date & Time of Evaluation Date of Evaluation: 12/06/17 Time of Evaluation: 07:00 - Subjective Subjective: discussed on rounds recommendations made Objective - Vital Signs/Intake and Output Vital Signs (last 24 hours): Temp Pulse Resp BP Pulse Ox 98.1 F 96 H 18 128/77 98 12/06/17 07:35 12/06/17 07:35 12/06/17 07:35 12/06/17 07:35 12/06/17 07:35 Intake and Output: 12/06/17 12/06/17 06:59 18:59 Intake Total 2120 Output Total 900 Balance 1220 - Medications Medications: Current Medications Ciprofloxacin (Cipro) 500 mg PEG Q12H JF PRN Reason: Protocol Stop: 12/13/17 10:46 Last Admin: 12/06/17 11:18 Dose: 500 mg Vancomycin/Sodium Chloride (Vancomycin 1 Gm/Ns 200 Ml) 1 gm in 200 mls @ 133 mls/hr IVPB Q12H JF PRN Reason: Protocol Stop: 12/11/17 12:01 Mupirocin (Bactroban Ointment) 0 gm TOP BID [facility] Last Admin: 12/06/17 09:55 Dose: 1 applic Pantoprazole Sodium (Protonix Inj) 40 mg IVP DAILY [facility] Last Admin: 12/06/17 09:55 Dose: 40 mg - Labs Labs: 12/06/17 07:24 12/06/17 07:24 PT 12.9 SECONDS (9.7-12.2) H 12/04/17 01:36 INR 1.1 12/04/17 01:36 APTT 32 SECONDS (21-34) 12/04/17 01:36 - Constitutional Appears: Non-toxic, Chronically Ill - Head Exam Head Exam: NORMOCEPHALIC - Eye Exam Eye Exam: PERRL - ENT Exam ENT Exam: Mucous Membranes Dry - Neck Exam Neck Exam: absent: Lymphadenopathy - Respiratory Exam Respiratory Exam: Decreased Breath Sounds - Cardiovascular Exam Cardiovascular Exam: REGULAR RHYTHM - GI/Abdominal Exam GI & Abdominal Exam: Distended, Soft - Rectal Exam Rectal Exam: Deferred Assessment and Plan (1) Large bowel obstruction Status: Acute (2) Abdominal distension Status: Acute - Assessment and Plan (Free Text) Assessment: cont rx as planned for 7 days
--- NOTE | 2017-12-06 15:02 | PN ---
DATE: 12/06/2017. LOCATION: [address] SUBJECTIVE: This is a 67 years old female seen and examined in rounds earlier today without significant clinical changes with much less distention of the abdomen, tolerating PEG tube feeding without reported residual bleeding or resistant. The patient is nonverbal. The entire chart is reviewed including but not limited to the most recent lab and radiology study results, current and the previous medication list, current and previous medical events. Case discussed with the staff at length. Today,her labs showed hemoglobin of 10.8, hematocrit of 32.3 with normal white blood cells, potassium 3.5 with low BUN and creatinine, calcium 7.9, magnesium is 1.5 with albumin of 3.1. PHYSICAL EXAMINATION: GENERAL: A 67 years old female. VITAL SIGNS: Afebrile with pulse of 94, respiratory rate of 20 to 22, blood pressure of 120/74. HEENT: Showed mildly pale dry mucous membranes. Nonicteric sclerae. LUNGS: Scattered crepitation. Decreased air entry at bases. HEART: Positive S1 and S2. ABDOMEN: With mild distention with slight generalized tenderness. No mass or organomegaly. No rebound tenderness or guarding. PEG tube is in place. EXTREMITIES: With edematous changes. No clubbing or cyanosis. NEUROLOGIC: No reported new neurological deficit. IMPRESSION: 1. Malnutrition with status post percutaneous endoscopic gastrostomy insertion due to dysphagia with hypoalbuminemia. 2. Reported an ileus most likely secondary to an infectious process, improving clinically. 3. Known history of seizure disorder, depression, hypertension. 4. Electrolyte imbalance with hypomagnesemia. 5. Known history of cerebrovascular accident, dementia with major depression. 6. Recent history of anemia mostly secondary to above as there is no evidence of active gastrointestinal bleeding. SUGGESTIONS: 1. Continue current management. 2. Subsequent increase of the rate of feeding as tolerated. 3. Further recommendation to follow. Lidia Lam MD
[2017-12-06 15:40] VITALS: BP 111/58; PULSE 89; TEMP 98.2; O2SAT 99
[2017-12-06] MEDS ORDERED: levETIRAcetam 100 mg/ml (5ml) Oral Syringe PEG SCH (18:00)
--- NOTE | 2017-12-06 18:17 | CP.PCM.PN ---
Subjective - Date & Time of Evaluation Date of Evaluation: 12/06/17 Time of Evaluation: 09:00 - Subjective Subjective: clinically same Objective - Vital Signs/Intake and Output Vital Signs (last 24 hours): Temp Pulse Resp BP Pulse Ox 98.2 F 89 18 111/58 L 99 12/06/17 15:35 12/06/17 15:35 12/06/17 15:35 12/06/17 15:35 12/06/17 15:35 Intake and Output: 12/06/17 12/06/17 06:59 18:59 Intake Total 2120 Output Total 900 Balance 1220 - Medications Medications: Current Medications Ciprofloxacin (Cipro) 500 mg PEG Q12H JF PRN Reason: Protocol Stop: 12/13/17 10:46 Last Admin: 12/06/17 11:18 Dose: 500 mg Vancomycin/Sodium Chloride (Vancomycin 1 Gm/Ns 200 Ml) 1 gm in 200 mls @ 133 mls/hr IVPB Q12H JF PRN Reason: Protocol Stop: 12/11/17 12:01 Last Admin: 12/06/17 12:30 Dose: 133 mls/hr Levetiracetam (Keppra) 500 mg PEG BID JF Mupirocin (Bactroban Ointment) 0 gm TOP BID [facility] Last Admin: 12/06/17 09:55 Dose: 1 applic Pantoprazole Sodium (Protonix Inj) 40 mg IVP DAILY [facility] Last Admin: 12/06/17 09:55 Dose: 40 mg Sertraline HCl (Zoloft) 50 mg JT DAILY [facility] Last Admin: 12/06/17 13:44 Dose: 50 mg - Labs Labs: 12/06/17 07:24 12/06/17 07:24 PT 12.9 SECONDS (9.7-12.2) H 12/04/17 01:36 INR 1.1 12/04/17 01:36 APTT 32 SECONDS (21-34) 12/04/17 01:36 - Constitutional Appears: Well - Head Exam Head Exam: ATRAUMATIC, NORMAL INSPECTION, NORMOCEPHALIC - Eye Exam Eye Exam: EOMI, Normal appearance, PERRL Pupil Exam: NORMAL ACCOMODATION, PERRL - ENT Exam ENT Exam: Mucous Membranes Moist, Normal Exam - Neck Exam Neck Exam: Full ROM, Normal Inspection. absent: Lymphadenopathy - Respiratory Exam Respiratory Exam: Decreased Breath Sounds - Cardiovascular Exam Cardiovascular Exam: REGULAR RHYTHM, +S1, +S2 - GI/Abdominal Exam GI & Abdominal Exam: Soft, Diminished Bowel Sounds - Rectal Exam Rectal Exam: Deferred
[2017-12-06] MEDS ORDERED: Potassium Chloride 20 mEq/15 ml LIQ UD PO STA (19:27)
== END 2017-12-06 22:37 | disposition designated cancer center or children's hospital (05) | DRG 389 ==
LOC: C.ER 01:16 → C.6T 04:35
PROVIDERS: ADMIT Internal Medicine Nephrology; ATTEND Internal Medicine Nephrology
DX: K56.609 Unspecified intestinal obstruction, unspecified as to partial versus complete obstruction (principal); E46 Unspecified protein-calorie malnutrition; F03.90 Unspecified dementia, unspecified severity, without behavioral disturbance, psychotic disturbance, mood disturbance, and anxiety; E83.42 Hypomagnesemia; G40.909 Epilepsy, unspecified, not intractable, without status epilepticus; I10 Essential (primary) hypertension; I25.10 Atherosclerotic heart disease of native coronary artery without angina pectoris; K27.9 Peptic ulcer, site unspecified, unspecified as acute or chronic, without hemorrhage or perforation; K56.7 Ileus, unspecified; Z86.73 Personal history of transient ischemic attack (TIA), and cerebral infarction without residual deficits; D63.8 Anemia in other chronic diseases classified elsewhere